=== PATIENT | female | born 1945 | race African-American/Black ===

== ENCOUNTER 2016-07-10 21:50 | Emergency (ER) | payer OTHER ==
--- NOTE | 2016-07-10 21:59 | PDOC ---
History of Present Illness - General History Source: Patient Exam Limitations: No Limitations - History of Present Illness Initial Comments: 07/10/16 22:28 The patient is a 71 year old female with significant history of hypertension, hyperlipidemia, atrial fibrillation, CAD s/p stent, CHF, asthma, brought in by EMS complaining of right toe pain. The patient reports she stubbed her right first and second toes on a door and subsequently developed 10/10 pain, prompting her to activate EMS. She is unable to localize her pain. On evaluation , the patient also complains of 2 days of cough with white sputum and shortness of breath. Today she developed midsternal chest pain secondary to cough, made worse with cough and deep inspiration. She states she has been taking a nebulizer at home. The patient denies fever or chills. She denies nausea, vomiting, or diaphoresis. She denies any new peripheral edema. She denies any numbness or tingling. <Lilli James - Last Filed: 07/11/16 01:18> <Antoni Samayoa - Last Filed: 07/11/16 01:30> - General Stated Complaint: TOE PAIN Time Seen by Provider: 07/10/16 21:55 Past History <Lilli James - Last Filed: 07/11/16 01:18> - Past Medical History Anemia: Yes Asthma: Yes Cancer: No Cardiac Disorders: Yes (atrial fibrillation, CARDIAC CATH 2010-NORMAL) CVA: No COPD: Yes CHF: No Dementia: Yes Diabetes: Yes Dialysis: Yes GI Disorders: Yes (POLYPS; DIVERTICULOSIS; GERD) Disorders: No HTN: Yes Hypercholesterolemia: No Liver Disease: No Psychiatric Problems: Yes (schiophrenia) Suicide Attempt (Hx): No Seizures: No Thyroid Disease: No - Surgical History Abdominal Surgery: Yes (intestinal blockage 2010; HIATAL HERNIA;) Appendectomy: No Cardiac Surgery: No Cholecystectomy: No Lung Surgery: No Neurologic Surgery: Yes (UPPER BACK SX) Orthopedic Surgery: Yes (R. Knee replacement 2010) - Immunization History Immunization Up to Date: Yes - Psycho/Social/Smoking Cessation Hx Anxiety: No Suicidal Ideation: No Smoking Status: No Smoking History: Never smoked Have you smoked in the past 12 months: No Number of Cigarettes Smoked Daily: 0 Hx Alcohol Use: Yes (none x 30 years) Drug/Substance Use Hx: No Substance Use Type: Alcohol Hx Substance Use Treatment: No (12 steps) <Antoni Samayoa - Last Filed: 07/11/16 01:30> - Past Medical History Allergies/Adverse Reactions: Allergies Allergy/AdvReac Type Severity Reaction Status Date / Time No Known Drug Allergies Allergy Verified 07/10/16 22:10 lactose [Lactose] AdvReac Verified 07/10/16 22:10 Home Medications: Ambulatory Orders Dabigatran Etexilate Mesylate [Pradaxa -] 150 mg PO BID #180 cap 11/05/15 Diltiazem Cd [Cardizem Cd -] 120 mg PO DAILY #90 cap.cd.24h 11/05/15 Ferrous Sulfate [Feosol] 325 mg PO DAILY #30 tablet 11/05/15 Furosemide [Lasix -] 20 mg PO DAILY #90 11/05/15 Pantoprazole Sodium [Protonix -] 40 mg PO BID #60 tablet.ec 11/05/15 Risperidone [Risperdal -] 1 mg PO BID tablet 11/05/15 Duloxetine HCl [Cymbalta -] 30 mg PO DAILY capsule. 02/26/16 Gabapentin [Neurontin -] 300 mg PO TID capsule 03/03/16 Lactobacillus Acidophilus [Bacid -] 1 tab PO DAILY tab 03/03/16 Polyethylene Glycol 3350 [Miralax 119 gm Btl -] 17 gm PO TID bottle 03/03/16 Sertraline HCl [Zoloft] 50 mg PO DAILY 04/20/16 Diclofenac Sodium [Voltaren] 100 gm TP TID 06/17/16 Naproxen [EC-Naprosyn] 375 mg PO BID 06/17/16 Levofloxacin [Levaquin] 750 mg PO DAILY #10 tab 07/11/16 Methylprednisolone [Medrol Dose Ifeanyi] 4 mg PO ASDIR #21 tablet 07/11/16 Oxycodone HCl/Acetaminophen [Percocet 5-325 mg Tablet] 1 - 2 tab PO Q6H #20 tab MDD 4 07/11/16 Review of Systems - Review of Systems Able to Perform ROS?: Yes Comments:: 07/10/16 22:35 GENERAL/CONSTITUTIONAL: No fever or chills. No weakness. HEAD, EYES, EARS, NOSE AND THROAT: No change in vision. No ear pain or discharge. No sore throat CARDIOVASCULAR: No lightheadedness, palpitations, or peripheral edema. RESPIRATORY: Cough with white sputum. Wheezing. Pleuritic chest pain. GASTROINTESTINAL: No nausea, vomiting, diarrhea or constipation. GENITOURINARY: No dysuria, frequency, or change in urination. MUSCULOSKELETAL: Left first and second toe pain. No other joint or muscle swelling or pain. No neck or back pain. SKIN: No rash NEUROLOGIC: No headache, vertigo, loss of consciousness, or change in strength/ sensation. No numbness or tingling. ENDOCRINE: No increased thirst. No abnormal weight change. HEMATOLOGIC/LYMPHATIC: No anemia, easy bleeding, or history of blood clots. ALLERGIC/IMMUNOLOGIC: No hives or skin allergy. <Lilli James - Last Filed: 07/11/16 01:18> *Physical Exam - Vital Signs Last Vital Signs Temp Pulse Resp BP Pulse Ox 98.4 F 63 18 123/57 99 07/10/16 22:08 07/10/16 22:08 07/10/16 22:08 07/10/16 22:08 07/10/16 22:08 - Physical Exam Comments: 07/10/16 22:40 GENERAL: Awake, alert, and fully oriented, in no acute distress HEAD: No signs of trauma EYES: PERRLA, EOMI, sclera anicteric, conjunctiva clear ENT: Auricles normal inspection, hearing grossly normal, nares patent, oropharynx clear without exudates. Moist mucosa NECK: Normal ROM, supple, no lymphadenopathy, JVD, or masses LUNGS: Anterior chest wall pain reproducible to palpation. Breath sounds equal, clear to auscultation bilaterally. No wheezes, and no crackles HEART: Regular rate and rhythm, normal S1 and S2, no murmurs, rubs or gallops ABDOMEN: Soft, nontender, normoactive bowel sounds. No guarding, no rebound. No masses EXTREMITIES: Left lower extremity: Diffuse tenderness to the first and second toes, no obvious bony deformity, sensation intact. All other extremities: Normal range of motion, no edema. No clubbing or cyanosis. No cords, erythema, or tenderness NEUROLOGICAL: Cranial nerves II through XII grossly intact. Normal speech, gait deferred. SKIN: Warm, Dry, normal turgor, no rashes or lesions noted. <Lilli James - Last Filed: 07/11/16 01:18> ED Treatment Course - LABORATORY CBC & Chemistry Diagram: 07/10/16 23:00 07/10/16 23:00 <Lilli James - Last Filed: 07/11/16 01:18> - LABORATORY CBC & Chemistry Diagram: 07/10/16 23:00 07/10/16 23:00 <Antoni Samayoa - Last Filed: 07/11/16 01:30> Medical Decision Making - Medical Decision Making 07/10/16 22:47 Plan: Cough and chest pain- CBC, CMP, cardiac enzymes, PT/INR, CXR, EKG Right toe pain: Right foot x-ray 07/10/16 22:58 EKG obtained 22:26. Normal sinus rhythm at 63 bpm. Left anterior fascicular block. Voltage criteria for left ventricular hypertrophy. Cannot rule out septal infarct, age undetermined. Abnormal ECG. 07/11/16 01:18 CXR shows bronchopneumonia. R foot x-ray is negative for fracture. Labs unremarkable. Will d/c home on Levaquin with Percocet for pain management. <Lilli James - Last Filed: 07/11/16 01:18> *DC/Admit/Observation/Transfer - Attestations Scribe Attestion: 07/10/16 22:45 Documentation prepared by Lilli James, acting as medical representative for Antoni Samayoa DO. <Lilli James - Last Filed: 07/11/16 01:18> - Discharge Dispostion Admit: No - Attestations Physician Attestion: 07/10/16 21:58 I, Dr. Antoni Samayoa, attest that this document has been prepared under my direction and personally reviewed by me in its entirety. I further attest, that it accurately reflects all work, treatment, procedures and medical decision -making performed by me. <Antoni Samayoa - Last Filed: 07/11/16 01:30> Diagnosis at time of Disposition: Bronchitis Contusion of toe of right foot Qualifiers: Encounter type: initial encounter Toe: great toe Damage to nail status: without damage Qualified Code(s): S90.111A - Contusion of right great toe without damage to nail, initial encounter - Discharge Dispostion Disposition: HOME Condition at time of disposition: Good - Prescriptions Prescriptions: Levofloxacin [Levaquin] 750 mg PO DAILY #10 tab Methylprednisolone [Medrol Dose Ifeanyi] 4 mg PO ASDIR #21 tablet Oxycodone HCl/Acetaminophen [Percocet 5-325 mg Tablet] 1 - 2 tab PO Q6H #20 tab MDD 4 - Patient Instructions Printed Discharge Instructions: DI for Acute Bronchitis, DI for Contusion Additional Instructions: Doris- I am sorry that you hurt your foot. It's not broken, but I know it hurts. Wear the wooden shoe. I wrote for a few percocet. You have Bronchitis. You need to follow up with your doctor and stay away from cigarette smoke. Take the antibiotic, Levaquin, for a full ten days. The medrol dose pack is for five days. Omid- Dr. Antoni Samayoa
[2016-07-10 22:10] VITALS: BP 123/57; PULSE 63; TEMP 98.4; BMI 34.4
[2016-07-10 23:45] LABS: BASOPHIL 0.6 % (0-2.0); MCH 25.8 pg (25.7-33.7); MCHC 30.9 g/dl (32.0-36.0); MEAN CELL VOLUME 83.5 fl (80-96); MEAN PLT VOLUME 9.2 fl (7.5-11.1); NEUTROPHILS 52.8 % (42.8-82.8); PLATELET COUNT 233 K/MM3 (134-434); RDW 15.9 % (11.6-15.6); WHITE BLOOD COUNT 4.8 K/mm3 (4.0-10.0)
[2016-07-10 23:49] LABS: INR 1.15 (0.82-1.09); PROTHROMBIN TIME (PATIENT) 12.7 SEC (9.98-11.88)
[2016-07-11] LABS: ALBUMIN 3.4 g/dl (3.4-5.0); ANION GAP 10 (8-16); BILIRUBIN,TOTAL 0.2 mg/dL (0.2-1.0); CALCIUM 8.2 mg/dL (8.5-10.1); CO2 31 mmol/L (21-32); CREATININE 0.9 mg/dL (0.55-1.02); GLUCOSE,RANDOM 90 mg/dL (74-106); SGOT/AST 17 U/L (15-37); SGPT/ALT 18 U/L (12-78); TOT PROT 6.7 g/dl (6.4-8.2)
[2016-07-11 00:02] LABS: ALK PHOS 93 U/L (45-117); TROPONIN I < 0.02 ng/ml (0.00-0.05)
[2016-07-11] MEDS ORDERED: methylPREDNISolone NA SUCC 125 MG/2 ML VIAL IVPB ONE (00:40)
[2016-07-11] MEDS ORDERED: LEVOFLOXACIN 750 MG IVPB 150 ML IVPB ONE (00:41)
[2016-07-11] MEDS ORDERED: HYDROmorphone HCL CARPU-JECT 2 MG/1 ML DISP.SYRIN ONE (00:52)
[2016-07-11] MEDS ORDERED: methylPREDNISolone NA SUCC 125 MG/2 ML VIAL ONE (00:58)
[2016-07-11] MEDS ORDERED: LEVOFLOXACIN 250 MG IVPB 50 ML IVPB ONE (00:59)
[2016-07-11] MEDS ORDERED: LEVOFLOXACIN 500 MG IVPB 100 ML IVPB ONE (00:59)
[2016-07-11 01:02] LABS: URINE APPEARANCE SLCLOUDY; URINE BILIRUBIN NEGATIVE (NEGATIVE); URINE COLOR LTYELLOW; URINE GLUCOSE (UA) NEGATIVE (NEGATIVE); URINE KETONE NEGATIVE (NEGATIVE); URINE NITRITE NEGATIVE (NEGATIVE); URINE PROTEIN NEGATIVE (NEGATIVE); URINE UROBILINOGEN NEGATIVE E.U./dl (0.2-1.0)
[2016-07-11 01:11] LABS: URINE BLOOD 2+ (NEGATIVE); URINE LEUK ESTERASE TRACE (NEGATIVE)
[2016-07-11 01:12] LABS: URINE BACTERIA RARE /hpf (NONE SEEN); URINE MUCUS RARE; URINE RBC 6 /hpf (0-3); URINE WBC 9 /hpf (3-5)
[2016-07-11] MEDS ORDERED: OXYCODONE/APAP 5/325MG COMBO TABLET PO ONE (01:19)
[2016-07-11] MEDS ORDERED: OXYCODONE/APAP 5/325MG COMBO TABLET ONE (01:33)
--- NOTE | 2016-07-11 13:13 | EKG ---
Test Reason : Blood Pressure : / mmHG Vent. Rate : 063 BPM Atrial Rate : 063 BPM P-R Int : 206 ms QRS Dur : 088 ms QT Int : 430 ms P-R-T Axes : 058 -46 070 degrees QTc Int : 440 ms NORMAL SINUS RHYTHM LEFT ANTERIOR FASCICULAR BLOCK VOLTAGE CRITERIA FOR LEFT VENTRICULAR HYPERTROPHY CANNOT RULE OUT SEPTAL INFARCT (CITED ON OR BEFORE 12-MAR-2011) ABNORMAL ECG WHEN COMPARED WITH ECG OF 08-MAY-2016 09:53, SINUS RHYTHM HAS REPLACED ATRIAL FIBRILLATION Confirmed by BLAZE HARGROVE MD ([id number]) on 07/11/2016 1:13:20 PM Referred By: Overread By: BLAZE HARGROVE MD
== END 2016-07-11 02:17 | disposition home or self-care (01) ==
LOC: JER 21:50
PROC: 3E03329 Introduction of Other Anti-infective into Peripheral Vein, Percutaneous Approach (ICD-10-PCS; principal; 2016-07-10)
PROC: 3E0333Z Introduction of Anti-inflammatory into Peripheral Vein, Percutaneous Approach (ICD-10-PCS; 2016-07-10)
DX: J40 Bronchitis, not specified as acute or chronic (principal); S90.111A Contusion of right great toe without damage to nail, initial encounter; W22.8XXA Striking against or struck by other objects, initial encounter; Y93.89 Activity, other specified; Y92.038 Other place in apartment as the place of occurrence of the external cause; I48.91 Unspecified atrial fibrillation; Z79.01 Long term (current) use of anticoagulants; I10 Essential (primary) hypertension; E78.5 Hyperlipidemia, unspecified; I50.9 Heart failure, unspecified; Z95.5 Presence of coronary angioplasty implant and graft
CPT/HCPCS: 36415; 71010-TC; 73630-TC-RT; 80053; 81003; 81015; 82550; 82553; 84484; 85025; 85610; 87086; 93005; 93010; 96365; 96375; 99282-25

== ENCOUNTER 2016-07-18 13:00 | Inpatient (IN) | payer OTHER ==
[2016-07-18] MEDS ORDERED: ALBUTEROL SO4 2.5/IPRATROPIUM 0.5 INH SOL 3 ML VIAL.NEB. NEB ONE ×2 (13:30→13:46)
[2016-07-18] MEDS ORDERED: methylPREDNISolone NA SUCC 125 MG/2 ML VIAL IVPB ONE (13:37)
--- NOTE | 2016-07-18 13:38 | PDOC ---
Attending Attestation - Resident Resident Name: Trang Whitmaneen - ED Attending Attestation I have performed the following: I have examined & evaluated the patient, The case was reviewed & discussed with the resident, I agree w/resident's findings & plan - HPI HPI: 07/19/16 09:31 see below - Physicial Exam PE: 07/19/16 09:31 see below - Medical Decision Making 07/18/16 14:07 71y F hx of htn, hl, cad s/p stent, chf, afib, dm, copd presents with sob - recent dx of bronchitis, being managed as outptaient with albuterol/prednisone after ED visitn last week- was following up with dr. collier today for followup and was noted to not be substantially improving. sent for reevaluation. pt endorsed chest pain worse iwth coughing, not really worse with exertion - suspect secondary to her cough. will obtain blood work, cxr, influenza, tx for copd, will r/o acs, pna. exam noted for scattered wheezing, anticipate admission consider possible PE? as pt has very limited wheezing, no rales to suggest significnat CHF 07/19/16 09:30 pt was signed out to dr. wheatley at 4pm on 07/18, for reassessment and following up with the CT - and was ultimately admitted to dr. Tamez service
--- NOTE | 2016-07-18 13:42 | PDOC ---
History of Present Illness - General History Source: Patient Exam Limitations: No Limitations - History of Present Illness Initial Comments: 07/18/16 13:50 Patient is a 71 year old female with a significant PMHx of HTN, HLD, CAD s/p stent, Diastolic CHF, A.fib, DM II, COPD, Asthma, Anemia who presents to the ED complaining of shortness of breath that began 2-3 days ago associated with constant sharp midsternal chest pain radiating to the back and nonproductive cough. Patient was in the ED one week ago for similar symptoms but at the time her cough was productive with yellow sputum. Patient states she took her albuterol pump but with no relief of symptoms, which prompted this ED visit. She denies nausea, vomiting, abdominal pain She denies headache, dizziness, visual changes She denies dysuria, frequency, hematuria, urgency PMHx: TN, HLD, CAD s/p stent, Diastolic CHF, A.fib, DM II, COPD, Asthma, Anemia PSHx: Right Knee replacement, tonsillectomy, ventral hernia repair MEDS: Refer to Ambulatory Allergies: NKDA Social: Never smoked, quit drinking 30 years ago, denies drugs PCP: Dr. Cathleen Kan 07/18/16 17:50 -CTA pending -Will endorse to Dr. Hermosillo <Rachelle Whitman - Last Filed: 07/18/16 17:50> <Michel Diaz - Last Filed: 07/18/16 18:01> <Jigna Hermosillo - Last Filed: 07/18/16 19:50> - General Chief Complaint: Shortness of Breath Stated Complaint: SHORTNESS OF BREATH Time Seen by Provider: 07/18/16 13:12 Past History - Past Medical History Anemia: Yes Asthma: Yes Cancer: No Cardiac Disorders: Yes (atrial fibrillation, CARDIAC CATH 2010-NORMAL) CVA: No COPD: Yes CHF: No Dementia: Yes Diabetes: Yes Dialysis: Yes GI Disorders: Yes (POLYPS; DIVERTICULOSIS; GERD) Disorders: No HTN: Yes Hypercholesterolemia: No Liver Disease: No Psychiatric Problems: Yes (schiophrenia) Suicide Attempt (Hx): No Seizures: No Thyroid Disease: No - Surgical History Abdominal Surgery: Yes (intestinal blockage 2010; HIATAL HERNIA;) Appendectomy: No Cardiac Surgery: No Cholecystectomy: No Lung Surgery: No Neurologic Surgery: Yes (UPPER BACK SX) Orthopedic Surgery: Yes (R. Knee replacement 2010) - Immunization History Immunization Up to Date: Yes - Psycho/Social/Smoking Cessation Hx Anxiety: No Suicidal Ideation: No Smoking Status: No Smoking History: Never smoked Have you smoked in the past 12 months: No Number of Cigarettes Smoked Daily: 0 Hx Alcohol Use: Yes (none x 30 years) Drug/Substance Use Hx: No Substance Use Type: Alcohol Hx Substance Use Treatment: No (12 steps) <Rachelle Whitman - Last Filed: 07/18/16 17:50> <Michel Diaz - Last Filed: 07/18/16 18:01> <Jigna Hermosillo - Last Filed: 07/18/16 19:50> - Past Medical History Allergies/Adverse Reactions: Allergies Allergy/AdvReac Type Severity Reaction Status Date / Time No Known Drug Allergies Allergy Verified 07/10/16 22:10 lactose [Lactose] AdvReac Verified 07/10/16 22:10 Home Medications: Ambulatory Orders Dabigatran Etexilate Mesylate [Pradaxa -] 150 mg PO BID #180 cap 11/05/15 Diltiazem Cd [Cardizem Cd -] 120 mg PO DAILY #90 cap.cd.24h 11/05/15 Ferrous Sulfate [Feosol] 325 mg PO DAILY #30 tablet 11/05/15 Furosemide [Lasix -] 20 mg PO DAILY #90 11/05/15 Pantoprazole Sodium [Protonix -] 40 mg PO BID #60 tablet.ec 11/05/15 Risperidone [Risperdal -] 1 mg PO BID tablet 11/05/15 Duloxetine HCl [Cymbalta -] 30 mg PO DAILY capsule. 02/26/16 Gabapentin [Neurontin -] 300 mg PO TID capsule 03/03/16 Lactobacillus Acidophilus [Bacid -] 1 tab PO DAILY tab 03/03/16 Polyethylene Glycol 3350 [Miralax 119 gm Btl -] 17 gm PO TID bottle 03/03/16 Sertraline HCl [Zoloft] 50 mg PO DAILY 04/20/16 Diclofenac Sodium [Voltaren] 100 gm TP TID 06/17/16 Naproxen [EC-Naprosyn] 375 mg PO BID 06/17/16 Levofloxacin [Levaquin] 750 mg PO DAILY #10 tab 07/11/16 Methylprednisolone [Medrol Dose Ifeanyi] 4 mg PO ASDIR #21 tablet 07/11/16 Oxycodone HCl/Acetaminophen [Percocet 5-325 mg Tablet] 1 - 2 tab PO Q6H #20 tab MDD 4 07/11/16 Review of Systems - Review of Systems Constitutional: Yes: Diaphoresis, Weakness. No: Chills, Fever, Malaise, Night Sweats HEENTM: No: Eye Pain, Blurred Vision, Double Vision, Nose Bleeding, Throat Pain Respiratory: Yes: Cough, Shortness of Breath, SOB with Exertion, SOB at Rest, Wheezing, Productive cough. No: Hemoptysis Cardiac (ROS): Yes: Chest Pain, Lightheadedness. No: Edema, Irregular Heart Rate, Palpitations, Syncope, Chest Tightness ABD/GI: No: Diarrhea, Nausea, Vomiting, Abdominal cramping : No: Burning, Dysuria, Discharge Musculoskeletal: No: Back Pain, Joint Pain Integumentary: No: Bruising, Erythema Neurological: No: Headache, Numbness, Paresthesia, Seizure, Tingling Psychiatric: No: Anxiety, Depression Endocrine: No: Intolerance to Cold, Intolerance to Heat Hematologic/Lymphatic: No: Blood Clots <Rachelle Whitman - Last Filed: 07/18/16 17:50> *Physical Exam - Vital Signs Last Vital Signs Temp Pulse Resp BP Pulse Ox 97.4 F L 68 20 126/66 100 07/18/16 13:14 07/18/16 13:14 07/18/16 13:14 07/18/16 13:14 07/18/16 13:14 - Physical Exam General Appearance: Yes: Obese, Other (Awake, alert, oriented and in mild respiratory distress ) HEENT: positive: Normal ENT Inspection, Pharynx Normal, Rhinorrhea. negative: Tonsillar Exudate, Tonsillar Erythema, Sinus Tenderness, TM Bulging Neck: positive: Trachea midline. negative: Lymphadenopathy (R), Lymphadenopathy (L) Respiratory/Chest: positive: Labored Respiration, Wheezing (bilaterally throughout lung bases ) Cardiovascular: positive: Regular Rhythm, Regular Rate, S1, S2. negative: Edema , JVD, Bradycardia, Tachycardia Gastrointestinal/Abdominal: positive: Normal Bowel Sounds. negative: Guarding, Rebound, Tenderness Extremity: positive: Normal Inspection, Normal Range of Motion Integumentary: positive: Normal Color Neurologic: positive: Fully Oriented, Alert, Normal Response, Motor Strength 5/5 <Rachelle Whitman - Last Filed: 07/18/16 17:50> - Vital Signs Last Vital Signs Temp Pulse Resp BP Pulse Ox 97.4 F L 68 20 126/66 100 07/18/16 13:14 07/18/16 13:14 07/18/16 13:14 07/18/16 13:14 07/18/16 13:14 <Michel Diaz - Last Filed: 07/18/16 18:01> - Vital Signs Last Vital Signs Temp Pulse Resp BP Pulse Ox 97.4 F L 68 20 126/66 100 07/18/16 13:14 07/18/16 13:14 07/18/16 13:14 07/18/16 13:14 07/18/16 13:14 <Jigna Hermosillo - Last Filed: 07/18/16 19:50> Heart Score/ECG Review - ECG Impressions Comment:: 07/18/16 18:01 Twelve-lead EKG was performed and reviewed by me. There is normal sinus rhythm with a rate of 59 First degree AV block Left axis deviation There is abnormal R wave progression There are no ST or T wave abnormalities. <Michel Diaz - Last Filed: 07/18/16 18:01> ED Treatment Course - LABORATORY CBC & Chemistry Diagram: 07/18/16 14:08 07/18/16 14:08 - RADIOLOGY Radiology Studies Ordered: Category Date Time Status CHEST X-RAY PORTABLE* [RAD] Stat Radiology 07/18/16 13:31 Ordered <Rachelle Whitman - Last Filed: 07/18/16 17:50> - LABORATORY CBC & Chemistry Diagram: 07/18/16 14:08 07/18/16 14:08 - ADDITIONAL ORDERS Additional order review: Laboratory Results 07/18/16 07/18/16 14:08 14:08 Sodium Cancelled 143 Potassium Cancelled 4.6 Chloride Cancelled 105 Carbon Dioxide Cancelled 30 Anion Gap Cancelled 8 BUN Cancelled 18 D Creatinine Cancelled 0.9 Creat Clearance w eGFR Cancelled > 60 Random Glucose Cancelled 82 Calcium Cancelled 9.2 Total Bilirubin Cancelled 0.1 L D AST Cancelled 16 ALT Cancelled 20 Alkaline Phosphatase Cancelled 98 Creatine Kinase 188 CK-MB (CK-2) 1.696 Troponin I < 0.02 B-Natriuretic Peptide 536.76 H Total Protein Cancelled 7.7 Albumin Cancelled 3.7 07/18/16 14:08 RBC 4.67 MCV 84.0 MCHC 31.7 L RDW 15.7 H MPV 8.2 D Neutrophils % 48.0 Lymphocytes % 41.0 H D Monocytes % 9.0 Basophils % 1.0 - RADIOLOGY Radiology Studies Ordered: Category Date Time Status CHEST CTA [CT] Stat CT Scan 07/18/16 15:24 Taken - Medications Given in the ED: ED Medications Discontinued Medications Generic Name Dose Route Start Last Admin Trade Name Freq PRN Reason Stop Dose Admin Albuterol/Ipratropium 3 amp 07/18/16 13:30 07/18/16 14:18 Duoneb - NEB 07/18/16 13:31 3 amp ONCE ONE Administration Methylprednisolone Sodium Succinate 125 mg 07/18/16 13:37 07/18/16 14:18 Solu-Medrol - IVPB 07/18/16 13:38 125 mg ONCE ONE Administration <Joe,Michel - Last Filed: 07/18/16 18:01> - LABORATORY CBC & Chemistry Diagram: 07/18/16 14:08 07/18/16 14:08 - ADDITIONAL ORDERS Additional order review: Laboratory Results 07/18/16 07/18/16 14:08 14:08 Sodium Cancelled 143 Potassium Cancelled 4.6 Chloride Cancelled 105 Carbon Dioxide Cancelled 30 Anion Gap Cancelled 8 BUN Cancelled 18 D Creatinine Cancelled 0.9 Creat Clearance w eGFR Cancelled > 60 Random Glucose Cancelled 82 Calcium Cancelled 9.2 Total Bilirubin Cancelled 0.1 L D AST Cancelled 16 ALT Cancelled 20 Alkaline Phosphatase Cancelled 98 Creatine Kinase 188 CK-MB (CK-2) 1.696 Troponin I < 0.02 B-Natriuretic Peptide 536.76 H Total Protein Cancelled 7.7 Albumin Cancelled 3.7 07/18/16 14:08 RBC 4.67 MCV 84.0 MCHC 31.7 L RDW 15.7 H MPV 8.2 D Neutrophils % 48.0 Lymphocytes % 41.0 H D Monocytes % 9.0 Basophils % 1.0 - Medications Given in the ED: ED Medications Discontinued Medications Generic Name Dose Route Start Last Admin Trade Name Kimani PRN Reason Stop Dose Admin Albuterol/Ipratropium 3 amp 07/18/16 13:30 07/18/16 14:18 Duoneb - NEB 07/18/16 13:31 3 amp ONCE ONE Administration Methylprednisolone Sodium Succinate 125 mg 07/18/16 13:37 07/18/16 14:18 Solu-Medrol - IVPB 07/18/16 13:38 125 mg ONCE ONE Administration <Jigna Hermosillo - Last Filed: 07/18/16 19:50> Medical Decision Making - Medical Decision Making 07/18/16 14:14 Patient is a 71 year old female with a PMHx of HTN, HLD, CAD s/p stent, Diastolic CHF, A.fib, DM II, COPD, Asthma, Anemia who presents to the ED complaining of shortness of breath, chest pain and a cough that began five days ago. Differential diagnosis include but not limited to Pneumonia, PE, asthma exacerbation, COPD exacerbation, CHF exacerbation, ACS. ED Course and Treatment -CBC -CMP -Cardiac Profile including troponin -ABG -BNP -EKG -Chest x-ray -Solu-medrol 125mg IVP -3 amps of DuoNeb 07/18/16 15:25 -Labs wnl -Patient saturating 100% on RA after treatment -CTA ordered to rule out PE <Rachelle Whitman - Last Filed: 07/18/16 17:50> - Medical Decision Making 07/18/16 19:[address] Marilyn Egan, who requested the patient be admitted to [facility] because of suspicions for congestive heart failure. She does have a history of diastolic dysfunction. Patient will be given diuretics and will have cardiology consult also with Dr. Honeycutt telemetry <Jigna Hermosillo - Last Filed: 07/18/16 19:50> *DC/Admit/Observation/Transfer <Rachelle Whitman - Last Filed: 07/18/16 17:50> <Michel Diaz - Last Filed: 07/18/16 18:01> - Discharge Dispostion Admit: Yes <Jigna Hermosillo - Last Filed: 07/18/16 19:50> Diagnosis at time of Disposition: Congestive heart failure Qualifiers: Congestive heart failure type: unspecified congestive heart failure type Congestive heart failure chronicity: unspecified congestive heart failure chronicity Qualified Code(s): I50.9 - Heart failure, unspecified Dyspnea Qualifiers: Dyspnea type: shortness of breath Qualified Code(s): R06.02 - Shortness of breath
[2016-07-18] MEDS ORDERED: methylPREDNISolone NA SUCC 125 MG/2 ML VIAL ONE (13:46)
[2016-07-18 14:19] LABS: MCH 26.6 pg (25.7-33.7); MCHC 31.7 g/dl (32.0-36.0); MEAN PLT VOLUME 8.2 fl (7.5-11.1); PLATELET COUNT 323 K/MM3 (134-434); RDW 15.7 % (11.6-15.6); WHITE BLOOD COUNT 7.3 K/mm3 (4.0-10.0)
[2016-07-18 14:49] LABS: ALBUMIN 3.7 g/dl (3.4-5.0); ANION GAP 8 (8-16); BILIRUBIN,TOTAL 0.1 mg/dL (0.2-1.0); CALCIUM 9.2 mg/dL (8.5-10.1); CO2 30 mmol/L (21-32); CREATININE 0.9 mg/dL (0.55-1.02); GLUCOSE,RANDOM 82 mg/dL (74-106); SGPT/ALT 20 U/L (12-78); TOT PROT 7.7 g/dl (6.4-8.2)
[2016-07-18 14:52] LABS: ALK PHOS 98 U/L (45-117); TROPONIN I < 0.02 ng/ml (0.00-0.05)
[2016-07-18 14:56] LABS: SGOT/AST 16 U/L (15-37)
--- NOTE | 2016-07-18 17:19 | EKG ---
Test Reason : Blood Pressure : / mmHG Vent. Rate : 059 BPM Atrial Rate : 059 BPM P-R Int : 218 ms QRS Dur : 088 ms QT Int : 414 ms P-R-T Axes : 061 -44 056 degrees QTc Int : 409 ms SINUS BRADYCARDIA WITH 1ST DEGREE A-V BLOCK LEFT AXIS DEVIATION VOLTAGE CRITERIA FOR LEFT VENTRICULAR HYPERTROPHY CANNOT RULE OUT SEPTAL INFARCT (CITED ON OR BEFORE 12-MAR-2011) ABNORMAL ECG WHEN COMPARED WITH ECG OF 10-JUL-2016 22:26, T WAVE VARIATION Confirmed by BLAZE HARGROVE MD ([id number]) on 07/18/2016 5:18:51 PM Referred By: Confirmed By:BLAZE HARGROVE MD
[2016-07-18] MEDS ORDERED: OXYCODONE/APAP 5/325MG COMBO TABLET PO PRN (23:44)
[2016-07-18] MEDS ORDERED: ACETAMINOPHEN 325 MG TABLET (FP) PO PRN (23:47)
[2016-07-18] MEDS ORDERED: ALBUTEROL SO4 0.083% IH SOL 2.5 MG/3 ML VIAL.NEB. NEB PRN (23:47)
[2016-07-19] MEDS ORDERED: methylPREDNISolone NA SUCC 40 MG/1 ML VIAL ONE ×3 (00:14→10:55)
[2016-07-19] MEDS: methylPREDNISolone NA SUCC 40 MG/1 ML VIAL IVPB SCH ×3 (00:16→11:11)
[2016-07-19] MEDS ORDERED: GABAPENTIN 100 MG CAPSULE (FP) ONE (06:38)
[2016-07-19] MEDS: GABAPENTIN 300 MG CAPSULE (FP) PO SCH ×3 (06:45→22:12)
[2016-07-19] MEDS ORDERED: INSULIN (NOVOLOG) ASPART 100 UNITS/ML 10ML VIAL ONE (06:46)
[2016-07-19] MEDS: INSULIN SLIDING SCALE (NOVOLOG) 1 VIAL SQ SCH ×4 (06:48→22:13)
[2016-07-19 07:02] LABS: BASOPHIL 0.1 % (0-2.0); MCH 27.3 pg (25.7-33.7); MCHC 32.6 g/dl (32.0-36.0); MEAN CELL VOLUME 83.7 fl (80-96); MEAN PLT VOLUME 8.5 fl (7.5-11.1); NEUTROPHILS 89.9 % (42.8-82.8); PLATELET COUNT 323 K/MM3 (134-434); RDW 15.7 % (11.6-15.6)
[2016-07-19 07:32] LABS: ALBUMIN 3.5 g/dl (3.4-5.0); ANION GAP 9 (8-16); BILIRUBIN,TOTAL 0.2 mg/dL (0.2-1.0); CO2 27 mmol/L (21-32); CREATININE 0.9 mg/dL (0.55-1.02); GLUCOSE,RANDOM 147 mg/dL (74-106); MAGNESIUM 2.6 mg/dL (1.8-2.4); SGOT/AST 11 U/L (15-37); SGPT/ALT 17 U/L (12-78); TOT PROT 7.2 g/dl (6.4-8.2)
[2016-07-19 07:35] LABS: ALK PHOS 94 U/L (45-117); TROPONIN I < 0.02 ng/ml (0.00-0.05)
[2016-07-19 09:33] LABS: THYROID STIMULATING HORMONE 0.21 uIU/ml (0.358-3.74)
[2016-07-19] MEDS ORDERED: SERTRALINE HCL 50 MG TABLET (FP) PO SCH (10:00)
--- NOTE | 2016-07-19 10:34 | PN ---
[id number] List Current Medications: Active Medications Acetaminophen (Tylenol -) 650 mg PO Q6H PRN PRN Reason: FEVER OR PAIN Albuterol Sulfate (Ventolin 0.083% Nebulizer Soln -) 1 amp NEB Q6H PRN PRN Reason: SHORT OF BREATH/WHEEZING Dabigatran (Pradaxa -) 150 mg PO BID [facility] Diltiazem HCl (Cardizem Cd -) 120 mg PO DAILY [facility] Duloxetine HCl (Cymbalta -) 30 mg PO DAILY [facility] Ferrous Sulfate (Feosol -) 325 mg PO DAILY [facility] Furosemide (Lasix Injection -) 40 mg IVPUSH DAILY [facility] Gabapentin (Neurontin -) 300 mg PO TID [facility] Last Admin: 07/19/16 06:45 Dose: 300 mg Insulin Aspart (Novolog Vial Sliding Scale -) 1 vial SQ ACHS [facility] PRN Reason: Protocol Last Admin: 07/19/16 06:48 Dose: 2 units Lactobacillus Acidophilus (Bacid -) 1 tab PO DAILY [facility] Methylprednisolone Sodium Succinate (Solu-Medrol -) 40 mg IVPB Q8H-IV [facility] Last Admin: 07/19/16 02:05 Dose: 40 mg Non-Formulary Medication (Sertraline Hcl [Zoloft]) 50 mg PO DAILY [facility] Oxycodone/Acetaminophen (Percocet 5/325 -) 1 combo PO Q6H PRN PRN Reason: PAIN LEVEL 6-10 Pantoprazole Sodium (Protonix -) 40 mg PO DAILY [facility] Polyethylene Glycol (Miralax (For Daily Use) -) 17 gm PO TID PRN PRN Reason: CONSTIPATION Risperidone (Risperdal -) 1 mg PO BID [facility] - Objective Vital Signs: Vital Signs Temperature 97.4 F L 07/18/16 13:14 Pulse Rate 72 07/19/16 06:50 Respiratory Rate 18 07/19/16 06:50 Blood Pressure 144/70 07/19/16 06:50 O2 Sat by Pulse Oximetry (%) 100 07/19/16 06:50 Constitutional: Yes: No Distress Eyes: Yes: Conjunctiva Clear HENT: Yes: Atraumatic Neck: Yes: Supple Cardiovascular: Yes: Regular Rate and Rhythm Respiratory: Yes: Diminished Gastrointestinal: Yes: Soft. No: Distention, Tenderness Musculoskeletal: No: Joint Stiffness, Joint Swelling Extremities: No: Cold, Cool Edema: No Peripheral Pulses WNL: Yes Integumentary: No: Pressure Ulcer, Venous Stasis Changes Neurological: Yes: WNL, Alert, Oriented ...Motor Strength: WNL Psychiatric: Yes: WNL, Alert, Oriented. No: Agitated Labs: CBC, BMP 07/19/16 06:20 07/19/16 06:20 - ....Imaging Other: Report Reviewed Assessment/Plan CHF COPD PAfib exac IV lasix iv steroids cardio and pulm eval O2 NC falls PFX d/w pt and staff
[2016-07-19 11:05] VITALS: BMI 34.4
[2016-07-19] MEDS: LACTOBACILLUS ACIDOPHILUS 1 EACH TAB (FP) PO SCH (11:09)
[2016-07-19] MEDS: PANTOPRAZOLE 40 MG TABLET (FP) PO SCH (11:10)
[2016-07-19] MEDS: FERROUS SO4 325 MG TABLET (FP) PO SCH (11:10)
[2016-07-19] MEDS: FUROSEMIDE 40 MG/4 ML INJECTABLE VIAL IVPUSH SCH (11:10)
[2016-07-19] MEDS: DABIGATRAN ETEXILATE MESYLATE 150 MG CAPSULE PO SCH ×2 (11:10→22:12)
[2016-07-19] MEDS: DULoxetine HCL 30 MG CAPSULE.DR (FP) PO SCH (11:10)
[2016-07-19] MEDS: risperiDONE 0.5 MG TABLET (FP) PO SCH ×2 (11:10→22:12)
--- NOTE | 2016-07-19 16:18 | CONSULT ---
Consult Consult Specialty:: PULM/CCM Referred by:: MIKE Reason for Consultation:: SOB - History of Present Illness Chief Complaint: SOB History of Present Illness: 71 F, HTN, HLD, CAD s/p stent, Diastolic CHF, A.fib, DM II, COPD, Asthma, and Anemia. Admitted via the ER due to increasing shortness of breath for the past 2 to 3 days. Some reports of pleuritic type pain with coughing. No travel history or sick contacts. No fever or chills. No night sweats or hemoptysis. 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: Other (benign essential tremor) Cardio/Vascular: Yes: AFIB, CAD, CHF, HTN, Hyperlipdemia Gastrointestinal: Yes: Diverticulosis, GERD, Hiatal Hernia, Other (h/o sbo and ventral hernia 3 yrs ago) Psych: Yes: Schizophrenia (schizoaffective ds seen by psychiatry periodically) Musculoskeletal: Yes: Chronic low back pain, Osteoarthritis Endocrine: Yes: Diabetes Mellitus - Past Surgical History Past Surgical History: Yes: Colonoscopy (h/o polyps, divosis 2008 and 2010), Hernia Repair (ventral hernia repair 3 yrs ago), Hysterectomy, Joint Replacement (right knee), Tonsillectomy, Upper Endoscopy (2010 and 2008, hh, gastric im) - Alcohol/Substance Use Hx Alcohol Use: Yes (none x 30 years) History of Substance Use: reports: None - Smoking History Smoking history: Never smoked Have you smoked in the past 12 months: No Aproximately how many cigarettes per day: 0 - Social History Usual Living Arrangement: Alone ADL: Support Services History of Recent Travel: No Home Medications - Allergies Allergies/Adverse Reactions: Allergies Allergy/AdvReac Type Severity Reaction Status Date / Time No Known Drug Allergies Allergy Verified 07/10/16 22:10 lactose [Lactose] AdvReac Verified 07/10/16 22:10 - Home Medications Home Medications: Ambulatory Orders Dabigatran Etexilate Mesylate [Pradaxa -] 150 mg PO BID #180 cap 11/05/15 Diltiazem Cd [Cardizem Cd -] 120 mg PO DAILY #90 cap.cd.24h 11/05/15 Ferrous Sulfate [Feosol] 325 mg PO DAILY #30 tablet 11/05/15 Furosemide [Lasix -] 20 mg PO DAILY #90 11/05/15 Pantoprazole Sodium [Protonix -] 40 mg PO BID #60 tablet.ec 11/05/15 Risperidone [Risperdal -] 1 mg PO BID tablet 11/05/15 Duloxetine HCl [Cymbalta -] 30 mg PO DAILY capsule. 02/26/16 Gabapentin [Neurontin -] 300 mg PO TID capsule 03/03/16 Lactobacillus Acidophilus [Bacid -] 1 tab PO DAILY tab 03/03/16 Polyethylene Glycol 3350 [Miralax 119 gm Btl -] 17 gm PO TID bottle 03/03/16 Sertraline HCl [Zoloft] 50 mg PO DAILY 04/20/16 Diclofenac Sodium [Voltaren] 100 gm TP TID 06/17/16 Naproxen [EC-Naprosyn] 375 mg PO BID 06/17/16 Levofloxacin [Levaquin] 750 mg PO DAILY #10 tab 07/11/16 Methylprednisolone [Medrol Dose Ifeanyi] 4 mg PO ASDIR #21 tablet 07/11/16 Oxycodone HCl/Acetaminophen [Percocet 5-325 mg Tablet] 1 - 2 tab PO Q6H #20 tab MDD 4 07/11/16 Family Disease History - Family Disease History Family Disease History: Heart Disease: Father (hx stroke, ), [place]: Mother (colon cancer - ) Review of Systems - Review of Systems Constitutional: reports: Malaise. denies: Chills, Fever, Night Sweats, Unintentional Wgt. Loss, Weakness Eyes: reports: No Symptoms HENT: reports: No Symptoms Neck: reports: No Symptoms Cardiovascular: reports: Chest Pain, Shortness of Breath. denies: Edema, Palpitations Respiratory: reports: Cough, SOB, Wheezing. denies: Hemoptysis Gastrointestinal: reports: No Symptoms Genitourinary: reports: No Symptoms Breasts: reports: No Symptoms Reported Musculoskeletal: reports: No Symptoms Integumentary: reports: No Symptoms Neurological: reports: No Symptoms Endocrine: reports: No Symptoms Hematology/Lymphatic: reports: No Symptoms Psychiatric: reports: No Symptoms Physical Exam Vital Sings: Vital Signs Temperature 97.8 F 07/19/16 13:27 Pulse Rate 82 07/19/16 13:27 Respiratory Rate 16 07/19/16 13:27 Blood Pressure 115/47 07/19/16 13:27 O2 Sat by Pulse Oximetry (%) 97 07/19/16 13:27 Constitutional: Yes: Well Nourished, No Distress, Obese Eyes: Yes: WNL, Conjunctiva Clear, EOM Intact HENT: Yes: WNL, Atraumatic, Normocephalic Neck: Yes: Supple, Trachea Midline Cardiovascular: Yes: Regular Rate and Rhythm Respiratory: Yes: Cough, Diminished, On Nasal O2, Wheezes. No: Accessory Muscle Use, Rales, Rhonchi, Stridor, Tachypnea ...Inspection: Yes: WNL ...Clubbing: No Gastrointestinal: Yes: WNL, Normal Bowel Sounds, Soft Renal/: Yes: WNL Breast(s): Yes: WNL Musculoskeletal: Yes: WNL Extremities: Yes: WNL Edema: No Peripheral Pulses WNL: Yes Integumentary: Yes: WNL Neurological: Yes: WNL, Alert, Oriented ...Motor Strength: WNL Psychiatric: Yes: WNL, Alert, Oriented Labs: CBC, BMP 07/19/16 06:20 07/19/16 06:20 Imaging - Results Chest X-ray: Report Reviewed, Image Reviewed Cat Scan: Report Reviewed, Image Reviewed Problem List - Problems (1) Dyspnea Code(s): R06.00 - DYSPNEA, UNSPECIFIED Qualifiers: Dyspnea type: shortness of breath Qualified Code(s): R06.02 - Shortness of breath (2) Bronchitis Code(s): J40 - BRONCHITIS, NOT SPECIFIED ACUTE OR CHRONIC (3) Hiatal hernia Code(s): K44.9 - DIAPHRAGMATIC HERNIA WITHOUT OBSTRUCTION OR GANGRENE (4) Hyperlipidemia Code(s): E78.5 - HYPERLIPIDEMIA, UNSPECIFIED (5) Back pain Code(s): M54.9 - DORSALGIA, UNSPECIFIED Qualifiers: Chronicity: acute Back pain laterality: bilateral Sciatica presence : without sciatica (6) Connective tissue disease Code(s): M35.9 - SYSTEMIC INVOLVEMENT OF CONNECTIVE TISSUE, UNSPECIFIED (7) Diabetes Code(s): E11.9 - TYPE 2 DIABETES MELLITUS WITHOUT COMPLICATIONS (8) Fibromyalgia Code(s): M79.7 - FIBROMYALGIA (9) HTN (hypertension) Code(s): I10 - ESSENTIAL (PRIMARY) HYPERTENSION (10) History of peptic ulcer disease Code(s): Z87.11 - PERSONAL HISTORY OF PEPTIC ULCER DISEASE (11) Left ventricular diastolic dysfunction Code(s): I51.9 - HEART DISEASE, UNSPECIFIED (12) Lower back pain Code(s): M54.5 - LOW BACK PAIN (13) Mitral regurgitation Code(s): I34.0 - NONRHEUMATIC MITRAL (VALVE) INSUFFICIENCY (14) Obesity Code(s): E66.9 - OBESITY, UNSPECIFIED (15) Rheumatoid factor positive with cyclic citrullinated peptide (CCP) antibody negative Code(s): R76.8 - OTHER SPECIFIED ABNORMAL IMMUNOLOGICAL FINDINGS IN SERUM (16) Schizoaffective disorder Code(s): F25.9 - SCHIZOAFFECTIVE DISORDER, UNSPECIFIED (17) Shoulder pain, left Code(s): M25.512 - PAIN IN LEFT SHOULDER (18) Status post total knee replacement, right Code(s): Z96.651 - PRESENCE OF RIGHT ARTIFICIAL KNEE JOINT Assessment/Plan PLAN: Medrol BD TX O2 as needed Would monitor off ABX for now -> suspect a viral illness No smoking Outpatient PFTs once stable Will follow Thank you. Dr Liao
[2016-07-19] MEDS: methylPREDNISolone NA SUCC 125 MG/2 ML VIAL IVPB SCH (17:42)
--- NOTE | 2016-07-19 19:45 | CONSULT ---
Consult Consult Specialty:: Cardiology Referred by:: Dr. Kan Reason for Consultation:: Cardiac evaluation - History of Present Illness Chief Complaint: Shortness of breath and chest pain History of Present Illness: Patient is a 71 year old female with underlying history of CAD PCI/stent, HTN, PAF, type 2 diabetes mellitus, COPD and history of bronchitis who presents with shortness of breath. Patient complained of chest discomfort described as sharp with coughing and not with exertion. CT of the chest did not reveal PTE. She denies paroxysmal nocturnal dyspnea or orthopnea. She denies fever or chills. Denies palpitations. Denies nausea, vomiting or diarrhea. Denies headache or lightheadedness. She has scattered wheezing. She had seen Dr. Abhay Demarco in the past, but would like to change service. Cardiology consultation was called for further evaluation. 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: Other (benign essential tremor) Cardio/Vascular: Yes: AFIB, CAD, CHF, HTN, Hyperlipdemia Gastrointestinal: Yes: Diverticulosis, GERD, Hiatal Hernia, Other (h/o sbo and ventral hernia 3 yrs ago) Psych: Yes: Schizophrenia (schizoaffective ds seen by psychiatry periodically) Musculoskeletal: Yes: Chronic low back pain, Osteoarthritis Endocrine: Yes: Diabetes Mellitus - Past Surgical History Past Surgical History: Yes: Colonoscopy (h/o polyps, divosis 2008 and 2010), Hernia Repair (ventral hernia repair 3 yrs ago), Hysterectomy, Joint Replacement (right knee), Tonsillectomy, Upper Endoscopy (2010 and 2008, hh, gastric im) - Alcohol/Substance Use Hx Alcohol Use: Yes (none x 30 years) History of Substance Use: reports: None - Smoking History Smoking history: Never smoked Have you smoked in the past 12 months: No Aproximately how many cigarettes per day: 0 - Social History Usual Living Arrangement: Alone ADL: Support Services History of Recent Travel: No Home Medications - Allergies Allergies/Adverse Reactions: Allergies Allergy/AdvReac Type Severity Reaction Status Date / Time No Known Drug Allergies Allergy Verified 07/10/16 22:10 lactose [Lactose] AdvReac Verified 07/10/16 22:10 - Home Medications Home Medications: Ambulatory Orders Dabigatran Etexilate Mesylate [Pradaxa -] 150 mg PO BID #180 cap 11/05/15 Diltiazem Cd [Cardizem Cd -] 120 mg PO DAILY #90 cap.cd.24h 11/05/15 Ferrous Sulfate [Feosol] 325 mg PO DAILY #30 tablet 11/05/15 Furosemide [Lasix -] 20 mg PO DAILY #90 11/05/15 Pantoprazole Sodium [Protonix -] 40 mg PO BID #60 tablet.ec 11/05/15 Risperidone [Risperdal -] 1 mg PO BID tablet 11/05/15 Duloxetine HCl [Cymbalta -] 30 mg PO DAILY capsule. 02/26/16 Gabapentin [Neurontin -] 300 mg PO TID capsule 03/03/16 Lactobacillus Acidophilus [Bacid -] 1 tab PO DAILY tab 03/03/16 Polyethylene Glycol 3350 [Miralax 119 gm Btl -] 17 gm PO TID bottle 03/03/16 Sertraline HCl [Zoloft] 50 mg PO DAILY 04/20/16 Diclofenac Sodium [Voltaren] 100 gm TP TID 06/17/16 Naproxen [EC-Naprosyn] 375 mg PO BID 06/17/16 Levofloxacin [Levaquin] 750 mg PO DAILY #10 tab 07/11/16 Methylprednisolone [Medrol Dose Ifeanyi] 4 mg PO ASDIR #21 tablet 07/11/16 Oxycodone HCl/Acetaminophen [Percocet 5-325 mg Tablet] 1 - 2 tab PO Q6H #20 tab MDD 4 07/11/16 Family Disease History - Family Disease History Family Disease History: Heart Disease: Father (hx stroke, ), [place]: Mother (colon cancer - ) Review of Systems - Review of Systems Constitutional: denies: Chills, Fever Cardiovascular: reports: Chest Pain, Shortness of Breath. denies: Palpitations Respiratory: reports: Cough, SOB. denies: Hemoptysis, Orthopnea, PND Gastrointestinal: denies: Abdominal Pain, Constipation, Diarrhea, Melena, Nausea , Rectal Bleeding, Vomiting Genitourinary: denies: Dysuria Musculoskeletal: reports: Joint Pain Neurological: denies: Dizziness, Headache, Seizure, Syncope Vital Signs: Vital Signs Temperature 98.2 F 07/19/16 19:02 Pulse Rate 58 L 07/19/16 19:02 Respiratory Rate 18 07/19/16 19:02 Blood Pressure 119/51 07/19/16 19:02 O2 Sat by Pulse Oximetry (%) 97 01/10/17 13:27 Neck: Yes: Supple Respiratory: Yes: Diminished, Wheezes Gastrointestinal: Yes: Normal Bowel Sounds, Soft. No: Tenderness Cardiovascular: Yes: Regular Rate and Rhythm JVD: No Carotid Bruit: No PMI: Non-Displaced Heart Sounds: Yes: S1, S2 Murmur: Yes: Systolic Murmur, Grade 1 Edema: No - Other Data Labs, Other Data: CBC, BMP 07/19/16 06:20 07/19/16 06:20 Troponin, BNP 07/19/16 06:20 Troponin I < 0.02 Sinus bradycardia, septal infarct, LVH Imaging - Results Chest X-ray: Report Reviewed (Pulmonary venous congestion) Cat Scan: Report Reviewed (Chest CT no evidence of PTE) EKG: Report Reviewed Problem List - Problems (1) Dyspnea Code(s): R06.00 - DYSPNEA, UNSPECIFIED Qualifiers: Dyspnea type: shortness of breath Qualified Code(s): R06.02 - Shortness of breath (2) Congestive heart failure Code(s): I50.9 - HEART FAILURE, UNSPECIFIED Qualifiers: Congestive heart failure type: unspecified congestive heart failure type Congestive heart failure chronicity: unspecified congestive heart failure chronicity Qualified Code(s): I50.9 - Heart failure, unspecified (3) Bronchitis Code(s): J40 - BRONCHITIS, NOT SPECIFIED ACUTE OR CHRONIC (4) Hyperlipidemia Code(s): E78.5 - HYPERLIPIDEMIA, UNSPECIFIED Qualifiers: Hyperlipidemia type: pure hypercholesterolemia Qualified Code(s): E78.0 - Pure hypercholesterolemia (5) Diabetes Code(s): E11.9 - TYPE 2 DIABETES MELLITUS WITHOUT COMPLICATIONS Qualifiers: Diabetes mellitus type: type 2 Diabetes mellitus complication status: without complication Diabetes mellitus long term care administrator insulin use: without snf use Qualified Code(s): E11.9 - Type 2 diabetes mellitus without complications (6) HTN (hypertension) Code(s): I10 - ESSENTIAL (PRIMARY) HYPERTENSION Qualifiers: Hypertension type: essential hypertension Qualified Code(s): I10 - Essential (primary) hypertension (7) Left ventricular diastolic dysfunction Code(s): I51.9 - HEART DISEASE, UNSPECIFIED (8) CAD (coronary artery disease) Code(s): I25.10 - ATHSCL HEART DISEASE OF [place] CORONARY ARTERY W/O ANG PCTRS Qualifiers: Coronary Disease-Associated Artery/Lesion type: [place] artery [place] vs. transplanted heart: [place] heart Associated angina: with stable angina Qualified Code(s): I25.119 - Atherosclerotic heart disease of [place] coronary artery with unspecified angina pectoris (9) History of percutaneous coronary intervention Code(s): Z98.89 - OTHER SPECIFIED POSTPROCEDURAL STATES * DO NOT USE * (10) Atrial fibrillation Code(s): I48.91 - UNSPECIFIED ATRIAL FIBRILLATION Qualifiers: Atrial fibrillation type: paroxysmal Qualified Code(s): I48.0 - Paroxysmal atrial fibrillation Assessment/Plan 1. Clinical presentation suggests COPD exacerbation +/- bronchitis +/- congestive heart failure likely acute on chronic diastolic LV failure 2. PAF currently in sinus 3. CAD s/p PCI/stent, angina pectoris 4. HTN 5. Type 2 DM PLAN: 1. Transthoracic echocardiography to assess LV and valvular function 2. Further cardiac testing including nuclear myocardial perfusion imaging can be done as outpatient. Patient was advised to follow up in our office 3. Continue Pradaxa 4. Continue Cardizem 5. Lasix IV and monitor renal function and electrolytes 6. Steroid taper and bronchodilators Further plans are to follow Juan Carlos Denny MD
[2016-07-19] MEDS: oxyCODONE HCL 5 MG TABLET PO PRN (20:51)
[2016-07-19] MEDS: ACETAMINOPHEN 325 MG TABLET (FP) PO PRN (20:52)
[2016-07-19] MEDS: ALBUTEROL SO4 0.083% IH SOL 2.5 MG/3 ML VIAL.NEB. NEB SCH (23:00)
[2016-07-20] MEDS: methylPREDNISolone NA SUCC 125 MG/2 ML VIAL IVPB SCH ×2 (01:16→11:24)
[2016-07-20] MEDS: GABAPENTIN 300 MG CAPSULE (FP) PO SCH ×3 (05:37→21:25)
[2016-07-20] MEDS: INSULIN SLIDING SCALE (NOVOLOG) 1 VIAL SQ SCH ×4 (06:10→22:21)
[2016-07-20] MEDS: ALBUTEROL SO4 0.083% IH SOL 2.5 MG/3 ML VIAL.NEB. NEB SCH ×3 (06:21→22:35)
[2016-07-20 07:40] LABS: BASOPHIL 0.1 % (0-2.0); MCH 27.2 pg (25.7-33.7); MCHC 32.7 g/dl (32.0-36.0); MEAN CELL VOLUME 83.1 fl (80-96); MEAN PLT VOLUME 8.6 fl (7.5-11.1); NEUTROPHILS 94.5 % (42.8-82.8); PLATELET COUNT 310 K/MM3 (134-434); RDW 15.8 % (11.6-15.6); WHITE BLOOD COUNT 19.1 K/mm3 (4.0-10.0)
[2016-07-20 08:47] LABS: CALCIUM 9.2 mg/dL (8.5-10.1); FREE T4 1.1 ng/dl (0.76-1.46); THYROID STIMULATING HORMONE 0.18 uIU/ml (0.358-3.74)
--- NOTE | 2016-07-20 11:17 | HP ---
Admitting History and Physical - Primary Care Physician PCP: Cathleen Kan - Admission Chief Complaint: SOB CP History of Present Illness: Patient is a 71 year old female with a significant PMHx of HTN, HLD, CAD s/p stent, Diastolic CHF, A.fib, DM II, COPD, Asthma, Anemia who presents to the ED complaining of shortness of breath that began 2-3 days ago associated with constant sharp midsternal chest pain radiating to the back and nonproductive cough. Patient was in the ED one week ago for similar symptoms but at the time her cough was productive with yellow sputum. Patient states she took her albuterol pump but with no relief of symptoms, which prompted this ED visit. 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: Other (benign essential tremor) Cardiovascular: Yes: AFIB, CAD, CHF, HTN, Hyperlipdemia Gastrointestinal: Yes: Diverticulosis, GERD, Hiatal Hernia, Other (h/o sbo and ventral hernia 3 yrs ago) Psych: Yes: Schizophrenia (schizoaffective ds seen by psychiatry periodically) Musculoskeletal: Yes: Chronic low back pain, Osteoarthritis Endocrine: Yes: Diabetes Mellitus - Past Surgical History Past Surgical History: Yes: Colonoscopy (h/o polyps, divosis 2008 and 2010), Hernia Repair (ventral hernia repair 3 yrs ago), Hysterectomy, Joint Replacement (right knee), Tonsillectomy, Upper Endoscopy (2010 and 2008, hh, gastric im) - Smoking History Smoking history: Never smoked Have you smoked in the past 12 months: No Aproximately how many cigarettes per day: 0 - Alcohol/Substance Use Hx Alcohol Use: Yes (none x 30 years) History of Substance Use: reports: None - Social History Usual Living Arrangement: Yes: Alone ADL: Support Services History of Recent Travel: No Home Medications - Allergies Allergies/Adverse Reactions: Allergies Allergy/AdvReac Type Severity Reaction Status Date / Time No Known Drug Allergies Allergy Verified 07/10/16 22:10 lactose [Lactose] AdvReac Verified 07/10/16 22:10 - Home Medications Home Medications: Ambulatory Orders Dabigatran Etexilate Mesylate [Pradaxa -] 150 mg PO BID #180 cap 11/05/15 Diltiazem Cd [Cardizem Cd -] 120 mg PO DAILY #90 cap.cd.24h 11/05/15 Ferrous Sulfate [Feosol] 325 mg PO DAILY #30 tablet 11/05/15 Furosemide [Lasix -] 20 mg PO DAILY #90 11/05/15 Pantoprazole Sodium [Protonix -] 40 mg PO BID #60 tablet.ec 11/05/15 Risperidone [Risperdal -] 1 mg PO BID tablet 11/05/15 Duloxetine HCl [Cymbalta -] 30 mg PO DAILY capsule. 02/26/16 Gabapentin [Neurontin -] 300 mg PO TID capsule 03/03/16 Lactobacillus Acidophilus [Bacid -] 1 tab PO DAILY tab 03/03/16 Polyethylene Glycol 3350 [Miralax 119 gm Btl -] 17 gm PO TID bottle 03/03/16 Sertraline HCl [Zoloft] 50 mg PO DAILY 04/20/16 Diclofenac Sodium [Voltaren] 100 gm TP TID 06/17/16 Naproxen [EC-Naprosyn] 375 mg PO BID 06/17/16 Levofloxacin [Levaquin] 750 mg PO DAILY #10 tab 07/11/16 Methylprednisolone [Medrol Dose Ifeanyi] 4 mg PO ASDIR #21 tablet 07/11/16 Oxycodone HCl/Acetaminophen [Percocet 5-325 mg Tablet] 1 - 2 tab PO Q6H #20 tab MDD 4 07/11/16 Family Disease History - Family Disease History Family Disease History: Heart Disease: Father (hx stroke, ), [place]: Mother (colon cancer - ) Review of Systems - Review of Systems Constitutional: denies: Chills, Fever Eyes: denies: Blurred Vision, Double Vision HENT: denies: Difficult Swallowing, Ear Pain Cardiovascular: reports: Chest Pain, Shortness of Breath. denies: Palpitations Respiratory: reports: Exercise Intolerance, SOB, SOB on Exertion, Wheezing. denies: Cough Gastrointestinal: denies: Abdominal Pain, Bloating, Constipation, Diarrhea, Vomiting Genitourinary: denies: Burning, Discharge, Dysuria, Flank Pain Musculoskeletal: denies: Joint Swelling, Muscle Pain Integumentary: denies: Blister, Bruising, Rash Neurological: denies: Change in Speech, Confusion, Dizziness, Headache, Seizure , Syncope, Unsteady Gait Endocrine: denies: Excessive Sweating, Flushing Hematology/Lymphatic: denies: Easily Bruised, Excessive Bleeding, Swollen Glands Psychiatric: denies: Altered Sleep Pattern, Anxiety, Depression, Suicidal Physical Examination Vital Signs: Vital Signs Temperature 98.7 F 07/20/16 07:44 Pulse Rate 78 07/20/16 09:27 Respiratory Rate 20 07/20/16 07:44 Blood Pressure 94/48 07/20/16 07:44 O2 Sat by Pulse Oximetry (%) 96 07/20/16 09:27 Constitutional: Yes: No Distress, Calm Eyes: Yes: Conjunctiva Clear HENT: Yes: Atraumatic Neck: Yes: Supple Cardiovascular: Yes: Regular Rate and Rhythm Respiratory: Yes: Rhonchi Renal/: No: CVA Tenderness - Left, CVA Tenderness - Right Musculoskeletal: No: Joint Stiffness, Joint Swelling Extremities: No: Cold, Cool Edema: No Peripheral Pulses WNL: Yes Integumentary: No: Pressure Ulcer, Venous Stasis Changes Neurological: Yes: WNL, Alert, Oriented ...Motor Strength: WNL Psychiatric: Yes: WNL, Alert, Oriented. No: Agitated, Suicidal Ideation Labs: CBC, BMP 07/20/16 06:20 07/20/16 06:20 Imaging - Results Chest X-ray: Report Reviewed Cat Scan: Report Reviewed Other: Report Reviewed Assessment/Plan CHF COPD exac, h/o PAfibCRF OA DJD IV lasix iv steroids cardio and pulm eval O2 NC falls PFX d/w pt and staff
--- NOTE | 2016-07-20 11:17 | PN ---
Progress Note, Physician History of Present Illness: Dyspnea persists, denies chest pain. - Current Medication List Current Medications: Active Medications Acetaminophen (Tylenol -) 650 mg PO Q6H PRN PRN Reason: FEVER OR PAIN Acetaminophen (Tylenol -) 325 mg PO Q6H PRN PRN Reason: PAIN Last Admin: 07/19/16 20:52 Dose: 325 mg Albuterol Sulfate (Ventolin 0.083% Nebulizer Soln -) 1 amp NEB Q6H PRN PRN Reason: SHORT OF BREATH/WHEEZING Albuterol Sulfate (Ventolin 0.083% Nebulizer Soln -) 1 amp NEB TID [facility] Last Admin: 07/20/16 06:21 Dose: 1 amp Dabigatran (Pradaxa -) 150 mg PO BID [facility] Last Admin: 07/19/16 22:12 Dose: 150 mg Diltiazem HCl (Cardizem Cd -) 120 mg PO DAILY [facility] Last Admin: 07/19/16 11:09 Dose: 120 mg Duloxetine HCl (Cymbalta -) 30 mg PO DAILY [facility] Last Admin: 07/19/16 11:10 Dose: 30 mg Ferrous Sulfate (Feosol -) 325 mg PO DAILY [facility] Last Admin: 07/19/16 11:10 Dose: 325 mg Furosemide (Lasix Injection -) 40 mg IVPUSH DAILY [facility] Last Admin: 07/19/16 11:10 Dose: 40 mg Gabapentin (Neurontin -) 300 mg PO TID [facility] Last Admin: 07/20/16 05:37 Dose: 300 mg Insulin Aspart (Novolog Vial Sliding Scale -) 1 vial SQ ACHS [facility] PRN Reason: Protocol Last Admin: 07/20/16 06:10 Dose: Not Given Lactobacillus Acidophilus (Bacid -) 1 tab PO DAILY [facility] Last Admin: 07/19/16 11:09 Dose: 1 tab Methylprednisolone Sodium Succinate (Solu-Medrol -) 60 mg IVPB Q8H-IV [facility] Last Admin: 07/20/16 01:16 Dose: 60 mg Oxycodone HCl (Roxicodone -) 5 mg PO Q6H PRN PRN Reason: PAIN SCALE 6-10 Last Admin: 07/19/16 20:51 Dose: 5 mg Pantoprazole Sodium (Protonix -) 40 mg PO DAILY [facility] Last Admin: 07/19/16 11:10 Dose: 40 mg Polyethylene Glycol (Miralax (For Daily Use) -) 17 gm PO TID PRN PRN Reason: CONSTIPATION Risperidone (Risperdal -) 1 mg PO BID [facility] Last Admin: 07/19/16 22:12 Dose: 1 mg Sertraline HCl (Zoloft -) 50 mg PO DAILY [facility] - Objective Vital Signs: Vital Signs Temperature 98.7 F 07/20/16 07:44 Pulse Rate 78 07/20/16 09:27 Respiratory Rate 20 07/20/16 07:44 Blood Pressure 94/48 07/20/16 07:44 O2 Sat by Pulse Oximetry (%) 96 07/20/16 09:27 Constitutional: Yes: No Distress, Calm Neck: Yes: Supple Cardiovascular: Yes: Regular Rate and Rhythm Respiratory: Yes: Regular, Diminished, On Nasal O2 Gastrointestinal: Yes: Normal Bowel Sounds, Soft Edema: No Labs: CBC, BMP 07/20/16 06:20 07/20/16 06:20 - ....Imaging Cat Scan: Report Reviewed (Chest CT: Left lung base ATX otherwise clear, no PE) Problem List - Problems (1) Atrial fibrillation Code(s): I48.91 - UNSPECIFIED ATRIAL FIBRILLATION Qualifiers: Atrial fibrillation type: paroxysmal Qualified Code(s): I48.0 - Paroxysmal atrial fibrillation (2) Dyspnea Code(s): R06.00 - DYSPNEA, UNSPECIFIED Qualifiers: Dyspnea type: shortness of breath Qualified Code(s): R06.02 - Shortness of breath (3) History of percutaneous coronary intervention Code(s): Z98.89 - OTHER SPECIFIED POSTPROCEDURAL STATES * DO NOT USE * (4) Bronchitis Code(s): J40 - BRONCHITIS, NOT SPECIFIED ACUTE OR CHRONIC (5) Hyperlipidemia Code(s): E78.5 - HYPERLIPIDEMIA, UNSPECIFIED Qualifiers: Hyperlipidemia type: pure hypercholesterolemia Qualified Code(s): E78.0 - Pure hypercholesterolemia (6) Diabetes Code(s): E11.9 - TYPE 2 DIABETES MELLITUS WITHOUT COMPLICATIONS Qualifiers: Diabetes mellitus type: type 2 Diabetes mellitus complication status: without complication Diabetes mellitus usp insulin use: without intermediate school teacher use Qualified Code(s): E11.9 - Type 2 diabetes mellitus without complications (7) HTN (hypertension) Code(s): I10 - ESSENTIAL (PRIMARY) HYPERTENSION Qualifiers: Hypertension type: essential hypertension Qualified Code(s): I10 - Essential (primary) hypertension (8) Left ventricular diastolic dysfunction Code(s): I51.9 - HEART DISEASE, UNSPECIFIED Assessment/Plan 1. Clinical presentation suggests COPD exacerbation +/- bronchitis 2. Chronic LV diastolic dysfunction 3. PAF currently in sinus 4. CAD s/p PCI/stent, angina pectoris 5. HTN 6. Type 2 DM PLAN: 1. Transthoracic echocardiography to assess LV and valvular function 2. Further cardiac testing including nuclear myocardial perfusion imaging can be done as outpatient. Patient was advised to follow up in our office 3. Continue Pradaxa 150 bid 4. Continue Cardizem CD 120 qd 5. Lasix 40 IV qd and monitor renal function and electrolytes 6. IV steroid taper with GI protection, bronchodilators, O2 as needed
[2016-07-20] MEDS: LACTOBACILLUS ACIDOPHILUS 1 EACH TAB (FP) PO SCH (11:18)
[2016-07-20] MEDS: DULoxetine HCL 30 MG CAPSULE.DR (FP) PO SCH (11:18)
[2016-07-20] MEDS: FERROUS SO4 325 MG TABLET (FP) PO SCH (11:18)
[2016-07-20] MEDS: DABIGATRAN ETEXILATE MESYLATE 150 MG CAPSULE PO SCH ×2 (11:19→21:26)
[2016-07-20] MEDS: risperiDONE 0.5 MG TABLET (FP) PO SCH ×2 (11:20→21:26)
[2016-07-20] MEDS: PANTOPRAZOLE 40 MG TABLET (FP) PO SCH (11:23)
[2016-07-20] MEDS: FUROSEMIDE 40 MG/4 ML INJECTABLE VIAL IVPUSH SCH (11:23)
[2016-07-20] MEDS: POLYETHYLENE GLYCOL 3350 119 GM BTL PO PRN ×2 (11:35→18:31)
--- NOTE | 2016-07-20 14:38 | PN ---
Progress Note (short form) - Note Progress Note: PULMONARY OOB TO CHAIR PATIENT REQUESTING O2 FOR HOME USE VSS/AFEBRILE ANICTERIC DISTANT WITH END EXPIRATORY WHEEZE S1S2 BS+ OBESE NO EDEMA LABS/MEDS/NOTES/MICRO/CONSULTS REVIEWED - Problems (1) Dyspnea Code(s): R06.00 - DYSPNEA, UNSPECIFIED Qualifiers: Dyspnea type: shortness of breath Qualified Code(s): R06.02 - Shortness of breath (2) Bronchitis Code(s): J40 - BRONCHITIS, NOT SPECIFIED ACUTE OR CHRONIC (3) Hiatal hernia Code(s): K44.9 - DIAPHRAGMATIC HERNIA WITHOUT OBSTRUCTION OR GANGRENE (4) Hyperlipidemia Code(s): E78.5 - HYPERLIPIDEMIA, UNSPECIFIED (5) Back pain Code(s): M54.9 - DORSALGIA, UNSPECIFIED Qualifiers: Chronicity: acute Back pain laterality: bilateral Sciatica presence : without sciatica (6) Connective tissue disease Code(s): M35.9 - SYSTEMIC INVOLVEMENT OF CONNECTIVE TISSUE, UNSPECIFIED (7) Diabetes Code(s): E11.9 - TYPE 2 DIABETES MELLITUS WITHOUT COMPLICATIONS (8) Fibromyalgia Code(s): M79.7 - FIBROMYALGIA (9) HTN (hypertension) Code(s): I10 - ESSENTIAL (PRIMARY) HYPERTENSION (10) History of peptic ulcer disease Code(s): Z87.11 - PERSONAL HISTORY OF PEPTIC ULCER DISEASE (11) Left ventricular diastolic dysfunction Code(s): I51.9 - HEART DISEASE, UNSPECIFIED (12) Lower back pain Code(s): M54.5 - LOW BACK PAIN (13) Mitral regurgitation Code(s): I34.0 - NONRHEUMATIC MITRAL (VALVE) INSUFFICIENCY (14) Obesity Code(s): E66.9 - OBESITY, UNSPECIFIED (15) Rheumatoid factor positive with cyclic citrullinated peptide (CCP) antibody negative Code(s): R76.8 - OTHER SPECIFIED ABNORMAL IMMUNOLOGICAL FINDINGS IN SERUM (16) Schizoaffective disorder Code(s): F25.9 - SCHIZOAFFECTIVE DISORDER, UNSPECIFIED (17) Shoulder pain, left Code(s): M25.512 - PAIN IN LEFT SHOULDER (18) Status post total knee replacement, right Code(s): Z96.651 - PRESENCE OF RIGHT ARTIFICIAL KNEE JOINT Assessment/Plan PLAN: Medrol to be reduced BD TX O2 prn Would monitor off ABX for now -> suspect a viral illness No smoking Outpatient PFTs once stable Will order pre/post spo2 on r/a R CHON REYEZ
[2016-07-20] MEDS ORDERED: INFLUENZA VACCINE 45 MCG/0.5 ML (MDV 16-17) IM ONE (16:00)
--- NOTE | 2016-07-20 16:35 | CONSULT ---
Consult Consult Specialty:: Endocrinology Referred by:: Dr Cathleen Kan Reason for Consultation:: Abnormal TFT, Hyperglycemia - History of Present Illness Chief Complaint: SOB History of Present Illness: This is a 71 year old female with h/o HTN, HLD, CAD s/p stent, Diastolic CHF, A.fib, T2DM for 18 years and off medication for a few months, COPD, Asthma, Anemia who presents to the ED complaining of shortness of breath that began 2-3 days ago associated with constant sharp midsternal chest pain radiating to the back and nonproductive cough. Patient was in the ED one week ago for similar symptoms but at the time her cough was productive with yellow sputum. Patient states she took her albuterol pump but with no relief of symptoms, which prompted this ED visit. Pt referred for evaluation of abnormal TFT and management of DM. TSH 0.18. TSH has been normal in previous admissions. Pt doesn 't do BGM at home. Has nocturia 4 to 5 times per night which she attributes to "weak bladder". Denies anxiety, restlessness, heat or cold intolerance. No recent change in weight. - History Source History Provided By: Patient, Medical Record - Past Medical History MEDICAL PRACTICE ADMINISTRATOR: Yes: Other (benign essential tremor) Cardio/Vascular: Yes: AFIB, CAD, CHF, HTN, Hyperlipdemia Gastrointestinal: Yes: Diverticulosis, GERD, Hiatal Hernia, Other (h/o sbo and ventral hernia 3 yrs ago) Psych: Yes: Schizophrenia (schizoaffective ds seen by psychiatry periodically) Musculoskeletal: Yes: Chronic low back pain, Osteoarthritis Endocrine: Yes: Diabetes Mellitus - Past Surgical History Past Surgical History: Yes: Colonoscopy (h/o polyps, divosis 2008 and 2010), Hernia Repair (ventral hernia repair 3 yrs ago), Hysterectomy, Joint Replacement (right knee), Tonsillectomy, Upper Endoscopy (2010 and 2008, hh, gastric im) - Alcohol/Substance Use Hx Alcohol Use: Yes (none x 30 years) History of Substance Use: reports: None - Smoking History Smoking history: Never smoked Have you smoked in the past 12 months: No Aproximately how many cigarettes per day: 0 - Social History Usual Living Arrangement: Alone ADL: Support Services History of Recent Travel: No Home Medications - Allergies Allergies/Adverse Reactions: Allergies Allergy/AdvReac Type Severity Reaction Status Date / Time No Known Drug Allergies Allergy Verified 01/01/17 22:10 lactose [Lactose] AdvReac Verified 07/10/16 22:10 - Home Medications Home Medications: Ambulatory Orders Dabigatran Etexilate Mesylate [Pradaxa -] 150 mg PO BID #180 cap 11/05/15 Diltiazem Cd [Cardizem Cd -] 120 mg PO DAILY #90 cap.cd.24h 11/05/15 Ferrous Sulfate [Feosol] 325 mg PO DAILY #30 tablet 11/05/15 Furosemide [Lasix -] 20 mg PO DAILY #90 11/05/15 Pantoprazole Sodium [Protonix -] 40 mg PO BID #60 tablet.ec 11/05/15 Risperidone [Risperdal -] 1 mg PO BID tablet 11/05/15 Duloxetine HCl [Cymbalta -] 30 mg PO DAILY capsule. 02/26/16 Gabapentin [Neurontin -] 300 mg PO TID capsule 03/03/16 Lactobacillus Acidophilus [Bacid -] 1 tab PO DAILY tab 03/03/16 Polyethylene Glycol 3350 [Miralax 119 gm Btl -] 17 gm PO TID bottle 03/03/16 Sertraline HCl [Zoloft] 50 mg PO DAILY 04/20/16 Diclofenac Sodium [Voltaren] 100 gm TP TID 06/17/16 Naproxen [EC-Naprosyn] 375 mg PO BID 06/17/16 Levofloxacin [Levaquin] 750 mg PO DAILY #10 tab 07/11/16 Methylprednisolone [Medrol Dose Ifeanyi] 4 mg PO ASDIR #21 tablet 07/11/16 Oxycodone HCl/Acetaminophen [Percocet 5-325 mg Tablet] 1 - 2 tab PO Q6H #20 tab MDD 4 07/11/16 Family Disease History - Family Disease History Family Disease History: Diabetes: Brother, Heart Disease: Father (hx stroke, ), CA: Mother (colon cancer - ) Other Family History: No family h/o thyroid disorder Review of Systems - Review of Systems Constitutional: reports: No Symptoms Eyes: reports: No Symptoms HENT: reports: No Symptoms Neck: reports: No Symptoms Cardiovascular: reports: Shortness of Breath Respiratory: reports: SOB Gastrointestinal: reports: No Symptoms Genitourinary: reports: Other (Nocturia) Endocrine: reports: No Symptoms Physical Exam Vital Signs: Vital Signs Temperature 98.0 F 07/20/16 14:58 Pulse Rate 70 07/20/16 14:58 Respiratory Rate 20 07/20/16 14:58 Blood Pressure 141/52 07/20/16 14:58 O2 Sat by Pulse Oximetry (%) 96 07/20/16 09:27 Constitutional: Yes: No Distress, Calm Eyes: Yes: Conjunctiva Clear, EOM Intact HENT: Yes: Atraumatic, Normocephalic Neck: Yes: Supple Cardiovascular: Yes: Regular Rate and Rhythm Respiratory: Yes: Regular, CTA Bilaterally Gastrointestinal: Yes: Normal Bowel Sounds, Soft Musculoskeletal: Yes: WNL Extremities: Yes: WNL Edema: No Neurological: Yes: Alert, Oriented Labs: CBC, BMP 07/20/16 06:20 07/20/16 06:20 Imaging - Results Chest X-ray: Report Reviewed Cat Scan: Report Reviewed Assessment/Plan AP: Abnormal TFT: Sick Euthyroid vs Steroid effect vs Subclinical Hyperthyroidism TFT normal in the past Will repeat TFT as outpt off steroids before doing any further w/u T2DM: on diet Hyperglycemia secondary to Steroids BGM QACHS Novolog SS coverage HBA1C Left Adrenal Nodule: Slight increase from 1.8x1.2 to 2.0x1.2 24 hr urine for Catecholamines after approval from Pathology COPD exacerbation Chronic LV diastolic dysfunction PAF currently in sinus CAD s/p PCI/stent, angina pectoris HTN
[2016-07-20] MEDS: methylPREDNISolone NA SUCC 40 MG/1 ML VIAL IVPB SCH (18:16)
[2016-07-20] MEDS: oxyCODONE HCL 5 MG TABLET PO PRN (22:19)
[2016-07-20] MEDS: ACETAMINOPHEN 325 MG TABLET (FP) PO PRN (22:20)
[2016-07-21] MEDS: methylPREDNISolone NA SUCC 40 MG/1 ML VIAL IVPB SCH ×3 (01:35→17:26)
[2016-07-21] MEDS: GABAPENTIN 300 MG CAPSULE (FP) PO SCH ×3 (05:34→21:44)
[2016-07-21] MEDS: INSULIN SLIDING SCALE (NOVOLOG) 1 VIAL SQ SCH ×4 (06:10→21:43)
[2016-07-21] MEDS: ALBUTEROL SO4 0.083% IH SOL 2.5 MG/3 ML VIAL.NEB. NEB SCH ×3 (06:15→21:56)
[2016-07-21 07:37] LABS: BASOPHIL 0.1 % (0-2.0); EOSINOPHIL 0.1 % (0-4.5); MCH 26.8 pg (25.7-33.7); MCHC 32.2 g/dl (32.0-36.0); MEAN CELL VOLUME 83.3 fl (80-96); MEAN PLT VOLUME 8.4 fl (7.5-11.1); NEUTROPHILS 94.3 % (42.8-82.8); PLATELET COUNT 274 K/MM3 (134-434); RDW 15.8 % (11.6-15.6); WHITE BLOOD COUNT 18.3 K/mm3 (4.0-10.0)
[2016-07-21 08:54] LABS: ALBUMIN 3.4 g/dl (3.4-5.0); ANION GAP 12 (8-16); BILIRUBIN,TOTAL 0.1 mg/dL (0.2-1.0); CALCIUM 8.9 mg/dL (8.5-10.1); CO2 24 mmol/L (21-32); CREATININE 0.9 mg/dL (0.55-1.02); GLUCOSE,RANDOM 137 mg/dL (74-106); SGOT/AST 10 U/L (15-37); SGPT/ALT 16 U/L (12-78)
[2016-07-21 08:55] LABS: ALK PHOS 92 U/L (45-117)
--- NOTE | 2016-07-21 09:12 | PN ---
Progress Note (short form) - Note Progress Note: Feels better but still has SOB and Cough BGM acceptable Vital Signs Period Temp Pulse Resp BP Sys/Delacruz Pulse Ox Last 24 Hr 97.6 F-98.1 F 58-86 20-20 108-141/46-72 92-96 PE: AOx3 Neck: Supple, No JVD HEENT: PERRL, EOMI Lungs: CTa Abd: Benign CVS: S12 EXT: No edema Neuro: No focal deficit CMP Sodium 139 mmol/L (136-145) 07/21/16 06:45 Potassium 4.9 mmol/L (3.5-5.1) 07/21/16 06:45 Chloride 103 mmol/L (98-107) 07/21/16 06:45 Carbon Dioxide 24 mmol/L (21-32) 07/21/16 06:45 Anion Gap 12 (8-16) 07/21/16 06:45 BUN 32 mg/dL (7-18) H 07/21/16 06:45 Creatinine 0.9 mg/dL (0.55-1.02) 07/21/16 06:45 Creat Clearance w eGFR > 60 (>60) 07/21/16 06:45 POC Glucometer 164 UNITS (()) 07/21/16 05:33 Random Glucose 137 mg/dL (74-106) H 07/21/16 06:45 Calcium 8.9 mg/dL (8.5-10.1) 07/21/16 06:45 Magnesium 2.6 mg/dL (1.8-2.4) H 07/19/16 06:20 Total Bilirubin 0.1 mg/dL (0.2-1.0) L D 07/21/16 06:45 AST 10 U/L (15-37) L 07/21/16 06:45 ALT 16 U/L (12-78) 07/21/16 06:45 Alkaline Phosphatase 92 U/L (45-117) 07/21/16 06:45 Creatine Kinase 126 IU/L (26-192) 07/19/16 06:20 CK-MB (CK-2) 1.696 ng/ml (0.5-3.6) 07/18/16 14:08 Troponin I < 0.02 ng/ml (0.00-0.05) 07/19/16 06:20 B-Natriuretic Peptide 536.76 pg/ml (5-125) H 07/18/16 14:08 Total Protein 7.0 g/dl (6.4-8.2) 07/21/16 06:45 Albumin 3.4 g/dl (3.4-5.0) 07/21/16 06:45 TSH 0.18 uIU/ml (0.358-3.74) L D 07/20/16 06:20 Free T4 1.10 ng/dl (0.76-1.46) 07/20/16 06:20 Free T3 2.4 pg/ml (2.0-4.4) 07/20/16 06:20 Current Medications Generic Name Dose Route Start Last Admin Trade Name Freq PRN Reason Stop Dose Admin Acetaminophen 650 mg 07/18/16 23:47 Tylenol - PO Q6H PRN FEVER OR PAIN Acetaminophen 325 mg 07/19/16 20:47 07/20/16 22:20 Tylenol - PO 325 mg Q6H PRN Administration PAIN Albuterol Sulfate 1 amp 07/18/16 23:47 Ventolin 0.083% Nebulizer Soln - NEB Q6H PRN SHORT OF BREATH/WHEEZING Albuterol Sulfate 1 amp 07/19/16 22:00 07/21/16 06:15 Ventolin 0.083% Nebulizer Soln - NEB 1 amp TID [facility] Administration Dabigatran 150 mg 07/19/16 10:00 07/20/16 21:26 Pradaxa - PO 150 mg BID [facility] Administration Diltiazem HCl 120 mg 07/19/16 10:00 07/20/16 11:18 Cardizem Cd - PO 120 mg DAILY [facility] Administration Duloxetine HCl 30 mg 07/19/16 10:00 07/20/16 11:18 Cymbalta - PO 30 mg DAILY [facility] Administration Ferrous Sulfate 325 mg 07/19/16 10:00 07/20/16 11:18 Feosol - PO 325 mg DAILY [facility] Administration Furosemide 40 mg 07/19/16 10:00 07/20/16 11:23 Lasix Injection - IVPUSH 40 mg DAILY [facility] Administration Gabapentin 300 mg 07/19/16 06:00 07/21/16 05:34 Neurontin - PO 300 mg TID [facility] Administration Insulin Aspart 1 vial 07/19/16 07:00 07/21/16 06:10 Novolog Vial Sliding Scale - SQ 2 units ACHS [facility] Administration Protocol Lactobacillus Acidophilus 1 tab 07/19/16 10:00 07/20/16 11:18 Bacid - PO 1 tab DAILY [facility] Administration Methylprednisolone Sodium Succinate 20 mg 07/20/16 18:00 07/21/16 01:35 Solu-Medrol - IVPB 20 mg Q8H-IV [facility] Administration Oxycodone HCl 5 mg 07/19/16 20:47 07/20/16 22:19 Roxicodone - PO 5 mg Q6H PRN Administration PAIN SCALE 6-10 Pantoprazole Sodium 40 mg 07/19/16 10:00 07/20/16 11:23 Protonix - PO 40 mg DAILY [facility] Administration Polyethylene Glycol 17 gm 07/18/16 23:44 07/20/16 18:31 Miralax (For Daily Use) - PO 17 grams TID PRN Administration CONSTIPATION Risperidone 1 mg 07/19/16 10:00 07/20/16 21:26 Risperdal - PO 1 mg BID [facility] Administration AP: Abnormal TFT: Pt says she took medication for some thyroid problem about 30 years ago. Doesn't know what it was Check TPO, TSI DM: BGM Q ACHS Novolog SS Will F/U Left Adrenal Nodule: Slight increase from 1.8x1.2 to 2.0x1.2 24 hr urine for Catecholamines and Metanephrines. Approved by Dr Reich. COPD exacerbation Chronic LV diastolic dysfunction PAF currently in sinus CAD s/p PCI/stent, angina pectoris HTN
[2016-07-21] MEDS ORDERED: PT OWN MED DRAWER 7, Y5N ONE ×2 (10:15→21:29)
[2016-07-21] MEDS: DABIGATRAN ETEXILATE MESYLATE 150 MG CAPSULE PO SCH ×2 (10:17→21:41)
[2016-07-21] MEDS: PANTOPRAZOLE 40 MG TABLET (FP) PO SCH (10:17)
[2016-07-21] MEDS: FERROUS SO4 325 MG TABLET (FP) PO SCH (10:17)
[2016-07-21] MEDS: LACTOBACILLUS ACIDOPHILUS 1 EACH TAB (FP) PO SCH (10:17)
[2016-07-21] MEDS: FUROSEMIDE 40 MG/4 ML INJECTABLE VIAL IVPUSH SCH (10:17)
[2016-07-21] MEDS: DULoxetine HCL 30 MG CAPSULE.DR (FP) PO SCH (10:17)
[2016-07-21] MEDS: risperiDONE 0.5 MG TABLET (FP) PO SCH ×2 (10:18→21:43)
--- NOTE | 2016-07-21 12:55 | PN ---
Progress Note (short form) - Note Progress Note: PULMONARY Breathing better but not at baseline. +nonproductive cough. Last Vital Signs Temp Pulse Resp BP Pulse Ox 97.9 F 78 20 134/64 95 07/21/16 07:32 07/21/16 07:32 07/21/16 07:32 07/21/16 07:32 07/20/16 21:00 Gen: NAD at rest Heart: RRR Lung: distant breath sounds, no wheezes Abd: soft, nontender Ext: no edema CBC, BMP 07/21/16 06:45 07/21/16 06:45 Active Medications Acetaminophen (Tylenol -) 650 mg PO Q6H PRN PRN Reason: FEVER OR PAIN Acetaminophen (Tylenol -) 325 mg PO Q6H PRN PRN Reason: PAIN Last Admin: 07/20/16 22:20 Dose: 325 mg Albuterol Sulfate (Ventolin 0.083% Nebulizer Soln -) 1 amp NEB Q6H PRN PRN Reason: SHORT OF BREATH/WHEEZING Albuterol Sulfate (Ventolin 0.083% Nebulizer Soln -) 1 amp NEB TID [facility] Last Admin: 07/21/16 06:15 Dose: 1 amp Dabigatran (Pradaxa -) 150 mg PO BID [facility] Last Admin: 07/21/16 10:17 Dose: 150 mg Diltiazem HCl (Cardizem Cd -) 120 mg PO DAILY [facility] Last Admin: 07/21/16 10:17 Dose: 120 mg Duloxetine HCl (Cymbalta -) 30 mg PO DAILY [facility] Last Admin: 07/21/16 10:17 Dose: 30 mg Ferrous Sulfate (Feosol -) 325 mg PO DAILY [facility] Last Admin: 07/21/16 10:17 Dose: 325 mg Furosemide (Lasix Injection -) 40 mg IVPUSH DAILY [facility] Last Admin: 07/21/16 10:17 Dose: 40 mg Gabapentin (Neurontin -) 300 mg PO TID [facility] Last Admin: 07/21/16 05:34 Dose: 300 mg Insulin Aspart (Novolog Vial Sliding Scale -) 1 vial SQ ACHS [facility] PRN Reason: Protocol Last Admin: 07/21/16 10:54 Dose: 2 units Lactobacillus Acidophilus (Bacid -) 1 tab PO DAILY [facility] Last Admin: 07/21/16 10:17 Dose: 1 tab Methylprednisolone Sodium Succinate (Solu-Medrol -) 20 mg IVPB Q8H-IV [facility] Last Admin: 07/21/16 10:18 Dose: 20 mg Oxycodone HCl (Roxicodone -) 5 mg PO Q6H PRN PRN Reason: PAIN SCALE 6-10 Last Admin: 07/20/16 22:19 Dose: 5 mg Pantoprazole Sodium (Protonix -) 40 mg PO DAILY [facility] Last Admin: 07/21/16 10:17 Dose: 40 mg Polyethylene Glycol (Miralax (For Daily Use) -) 17 gm PO TID PRN PRN Reason: CONSTIPATION Last Admin: 07/20/16 18:31 Dose: 17 grams Risperidone (Risperdal -) 1 mg PO BID [facility] Last Admin: 07/21/16 10:18 Dose: 1 mg A/P Acute COPD Exacerbation Acute Bronchitis LV Diastolic Dysfunction Paroxysmal Atrial Fibrillation CAD HTN DM - medrol taper - inhaled bronchodilators - lasix - monitor urine output, creatinine - rate controlled - continue anticoagulation
--- NOTE | 2016-07-21 15:13 | PN ---
Progress Note, Physician - Current Medication List Current Medications: Active Medications Acetaminophen (Tylenol -) 650 mg PO Q6H PRN PRN Reason: FEVER OR PAIN Acetaminophen (Tylenol -) 325 mg PO Q6H PRN PRN Reason: PAIN Last Admin: 07/20/16 22:20 Dose: 325 mg Albuterol Sulfate (Ventolin 0.083% Nebulizer Soln -) 1 amp NEB Q6H PRN PRN Reason: SHORT OF BREATH/WHEEZING Albuterol Sulfate (Ventolin 0.083% Nebulizer Soln -) 1 amp NEB TID [facility] Last Admin: 07/21/16 06:15 Dose: 1 amp Dabigatran (Pradaxa -) 150 mg PO BID [facility] Last Admin: 07/21/16 10:17 Dose: 150 mg Diltiazem HCl (Cardizem Cd -) 120 mg PO DAILY [facility] Last Admin: 07/21/16 10:17 Dose: 120 mg Duloxetine HCl (Cymbalta -) 30 mg PO DAILY [facility] Last Admin: 07/21/16 10:17 Dose: 30 mg Ferrous Sulfate (Feosol -) 325 mg PO DAILY [facility] Last Admin: 07/21/16 10:17 Dose: 325 mg Furosemide (Lasix Injection -) 40 mg IVPUSH DAILY [facility] Last Admin: 07/21/16 10:17 Dose: 40 mg Gabapentin (Neurontin -) 300 mg PO TID [facility] Last Admin: 07/21/16 14:44 Dose: 300 mg Insulin Aspart (Novolog Vial Sliding Scale -) 1 vial SQ ACHS [facility] PRN Reason: Protocol Last Admin: 07/21/16 10:54 Dose: 2 units Lactobacillus Acidophilus (Bacid -) 1 tab PO DAILY [facility] Last Admin: 07/21/16 10:17 Dose: 1 tab Methylprednisolone Sodium Succinate (Solu-Medrol -) 20 mg IVPB Q8H-IV [facility] Last Admin: 07/21/16 10:18 Dose: 20 mg Oxycodone HCl (Roxicodone -) 5 mg PO Q6H PRN PRN Reason: PAIN SCALE 6-10 Last Admin: 07/20/16 22:19 Dose: 5 mg Pantoprazole Sodium (Protonix -) 40 mg PO DAILY [facility] Last Admin: 07/21/16 10:17 Dose: 40 mg Polyethylene Glycol (Miralax (For Daily Use) -) 17 gm PO TID PRN PRN Reason: CONSTIPATION Last Admin: 07/20/16 18:31 Dose: 17 grams Risperidone (Risperdal -) 1 mg PO BID [facility] Last Admin: 07/21/16 10:18 Dose: 1 mg - Objective Vital Signs: Vital Signs Temperature 97.9 F 07/21/16 07:32 Pulse Rate 78 07/21/16 07:32 Respiratory Rate 20 07/21/16 07:32 Blood Pressure 134/64 07/21/16 07:32 O2 Sat by Pulse Oximetry (%) 95 07/20/16 21:00 Labs: CBC, BMP 07/21/16 06:45 07/21/16 06:45 Problem List - Problems (1) Dyspnea Code(s): R06.00 - DYSPNEA, UNSPECIFIED Qualifiers: Dyspnea type: shortness of breath Qualified Code(s): R06.02 - Shortness of breath (2) Congestive heart failure Code(s): I50.9 - HEART FAILURE, UNSPECIFIED Qualifiers: Congestive heart failure type: unspecified congestive heart failure type Congestive heart failure chronicity: unspecified congestive heart failure chronicity Qualified Code(s): I50.9 - Heart failure, unspecified (3) Bronchitis Code(s): J40 - BRONCHITIS, NOT SPECIFIED ACUTE OR CHRONIC (4) Hyperlipidemia Code(s): E78.5 - HYPERLIPIDEMIA, UNSPECIFIED Qualifiers: Hyperlipidemia type: pure hypercholesterolemia Qualified Code(s): E78.0 - Pure hypercholesterolemia (5) Diabetes Code(s): E11.9 - TYPE 2 DIABETES MELLITUS WITHOUT COMPLICATIONS Qualifiers: Diabetes mellitus type: type 2 Diabetes mellitus complication status: without complication Diabetes mellitus on air director insulin use: without prison use Qualified Code(s): E11.9 - Type 2 diabetes mellitus without complications (6) HTN (hypertension) Code(s): I10 - ESSENTIAL (PRIMARY) HYPERTENSION Qualifiers: Hypertension type: essential hypertension Qualified Code(s): I10 - Essential (primary) hypertension (7) Left ventricular diastolic dysfunction Code(s): I51.9 - HEART DISEASE, UNSPECIFIED (8) CAD (coronary artery disease) Code(s): I25.10 - ATHSCL HEART DISEASE OF [place] CORONARY ARTERY W/O ANG PCTRS Qualifiers: Coronary Disease-Associated Artery/Lesion type: [place] artery [place] vs. transplanted heart: [place] heart Associated angina: with stable angina Qualified Code(s): I25.119 - Atherosclerotic heart disease of [place] coronary artery with unspecified angina pectoris (9) History of percutaneous coronary intervention Code(s): Z98.89 - OTHER SPECIFIED POSTPROCEDURAL STATES * DO NOT USE * (10) Atrial fibrillation Code(s): I48.91 - UNSPECIFIED ATRIAL FIBRILLATION Qualifiers: Atrial fibrillation type: paroxysmal Qualified Code(s): I48.0 - Paroxysmal atrial fibrillation
--- NOTE | 2016-07-21 15:51 | PN ---
Progress Note, Physician History of Present Illness: less SOB - Current Medication List Current Medications: Active Medications Acetaminophen (Tylenol -) 650 mg PO Q6H PRN PRN Reason: FEVER OR PAIN Acetaminophen (Tylenol -) 325 mg PO Q6H PRN PRN Reason: PAIN Last Admin: 07/20/16 22:20 Dose: 325 mg Albuterol Sulfate (Ventolin 0.083% Nebulizer Soln -) 1 amp NEB Q6H PRN PRN Reason: SHORT OF BREATH/WHEEZING Albuterol Sulfate (Ventolin 0.083% Nebulizer Soln -) 1 amp NEB TID ON LICENSE OF [facility] Last Admin: 07/21/16 14:41 Dose: 1 amp Dabigatran (Pradaxa -) 150 mg PO BID ON LICENSE OF [facility] Last Admin: 07/21/16 10:17 Dose: 150 mg Diltiazem HCl (Cardizem Cd -) 120 mg PO DAILY ON LICENSE OF [facility] Last Admin: 07/21/16 10:17 Dose: 120 mg Duloxetine HCl (Cymbalta -) 30 mg PO DAILY ON LICENSE OF [facility] Last Admin: 07/21/16 10:17 Dose: 30 mg Ferrous Sulfate (Feosol -) 325 mg PO DAILY ON LICENSE OF [facility] Last Admin: 07/21/16 10:17 Dose: 325 mg Furosemide (Lasix Injection -) 40 mg IVPUSH DAILY ON LICENSE OF [facility] Last Admin: 07/21/16 10:17 Dose: 40 mg Gabapentin (Neurontin -) 300 mg PO TID ON LICENSE OF [facility] Last Admin: 07/21/16 14:44 Dose: 300 mg Insulin Aspart (Novolog Vial Sliding Scale -) 1 vial SQ ACHS RAJESH PRN Reason: Protocol Last Admin: 07/21/16 10:54 Dose: 2 units Lactobacillus Acidophilus (Bacid -) 1 tab PO DAILY ON LICENSE OF [facility] Last Admin: 07/21/16 10:17 Dose: 1 tab Methylprednisolone Sodium Succinate (Solu-Medrol -) 20 mg IVPB Q8H-IV ON LICENSE OF [facility] Last Admin: 07/21/16 10:18 Dose: 20 mg Oxycodone HCl (Roxicodone -) 5 mg PO Q6H PRN PRN Reason: PAIN SCALE 6-10 Last Admin: 07/20/16 22:19 Dose: 5 mg Pantoprazole Sodium (Protonix -) 40 mg PO DAILY ON LICENSE OF [facility] Last Admin: 07/21/16 10:17 Dose: 40 mg Polyethylene Glycol (Miralax (For Daily Use) -) 17 gm PO TID PRN PRN Reason: CONSTIPATION Last Admin: 07/20/16 18:31 Dose: 17 grams Risperidone (Risperdal -) 1 mg PO BID RAJESH Last Admin: 07/21/16 10:18 Dose: 1 mg - Objective Vital Signs: Vital Signs Temperature 98 F 07/21/16 15:46 Pulse Rate 64 07/21/16 15:46 Respiratory Rate 19 07/21/16 15:46 Blood Pressure 128/65 07/21/16 15:46 O2 Sat by Pulse Oximetry (%) 99 07/21/16 11:40 Constitutional: Yes: No Distress Eyes: Yes: Conjunctiva Clear HENT: Yes: Atraumatic Neck: Yes: Supple Cardiovascular: Yes: Regular Rate and Rhythm Respiratory: Yes: CTA Bilaterally Gastrointestinal: Yes: Soft. No: Distention Musculoskeletal: No: Joint Stiffness, Joint Swelling Extremities: No: Cold, Cool Edema: No Peripheral Pulses WNL: Yes Integumentary: No: Rash, Venous Stasis Changes Neurological: Yes: WNL, Alert, Oriented ...Motor Strength: WNL Psychiatric: Yes: WNL, Alert, Oriented. No: Agitated, Suicidal Ideation Labs: CBC, BMP 07/21/16 06:45 07/21/16 06:45 - ....Imaging Other: Report Reviewed Assessment/Plan CHF COPD exac, h/o PAfibCRF OA DJD IV lasix iv steroids taper per pulm cardio and pulm eval O2 NC falls PFX d/w pt and staff
[2016-07-21] MEDS ORDERED: INSULIN (NOVOLOG) ASPART 100 UNITS/ML 10ML VIAL ONE (21:41)
[2016-07-21] MEDS: POLYETHYLENE GLYCOL 3350 119 GM BTL PO PRN (21:47)
[2016-07-22] MEDS: methylPREDNISolone NA SUCC 40 MG/1 ML VIAL IVPB SCH ×3 (02:25→18:01)
[2016-07-22] MEDS: GABAPENTIN 300 MG CAPSULE (FP) PO SCH ×3 (06:33→21:53)
[2016-07-22] MEDS: INSULIN SLIDING SCALE (NOVOLOG) 1 VIAL SQ SCH ×4 (06:34→21:53)
[2016-07-22] MEDS: ALBUTEROL SO4 0.083% IH SOL 2.5 MG/3 ML VIAL.NEB. NEB SCH ×3 (06:50→23:05)
[2016-07-22 08:27] LABS: BASOPHIL 0.3 % (0-2.0); MCH 26.8 pg (25.7-33.7); MEAN CELL VOLUME 83.8 fl (80-96); MEAN PLT VOLUME 8.7 fl (7.5-11.1); NEUTROPHILS 91.7 % (42.8-82.8); PLATELET COUNT 283 K/MM3 (134-434); RDW 15.7 % (11.6-15.6); WHITE BLOOD COUNT 14.1 K/mm3 (4.0-10.0)
[2016-07-22 08:34] LABS: CALCIUM 8.7 mg/dL (8.5-10.1); CREATININE 0.9 mg/dL (0.55-1.02)
--- NOTE | 2016-07-22 08:49 | PN ---
Progress Note (short form) - Note Progress Note: Feels better , no complaints BGM acceptable 24 hour urine collection ongoing Vital Signs Period Temp Pulse Resp BP Sys/Delacruz Pulse Ox Last 24 Hr 97.8 F-98.0 F 63-71 18-20 116-137/55-65 97-99 PE: AOx3 Neck: Supple, No JVD HEENT: PERRL, EOMI Lungs: CTa Abd: Benign CVS: S12 EXT: No edema Neuro: No focal deficit CMP Sodium 138 mmol/L (136-145) 07/22/16 07:00 Potassium 4.9 mmol/L (3.5-5.1) 07/22/16 07:00 Chloride 101 mmol/L (98-107) 07/22/16 07:00 Carbon Dioxide 29 mmol/L (21-32) D 07/22/16 07:00 Anion Gap 8 (8-16) 07/22/16 07:00 BUN 27 mg/dL (7-18) H 07/22/16 07:00 Creatinine 0.9 mg/dL (0.55-1.02) 07/22/16 07:00 Creat Clearance w eGFR > 60 (>60) 07/21/16 06:45 POC Glucometer 189 UNITS (()) 07/22/16 06:32 Random Glucose 124 mg/dL (74-106) H 07/22/16 07:00 Hemoglobin A1c % 6.5 % (4.8-6.0) H 07/22/16 07:00 Calcium 8.7 mg/dL (8.5-10.1) 07/22/16 07:00 Magnesium 2.6 mg/dL (1.8-2.4) H 07/19/16 06:20 Total Bilirubin 0.1 mg/dL (0.2-1.0) L D 07/21/16 06:45 AST 10 U/L (15-37) L 07/21/16 06:45 ALT 16 U/L (12-78) 07/21/16 06:45 Alkaline Phosphatase 92 U/L (45-117) 07/21/16 06:45 Creatine Kinase 126 IU/L (26-192) 07/19/16 06:20 CK-MB (CK-2) 1.696 ng/ml (0.5-3.6) 07/18/16 14:08 Troponin I < 0.02 ng/ml (0.00-0.05) 07/19/16 06:20 B-Natriuretic Peptide 536.76 pg/ml (5-125) H 07/18/16 14:08 Total Protein 7.0 g/dl (6.4-8.2) 07/21/16 06:45 Albumin 3.4 g/dl (3.4-5.0) 07/21/16 06:45 TSH 0.18 uIU/ml (0.358-3.74) L D 07/20/16 06:20 Free T4 1.10 ng/dl (0.76-1.46) 07/20/16 06:20 Free T3 2.4 pg/ml (2.0-4.4) 07/20/16 06:20 Current Medications Generic Name Dose Route Start Last Admin Trade Name Freq PRN Reason Stop Dose Admin Acetaminophen 650 mg 07/18/16 23:47 Tylenol - PO Q6H PRN FEVER OR PAIN Acetaminophen 325 mg 07/19/16 20:47 07/20/16 22:20 Tylenol - PO 325 mg Q6H PRN Administration PAIN Albuterol Sulfate 1 amp 07/18/16 23:47 Ventolin 0.083% Nebulizer Soln - NEB Q6H PRN SHORT OF BREATH/WHEEZING Albuterol Sulfate 1 amp 07/19/16 22:00 07/22/16 06:50 Ventolin 0.083% Nebulizer Soln - NEB 1 amp TID RAJESH Administration Dabigatran 150 mg 07/19/16 10:00 07/21/16 21:41 Pradaxa - PO 150 mg BID RAJESH Administration Diltiazem HCl 120 mg 07/19/16 10:00 07/21/16 10:17 Cardizem Cd - PO 120 mg DAILY RAJESH Administration Duloxetine HCl 30 mg 07/19/16 10:00 07/21/16 10:17 Cymbalta - PO 30 mg DAILY RAJESH Administration Ferrous Sulfate 325 mg 07/19/16 10:00 07/21/16 10:17 Feosol - PO 325 mg DAILY RAJESH Administration Furosemide 40 mg 07/19/16 10:00 07/21/16 10:17 Lasix Injection - IVPUSH 40 mg DAILY RAJESH Administration Gabapentin 300 mg 07/19/16 06:00 07/22/16 06:33 Neurontin - PO 300 mg TID RAJESH Administration Insulin Aspart 1 vial 07/19/16 07:00 07/22/16 06:34 Novolog Vial Sliding Scale - SQ 2 units ACHS RAJESH Administration Protocol Lactobacillus Acidophilus 1 tab 07/19/16 10:00 07/21/16 10:17 Bacid - PO 1 tab DAILY RAJESH Administration Methylprednisolone Sodium Succinate 20 mg 07/20/16 18:00 07/22/16 02:25 Solu-Medrol - IVPB 20 mg Q8H-IV RAJESH Administration Oxycodone HCl 5 mg 07/19/16 20:47 07/20/16 22:19 Roxicodone - PO 5 mg Q6H PRN Administration PAIN SCALE 6-10 Pantoprazole Sodium 40 mg 07/19/16 10:00 07/21/16 10:17 Protonix - PO 40 mg DAILY RAJESH Administration Polyethylene Glycol 17 gm 07/18/16 23:44 07/21/16 21:47 Miralax (For Daily Use) - PO 17 grams TID PRN Administration CONSTIPATION Risperidone 1 mg 07/19/16 10:00 07/21/16 21:43 Risperdal - PO 1 mg BID RAJESH Administration AP: Abnormal TFT: Pt says she took medication for some thyroid problem about 30 years ago. Doesn't know what it was TPO, TSI result pending DM: BGM Q ACHS Novolog SS Will F/U Left Adrenal Nodule: Slight increase from 1.8x1.2 to 2.0x1.2 24 hr urine for Catecholamines and Metanephrines. Urine collection ongoing. COPD exacerbation Chronic LV diastolic dysfunction PAF currently in sinus CAD s/p PCI/stent, angina pectoris HTN
[2016-07-22] MEDS ORDERED: PT OWN MED DRAWER 7, Y5N ONE (09:38)
--- NOTE | 2016-07-22 09:58 | PN ---
Progress Note, Physician History of Present Illness: Dyspnea improving, denies chest pain. - Current Medication List Current Medications: Active Medications Acetaminophen (Tylenol -) 650 mg PO Q6H PRN PRN Reason: FEVER OR PAIN Acetaminophen (Tylenol -) 325 mg PO Q6H PRN PRN Reason: PAIN Last Admin: 07/20/16 22:20 Dose: 325 mg Albuterol Sulfate (Ventolin 0.083% Nebulizer Soln -) 1 amp NEB Q6H PRN PRN Reason: SHORT OF BREATH/WHEEZING Albuterol Sulfate (Ventolin 0.083% Nebulizer Soln -) 1 amp NEB TID [facility] Last Admin: 07/22/16 06:50 Dose: 1 amp Dabigatran (Pradaxa -) 150 mg PO BID [facility] Last Admin: 07/21/16 21:41 Dose: 150 mg Diltiazem HCl (Cardizem Cd -) 120 mg PO DAILY [facility] Last Admin: 07/21/16 10:17 Dose: 120 mg Duloxetine HCl (Cymbalta -) 30 mg PO DAILY [facility] Last Admin: 07/21/16 10:17 Dose: 30 mg Ferrous Sulfate (Feosol -) 325 mg PO DAILY [facility] Last Admin: 07/21/16 10:17 Dose: 325 mg Furosemide (Lasix Injection -) 40 mg IVPUSH DAILY [facility] Last Admin: 07/21/16 10:17 Dose: 40 mg Gabapentin (Neurontin -) 300 mg PO TID [facility] Last Admin: 07/22/16 06:33 Dose: 300 mg Insulin Aspart (Novolog Vial Sliding Scale -) 1 vial SQ ACHS [facility] PRN Reason: Protocol Last Admin: 07/22/16 06:34 Dose: 2 units Lactobacillus Acidophilus (Bacid -) 1 tab PO DAILY [facility] Last Admin: 07/21/16 10:17 Dose: 1 tab Methylprednisolone Sodium Succinate (Solu-Medrol -) 20 mg IVPB Q8H-IV [facility] Last Admin: 07/22/16 02:25 Dose: 20 mg Oxycodone HCl (Roxicodone -) 5 mg PO Q6H PRN PRN Reason: PAIN SCALE 6-10 Last Admin: 07/20/16 22:19 Dose: 5 mg Pantoprazole Sodium (Protonix -) 40 mg PO DAILY [facility] Last Admin: 07/21/16 10:17 Dose: 40 mg Polyethylene Glycol (Miralax (For Daily Use) -) 17 gm PO TID PRN PRN Reason: CONSTIPATION Last Admin: 07/21/16 21:47 Dose: 17 grams Risperidone (Risperdal -) 1 mg PO BID RAJESH Last Admin: 07/21/16 21:43 Dose: 1 mg - Objective Vital Signs: Vital Signs Temperature 98.0 F 07/21/16 22:00 Pulse Rate 63 07/21/16 22:00 Respiratory Rate 18 07/21/16 22:00 Blood Pressure 116/59 07/21/16 22:00 O2 Sat by Pulse Oximetry (%) 99 07/21/16 22:00 Constitutional: Yes: No Distress, Calm Neck: Yes: Supple Cardiovascular: Yes: Regular Rate and Rhythm, Murmur (1/6 SM) Respiratory: Yes: Regular, Diminished, On Nasal O2 Gastrointestinal: Yes: Normal Bowel Sounds, Soft Edema: No Labs: CBC, BMP 07/22/16 07:00 07/22/16 07:00 Problem List - Problems (1) Atrial fibrillation Code(s): I48.91 - UNSPECIFIED ATRIAL FIBRILLATION Qualifiers: Atrial fibrillation type: paroxysmal Qualified Code(s): I48.0 - Paroxysmal atrial fibrillation (2) Dyspnea Code(s): R06.00 - DYSPNEA, UNSPECIFIED Qualifiers: Dyspnea type: shortness of breath Qualified Code(s): R06.02 - Shortness of breath (3) History of percutaneous coronary intervention Code(s): Z98.89 - OTHER SPECIFIED POSTPROCEDURAL STATES * DO NOT USE * (4) Bronchitis Code(s): J40 - BRONCHITIS, NOT SPECIFIED ACUTE OR CHRONIC (5) Hyperlipidemia Code(s): E78.5 - HYPERLIPIDEMIA, UNSPECIFIED Qualifiers: Hyperlipidemia type: pure hypercholesterolemia Qualified Code(s): E78.0 - Pure hypercholesterolemia (6) Diabetes Code(s): E11.9 - TYPE 2 DIABETES MELLITUS WITHOUT COMPLICATIONS Qualifiers: Diabetes mellitus type: type 2 Diabetes mellitus complication status: without complication 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 Clinical presentation suggests COPD exacerbation +/- bronchitis improving 2. Chronic LV diastolic dysfunction 3. PAF currently in sinus 4. CAD s/p PCI/stent, angina pectoris 5. HTN 6. Type 2 DM PLAN: 1. Further cardiac testing including nuclear myocardial perfusion imaging can be done as outpatient. Patient was advised to follow up in our office 2. Continue Pradaxa 150 bid, Cardizem CD 120 qd 3. Decrease Lasix 20 po qd and monitor renal function and electrolytes 4. IV steroid taper with GI protection, bronchodilators, O2 as needed
[2016-07-22] MEDS: FERROUS SO4 325 MG TABLET (FP) PO SCH (10:01)
[2016-07-22] MEDS: PANTOPRAZOLE 40 MG TABLET (FP) PO SCH (10:01)
[2016-07-22] MEDS: DULoxetine HCL 30 MG CAPSULE.DR (FP) PO SCH (10:01)
[2016-07-22] MEDS: LACTOBACILLUS ACIDOPHILUS 1 EACH TAB (FP) PO SCH (10:01)
[2016-07-22] MEDS: risperiDONE 0.5 MG TABLET (FP) PO SCH ×2 (10:03→21:54)
[2016-07-22] MEDS: DABIGATRAN ETEXILATE MESYLATE 150 MG CAPSULE PO SCH ×2 (10:03→21:54)
[2016-07-22] MEDS: FUROSEMIDE 40 MG/4 ML INJECTABLE VIAL IVPUSH SCH (10:09)
--- NOTE | 2016-07-22 13:43 | PN ---
Progress Note (short form) - Note Progress Note: PULMONARY OOB TO CHAIR PATIENT REQUESTING O2 FOR HOME USE VSS/AFEBRILE ANICTERIC DISTANT WITH END EXPIRATORY WHEEZE S1S2 BS+ OBESE NO EDEMA LABS/MEDS/NOTES/MICRO/CONSULTS REVIEWED DOES NOT REQUIRE HOME O2 - Problems (1) Dyspnea Code(s): R06.00 - DYSPNEA, UNSPECIFIED Qualifiers: Dyspnea type: shortness of breath Qualified Code(s): R06.02 - Shortness of breath (2) Bronchitis Code(s): J40 - BRONCHITIS, NOT SPECIFIED ACUTE OR CHRONIC (3) Hiatal hernia Code(s): K44.9 - DIAPHRAGMATIC HERNIA WITHOUT OBSTRUCTION OR GANGRENE (4) Hyperlipidemia Code(s): E78.5 - HYPERLIPIDEMIA, UNSPECIFIED (5) Back pain Code(s): M54.9 - DORSALGIA, UNSPECIFIED Qualifiers: Chronicity: acute Back pain laterality: bilateral Sciatica presence : without sciatica (6) Connective tissue disease Code(s): M35.9 - SYSTEMIC INVOLVEMENT OF CONNECTIVE TISSUE, UNSPECIFIED (7) Diabetes Code(s): E11.9 - TYPE 2 DIABETES MELLITUS WITHOUT COMPLICATIONS (8) Fibromyalgia Code(s): M79.7 - FIBROMYALGIA (9) HTN (hypertension) Code(s): I10 - ESSENTIAL (PRIMARY) HYPERTENSION (10) History of peptic ulcer disease Code(s): Z87.11 - PERSONAL HISTORY OF PEPTIC ULCER DISEASE (11) Left ventricular diastolic dysfunction Code(s): I51.9 - HEART DISEASE, UNSPECIFIED (12) Lower back pain Code(s): M54.5 - LOW BACK PAIN (13) Mitral regurgitation Code(s): I34.0 - NONRHEUMATIC MITRAL (VALVE) INSUFFICIENCY (14) Obesity Code(s): E66.9 - OBESITY, UNSPECIFIED (15) Rheumatoid factor positive with cyclic citrullinated peptide (CCP) antibody negative Code(s): R76.8 - OTHER SPECIFIED ABNORMAL IMMUNOLOGICAL FINDINGS IN SERUM (16) Schizoaffective disorder Code(s): F25.9 - SCHIZOAFFECTIVE DISORDER, UNSPECIFIED (17) Shoulder pain, left Code(s): M25.512 - PAIN IN LEFT SHOULDER (18) Status post total knee replacement, right Code(s): Z96.651 - PRESENCE OF RIGHT ARTIFICIAL KNEE JOINT Assessment/Plan PLAN: Medrol to be reduced BD TX O2 prn No smoking Outpatient PFTs once stable Saul GIVENS MD
--- NOTE | 2016-07-22 22:32 | PN ---
Progress Note, Physician Chief Complaint: less sob - Current Medication List Current Medications: Active Medications Acetaminophen (Tylenol -) 650 mg PO Q6H PRN PRN Reason: FEVER OR PAIN Acetaminophen (Tylenol -) 325 mg PO Q6H PRN PRN Reason: PAIN Last Admin: 07/20/16 22:20 Dose: 325 mg Albuterol Sulfate (Ventolin 0.083% Nebulizer Soln -) 1 amp NEB Q6H PRN PRN Reason: SHORT OF BREATH/WHEEZING Albuterol Sulfate (Ventolin 0.083% Nebulizer Soln -) 1 amp NEB TID [facility] Last Admin: 07/22/16 14:00 Dose: 1 amp Dabigatran (Pradaxa -) 150 mg PO BID [facility] Last Admin: 07/22/16 21:54 Dose: 150 mg Diltiazem HCl (Cardizem Cd -) 120 mg PO DAILY [facility] Last Admin: 07/22/16 10:02 Dose: 120 mg Duloxetine HCl (Cymbalta -) 30 mg PO DAILY [facility] Last Admin: 07/22/16 10:01 Dose: 30 mg Ferrous Sulfate (Feosol -) 325 mg PO DAILY [facility] Last Admin: 07/22/16 10:01 Dose: 325 mg Furosemide (Lasix Injection -) 40 mg IVPUSH DAILY [facility] Last Admin: 07/22/16 10:09 Dose: 40 mg Gabapentin (Neurontin -) 300 mg PO TID [facility] Last Admin: 07/22/16 21:53 Dose: 300 mg Insulin Aspart (Novolog Vial Sliding Scale -) 1 vial SQ ACHS [facility] PRN Reason: Protocol Last Admin: 07/22/16 21:53 Dose: 2 units Lactobacillus Acidophilus (Bacid -) 1 tab PO DAILY [facility] Last Admin: 07/22/16 10:01 Dose: 1 tab Methylprednisolone Sodium Succinate (Solu-Medrol -) 20 mg IVPB Q8H-IV [facility] Last Admin: 07/22/16 18:01 Dose: 20 mg Oxycodone HCl (Roxicodone -) 5 mg PO Q6H PRN PRN Reason: PAIN SCALE 6-10 Last Admin: 07/20/16 22:19 Dose: 5 mg Pantoprazole Sodium (Protonix -) 40 mg PO DAILY [facility] Last Admin: 07/22/16 10:01 Dose: 40 mg Polyethylene Glycol (Miralax (For Daily Use) -) 17 gm PO TID PRN PRN Reason: CONSTIPATION Last Admin: 07/21/16 21:47 Dose: 17 grams Risperidone (Risperdal -) 1 mg PO BID RAJESH Last Admin: 07/22/16 21:54 Dose: 1 mg - Objective Vital Signs: Vital Signs Temperature 98.3 F 07/22/16 18:47 Pulse Rate 63 07/22/16 18:47 Respiratory Rate 18 07/22/16 18:47 Blood Pressure 137/52 07/22/16 18:47 O2 Sat by Pulse Oximetry (%) 98 07/22/16 11:25 Constitutional: Yes: No Distress Eyes: Yes: Conjunctiva Clear HENT: Yes: Atraumatic Neck: Yes: Supple Cardiovascular: Yes: Regular Rate and Rhythm Respiratory: Yes: CTA Bilaterally Gastrointestinal: Yes: Soft. No: Distention Genitourinary: No: CVA Tenderness - Left, CVA Tenderness - Right Extremities: No: Cold, Cool Edema: No Peripheral Pulses WNL: Yes Labs: CBC, BMP 07/22/16 07:00 07/22/16 07:00 - ....Imaging Other: Report Reviewed Assessment/Plan CHF COPD exac, h/o PAfibCRF OA DJD IV lasix iv steroids taper per pulm cardio and pulm eval O2 NC falls PFX d/w pt and staff
[2016-07-23] MEDS: methylPREDNISolone NA SUCC 40 MG/1 ML VIAL IVPB SCH ×3 (01:34→18:05)
[2016-07-23 06:06] LABS: THYROID PEROXIDASE(TPO) 17 IU/mL (0-34)
[2016-07-23] MEDS: ALBUTEROL SO4 0.083% IH SOL 2.5 MG/3 ML VIAL.NEB. NEB SCH ×3 (06:42→22:45)
[2016-07-23] MEDS: GABAPENTIN 300 MG CAPSULE (FP) PO SCH ×3 (06:53→21:47)
[2016-07-23] MEDS: INSULIN SLIDING SCALE (NOVOLOG) 1 VIAL SQ SCH ×4 (06:53→22:02)
[2016-07-23 07:49] LABS: BASOPHIL 0.1 % (0-2.0); MCH 26.7 pg (25.7-33.7); MCHC 32.2 g/dl (32.0-36.0); MEAN CELL VOLUME 82.9 fl (80-96); PLATELET COUNT 264 K/MM3 (134-434); RDW 15.9 % (11.6-15.6); WHITE BLOOD COUNT 12.1 K/mm3 (4.0-10.0)
[2016-07-23] MEDS: PANTOPRAZOLE 40 MG TABLET (FP) PO SCH (09:45)
[2016-07-23] MEDS: FERROUS SO4 325 MG TABLET (FP) PO SCH (09:45)
[2016-07-23] MEDS: DULoxetine HCL 30 MG CAPSULE.DR (FP) PO SCH (09:45)
[2016-07-23] MEDS: FUROSEMIDE 40 MG/4 ML INJECTABLE VIAL IVPUSH SCH (09:45)
[2016-07-23] MEDS: LACTOBACILLUS ACIDOPHILUS 1 EACH TAB (FP) PO SCH (09:45)
[2016-07-23] MEDS: DABIGATRAN ETEXILATE MESYLATE 150 MG CAPSULE PO SCH ×2 (09:48→21:47)
[2016-07-23] MEDS: risperiDONE 1 MG TABLET (FP) PO SCH ×2 (09:48→21:48)
[2016-07-23 10:23] LABS: CREATININE 0.8 mg/dL (0.55-1.02)
--- NOTE | 2016-07-23 11:21 | PN ---
Progress Note (short form) - Note Progress Note: Denies any complaints BGM acceptable 24 hour urine collection sent to lab as per RN Vital Signs Period Temp Pulse Resp BP Sys/Delacruz Pulse Ox Last 24 Hr 97.7 F-98.3 F 62-100 18-18 129-141/52-63 98-98 PE: AOx3 Neck: Supple, No JVD HEENT: PERRL, EOMI Lungs: CTa Abd: Benign CVS: S12 EXT: No edema Neuro: No focal deficit CMP Sodium 139 mmol/L (136-145) 07/23/16 06:15 Potassium 5.0 mmol/L (3.5-5.1) 07/23/16 06:15 Chloride 101 mmol/L (98-107) 07/23/16 06:15 Carbon Dioxide 30 mmol/L (21-32) 07/23/16 06:15 Anion Gap 8 (8-16) 07/23/16 06:15 BUN 32 mg/dL (7-18) H 07/23/16 06:15 Creatinine 0.8 mg/dL (0.55-1.02) 07/23/16 06:15 Creat Clearance w eGFR > 60 (>60) 07/21/16 06:45 POC Glucometer 123 UNITS (()) 07/23/16 05:44 Random Glucose 129 mg/dL (74-106) H 07/23/16 06:15 Hemoglobin A1c % 6.5 % (4.8-6.0) H 07/22/16 07:00 Calcium 9.0 mg/dL (8.5-10.1) 07/23/16 06:15 Magnesium 2.6 mg/dL (1.8-2.4) H 07/19/16 06:20 Total Bilirubin 0.1 mg/dL (0.2-1.0) L D 07/21/16 06:45 AST 10 U/L (15-37) L 07/21/16 06:45 ALT 16 U/L (12-78) 07/21/16 06:45 Alkaline Phosphatase 92 U/L (45-117) 07/21/16 06:45 Creatine Kinase 126 IU/L (26-192) 07/19/16 06:20 CK-MB (CK-2) 1.696 ng/ml (0.5-3.6) 07/18/16 14:08 Troponin I < 0.02 ng/ml (0.00-0.05) 07/19/16 06:20 B-Natriuretic Peptide 536.76 pg/ml (5-125) H 07/18/16 14:08 Total Protein 7.0 g/dl (6.4-8.2) 07/21/16 06:45 Albumin 3.4 g/dl (3.4-5.0) 07/21/16 06:45 TSH 0.18 uIU/ml (0.358-3.74) L D 07/20/16 06:20 Free T4 1.10 ng/dl (0.76-1.46) 07/20/16 06:20 Free T3 2.4 pg/ml (2.0-4.4) 07/20/16 06:20 Current Medications Generic Name Dose Route Start Last Admin Trade Name Freq PRN Reason Stop Dose Admin Acetaminophen 650 mg 07/18/16 23:47 Tylenol - PO Q6H PRN FEVER OR PAIN Acetaminophen 325 mg 07/19/16 20:47 07/20/16 22:20 Tylenol - PO 325 mg Q6H PRN Administration PAIN Albuterol Sulfate 1 amp 07/18/16 23:47 Ventolin 0.083% Nebulizer Soln - NEB Q6H PRN SHORT OF BREATH/WHEEZING Albuterol Sulfate 1 amp 07/19/16 22:00 07/23/16 06:42 Ventolin 0.083% Nebulizer Soln - NEB 1 amp TID RAJESH Administration Dabigatran 150 mg 07/19/16 10:00 07/23/16 09:48 Pradaxa - PO 150 mg BID RAJESH Administration Diltiazem HCl 120 mg 07/19/16 10:00 07/23/16 09:45 Cardizem Cd - PO 120 mg DAILY RAJESH Administration Duloxetine HCl 30 mg 07/19/16 10:00 07/23/16 09:45 Cymbalta - PO 30 mg DAILY RAJESH Administration Ferrous Sulfate 325 mg 07/19/16 10:00 07/23/16 09:45 Feosol - PO 325 mg DAILY RAJESH Administration Furosemide 40 mg 07/19/16 10:00 07/23/16 09:45 Lasix Injection - IVPUSH 40 mg DAILY RAJESH Administration Gabapentin 300 mg 07/19/16 06:00 07/23/16 06:53 Neurontin - PO 300 mg TID RAJESH Administration Insulin Aspart 1 vial 07/19/16 07:00 07/23/16 06:53 Novolog Vial Sliding Scale - SQ Not Given ACHS RAJESH Protocol Lactobacillus Acidophilus 1 tab 07/19/16 10:00 07/23/16 09:45 Bacid - PO 1 tab DAILY RAJESH Administration Methylprednisolone Sodium Succinate 20 mg 07/20/16 18:00 07/23/16 09:45 Solu-Medrol - IVPB 20 mg Q8H-IV RAJESH Administration Oxycodone HCl 5 mg 07/19/16 20:47 07/20/16 22:19 Roxicodone - PO 5 mg Q6H PRN Administration PAIN SCALE 6-10 Pantoprazole Sodium 40 mg 07/19/16 10:00 07/23/16 09:45 Protonix - PO 40 mg DAILY RAJESH Administration Polyethylene Glycol 17 gm 07/18/16 23:44 07/21/16 21:47 Miralax (For Daily Use) - PO 17 grams TID PRN Administration CONSTIPATION Risperidone 1 mg 07/23/16 10:00 07/23/16 09:48 Risperdal - PO 1 mg BID RAJESH Administration AP: Abnormal TFT: Pt says she took medication for some thyroid problem about 30 years ago. Doesn't know what it was TPO WNL, TSI result pending DM: BGM Q ACHS Novolog SS Will F/U Left Adrenal Nodule: Slight increase from 1.8x1.2 to 2.0x1.2 24 hr urine for Catecholamines and Metanephrines. Urine collection done and sent to lab. COPD exacerbation Chronic LV diastolic dysfunction PAF currently in sinus CAD s/p PCI/stent, angina pectoris HTN
--- NOTE | 2016-07-23 12:07 | PN ---
Progress Note, Physician History of Present Illness: Dyspnea improving, denies chest pain. - Current Medication List Current Medications: Active Medications Acetaminophen (Tylenol -) 650 mg PO Q6H PRN PRN Reason: FEVER OR PAIN Acetaminophen (Tylenol -) 325 mg PO Q6H PRN PRN Reason: PAIN Last Admin: 07/20/16 22:20 Dose: 325 mg Albuterol Sulfate (Ventolin 0.083% Nebulizer Soln -) 1 amp NEB Q6H PRN PRN Reason: SHORT OF BREATH/WHEEZING Albuterol Sulfate (Ventolin 0.083% Nebulizer Soln -) 1 amp NEB TID [facility] Last Admin: 07/23/16 06:42 Dose: 1 amp Dabigatran (Pradaxa -) 150 mg PO BID [facility] Last Admin: 07/23/16 09:48 Dose: 150 mg Diltiazem HCl (Cardizem Cd -) 120 mg PO DAILY [facility] Last Admin: 07/23/16 09:45 Dose: 120 mg Duloxetine HCl (Cymbalta -) 30 mg PO DAILY [facility] Last Admin: 07/23/16 09:45 Dose: 30 mg Ferrous Sulfate (Feosol -) 325 mg PO DAILY [facility] Last Admin: 07/23/16 09:45 Dose: 325 mg Furosemide (Lasix Injection -) 40 mg IVPUSH DAILY [facility] Last Admin: 07/23/16 09:45 Dose: 40 mg Gabapentin (Neurontin -) 300 mg PO TID [facility] Last Admin: 07/23/16 06:53 Dose: 300 mg Insulin Aspart (Novolog Vial Sliding Scale -) 1 vial SQ ACHS [facility] PRN Reason: Protocol Last Admin: 07/23/16 06:53 Dose: Not Given Lactobacillus Acidophilus (Bacid -) 1 tab PO DAILY [facility] Last Admin: 07/23/16 09:45 Dose: 1 tab Methylprednisolone Sodium Succinate (Solu-Medrol -) 20 mg IVPB Q8H-IV [facility] Last Admin: 07/23/16 09:45 Dose: 20 mg Oxycodone HCl (Roxicodone -) 5 mg PO Q6H PRN PRN Reason: PAIN SCALE 6-10 Last Admin: 07/20/16 22:19 Dose: 5 mg Pantoprazole Sodium (Protonix -) 40 mg PO DAILY [facility] Last Admin: 07/23/16 09:45 Dose: 40 mg Polyethylene Glycol (Miralax (For Daily Use) -) 17 gm PO TID PRN PRN Reason: CONSTIPATION Last Admin: 07/21/16 21:47 Dose: 17 grams Risperidone (Risperdal -) 1 mg PO BID [facility] Last Admin: 07/23/16 09:48 Dose: 1 mg - Objective Vital Signs: Vital Signs Temperature 97.7 F 07/23/16 06:00 Pulse Rate 81 07/23/16 11:03 Respiratory Rate 18 07/23/16 06:00 Blood Pressure 141/63 07/23/16 06:00 O2 Sat by Pulse Oximetry (%) 98 07/23/16 11:03 Constitutional: Yes: No Distress, Calm Neck: Yes: Supple Cardiovascular: Yes: Regular Rate and Rhythm, Murmur (2/6 SM) Respiratory: Yes: Regular, Diminished, On Nasal O2 Gastrointestinal: Yes: Normal Bowel Sounds, Soft Edema: No Labs: CBC, BMP 07/23/16 06:15 07/23/16 06:15 Problem List - Problems (1) Atrial fibrillation Code(s): I48.91 - UNSPECIFIED ATRIAL FIBRILLATION Qualifiers: Atrial fibrillation type: paroxysmal Qualified Code(s): I48.0 - Paroxysmal atrial fibrillation (2) Dyspnea Code(s): R06.00 - DYSPNEA, UNSPECIFIED Qualifiers: Dyspnea type: shortness of breath Qualified Code(s): R06.02 - Shortness of breath (3) History of percutaneous coronary intervention Code(s): Z98.89 - OTHER SPECIFIED POSTPROCEDURAL STATES * DO NOT USE * (4) Bronchitis Code(s): J40 - BRONCHITIS, NOT SPECIFIED ACUTE OR CHRONIC (5) Hyperlipidemia Code(s): E78.5 - HYPERLIPIDEMIA, UNSPECIFIED Qualifiers: Hyperlipidemia type: pure hypercholesterolemia Qualified Code(s): E78.0 - Pure hypercholesterolemia (6) Diabetes Code(s): E11.9 - TYPE 2 DIABETES MELLITUS WITHOUT COMPLICATIONS Qualifiers: Diabetes mellitus type: type 2 Diabetes mellitus complication status: without complication Diabetes mellitus buttermaker insulin use: without buttermaker use Qualified Code(s): E11.9 - Type 2 diabetes mellitus without complications (7) HTN (hypertension) Code(s): I10 - ESSENTIAL (PRIMARY) HYPERTENSION Qualifiers: Hypertension type: essential hypertension Qualified Code(s): I10 - Essential (primary) hypertension (8) Left ventricular diastolic dysfunction Code(s): I51.9 - HEART DISEASE, UNSPECIFIED Assessment/Plan 07/20/2016 Mildly dilated LV with normal LV fxn, mod LETICIA, mod MR, mild TR 1. Clinical presentation suggests COPD exacerbation +/- bronchitis improving 2. Chronic LV diastolic dysfunction 3. PAF currently in sinus 4. CAD s/p PCI/stent, angina pectoris 5. HTN 6. Type 2 DM PLAN: 1. Further cardiac testing including nuclear myocardial perfusion imaging can be done as outpatient. Patient was advised to follow up in our office 2. Continue Pradaxa 150 bid, Cardizem CD 120 qd 3. Decrease Lasix 20 po qd and monitor renal function and electrolytes 4. IV steroid taper with GI protection, bronchodilators, O2 as needed
--- NOTE | 2016-07-23 16:49 | PN ---
Progress Note, Physician Chief Complaint: less SOB; I was contacted yesterday by dr Carmona, pt's psychiatrist, and she mentioned that pt's aid and nurse will not be available to see Doris nation until and advised to continue inpatient till then, d/w pt - Current Medication List Current Medications: Active Medications Acetaminophen (Tylenol -) 650 mg PO Q6H PRN PRN Reason: FEVER OR PAIN Acetaminophen (Tylenol -) 325 mg PO Q6H PRN PRN Reason: PAIN Last Admin: 07/20/16 22:20 Dose: 325 mg Albuterol Sulfate (Ventolin 0.083% Nebulizer Soln -) 1 amp NEB Q6H PRN PRN Reason: SHORT OF BREATH/WHEEZING Albuterol Sulfate (Ventolin 0.083% Nebulizer Soln -) 1 amp NEB TID [facility] Last Admin: 07/23/16 14:04 Dose: 1 amp Dabigatran (Pradaxa -) 150 mg PO BID [facility] Last Admin: 07/23/16 09:48 Dose: 150 mg Diltiazem HCl (Cardizem Cd -) 120 mg PO DAILY [facility] Last Admin: 07/23/16 09:45 Dose: 120 mg Duloxetine HCl (Cymbalta -) 30 mg PO DAILY [facility] Last Admin: 07/23/16 09:45 Dose: 30 mg Ferrous Sulfate (Feosol -) 325 mg PO DAILY [facility] Last Admin: 07/23/16 09:45 Dose: 325 mg Furosemide (Lasix -) 20 mg PO DAILY [facility] Gabapentin (Neurontin -) 300 mg PO TID [facility] Last Admin: 07/23/16 14:54 Dose: 300 mg Insulin Aspart (Novolog Vial Sliding Scale -) 1 vial SQ ACHS [facility] PRN Reason: Protocol Last Admin: 07/23/16 12:38 Dose: Not Given Lactobacillus Acidophilus (Bacid -) 1 tab PO DAILY [facility] Last Admin: 07/23/16 09:45 Dose: 1 tab Methylprednisolone Sodium Succinate (Solu-Medrol -) 20 mg IVPB Q8H-IV [facility] Last Admin: 07/23/16 09:45 Dose: 20 mg Oxycodone HCl (Roxicodone -) 5 mg PO Q6H PRN PRN Reason: PAIN SCALE 6-10 Last Admin: 07/20/16 22:19 Dose: 5 mg Pantoprazole Sodium (Protonix -) 40 mg PO DAILY [facility] Last Admin: 07/23/16 09:45 Dose: 40 mg Polyethylene Glycol (Miralax (For Daily Use) -) 17 gm PO TID PRN PRN Reason: CONSTIPATION Last Admin: 07/21/16 21:47 Dose: 17 grams Risperidone (Risperdal -) 1 mg PO BID [facility] Last Admin: 07/23/16 09:48 Dose: 1 mg - Objective Vital Signs: Vital Signs Temperature 98.3 F 07/23/16 14:54 Pulse Rate 66 07/23/16 14:54 Respiratory Rate 18 07/23/16 14:54 Blood Pressure 123/53 07/23/16 14:54 O2 Sat by Pulse Oximetry (%) 98 07/23/16 11:03 Constitutional: Yes: No Distress Eyes: Yes: Conjunctiva Clear HENT: Yes: Atraumatic Neck: Yes: Supple Cardiovascular: Yes: Regular Rate and Rhythm Respiratory: Yes: CTA Bilaterally Gastrointestinal: Yes: Soft. No: Distention, Tenderness Musculoskeletal: No: Joint Stiffness, Joint Swelling Extremities: No: Erythema Edema: No Peripheral Pulses WNL: Yes Neurological: Yes: WNL, Alert, Oriented ...Motor Strength: WNL Psychiatric: Yes: WNL, Alert, Oriented. No: Agitated Labs: CBC, BMP 07/23/16 06:15 07/23/16 06:15 - ....Imaging Other: Report Reviewed Assessment/Plan CHF COPD exac, h/o PAfib CRF OA DJD IV lasix iv steroids taper per pulm cardio and pulm eval O2 NC falls PFX d/w pt and staff
[2016-07-24] MEDS: methylPREDNISolone NA SUCC 40 MG/1 ML VIAL IVPB SCH ×2 (01:21→09:36)
[2016-07-24] MEDS: INSULIN SLIDING SCALE (NOVOLOG) 1 VIAL SQ SCH ×4 (06:12→22:23)
[2016-07-24] MEDS: GABAPENTIN 300 MG CAPSULE (FP) PO SCH ×3 (06:13→21:35)
[2016-07-24] MEDS: ALBUTEROL SO4 0.083% IH SOL 2.5 MG/3 ML VIAL.NEB. NEB SCH ×3 (06:48→22:10)
[2016-07-24] MEDS ORDERED: PT OWN MED DRAWER 7, Y5N ONE (09:35)
[2016-07-24] MEDS: PANTOPRAZOLE 40 MG TABLET (FP) PO SCH (09:36)
[2016-07-24] MEDS: LACTOBACILLUS ACIDOPHILUS 1 EACH TAB (FP) PO SCH (09:36)
[2016-07-24] MEDS: FUROSEMIDE 20 MG TABLET (FP) PO SCH (09:36)
[2016-07-24] MEDS: FERROUS SO4 325 MG TABLET (FP) PO SCH (09:36)
[2016-07-24] MEDS: DULoxetine HCL 30 MG CAPSULE.DR (FP) PO SCH (09:36)
[2016-07-24] MEDS: DABIGATRAN ETEXILATE MESYLATE 150 MG CAPSULE PO SCH ×2 (09:36→21:35)
[2016-07-24] MEDS: risperiDONE 1 MG TABLET (FP) PO SCH ×2 (09:36→21:35)
[2016-07-24] MEDS ORDERED: predniSONE 10 MG TABLET (UD) PO SCH (11:00)
--- NOTE | 2016-07-24 11:01 | PN ---
Progress Note (short form) - Note Progress Note: PULMONARY LYING COMFORTABLY IN BED VSS/AFEBRILE ANICTERIC DISTANT WITH END EXPIRATORY WHEEZE S1S2 BS+ OBESE NO EDEMA LABS/MEDS/NOTES/MICRO/CONSULTS REVIEWED DOES NOT REQUIRE HOME O2 - Problems (1) Dyspnea Code(s): R06.00 - DYSPNEA, UNSPECIFIED Qualifiers: Dyspnea type: shortness of breath Qualified Code(s): R06.02 - Shortness of breath (2) Bronchitis Code(s): J40 - BRONCHITIS, NOT SPECIFIED ACUTE OR CHRONIC (3) Hiatal hernia Code(s): K44.9 - DIAPHRAGMATIC HERNIA WITHOUT OBSTRUCTION OR GANGRENE (4) Hyperlipidemia Code(s): E78.5 - HYPERLIPIDEMIA, UNSPECIFIED (5) Back pain Code(s): M54.9 - DORSALGIA, UNSPECIFIED Qualifiers: Chronicity: acute Back pain laterality: bilateral Sciatica presence : without sciatica (6) Connective tissue disease Code(s): M35.9 - SYSTEMIC INVOLVEMENT OF CONNECTIVE TISSUE, UNSPECIFIED (7) Diabetes Code(s): E11.9 - TYPE 2 DIABETES MELLITUS WITHOUT COMPLICATIONS (8) Fibromyalgia Code(s): M79.7 - FIBROMYALGIA (9) HTN (hypertension) Code(s): I10 - ESSENTIAL (PRIMARY) HYPERTENSION (10) History of peptic ulcer disease Code(s): Z87.11 - PERSONAL HISTORY OF PEPTIC ULCER DISEASE (11) Left ventricular diastolic dysfunction Code(s): I51.9 - HEART DISEASE, UNSPECIFIED (12) Lower back pain Code(s): M54.5 - LOW BACK PAIN (13) Mitral regurgitation Code(s): I34.0 - NONRHEUMATIC MITRAL (VALVE) INSUFFICIENCY (14) Obesity Code(s): E66.9 - OBESITY, UNSPECIFIED (15) 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
--- NOTE | 2016-07-24 13:41 | PN ---
Progress Note, Physician Chief Complaint: in bed feels better no new c/o needs note for [employer], and script for nebulizer for home - Current Medication List Current Medications: Active Medications Acetaminophen (Tylenol -) 650 mg PO Q6H PRN PRN Reason: FEVER OR PAIN Acetaminophen (Tylenol -) 325 mg PO Q6H PRN PRN Reason: PAIN Last Admin: 07/20/16 22:20 Dose: 325 mg Albuterol Sulfate (Ventolin 0.083% Nebulizer Soln -) 1 amp NEB Q6H PRN PRN Reason: SHORT OF BREATH/WHEEZING Albuterol Sulfate (Ventolin 0.083% Nebulizer Soln -) 1 amp NEB TID [facility] Last Admin: 07/24/16 06:48 Dose: 1 amp Dabigatran (Pradaxa -) 150 mg PO BID [facility] Last Admin: 07/24/16 09:36 Dose: 150 mg Diltiazem HCl (Cardizem Cd -) 120 mg PO DAILY [facility] Last Admin: 07/24/16 09:36 Dose: 120 mg Duloxetine HCl (Cymbalta -) 30 mg PO DAILY [facility] Last Admin: 07/24/16 09:36 Dose: 30 mg Ferrous Sulfate (Feosol -) 325 mg PO DAILY [facility] Last Admin: 07/24/16 09:36 Dose: 325 mg Furosemide (Lasix -) 20 mg PO DAILY [facility] Last Admin: 07/24/16 09:36 Dose: 20 mg Gabapentin (Neurontin -) 300 mg PO TID [facility] Last Admin: 07/24/16 06:13 Dose: 300 mg Insulin Aspart (Novolog Vial Sliding Scale -) 1 vial SQ ACHS [facility] PRN Reason: Protocol Last Admin: 07/24/16 10:57 Dose: 2 units Lactobacillus Acidophilus (Bacid -) 1 tab PO DAILY [facility] Last Admin: 07/24/16 09:36 Dose: 1 tab Oxycodone HCl (Roxicodone -) 5 mg PO Q6H PRN PRN Reason: PAIN SCALE 6-10 Last Admin: 07/20/16 22:19 Dose: 5 mg Pantoprazole Sodium (Protonix -) 40 mg PO DAILY [facility] Last Admin: 07/24/16 09:36 Dose: 40 mg Polyethylene Glycol (Miralax (For Daily Use) -) 17 gm PO TID PRN PRN Reason: CONSTIPATION Last Admin: 07/21/16 21:47 Dose: 17 grams Prednisone (Deltasone -) 20 mg PO DAILY [facility] Risperidone (Risperdal -) 1 mg PO BID [facility] Last Admin: 07/24/16 09:36 Dose: 1 mg - Objective Vital Signs: Vital Signs Temperature 97.5 F L 07/24/16 09:40 Pulse Rate 72 07/24/16 10:47 Respiratory Rate 20 07/24/16 09:40 Blood Pressure 145/66 07/24/16 09:40 O2 Sat by Pulse Oximetry (%) 96 07/24/16 10:47 Constitutional: Yes: No Distress, Calm Eyes: Yes: Conjunctiva Clear HENT: Yes: Atraumatic Neck: Yes: Supple Cardiovascular: Yes: Regular Rate and Rhythm Respiratory: Yes: CTA Bilaterally Gastrointestinal: Yes: Soft. No: Distention, Tenderness Genitourinary: No: CVA Tenderness - Left, CVA Tenderness - Right Musculoskeletal: No: Joint Stiffness, Joint Swelling Extremities: No: Cold, Cool, Cyanosis Edema: No Peripheral Pulses WNL: Yes Integumentary: No: Rash, Venous Stasis Changes Neurological: Yes: WNL, Alert, Oriented ...Motor Strength: WNL Psychiatric: Yes: WNL, Alert, Oriented. No: Agitated Labs: CBC, BMP 07/23/16 06:15 07/23/16 06:15 - ....Imaging Other: Report Reviewed Assessment/Plan CHF COPD exac, h/o PAfib CRF OA DJD po lasix po steroids taper per pulm cardio and pulm eval O2 NC falls PFX d/w pt and staff
[2016-07-24] MEDS: predniSONE 20 MG TABLET (UD) PO SCH (13:54)
--- NOTE | 2016-07-24 15:06 | PN ---
Progress Note, Physician History of Present Illness: Dyspnea improving, denies chest pain. - Current Medication List Current Medications: Active Medications Acetaminophen (Tylenol -) 650 mg PO Q6H PRN PRN Reason: FEVER OR PAIN Acetaminophen (Tylenol -) 325 mg PO Q6H PRN PRN Reason: PAIN Last Admin: 07/20/16 22:20 Dose: 325 mg Albuterol Sulfate (Ventolin 0.083% Nebulizer Soln -) 1 amp NEB Q6H PRN PRN Reason: SHORT OF BREATH/WHEEZING Albuterol Sulfate (Ventolin 0.083% Nebulizer Soln -) 1 amp NEB TID [facility] Last Admin: 07/24/16 14:45 Dose: 1 amp Dabigatran (Pradaxa -) 150 mg PO BID [facility] Last Admin: 07/24/16 09:36 Dose: 150 mg Diltiazem HCl (Cardizem Cd -) 120 mg PO DAILY [facility] Last Admin: 07/24/16 09:36 Dose: 120 mg Duloxetine HCl (Cymbalta -) 30 mg PO DAILY [facility] Last Admin: 07/24/16 09:36 Dose: 30 mg Ferrous Sulfate (Feosol -) 325 mg PO DAILY [facility] Last Admin: 07/24/16 09:36 Dose: 325 mg Furosemide (Lasix -) 20 mg PO DAILY [facility] Last Admin: 07/24/16 09:36 Dose: 20 mg Gabapentin (Neurontin -) 300 mg PO TID [facility] Last Admin: 07/24/16 13:54 Dose: 300 mg Insulin Aspart (Novolog Vial Sliding Scale -) 1 vial SQ ACHS [facility] PRN Reason: Protocol Last Admin: 07/24/16 10:57 Dose: 2 units Lactobacillus Acidophilus (Bacid -) 1 tab PO DAILY [facility] Last Admin: 07/24/16 09:36 Dose: 1 tab Oxycodone HCl (Roxicodone -) 5 mg PO Q6H PRN PRN Reason: PAIN SCALE 6-10 Last Admin: 07/20/16 22:19 Dose: 5 mg Pantoprazole Sodium (Protonix -) 40 mg PO DAILY [facility] Last Admin: 07/24/16 09:36 Dose: 40 mg Polyethylene Glycol (Miralax (For Daily Use) -) 17 gm PO TID PRN PRN Reason: CONSTIPATION Last Admin: 07/21/16 21:47 Dose: 17 grams Prednisone (Deltasone -) 20 mg PO DAILY [facility] Last Admin: 07/24/16 13:54 Dose: 20 mg Risperidone (Risperdal -) 1 mg PO BID [facility] Last Admin: 07/24/16 09:36 Dose: 1 mg - Objective Vital Signs: Vital Signs Temperature 97.5 F L 07/24/16 09:40 Pulse Rate 72 07/24/16 10:47 Respiratory Rate 20 07/24/16 09:40 Blood Pressure 145/66 07/24/16 09:40 O2 Sat by Pulse Oximetry (%) 96 07/24/16 10:47 Constitutional: Yes: No Distress, Calm Neck: Yes: Supple Cardiovascular: Yes: Regular Rate and Rhythm Respiratory: Yes: Regular, Diminished, On Nasal O2 Gastrointestinal: Yes: Normal Bowel Sounds, Soft Edema: No Labs: CBC, BMP 07/23/16 06:15 07/23/16 06:15 Problem List - Problems (1) Atrial fibrillation Code(s): I48.91 - UNSPECIFIED ATRIAL FIBRILLATION Qualifiers: Atrial fibrillation type: paroxysmal Qualified Code(s): I48.0 - Paroxysmal atrial fibrillation (2) Dyspnea Code(s): R06.00 - DYSPNEA, UNSPECIFIED Qualifiers: Dyspnea type: shortness of breath Qualified Code(s): R06.02 - Shortness of breath (3) History of percutaneous coronary intervention Code(s): Z98.89 - OTHER SPECIFIED POSTPROCEDURAL STATES * DO NOT USE * (4) Bronchitis Code(s): J40 - BRONCHITIS, NOT SPECIFIED ACUTE OR CHRONIC (5) Hyperlipidemia Code(s): E78.5 - HYPERLIPIDEMIA, UNSPECIFIED Qualifiers: Hyperlipidemia type: pure hypercholesterolemia Qualified Code(s): E78.0 - Pure hypercholesterolemia (6) Diabetes Code(s): E11.9 - TYPE 2 DIABETES MELLITUS WITHOUT COMPLICATIONS Qualifiers: Diabetes mellitus type: type 2 Diabetes mellitus complication status: without complication Diabetes mellitus fci insulin use: without compensation business partner use Qualified Code(s): E11.9 - Type 2 diabetes mellitus without complications (7) HTN (hypertension) Code(s): I10 - ESSENTIAL (PRIMARY) HYPERTENSION Qualifiers: Hypertension type: essential hypertension Qualified Code(s): I10 - Essential (primary) hypertension (8) Left ventricular diastolic dysfunction Code(s): I51.9 - HEART DISEASE, UNSPECIFIED Assessment/Plan 07/20/2016 Mildly dilated LV with normal LV fxn, mod LETICIA, mod MR, mild TR 1. Clinical presentation suggests COPD exacerbation +/- bronchitis improving 2. Chronic LV diastolic dysfunction 3. PAF currently in sinus 4. CAD s/p PCI/stent, angina pectoris 5. HTN 6. Type 2 DM PLAN: 1. Further cardiac testing including nuclear myocardial perfusion imaging can be done as outpatient. Patient was advised to follow up in our office 2. Continue Pradaxa 150 bid, Cardizem CD 120 qd 3. Continue Lasix 20 po qd and monitor renal function and electrolytes 4. Oral steroid taper with GI protection, bronchodilators, O2 as needed
[2016-07-25] MEDS: GABAPENTIN 300 MG CAPSULE (FP) PO SCH ×3 (05:33→22:05)
[2016-07-25] MEDS: INSULIN SLIDING SCALE (NOVOLOG) 1 VIAL SQ SCH ×4 (06:15→22:06)
[2016-07-25] MEDS: ALBUTEROL SO4 0.083% IH SOL 2.5 MG/3 ML VIAL.NEB. NEB SCH (06:42)
--- NOTE | 2016-07-25 09:57 | PN ---
Progress Note (short form) - Note Progress Note: Feels good BGM higher in afternoon b/o Prednisone 24 hour urine collection sent to lab as per RN, Not entered in the computer yet Vital Signs Period Temp Pulse Resp BP Sys/Delacruz Pulse Ox Last 24 Hr 97.3 F-98.6 F 60-73 18-18 116-129/48-64 96-96 PE: AOx3 Neck: Supple, No JVD HEENT: PERRL, EOMI Lungs: CTa Abd: Benign CVS: S12 EXT: No edema Neuro: No focal deficit CMP Sodium 139 mmol/L (136-145) 07/23/16 06:15 Potassium 5.0 mmol/L (3.5-5.1) 07/23/16 06:15 Chloride 101 mmol/L (98-107) 07/23/16 06:15 Carbon Dioxide 30 mmol/L (21-32) 07/23/16 06:15 Anion Gap 8 (8-16) 07/23/16 06:15 BUN 32 mg/dL (7-18) H 07/23/16 06:15 Creatinine 0.8 mg/dL (0.55-1.02) 07/23/16 06:15 Creat Clearance w eGFR > 60 (>60) 07/21/16 06:45 POC Glucometer 100 UNITS (()) 07/25/16 05:24 Random Glucose 129 mg/dL (74-106) H 07/23/16 06:15 Hemoglobin A1c % 6.5 % (4.8-6.0) H 07/22/16 07:00 Calcium 9.0 mg/dL (8.5-10.1) 07/23/16 06:15 Magnesium 2.6 mg/dL (1.8-2.4) H 07/19/16 06:20 Total Bilirubin 0.1 mg/dL (0.2-1.0) L D 07/21/16 06:45 AST 10 U/L (15-37) L 07/21/16 06:45 ALT 16 U/L (12-78) 07/21/16 06:45 Alkaline Phosphatase 92 U/L (45-117) 07/21/16 06:45 Creatine Kinase 126 IU/L (26-192) 07/19/16 06:20 CK-MB (CK-2) 1.696 ng/ml (0.5-3.6) 07/18/16 14:08 Troponin I < 0.02 ng/ml (0.00-0.05) 07/19/16 06:20 B-Natriuretic Peptide 536.76 pg/ml (5-125) H 07/18/16 14:08 Total Protein 7.0 g/dl (6.4-8.2) 07/21/16 06:45 Albumin 3.4 g/dl (3.4-5.0) 07/21/16 06:45 TSH 0.18 uIU/ml (0.358-3.74) L D 07/20/16 06:20 Free T4 1.10 ng/dl (0.76-1.46) 07/20/16 06:20 Free T3 2.4 pg/ml (2.0-4.4) 07/20/16 06:20 Current Medications Generic Name Dose Route Start Last Admin Trade Name Freq PRN Reason Stop Dose Admin Acetaminophen 650 mg 07/18/16 23:47 Tylenol - PO Q6H PRN FEVER OR PAIN Acetaminophen 325 mg 07/19/16 20:47 07/20/16 22:20 Tylenol - PO 325 mg Q6H PRN Administration PAIN Albuterol Sulfate 1 amp 07/18/16 23:47 Ventolin 0.083% Nebulizer Soln - NEB Q6H PRN SHORT OF BREATH/WHEEZING Albuterol Sulfate 1 amp 07/19/16 22:00 07/25/16 06:42 Ventolin 0.083% Nebulizer Soln - NEB 1 amp TID [facility] Administration Dabigatran 150 mg 07/19/16 10:00 07/24/16 21:35 Pradaxa - PO 150 mg BID [facility] Administration Diltiazem HCl 120 mg 07/19/16 10:00 07/24/16 09:36 Cardizem Cd - PO 120 mg DAILY [facility] Administration Duloxetine HCl 30 mg 07/19/16 10:00 07/24/16 09:36 Cymbalta - PO 30 mg DAILY [facility] Administration Ferrous Sulfate 325 mg 07/19/16 10:00 07/24/16 09:36 Feosol - PO 325 mg DAILY [facility] Administration Furosemide 20 mg 07/24/16 10:00 07/24/16 09:36 Lasix - PO 20 mg DAILY [facility] Administration Gabapentin 300 mg 07/19/16 06:00 07/25/16 05:33 Neurontin - PO 300 mg TID [facility] Administration Insulin Aspart 1 vial 07/19/16 07:00 07/25/16 06:15 Novolog Vial Sliding Scale - SQ Not Given ACHS [facility] Protocol Lactobacillus Acidophilus 1 tab 07/19/16 10:00 07/24/16 09:36 Bacid - PO 1 tab DAILY [facility] Administration Oxycodone HCl 5 mg 07/19/16 20:47 07/20/16 22:19 Roxicodone - PO 5 mg Q6H PRN Administration PAIN SCALE 6-10 Pantoprazole Sodium 40 mg 07/19/16 10:00 07/24/16 09:36 Protonix - PO 40 mg DAILY [facility] Administration Polyethylene Glycol 17 gm 07/18/16 23:44 07/21/16 21:47 Miralax (For Daily Use) - PO 17 grams TID PRN Administration CONSTIPATION Prednisone 20 mg 07/24/16 14:00 07/24/16 13:54 Deltasone - PO 20 mg DAILY [facility] Administration Risperidone 1 mg 07/23/16 10:00 07/24/16 21:35 Risperdal - PO 1 mg BID [facility] Administration AP: Abnormal TFT: Pt says she took medication for some thyroid problem about 30 years ago. Doesn't know what it was TPO WNL, TSI result pending DM: BGM Q ACHS Novolog SS Will F/U Left Adrenal Nodule: Slight increase from 1.8x1.2 to 2.0x1.2 24 hr urine for Catecholamines and Metanephrines. Urine collection done and sent to lab but not entered in the system. May need to collect again. Repeat CT abd in 3 to 6 months in view of change in size of adrenal nodule. COPD exacerbation Chronic LV diastolic dysfunction PAF currently in sinus CAD s/p PCI/stent, angina pectoris HTN
[2016-07-25] MEDS ORDERED: PT OWN MED DRAWER 7, Y5N ONE ×3 (10:48→23:23)
[2016-07-25] MEDS: DULoxetine HCL 30 MG CAPSULE.DR (FP) PO SCH (10:51)
[2016-07-25] MEDS: PANTOPRAZOLE 40 MG TABLET (FP) PO SCH (10:51)
[2016-07-25] MEDS: predniSONE 20 MG TABLET (UD) PO SCH (10:51)
[2016-07-25] MEDS: LACTOBACILLUS ACIDOPHILUS 1 EACH TAB (FP) PO SCH (10:51)
[2016-07-25] MEDS: FERROUS SO4 325 MG TABLET (FP) PO SCH (10:51)
[2016-07-25] MEDS: DABIGATRAN ETEXILATE MESYLATE 150 MG CAPSULE PO SCH ×2 (10:52→22:06)
[2016-07-25] MEDS: risperiDONE 1 MG TABLET (FP) PO SCH ×2 (10:52→22:06)
[2016-07-25] MEDS: FUROSEMIDE 20 MG TABLET (FP) PO SCH (10:58)
--- NOTE | 2016-07-25 11:39 | PN ---
Progress Note, Physician History of Present Illness: pulmonary alert,still c/o cough. - Current Medication List Current Medications: Active Medications Acetaminophen (Tylenol -) 650 mg PO Q6H PRN PRN Reason: FEVER OR PAIN Acetaminophen (Tylenol -) 325 mg PO Q6H PRN PRN Reason: PAIN Last Admin: 07/20/16 22:20 Dose: 325 mg Albuterol Sulfate (Ventolin 0.083% Nebulizer Soln -) 1 amp NEB Q6H PRN PRN Reason: SHORT OF BREATH/WHEEZING Albuterol Sulfate (Ventolin 0.083% Nebulizer Soln -) 1 amp NEB TID [facility] Last Admin: 07/25/16 06:42 Dose: 1 amp Dabigatran (Pradaxa -) 150 mg PO BID [facility] Last Admin: 07/25/16 10:52 Dose: 150 mg Diltiazem HCl (Cardizem Cd -) 120 mg PO DAILY [facility] Last Admin: 07/25/16 10:51 Dose: 120 mg Duloxetine HCl (Cymbalta -) 30 mg PO DAILY [facility] Last Admin: 07/25/16 10:51 Dose: 30 mg Ferrous Sulfate (Feosol -) 325 mg PO DAILY [facility] Last Admin: 07/25/16 10:51 Dose: 325 mg Furosemide (Lasix -) 20 mg PO DAILY [facility] Last Admin: 07/25/16 10:58 Dose: 20 mg Gabapentin (Neurontin -) 300 mg PO TID [facility] Last Admin: 07/25/16 05:33 Dose: 300 mg Insulin Aspart (Novolog Vial Sliding Scale -) 1 vial SQ ACHS [facility] PRN Reason: Protocol Last Admin: 07/25/16 06:15 Dose: Not Given Lactobacillus Acidophilus (Bacid -) 1 tab PO DAILY [facility] Last Admin: 07/25/16 10:51 Dose: 1 tab Oseltamivir Phosphate (Tamiflu -) 75 mg PO BID [facility] Oxycodone HCl (Roxicodone -) 5 mg PO Q6H PRN PRN Reason: PAIN SCALE 6-10 Last Admin: 07/20/16 22:19 Dose: 5 mg Pantoprazole Sodium (Protonix -) 40 mg PO DAILY [facility] Last Admin: 07/25/16 10:51 Dose: 40 mg Polyethylene Glycol (Miralax (For Daily Use) -) 17 gm PO TID PRN PRN Reason: CONSTIPATION Last Admin: 07/21/16 21:47 Dose: 17 grams Prednisone (Deltasone -) 20 mg PO DAILY [facility] Last Admin: 07/25/16 10:51 Dose: 20 mg Risperidone (Risperdal -) 1 mg PO BID [facility] Last Admin: 07/25/16 10:52 Dose: 1 mg - Objective Vital Signs: Vital Signs Temperature 97.7 F 07/25/16 06:00 Pulse Rate 60 07/25/16 06:00 Respiratory Rate 18 07/25/16 06:00 Blood Pressure 116/48 07/25/16 06:00 O2 Sat by Pulse Oximetry (%) 96 07/24/16 21:00 Constitutional: Yes: Well Nourished, Calm Eyes: Yes: WNL HENT: Yes: WNL Neck: Yes: WNL Cardiovascular: Yes: Pulse Irregular, S1, S2 Respiratory: Yes: Rhonchi (ariadne rhonchi) Gastrointestinal: Yes: Normal Bowel Sounds, Soft Extremities: Yes: WNL Edema: No Labs: CBC, BMP 07/23/16 06:15 07/23/16 06:15 Assessment/Plan A/P Acute COPD Exacerbation Acute Bronchitis LV Diastolic Dysfunction Paroxysmal Atrial Fibrillation CAD HTN DM - prednisone - inhaled bronchodilators - lasix - monitor urine output, creatinine - rate controlled - continue anticoagulation - pfts outpatiet DR OG
--- NOTE | 2016-07-25 13:05 | PN ---
Progress Note, Physician Chief Complaint: viral culture c/w influenza B positive, will start tamiflu feels better - Current Medication List Current Medications: Active Medications Acetaminophen (Tylenol -) 650 mg PO Q6H PRN PRN Reason: FEVER OR PAIN Acetaminophen (Tylenol -) 325 mg PO Q6H PRN PRN Reason: PAIN Last Admin: 07/20/16 22:20 Dose: 325 mg Albuterol Sulfate (Ventolin 0.083% Nebulizer Soln -) 1 amp NEB Q6H PRN PRN Reason: SHORT OF BREATH/WHEEZING Budesonide/Formoterol Fumarate (Symbicort 160/4.5mcg -) 2 puff IH BID [facility] Dabigatran (Pradaxa -) 150 mg PO BID [facility] Last Admin: 07/25/16 10:52 Dose: 150 mg Diltiazem HCl (Cardizem Cd -) 120 mg PO DAILY [facility] Last Admin: 07/25/16 10:51 Dose: 120 mg Duloxetine HCl (Cymbalta -) 30 mg PO DAILY [facility] Last Admin: 07/25/16 10:51 Dose: 30 mg Ferrous Sulfate (Feosol -) 325 mg PO DAILY [facility] Last Admin: 07/25/16 10:51 Dose: 325 mg Furosemide (Lasix -) 20 mg PO DAILY [facility] Last Admin: 07/25/16 10:58 Dose: 20 mg Gabapentin (Neurontin -) 300 mg PO TID [facility] Last Admin: 07/25/16 05:33 Dose: 300 mg Insulin Aspart (Novolog Vial Sliding Scale -) 1 vial SQ ACHS [facility] PRN Reason: Protocol Last Admin: 07/25/16 11:46 Dose: Not Given Lactobacillus Acidophilus (Bacid -) 1 tab PO DAILY [facility] Last Admin: 07/25/16 10:51 Dose: 1 tab Oseltamivir Phosphate (Tamiflu -) 75 mg PO BID [facility] Oxycodone HCl (Roxicodone -) 5 mg PO Q6H PRN PRN Reason: PAIN SCALE 6-10 Last Admin: 07/20/16 22:19 Dose: 5 mg Pantoprazole Sodium (Protonix -) 40 mg PO DAILY [facility] Last Admin: 07/25/16 10:51 Dose: 40 mg Polyethylene Glycol (Miralax (For Daily Use) -) 17 gm PO TID PRN PRN Reason: CONSTIPATION Last Admin: 07/21/16 21:47 Dose: 17 grams Prednisone (Deltasone -) 20 mg PO DAILY [facility] Last Admin: 07/25/16 10:51 Dose: 20 mg Risperidone (Risperdal -) 1 mg PO BID [facility] Last Admin: 07/25/16 10:52 Dose: 1 mg - Objective Vital Signs: Vital Signs Temperature 97.9 F 07/25/16 10:00 Pulse Rate 85 07/25/16 10:00 Respiratory Rate 20 07/25/16 10:00 Blood Pressure 124/55 07/25/16 10:00 O2 Sat by Pulse Oximetry (%) 96 07/24/16 21:00 Constitutional: Yes: No Distress Eyes: Yes: Conjunctiva Clear HENT: Yes: Atraumatic Neck: Yes: Supple Cardiovascular: Yes: Regular Rate and Rhythm Respiratory: Yes: CTA Bilaterally Gastrointestinal: Yes: Soft. No: Distention Genitourinary: No: CVA Tenderness - Left, CVA Tenderness - Right Musculoskeletal: No: Joint Stiffness, Joint Swelling Extremities: No: Cold, Cool Edema: No Peripheral Pulses WNL: Yes Neurological: Yes: WNL, Alert, Oriented ...Motor Strength: WNL Psychiatric: Yes: WNL, Alert, Oriented. No: Agitated Labs: CBC, BMP 07/23/16 06:15 07/23/16 06:15 - ....Imaging Other: Report Reviewed Assessment/Plan CHF COPD exac, h/o PAfib CRF OA DJD\ Flu B + start po tamiflu po lasix po steroids taper per pulm cardio and pulm f/u O2 NC falls PFX d/w pt and staff, DC planning for home in am, with [employer], VNS and psych f/u; pt does NOT want to go to any SNF rehab, axox3 NAD
[2016-07-25] MEDS: OSELTAMIVIR PHOSPHATE 75 MG CAPSULE PO SCH ×2 (14:28→22:06)
[2016-07-25] MEDS: BUDESONIDE/FORMETEROL FUMARATE 160/4.5 mcg INHALER IH SCH ×2 (14:29→22:06)
--- NOTE | 2016-07-25 15:54 | PN ---
Progress Note, Physician History of Present Illness: Dyspnea improving, denies chest pain. - Current Medication List Current Medications: Active Medications Acetaminophen (Tylenol -) 650 mg PO Q6H PRN PRN Reason: FEVER OR PAIN Acetaminophen (Tylenol -) 325 mg PO Q6H PRN PRN Reason: PAIN Last Admin: 07/20/16 22:20 Dose: 325 mg Albuterol Sulfate (Ventolin 0.083% Nebulizer Soln -) 1 amp NEB Q6H PRN PRN Reason: SHORT OF BREATH/WHEEZING Budesonide/Formoterol Fumarate (Symbicort 160/4.5mcg -) 2 puff IH BID [facility] Last Admin: 07/25/16 14:29 Dose: 2 puff Dabigatran (Pradaxa -) 150 mg PO BID [facility] Last Admin: 07/25/16 10:52 Dose: 150 mg Diltiazem HCl (Cardizem Cd -) 120 mg PO DAILY [facility] Last Admin: 07/25/16 10:51 Dose: 120 mg Duloxetine HCl (Cymbalta -) 30 mg PO DAILY [facility] Last Admin: 07/25/16 10:51 Dose: 30 mg Ferrous Sulfate (Feosol -) 325 mg PO DAILY [facility] Last Admin: 07/25/16 10:51 Dose: 325 mg Furosemide (Lasix -) 20 mg PO DAILY [facility] Last Admin: 07/25/16 10:58 Dose: 20 mg Gabapentin (Neurontin -) 300 mg PO TID [facility] Last Admin: 07/25/16 14:28 Dose: 300 mg Insulin Aspart (Novolog Vial Sliding Scale -) 1 vial SQ ACHS [facility] PRN Reason: Protocol Last Admin: 07/25/16 11:46 Dose: Not Given Lactobacillus Acidophilus (Bacid -) 1 tab PO DAILY [facility] Last Admin: 07/25/16 10:51 Dose: 1 tab Oseltamivir Phosphate (Tamiflu -) 75 mg PO BID [facility] Last Admin: 07/25/16 14:28 Dose: 75 mg Oxycodone HCl (Roxicodone -) 5 mg PO Q6H PRN PRN Reason: PAIN SCALE 6-10 Last Admin: 07/20/16 22:19 Dose: 5 mg Pantoprazole Sodium (Protonix -) 40 mg PO DAILY [facility] Last Admin: 07/25/16 10:51 Dose: 40 mg Polyethylene Glycol (Miralax (For Daily Use) -) 17 gm PO TID PRN PRN Reason: CONSTIPATION Last Admin: 07/21/16 21:47 Dose: 17 grams Prednisone (Deltasone -) 20 mg PO DAILY [facility] Last Admin: 07/25/16 10:51 Dose: 20 mg Risperidone (Risperdal -) 1 mg PO BID [facility] Last Admin: 07/25/16 10:52 Dose: 1 mg - Objective Vital Signs: Vital Signs Temperature 97.8 F 07/25/16 13:42 Pulse Rate 90 07/25/16 13:42 Respiratory Rate 19 07/25/16 13:42 Blood Pressure 103/44 07/25/16 13:42 O2 Sat by Pulse Oximetry (%) 96 07/24/16 21:00 Constitutional: Yes: No Distress, Calm Neck: Yes: Supple Cardiovascular: Yes: Regular Rate and Rhythm Respiratory: Yes: Regular, Diminished, On Nasal O2 Gastrointestinal: Yes: Normal Bowel Sounds, Soft Edema: No Labs: CBC, BMP 07/23/16 06:15 07/23/16 06:15 Problem List - Problems (1) Atrial fibrillation Code(s): I48.91 - UNSPECIFIED ATRIAL FIBRILLATION Qualifiers: Atrial fibrillation type: paroxysmal Qualified Code(s): I48.0 - Paroxysmal atrial fibrillation (2) Dyspnea Code(s): R06.00 - DYSPNEA, UNSPECIFIED Qualifiers: Dyspnea type: shortness of breath Qualified Code(s): R06.02 - Shortness of breath (3) History of percutaneous coronary intervention Code(s): Z98.89 - OTHER SPECIFIED POSTPROCEDURAL STATES * DO NOT USE * (4) Bronchitis Code(s): J40 - BRONCHITIS, NOT SPECIFIED ACUTE OR CHRONIC (5) Hyperlipidemia Code(s): E78.5 - HYPERLIPIDEMIA, UNSPECIFIED Qualifiers: Hyperlipidemia type: pure hypercholesterolemia Qualified Code(s): E78.0 - Pure hypercholesterolemia (6) Diabetes Code(s): E11.9 - TYPE 2 DIABETES MELLITUS WITHOUT COMPLICATIONS Qualifiers: Diabetes mellitus type: type 2 Diabetes mellitus complication status: without complication Diabetes mellitus usp insulin use: without usp use Qualified Code(s): E11.9 - Type 2 diabetes mellitus without complications (7) HTN (hypertension) Code(s): I10 - ESSENTIAL (PRIMARY) HYPERTENSION Qualifiers: Hypertension type: essential hypertension Qualified Code(s): I10 - Essential (primary) hypertension (8) Left ventricular diastolic dysfunction Code(s): I51.9 - HEART DISEASE, UNSPECIFIED Assessment/Plan 07/20/2016 Mildly dilated LV with normal LV fxn, mod LETICIA, mod MR, mild TR 1. Clinical presentation suggests COPD exacerbation +/- bronchitis improving 2. Chronic LV diastolic dysfunction 3. PAF currently in sinus 4. CAD s/p PCI/stent, angina pectoris 5. HTN 6. Type 2 DM 7. Flu B+ PLAN: 1. Further cardiac testing including nuclear myocardial perfusion imaging can be done as outpatient. Patient was advised to follow up in our office 2. Continue Pradaxa 150 bid, Cardizem CD 120 qd 3. Continue Lasix 20 po qd and monitor renal function and electrolytes 4. Oral steroid taper with GI protection, bronchodilators, O2 as needed, tamiflu started, d/c planning
[2016-07-26] MEDS ORDERED: PT OWN MED DRAWER 7, Y5N ONE ×2 (03:15→10:20)
[2016-07-26] MEDS: INSULIN SLIDING SCALE (NOVOLOG) 1 VIAL SQ SCH ×2 (06:39→12:24)
[2016-07-26] MEDS: GABAPENTIN 300 MG CAPSULE (FP) PO SCH ×2 (06:39→14:26)
[2016-07-26 08:27] LABS: MCH 26.9 pg (25.7-33.7); MCHC 32.2 g/dl (32.0-36.0); MEAN CELL VOLUME 83.4 fl (80-96); MEAN PLT VOLUME 9.4 fl (7.5-11.1); PLATELET COUNT 229 K/MM3 (134-434); RDW 15.8 % (11.6-15.6); WHITE BLOOD COUNT 11.3 K/mm3 (4.0-10.0)
[2016-07-26 08:43] LABS: ALBUMIN 2.8 g/dl (3.4-5.0); ALK PHOS 76 U/L (45-117); ANION GAP 2 (8-16); BILIRUBIN,TOTAL 0.3 mg/dL (0.2-1.0); CALCIUM 8.4 mg/dL (8.5-10.1); CO2 32 mmol/L (21-32); CREATININE 0.8 mg/dL (0.55-1.02); GLUCOSE,RANDOM 81 mg/dL (74-106); SGOT/AST 6 U/L (15-37); SGPT/ALT 14 U/L (12-78); TOT PROT 5.8 g/dl (6.4-8.2)
--- NOTE | 2016-07-26 09:05 | PN ---
Progress Note (short form) - Note Progress Note: Progress Note PULM/CCM Patient Name: GI GAMEZ I Date of : 1945 Patient Status: Inpatient Attending Provider: Cathleen Kan Resting in NAD. Still with some cough, but better from admission. Intake & Output 07/23/16 07/24/16 07/25/16 07/26/16 23:59 23:59 23:59 23:59 Intake Total 1450 1460 200 60 Balance 1450 1460 200 60 Last Vital Signs Temp Pulse Resp BP Pulse Ox 99.0 F 79 18 118/57 98 07/25/16 19:00 07/25/16 22:00 07/25/16 22:00 07/25/16 22:00 07/25/16 21:00 Active Medications Acetaminophen (Tylenol -) 650 mg PO Q6H PRN PRN Reason: FEVER OR PAIN Acetaminophen (Tylenol -) 325 mg PO Q6H PRN PRN Reason: PAIN Last Admin: 07/20/16 22:20 Dose: 325 mg Albuterol Sulfate (Ventolin 0.083% Nebulizer Soln -) 1 amp NEB Q6H PRN PRN Reason: SHORT OF BREATH/WHEEZING Last Admin: 07/25/16 22:33 Dose: 1 amp Budesonide/Formoterol Fumarate (Symbicort 160/4.5mcg -) 2 puff IH BID [facility] Last Admin: 07/25/16 22:06 Dose: 2 puff Dabigatran (Pradaxa -) 150 mg PO BID [facility] Last Admin: 07/25/16 22:06 Dose: 150 mg Diltiazem HCl (Cardizem Cd -) 120 mg PO DAILY [facility] Last Admin: 07/25/16 10:51 Dose: 120 mg Duloxetine HCl (Cymbalta -) 30 mg PO DAILY [facility] Last Admin: 07/25/16 10:51 Dose: 30 mg Ferrous Sulfate (Feosol -) 325 mg PO DAILY [facility] Last Admin: 07/25/16 10:51 Dose: 325 mg Furosemide (Lasix -) 20 mg PO DAILY [facility] Last Admin: 07/25/16 10:58 Dose: 20 mg Gabapentin (Neurontin -) 300 mg PO TID [facility] Last Admin: 07/26/16 06:39 Dose: 300 mg Insulin Aspart (Novolog Vial Sliding Scale -) 1 vial SQ ACHS [facility] PRN Reason: Protocol Last Admin: 07/26/16 06:39 Dose: Not Given Lactobacillus Acidophilus (Bacid -) 1 tab PO DAILY [facility] Last Admin: 07/25/16 10:51 Dose: 1 tab Oseltamivir Phosphate (Tamiflu -) 75 mg PO BID [facility] Last Admin: 07/25/16 22:06 Dose: 75 mg Oxycodone HCl (Roxicodone -) 5 mg PO Q6H PRN PRN Reason: PAIN SCALE 6-10 Last Admin: 07/20/16 22:19 Dose: 5 mg Pantoprazole Sodium (Protonix -) 40 mg PO DAILY [facility] Last Admin: 07/25/16 10:51 Dose: 40 mg Polyethylene Glycol (Miralax (For Daily Use) -) 17 gm PO TID PRN PRN Reason: CONSTIPATION Last Admin: 07/21/16 21:47 Dose: 17 grams Prednisone (Deltasone -) 20 mg PO DAILY [facility] Last Admin: 07/25/16 10:51 Dose: 20 mg Risperidone (Risperdal -) 1 mg PO BID [facility] Last Admin: 07/25/16 22:06 Dose: 1 mg Constitutional: Yes: NAD Eyes: Yes: WNL HENT: Yes: WNL Neck: Yes: WNL Cardiovascular: Yes: Pulse Irregular, S1, S2 Respiratory: Yes: Scattered bilateral Rhonchi Gastrointestinal: Yes: Normal Bowel Sounds, Soft Extremities: Yes: WNL Edema: No Labs: Laboratory Results - last 24 hr 07/25/16 07/25/16 07/25/16 11:46 16:50 21:29 WBC RBC Hgb Hct MCV MCHC RDW Plt Count MPV Neutrophils % Lymphocytes % Sodium Potassium Chloride Carbon Dioxide Anion Gap BUN Creatinine Creat Clearance w eGFR POC Glucometer 110 165 129 Random Glucose Calcium Total Bilirubin AST ALT Alkaline Phosphatase Total Protein Albumin 07/26/16 07/26/16 07/26/16 06:20 06:20 06:38 WBC 11.3 H RBC 4.38 Hgb 11.8 Hct 36.5 MCV 83.4 MCHC 32.2 RDW 15.8 H Plt Count 229 MPV 9.4 Neutrophils % Y Lymphocytes % Y Sodium 138 Potassium 4.3 Chloride 104 Carbon Dioxide 32 Anion Gap 2 L BUN 26 H Creatinine 0.8 Creat Clearance w eGFR > 60 POC Glucometer 100 Random Glucose 81 D Calcium 8.4 L Total Bilirubin 0.3 D AST 6 L D ALT 14 Alkaline Phosphatase 76 Total Protein 5.8 L Albumin 2.8 L Assessment/Plan A/P Acute COPD Exacerbation Acute Bronchitis LV Diastolic Dysfunction Paroxysmal Atrial Fibrillation CAD HTN DM - prednisone taper - inhaled bronchodilators - lasix - monitor urine output, creatinine - rate controlled - continue anticoagulation - PFTs outpatient Dr Liao Problem List - Problems (1) Dyspnea Code(s): R06.00 - DYSPNEA, UNSPECIFIED Qualifiers: Dyspnea type: shortness of breath Qualified Code(s): R06.02 - Shortness of breath (2) Bronchitis Code(s): J40 - BRONCHITIS, NOT SPECIFIED ACUTE OR CHRONIC (3) Hiatal hernia Code(s): K44.9 - DIAPHRAGMATIC HERNIA WITHOUT OBSTRUCTION OR GANGRENE (4) Hyperlipidemia Code(s): E78.5 - HYPERLIPIDEMIA, UNSPECIFIED Qualifiers: Hyperlipidemia type: pure hypercholesterolemia Qualified Code(s): E78.0 - Pure hypercholesterolemia (5) Back pain Code(s): M54.9 - DORSALGIA, UNSPECIFIED Qualifiers: Chronicity: acute Back pain laterality: bilateral Sciatica presence : without sciatica (6) Connective tissue disease Code(s): M35.9 - SYSTEMIC INVOLVEMENT OF CONNECTIVE TISSUE, UNSPECIFIED (7) Diabetes Code(s): E11.9 - TYPE 2 DIABETES MELLITUS WITHOUT COMPLICATIONS Qualifiers: Diabetes mellitus type: type 2 Diabetes mellitus complication status: without complication Diabetes mellitus predatory animal exterminator insulin use: without predatory animal exterminator use Qualified Code(s): E11.9 - Type 2 diabetes mellitus without complications (8) Fibromyalgia Code(s): M79.7 - FIBROMYALGIA (9) HTN (hypertension) Code(s): I10 - ESSENTIAL (PRIMARY) HYPERTENSION Qualifiers: Hypertension type: essential hypertension Qualified Code(s): I10 - Essential (primary) hypertension (10) History of peptic ulcer disease Code(s): Z87.11 - PERSONAL HISTORY OF PEPTIC ULCER DISEASE (11) Left ventricular diastolic dysfunction Code(s): I51.9 - HEART DISEASE, UNSPECIFIED (12) Lower back pain Code(s): M54.5 - LOW BACK PAIN (13) Mitral regurgitation Code(s): I34.0 - NONRHEUMATIC MITRAL (VALVE) INSUFFICIENCY (14) Obesity Code(s): E66.9 - OBESITY, UNSPECIFIED (15) Rheumatoid factor positive with cyclic citrullinated peptide (CCP) antibody negative Code(s): R76.8 - OTHER SPECIFIED ABNORMAL IMMUNOLOGICAL FINDINGS IN SERUM (16) Schizoaffective disorder Code(s): F25.9 - SCHIZOAFFECTIVE DISORDER, UNSPECIFIED (17) Shoulder pain, left Code(s): M25.512 - PAIN IN LEFT SHOULDER (18) Status post total knee replacement, right Code(s): Z96.651 - PRESENCE OF RIGHT ARTIFICIAL KNEE JOINT
[2016-07-26] MEDS: BUDESONIDE/FORMETEROL FUMARATE 160/4.5 mcg INHALER IH SCH (10:23)
[2016-07-26] MEDS: DULoxetine HCL 30 MG CAPSULE.DR (FP) PO SCH (10:23)
[2016-07-26] MEDS: FUROSEMIDE 20 MG TABLET (FP) PO SCH (10:23)
[2016-07-26] MEDS: DABIGATRAN ETEXILATE MESYLATE 150 MG CAPSULE PO SCH (10:23)
[2016-07-26] MEDS: predniSONE 20 MG TABLET (UD) PO SCH (10:23)
[2016-07-26] MEDS: PANTOPRAZOLE 40 MG TABLET (FP) PO SCH (10:23)
[2016-07-26] MEDS: OSELTAMIVIR PHOSPHATE 75 MG CAPSULE PO SCH (10:23)
[2016-07-26] MEDS: LACTOBACILLUS ACIDOPHILUS 1 EACH TAB (FP) PO SCH (10:23)
[2016-07-26] MEDS: risperiDONE 1 MG TABLET (FP) PO SCH (10:23)
[2016-07-26] MEDS: FERROUS SO4 325 MG TABLET (FP) PO SCH (10:23)
--- NOTE | 2016-07-26 10:57 | PN ---
Progress Note, Physician Chief Complaint: Not in distress History of Present Illness: Patient was seen and examined. Awake and alert. Chart was reviewed Denies chest pain, SOB or palpitations - Current Medication List Current Medications: Active Medications Acetaminophen (Tylenol -) 650 mg PO Q6H PRN PRN Reason: FEVER OR PAIN Acetaminophen (Tylenol -) 325 mg PO Q6H PRN PRN Reason: PAIN Last Admin: 07/20/16 22:20 Dose: 325 mg Albuterol Sulfate (Ventolin 0.083% Nebulizer Soln -) 1 amp NEB Q6H PRN PRN Reason: SHORT OF BREATH/WHEEZING Last Admin: 07/25/16 22:33 Dose: 1 amp Budesonide/Formoterol Fumarate (Symbicort 160/4.5mcg -) 2 puff IH BID [facility] BEDS [facility] Last Admin: 07/26/16 10:23 Dose: 2 puff Dabigatran (Pradaxa -) 150 mg PO BID [facility]S [facility] Last Admin: 07/26/16 10:23 Dose: 150 mg Diltiazem HCl (Cardizem Cd -) 120 mg PO DAILY [facility]S [facility] Last Admin: 07/26/16 10:23 Dose: 120 mg Duloxetine HCl (Cymbalta -) 30 mg PO DAILY [facility] 234 [facility]S [facility] Last Admin: 07/26/16 10:23 Dose: 30 mg Ferrous Sulfate (Feosol -) 325 mg PO DAILY [facility] 234 [facility]S [facility] Last Admin: 07/26/16 10:23 Dose: 325 mg Furosemide (Lasix -) 20 mg PO DAILY [facility]S [facility] Last Admin: 07/26/16 10:23 Dose: 20 mg Gabapentin (Neurontin -) 300 mg PO TID [facility] Last Admin: 07/26/16 06:39 Dose: 300 mg Insulin Aspart (Novolog Vial Sliding Scale -) 1 vial SQ ACHS [facility]S [facility] PRN Reason: Protocol Last Admin: 07/26/16 06:39 Dose: Not Given Lactobacillus Acidophilus (Bacid -) 1 tab PO DAILY [facility]S [facility] Last Admin: 07/26/16 10:23 Dose: 1 tab Oseltamivir Phosphate (Tamiflu -) 75 mg PO BID [facility] Last Admin: 07/26/16 10:23 Dose: 75 mg Oxycodone HCl (Roxicodone -) 5 mg PO Q6H PRN PRN Reason: PAIN SCALE 6-10 Last Admin: 07/20/16 22:19 Dose: 5 mg Pantoprazole Sodium (Protonix -) 40 mg PO DAILY [facility] Last Admin: 07/26/16 10:23 Dose: 40 mg Polyethylene Glycol (Miralax (For Daily Use) -) 17 gm PO TID PRN PRN Reason: CONSTIPATION Last Admin: 07/21/16 21:47 Dose: 17 grams Prednisone (Deltasone -) 20 mg PO DAILY [facility]S [facility] Last Admin: 07/26/16 10:23 Dose: 20 mg Risperidone (Risperdal -) 1 mg PO BID [facility] 234 [facility]S [facility] Last Admin: 07/26/16 10:23 Dose: 1 mg - Objective Vital Signs: Vital Signs Temperature 99.0 F 07/25/16 19:00 Pulse Rate 79 07/25/16 22:00 Respiratory Rate 18 07/25/16 22:00 Blood Pressure 118/57 07/25/16 22:00 O2 Sat by Pulse Oximetry (%) 98 07/25/16 21:00 Neck: Yes: Supple Cardiovascular: Yes: Regular Rate and Rhythm, S1, S2 Respiratory: Yes: Diminished Gastrointestinal: Yes: Normal Bowel Sounds, Soft. No: Tenderness Edema: No Labs: CBC, BMP 07/26/16 06:20 07/26/16 06:20 Problem List - Problems (1) Dyspnea Code(s): R06.00 - DYSPNEA, UNSPECIFIED Qualifiers: Dyspnea type: shortness of breath Qualified Code(s): R06.02 - Shortness of breath (2) Congestive heart failure Code(s): I50.9 - HEART FAILURE, UNSPECIFIED Qualifiers: Congestive heart failure type: unspecified congestive heart failure type Congestive heart failure chronicity: unspecified congestive heart failure chronicity Qualified Code(s): I50.9 - Heart failure, unspecified (3) Bronchitis Code(s): J40 - BRONCHITIS, NOT SPECIFIED ACUTE OR CHRONIC (4) Hyperlipidemia Code(s): E78.5 - HYPERLIPIDEMIA, UNSPECIFIED Qualifiers: Hyperlipidemia type: pure hypercholesterolemia Qualified Code(s): E78.0 - Pure hypercholesterolemia (5) Diabetes Code(s): E11.9 - TYPE 2 DIABETES MELLITUS WITHOUT COMPLICATIONS Qualifiers: Diabetes mellitus type: type 2 Diabetes mellitus complication status: without complication Diabetes mellitus shelter insulin use: without shelter use Qualified Code(s): E11.9 - Type 2 diabetes mellitus without complications (6) HTN (hypertension) Code(s): I10 - ESSENTIAL (PRIMARY) HYPERTENSION Qualifiers: Hypertension type: essential hypertension Qualified Code(s): I10 - Essential (primary) hypertension (7) Left ventricular diastolic dysfunction Code(s): I51.9 - HEART DISEASE, UNSPECIFIED (8) CAD (coronary artery disease) Code(s): I25.10 - ATHSCL HEART DISEASE OF [place] CORONARY ARTERY W/O ANG PCTRS Qualifiers: Coronary Disease-Associated Artery/Lesion type: [place] artery [place] vs. transplanted heart: [place] heart Associated angina: with stable angina Qualified Code(s): I25.119 - Atherosclerotic heart disease of [place] coronary artery with unspecified angina pectoris (9) History of percutaneous coronary intervention Code(s): Z98.89 - OTHER SPECIFIED POSTPROCEDURAL STATES * DO NOT USE * (10) Atrial fibrillation Code(s): I48.91 - UNSPECIFIED ATRIAL FIBRILLATION Qualifiers: Atrial fibrillation type: paroxysmal Qualified Code(s): I48.0 - Paroxysmal atrial fibrillation Assessment/Plan 1. Clinical presentation suggests COPD exacerbation +/- bronchitis improving 2. Chronic LV diastolic dysfunction 3. PAF currently in sinus 4. CAD s/p PCI/stent, angina pectoris 5. HTN 6. Type 2 DM 7. Flu B+ PLAN: 1. Further cardiac testing including nuclear myocardial perfusion imaging can be done as outpatient. Patient was advised to follow up in our office 2. Continue Pradaxa and Cardizem CD 3. Continue Lasix and monitor renal function and electrolytes 4. Oral steroid taper with GI protection, bronchodilators, O2 as needed and Tamiflu given Discharge home Juan Carlos Denny MD
--- NOTE | 2016-07-26 11:48 | DS ---
Physical Examination Vital Signs: Vital Signs Temperature 99.0 F 07/25/16 19:00 Pulse Rate 79 07/25/16 22:00 Respiratory Rate 18 07/25/16 22:00 Blood Pressure 118/57 07/25/16 22:00 O2 Sat by Pulse Oximetry (%) 98 07/25/16 21:00 Findings/Remarks: In bed no new c/o, no cough or CP/SOB, walks with walker, did not qualify for home O2; needs form for airline (cancelled her trip to [place]). Done, see copy chart. Meds ordered and d/w pt; d/w staff, nurse and CM, needs APPLIED PSYCHOLOGY CHAIR VNS psych dr and nurse f/u falls pfx d./w pt and staff, scripts done T time 40 min Constitutional: Yes: No Distress, Calm Eyes: Yes: Conjunctiva Clear HENT: Yes: Atraumatic Neck: Yes: Supple Cardiovascular: Yes: Regular Rate and Rhythm Respiratory: Yes: CTA Bilaterally Gastrointestinal: Yes: Soft. No: Distention, Tenderness Renal/: No: CVA Tenderness - Left, CVA Tenderness - Right Musculoskeletal: No: Joint Swelling, Muscle Pain Extremities: No: Cold, Cool Edema: No Peripheral Pulses WNL: Yes Integumentary: No: Erythema Neurological: Yes: WNL, Alert, Oriented ...Motor Strength: WNL Psychiatric: Yes: WNL, Alert, Oriented. No: Agitated, Suicidal Ideation Labs: CBC, BMP 07/26/16 06:20 07/26/16 06:20 Discharge Summary Reason For Visit: CONGESTIVE HEART FAILURE/DYSPNEA Current Active Problems Atrial fibrillation (Acute) CAD (coronary artery disease) (Acute) Dyspnea (Acute) History of percutaneous coronary intervention (Acute) Congestive heart failure (Chronic) Procedures: Principal: admitted with SOB, cough, s/p URI Other Procedures: treated with IV ATB, IV stroeids; improved;. FLU B Cx + started on tamiflu;. does not need home O2 per respiratory therapy; Hospital Course: improved with above; DC home with APPLIED PSYCHOLOGY CHAIR VNS and psych f/u (h/o psych ds); home nebs prn; d/w pt DC instruction, d/w staff Condition: Improved - Instructions Diet, Activity, Other Instructions: f/u PCP, cardiology and pulmonary in 1-2 weeks after DC falls PFX meds as advised and prescribed RTER if worse or recurrent home VNS, APPLIED PSYCHOLOGY CHAIR, psych f/u d/w pt and staff Referrals: Cathleen Kan [Primary Care Provider] - Disposition: VNS/HOME HEALTH CARE - Home Medications Comprehensive Discharge Medication List: Ambulatory Orders Dabigatran Etexilate Mesylate [Pradaxa -] 150 mg PO BID #180 cap 11/05/15 Diltiazem Cd [Cardizem Cd -] 120 mg PO DAILY #90 cap.cd.24h 11/05/15 Ferrous Sulfate [Feosol] 325 mg PO DAILY #30 tablet 11/05/15 Furosemide [Lasix -] 20 mg PO DAILY #90 11/05/15 Pantoprazole Sodium [Protonix -] 40 mg PO BID #60 tablet.ec 11/05/15 Risperidone [Risperdal -] 1 mg PO BID tablet 11/05/15 Duloxetine HCl [Cymbalta -] 30 mg PO DAILY capsule. 02/26/16 Gabapentin [Neurontin -] 300 mg PO TID capsule 03/03/16 Lactobacillus Acidophilus [Bacid -] 1 tab PO DAILY tab 03/03/16 Polyethylene Glycol 3350 [Miralax 119 gm Btl -] 17 gm PO TID bottle 03/03/16 Sertraline HCl [Zoloft] 50 mg PO DAILY 04/20/16 Diclofenac Sodium [Voltaren] 100 gm TP TID 06/17/16 Albuterol 0.083% Nebulizer Mela [Ventolin 0.083% Nebulizer Soln -] 1 amp NEB Q6H PRN #90 amp 07/26/16 Albuterol Sulfate Inhaler - [Ventolin HFA Inhaler -] 2 inh PO Q6H PRN #3 inh Furosemide [Lasix -] 20 mg PO DAILY #90 tablet 07/26/16 Oseltamivir Phosphate [Tamiflu -] 75 mg PO BID #10 capsule 07/26/16 Prednisone [Deltasone -] 5 mg PO DAILY #20 tablet 07/26/16
[2016-07-26 13:47] VITALS: BP 154/66; PULSE 94; TEMP 38.3
[2016-07-28 00:06] LABS: METANEPHRINE MG/24HR 70 ug/24 hr (45-290); METANEPHRINE MG/L 25 ug/L (Undefined); NORMETANEPHRINE 24 HR URINE 246 ug/24 hr (82-500); NORMETANEPHRINE MG/L 88 ug/L (Undefined)
[2016-07-28 00:06] LABS: THYROID STIM IMMUNOGLOBULIN 87 % (0-139)
[2016-07-29 00:06] LABS: NOREPINEPHRINE URINE 24HR 22 ug/24 hr (0-135)
== END 2016-07-26 15:42 | disposition home health service (06) | DRG 292 ==
LOC: JER 13:00 → JERBED 20:29 → J5S 07-19 14:26 → J8W 07-26 03:16
PROVIDERS: ADMIT Internal Medicine; ATTEND Internal Medicine
DX: I11.0 Hypertensive heart disease with heart failure (principal); J44.1 Chronic obstructive pulmonary disease with (acute) exacerbation; I50.32 Chronic diastolic (congestive) heart failure; I25.118 Atherosclerotic heart disease of native coronary artery with other forms of angina pectoris; E78.5 Hyperlipidemia, unspecified; J10.1 Influenza due to other identified influenza virus with other respiratory manifestations; J45.909 Unspecified asthma, uncomplicated; D64.9 Anemia, unspecified; M79.7 Fibromyalgia; K21.9 Gastro-esophageal reflux disease without esophagitis; F03.90 Unspecified dementia, unspecified severity, without behavioral disturbance, psychotic disturbance, mood disturbance, and anxiety; K44.9 Diaphragmatic hernia without obstruction or gangrene; E11.9 Type 2 diabetes mellitus without complications; M54.5 Low back pain; M19.90 Unspecified osteoarthritis, unspecified site; I48.0 Paroxysmal atrial fibrillation; R76.8 Other specified abnormal immunological findings in serum; E66.9 Obesity, unspecified; Z68.35 Body mass index [BMI] 35.0-35.9, adult; Z71.3 Dietary counseling and surveillance; I34.0 Nonrheumatic mitral (valve) insufficiency; F25.9 Schizoaffective disorder, unspecified; Z95.5 Presence of coronary angioplasty implant and graft; Z96.651 Presence of right artificial knee joint; Z87.11 Personal history of peptic ulcer disease
CPT/HCPCS: 36415; 71010-TC; 71275-TC; 80048; 80053; 82384; 82550; 82553; 83036; 83735; 83835; 83880; 84439; 84443; 84445; 84481; 84484; 85025; 86376; 87254; 87804; 93005; 93010; 93306-TC; 94640; 94761; 99283-25; G0008; J2794; Q2037

== ENCOUNTER 2016-07-30 11:06 | Emergency (ER) | payer OTHER ==
[2016-07-30 11:20] VITALS: BMI 34.4
--- NOTE | 2016-07-30 11:27 | PDOC ---
History of Present Illness - General Chief Complaint: Eye Problem Stated Complaint: EYE PAIN Time Seen by Provider: 07/30/16 11:12 History Source: Patient Exam Limitations: No Limitations - History of Present Illness Initial Comments: CHIEF COMPLAINT: 71 y/o afebrile with PMH HTN, HLD, afib, CAD s/p stent, CHF, asthma, schizophrenia c/o b/l eye pain today. HISTORY OF PRESENT ILLNESS: The patient states this morning she started having b/l eye pain and she can't open her eyes. She denies f/c, MARTINEZ, neck pain, n/v/d , CP, SOB, and all other symptoms. The patient does not wear contact lenses and denies trauma to eye or foreign substance in the eye. Vital signs on arrival are within normal limits. REVIEW OF SYSTEMS: GENERAL/CONSTITUTIONAL: No fever/chills. No weakness. No weight change. HEAD, EYES, EARS, NOSE AND THROAT: +b/l eye pain. No ear pain or discharge. No sore throat. MUSCULOSKELETAL: No joint or muscle swelling or pain. No neck or back pain. SKIN: No rash or easy bruising. NEUROLOGIC: No headache, vertigo, loss of consciousness, or loss of sensation. PHYSICAL EXAM: GENERAL: The patient is awake, alert, and fully oriented, in no acute distress. She is holding her hands over her eyes. HEAD: Normal with no signs of trauma. ENT: Pt cannot tolerate her eyes being opened. Neck supple. EXTREMITIES: Normal range of motion, no edema. NEUROLOGICAL: Normal speech, normal gait. CN II-XII grossly intact. PSYCH: Normal mood, normal affect. SKIN: Warm, dry, normal turgor, no rashes or lesions noted. Past History - Past Medical History Allergies/Adverse Reactions: Allergies Allergy/AdvReac Type Severity Reaction Status Date / Time No Known Drug Allergies Allergy Verified 07/30/16 11:19 lactose [Lactose] AdvReac Verified 07/30/16 11:19 Home Medications: Ambulatory Orders Dabigatran Etexilate Mesylate [Pradaxa -] 150 mg PO BID #180 cap 11/05/15 Diltiazem Cd [Cardizem Cd -] 120 mg PO DAILY #90 cap.cd.24h 11/05/15 Ferrous Sulfate [Feosol] 325 mg PO DAILY #30 tablet 11/05/15 Pantoprazole Sodium [Protonix -] 40 mg PO BID #60 tablet.ec 11/05/15 Risperidone [Risperdal -] 1 mg PO BID tablet 11/05/15 Duloxetine HCl [Cymbalta -] 30 mg PO DAILY capsule. 02/26/16 Gabapentin [Neurontin -] 300 mg PO TID capsule 03/03/16 Lactobacillus Acidophilus [Bacid -] 1 tab PO DAILY tab 03/03/16 Polyethylene Glycol 3350 [Miralax 119 gm Btl -] 17 gm PO TID bottle 03/03/16 Sertraline HCl [Zoloft] 50 mg PO DAILY 04/20/16 Diclofenac Sodium [Voltaren] 100 gm TP TID 06/17/16 Albuterol 0.083% Nebulizer Mela [Ventolin 0.083% Nebulizer Soln -] 1 amp NEB Q6H PRN #90 amp 07/26/16 Albuterol Sulfate Inhaler - [Ventolin HFA Inhaler -] 2 inh PO Q6H PRN #3 inh Furosemide [Lasix -] 20 mg PO DAILY #90 tablet 07/26/16 Prednisone [Deltasone -] 5 mg PO DAILY #20 tablet 07/26/16 Erythromycin 0.5% Eye Ointment [Erythromycin 0.5% Eye Ointment -] 1 applic OU TID #1 tube 07/30/16 Anemia: Yes Asthma: Yes Cancer: No Cardiac Disorders: Yes (atrial fibrillation, CARDIAC CATH 2010-NORMAL) CVA: No COPD: Yes CHF: No Dementia: Yes Diabetes: Yes Dialysis: Yes GI Disorders: Yes (POLYPS; DIVERTICULOSIS; GERD) Disorders: No HTN: Yes Hypercholesterolemia: No Liver Disease: No Psychiatric Problems: Yes (schiophrenia) Suicide Attempt (Hx): No Seizures: No Thyroid Disease: No - Surgical History Abdominal Surgery: Yes (intestinal blockage 2010; HIATAL HERNIA;) Appendectomy: No Cardiac Surgery: No Cholecystectomy: No Lung Surgery: No Neurologic Surgery: Yes (UPPER BACK SX) Orthopedic Surgery: Yes (R. Knee replacement 2010) - Immunization History Immunization Up to Date: Yes - Psycho/Social/Smoking Cessation Hx Anxiety: No Suicidal Ideation: No Smoking Status: No Smoking History: Never smoked Have you smoked in the past 12 months: No Number of Cigarettes Smoked Daily: 0 Information on smoking cessation initiated: No Hx Alcohol Use: No Drug/Substance Use Hx: No Substance Use Type: Alcohol Hx Substance Use Treatment: No (12 steps) *Physical Exam - Vital Signs Last Vital Signs Temp Pulse Resp BP Pulse Ox 98.2 F 69 18 129/73 100 07/30/16 11:19 07/30/16 11:19 07/30/16 11:19 07/30/16 11:19 07/30/16 11:19 Medical Decision Making - Medical Decision Making A/P: 71 y/o afebrile female with b/l eye pain. Applied tetracaine to both eyes. The patient can now open both eyes. B/l conjunctiva are injected. No ptosis or proptosis Patient states she can now see normally without pain. She does admit she has normally itchy eyes and they've been itchy lately. Gave erythromycin ointment in the ER. Will discharge to home with rx for erythromycin ointment. 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 The patient verbalizes understanding of all instructions, has no further questions and is awaiting discharge. *DC/Admit/Observation/Transfer Diagnosis at time of Disposition: Conjunctivitis Qualifiers: Conjunctivitis type: acute Acute conjunctivitis type: unspecified Laterality: bilateral Qualified Code(s): H10.33 - Unspecified acute conjunctivitis, bilateral - Discharge Dispostion Disposition: HOME Condition at time of disposition: Improved - Prescriptions Prescriptions: Erythromycin 0.5% Eye Ointment [Erythromycin 0.5% Eye Ointment -] 1 applic OU TID #1 tube - Referrals Referrals: Cathleen Kan [Primary Care Provider] - - Patient Instructions Printed Discharge Instructions: DI for Conjunctivitis Additional Instructions: Discharge Instructions: -Use the eye ointment as prescribed for 1 week -Follow up with your eye doctor on Monday -Return to the ER with any worsening or concerning symptoms
[2016-07-30] MEDS ORDERED: risperiDONE 0.5 MG TABLET (FP) ONE (11:31)
[2016-07-30] MEDS ORDERED: TETRACAINE 0.5% OPHTH SOLN 2 ML BOTTLE ONE (11:38)
[2016-07-30] MEDS ORDERED: risperiDONE 1 MG TABLET (FP) PO ONE (11:50)
[2016-07-30] MEDS ORDERED: ACETAMINOPHEN 325 MG TABLET (FP) ONE (12:09)
[2016-07-30] MEDS ORDERED: ERYTHROMYCIN 0.5% OPHTHALMIC OINTMENT 3.5 GM TUBE ONE (12:15)
[2016-07-30] MEDS ORDERED: TETRACAINE 0.5% HCL 0.6ML DROPPER.BOTTLE OU ONE (12:26)
[2016-07-30] MEDS ORDERED: ERYTHROMYCIN 0.5% OPHTHALMIC OINTMENT 3.5 GM TUBE OU ONE (12:26)
[2016-07-30] MEDS ORDERED: ACETAMINOPHEN 325 MG TABLET (FP) PO ONE (12:26)
[2016-07-30 14:25] VITALS: BP 128/76; PULSE 72; TEMP 98.5
== END 2016-07-30 14:25 | disposition home or self-care (01) ==
LOC: JER 11:06
DX: H10.33 Unspecified acute conjunctivitis, bilateral (principal); I25.10 Atherosclerotic heart disease of native coronary artery without angina pectoris; Z98.61 Coronary angioplasty status; I10 Essential (primary) hypertension; I48.91 Unspecified atrial fibrillation; Z79.01 Long term (current) use of anticoagulants; E78.00 Pure hypercholesterolemia, unspecified; J45.909 Unspecified asthma, uncomplicated; F03.90 Unspecified dementia, unspecified severity, without behavioral disturbance, psychotic disturbance, mood disturbance, and anxiety; F20.9 Schizophrenia, unspecified
CPT/HCPCS: 99282-25; J2794

== ENCOUNTER 2016-09-02 09:20 | Emergency (ER) | payer OTHER ==
[2016-09-02 09:47] VITALS: BP 143/80; PULSE 65; TEMP 97.6; BMI 35.2
[2016-09-02] MEDS ORDERED: KETOROLAC TROMETHAMINE 30 MG/1 ML VIAL IM ONE (10:04)
[2016-09-02] MEDS ORDERED: diazePAM 5 MG TABLET PO ONE (10:04)
--- NOTE | 2016-09-02 10:18 | PDOC ---
History of Present Illness <Michel Diaz - Last Filed: 09/02/16 11:55> - General History Source: Patient Exam Limitations: No Limitations - History of Present Illness Initial Comments: 09/02/16 10:52 The patient is a 71 year old female with a significant past medical history of COPD and CHF who presents to the ED, via EMS, with one week of progressively worsening left leg pain. The patient reports worsening of her hip pain radiating down the side of her left thigh. The patient describes the left leg pain as sharp and heavy. She states she was unable to walk this morning secondary to the leg pain. Patient reports she was walking at baseline yesterday and with minimal discomfort. Patient states her left leg pain is worsened secondary to walking and laying flat. She reports taking over the counter medication, elevating her leg, positional changes, and bath soaks with no relief of present symptoms. Denies recent trauma/falls/heavy lifting. Patient denies fevers or chills. Denies weakness, numbness or tingling. Denies urinary or bowel incontinence. Denies chest pain or shortness of breath. Denies any other symptoms. <Andrea Burleson - Last Filed: 09/02/16 12:20> - General Chief Complaint: Pain, Acute Stated Complaint: LEG PAIN Time Seen by Provider: 09/02/16 09:30 Past History - Past Medical History Anemia: Yes Asthma: Yes Cancer: No Cardiac Disorders: Yes (atrial fibrillation, CARDIAC CATH 2010-NORMAL) CVA: No COPD: Yes CHF: No Dementia: Yes Diabetes: Yes Dialysis: Yes GI Disorders: Yes (POLYPS; DIVERTICULOSIS; GERD) Disorders: No HTN: Yes Hypercholesterolemia: No Liver Disease: No Psychiatric Problems: Yes (schizophrenia) Suicide Attempt (Hx): No Seizures: No Thyroid Disease: No - Surgical History Abdominal Surgery: Yes (intestinal blockage 2010; HIATAL HERNIA;) Appendectomy: No Cardiac Surgery: No Cholecystectomy: No Lung Surgery: No Neurologic Surgery: Yes (UPPER BACK SX) Orthopedic Surgery: Yes (R. Knee replacement 2010) - Immunization History Immunization Up to Date: Yes - Psycho/Social/Smoking Cessation Hx Anxiety: No Suicidal Ideation: No Smoking Status: No Smoking History: Never smoked Have you smoked in the past 12 months: No Number of Cigarettes Smoked Daily: 0 Hx Alcohol Use: No Drug/Substance Use Hx: No Substance Use Type: Alcohol Hx Substance Use Treatment: No (12 steps) <JoeMichel - Last Filed: 09/02/16 11:55> <Andrea Burleson - Last Filed: 09/02/16 12:20> - Past Medical History Allergies/Adverse Reactions: Allergies Allergy/AdvReac Type Severity Reaction Status Date / Time No Known Drug Allergies Allergy Verified 09/02/16 09:30 lactose [Lactose] AdvReac Verified 09/02/16 09:30 Home Medications: Ambulatory Orders Dabigatran Etexilate Mesylate [Pradaxa -] 150 mg PO BID #180 cap 11/05/15 Diltiazem Cd [Cardizem Cd -] 120 mg PO DAILY #90 cap.cd.24h 11/05/15 Ferrous Sulfate [Feosol] 325 mg PO DAILY #30 tablet 11/05/15 Pantoprazole Sodium [Protonix -] 40 mg PO BID #60 tablet.ec 11/05/15 Risperidone [Risperdal -] 1 mg PO BID tablet 11/05/15 Duloxetine HCl [Cymbalta -] 30 mg PO DAILY capsule. 02/26/16 Gabapentin [Neurontin -] 300 mg PO TID capsule 03/03/16 Lactobacillus Acidophilus [Bacid -] 1 tab PO DAILY tab 03/03/16 Polyethylene Glycol 3350 [Miralax 119 gm Btl -] 17 gm PO TID bottle 03/03/16 Sertraline HCl [Zoloft] 50 mg PO DAILY 04/20/16 Diclofenac Sodium [Voltaren] 100 gm TP TID 06/17/16 Albuterol 0.083% Nebulizer Mela [Ventolin 0.083% Nebulizer Soln -] 1 amp NEB Q6H PRN #90 amp 07/26/16 Albuterol Sulfate Inhaler - [Ventolin HFA Inhaler -] 2 inh PO Q6H PRN #3 inh Furosemide [Lasix -] 20 mg PO DAILY #90 tablet 07/26/16 Prednisone [Deltasone -] 5 mg PO DAILY #20 tablet 07/26/16 Erythromycin 0.5% Eye Ointment [Erythromycin 0.5% Eye Ointment -] 1 applic OU TID #1 tube 07/30/16 Review of Systems - Review of Systems Able to Perform ROS?: Yes Comments:: 02/24/17 10:52 CONSTITUTIONAL: No reported: Fever, Chills, Diaphoresis, Generalized Weakness, Malaise, Loss of Appetite HEENT: No reported: Rhinorrhea, Nasal Congestion, Throat Pain, Throat Swelling, Difficulty Swallowing, Mouth Swelling, Ear Pain, Eye Pain, Visual Changes CARDIOVASCULAR: No reported: Chest Pain, Syncope, Palpitations, Irregular Heart Rate, Lightheadedness, Peripheral Edema RESPIRATORY: No reported: Cough, Shortness of Breath, SOB with Exertion, Orthopnea, Wheezing , Stridor, Hemoptysis GASTROINTESTINAL: No reported: Abdominal pain, Abdominal Distension, Nausea, Vomiting, Diarrhea, Constipation, Melena, Hematochezia GENITOURINARY: No reported: Dysuria, Frequency, Urgency, Hesitancy, Flank Pain, Genital Pain MUSCULOSKELETAL: reported: left leg pain with radiating down leg. No reported: Myalgia, Arthralgia, Joint Swelling, Back pain, Neck Pain SKIN: No reported: Rash, Itching, Pallor HEMEATOLOGIC/IMMUNOLOGIC: No reported: Easy Bleeding, Easy Bruising, Lymphadenopathy, Frequent infections ENDOCRINE: No reported: Unexplained Weight Gain, Unexplained Weight Loss, Heat Intolerance , Cold Intolerance NEUROLOGIC: No reported: Headache, Focal Weakness, Paresthesias, Vertigo, Lightheadedness, Unsteady Gait, Seizure, Mental Status Changes, Incontinence PSYCHIATRIC: No reported: Anxiety, Depression All Other Systems: Reviewed and Negative <Andrea Burleson - Last Filed: 09/02/16 12:20> *Physical Exam - Vital Signs Last Vital Signs Temp Pulse Resp BP Pulse Ox 97.6 F 65 20 143/80 99 09/02/16 09:30 09/02/16 09:30 09/02/16 09:30 09/02/16 09:30 09/02/16 09:30 <Michel Diaz - Last Filed: 09/02/16 11:55> - Vital Signs Last Vital Signs Temp Pulse Resp BP Pulse Ox 97.6 F 65 20 143/80 99 09/02/16 09:30 09/02/16 09:30 09/02/16 09:30 09/02/16 09:30 09/02/16 09:30 - Physical Exam Comments: 09/02/16 10:53 GENERAL: The patient is awake, alert, and fully oriented, Nontoxic - in no acute distress. HEAD: Normocephalic, atraumatic. EYES: extraocular movements intact, sclera anicteric, conjunctiva clear. ENT: Normal voice, Moist mucous membranes. NECK: Normal range of motion, supple LUNGS: Breath sounds equal, clear to auscultation bilaterally. No wheezes, no rhonchi, no rales. HEART: Regular rate and rhythm ABDOMEN: Soft, nontender, normoactive bowel sounds. No guarding, no rebound. . No CVA tenderness BACK: +SLR on L leg at approximately 20 degrees, +focal tenderness to mid buttock area that reproduced her sypmtoms, no focal tendenres sin throacic/ cervical/lumbar region. EXTREMITIES: Normal range of motion, no edema. NEUROLOGICAL: No facial assymetry, Normal speech, mopving all 4 extremities spontaneously and symmetrically, sensation/motor (including plantar/dorsi flexion intact. PSYCH: Normal mood, normal affect. SKIN: Warm, Dry, normal turgor, <Andrea Burleson - Last Filed: 09/02/16 12:20> ED Treatment Course - RADIOLOGY Radiology Studies Ordered: Category Date Time Status SPINE-LUMBAR SACRAL [RAD] Stat Radiology 09/02/16 10:04 Ordered <Michel Diaz - Last Filed: 09/02/16 11:55> - RADIOLOGY Radiograph Interpretation: 09/02/16 12:18 RAD/SPINE-LUMBAR SACRAL Impression: Degenerative changes as above. Reported by: Figueroa Ronquillo RAD/HIP & PELVIS Impression: Mild degenerative arthritis with no fracture or acute bone or joint abnormalities. Reported by: Ayan Conklin - Medications Given in the ED: ED Medications Discontinued Medications Generic Name Dose Route Start Last Admin Trade Name Freq PRN Reason Stop Dose Admin Diazepam 5 mg 09/02/16 10:04 09/02/16 10:10 Valium - PO 09/02/16 10:05 5 mg ONCE ONE Administration Ketorolac Tromethamine 30 mg 09/02/16 10:04 09/02/16 10:10 Toradol Injection - IM 09/02/16 10:05 30 mg ONCE ONE Administration <Andrea Burleson - Last Filed: 09/02/16 12:20> Medical Decision Making - Medical Decision Making 09/02/16 10:06 71y F hx of copd, chf presents with 1 week of gradual onset of L sided back pain primarily in the L buttock that radiates down the left leg that is worse when she is laying down and walking. no associated numbness/tingling/weakness, urinary/bowel incontinence, fever/chills, trauma. Pt has reproducible tenderness in the L buttock, no focal tenderness in the lumbar/thoracic/ cervical spine. suspect sciatica, no red flags. will give valium and toradol IM will ck xray will reasseess A portion of this note was documented by scribe services under my direction. I have reviewed the details of the note, within reason, and agree with the documentation with the following case summary and management plan written by me 09/02/16 11:10 The patient is feeling improved. The patient is able to ambulate without any significant discomfort. The patient's x-ray negative for any fracture Will discharge patient to follow up with her primary care doctor. The patient also has an appointment with orthopedics on 09/05 I discussed the physical exam findings, ancillary test results and final diagnoses with the patient. I answered all of the patient's questions. The patient was satisfied with the care received and felt comfortable with the discharge plan and treatment plan. The patient will call their primary care physician within 24 hours to arrange follow-up and will return to the Emergency Department with any new, persistent or worsening symptoms. <Michel Diaz - Last Filed: 09/02/16 11:55> *DC/Admit/Observation/Transfer - Discharge Dispostion Admit: No <Michel Diaz - Last Filed: 09/02/16 11:55> - Attestations Scribe Attestion: 09/02/16 10:53 Documentation prepared by Andrea Burleson, acting as nuclear medical tech for Michel Diaz MD <Andrea Burleson - Last Filed: 09/02/16 12:20> Diagnosis at time of Disposition: Sciatica Qualifiers: Laterality: left Qualified Code(s): M54.32 - Sciatica, left side - Discharge Dispostion Disposition: HOME Condition at time of disposition: Improved - Referrals Referrals: Cathleen Kan [Primary Care Provider] - - Patient Instructions Printed Discharge Instructions: DI for Sciatica Additional Instructions: Return to the emergency department immediately with ANY new, persistent or worsening symptoms including numbness, tingling, weakness, fevers or any other concerns. Take ibuprofen OR alleve for pain as needed. Apply heat to your back. Avoid heavy lifting, significant ambulation for the next few days. You MUST call and follow up with your doctor tomorrow for further evaluation of your symptoms. Results were discussed with you. Please make sure your doctor reviews the results of your emergency evaluation. Print Language: INDONESIAN
--- NOTE | 2016-09-05 12:25 | EKG ---
Test Reason : Blood Pressure : / mmHG Vent. Rate : 069 BPM Atrial Rate : 069 BPM P-R Int : 198 ms QRS Dur : 090 ms QT Int : 394 ms P-R-T Axes : 045 -46 084 degrees QTc Int : 422 ms NORMAL SINUS RHYTHM LEFT AXIS DEVIATION LEFT VENTRICULAR HYPERTROPHY WITH REPOLARIZATION ABNORMALITY CANNOT RULE OUT SEPTAL INFARCT (CITED ON OR BEFORE 12-MAR-2011) ABNORMAL ECG WHEN COMPARED WITH ECG OF 18-JUL-2016 13:44, COMPARED TO EKG NO SIGNIFICANT CHANGE IS FOUND Confirmed by LATRICIA CHAPARRO MD ([id number]) on 09/05/2016 12:25:06 PM Referred By: Confirmed By:LATRICIA CHAPARRO MD
== END 2016-09-02 13:00 | disposition home or self-care (01) ==
LOC: JER 09:20
PROC: 3E0233Z Introduction of Anti-inflammatory into Muscle, Percutaneous Approach (ICD-10-PCS; principal; 2016-09-02)
DX: M54.42 Lumbago with sciatica, left side (principal); J44.9 Chronic obstructive pulmonary disease, unspecified; I50.9 Heart failure, unspecified; J45.909 Unspecified asthma, uncomplicated; I10 Essential (primary) hypertension; I48.91 Unspecified atrial fibrillation; Z79.01 Long term (current) use of anticoagulants; F20.9 Schizophrenia, unspecified; F03.90 Unspecified dementia, unspecified severity, without behavioral disturbance, psychotic disturbance, mood disturbance, and anxiety
CPT/HCPCS: 72100-TC; 73523-TC; 93005; 93010; 96372; 99282-25

== ENCOUNTER → 2016-10-24 | Emergency (ER) | payer OTHER ==
[~2016-10-24] MED LIST: ALPRAZolam 2 MG TABLET PO ONE; CLOPIDOGREL BISULFATE 300 MG TABLET PO ONE; ONDANSETRON 4 MG/2 ML VIAL IVPUSH ONE; morphine CARPU-JECT 4 MG/1 ML DISP.SYRIN IVPUSH ONE
--- NOTE | 2016-10-25 | PDOC ---
History of Present Illness <Lourdes Benavides - Last Filed: 10/25/16 00:29> - General History Source: Patient Exam Limitations: No Limitations - History of Present Illness Presenting Symptoms: Chest Pain, Short of Breath Timing/Duration: reports: constant Severity/Quality: reports: mild Location: reports: central Chest Pain Radiation: reports: arms (radiation to left arm) Prior Chest Pain/Cardiac Workup: reports: Angina, Cardiac Cath Nitro Today/Relief: Yes: no nitro taken today Aspirin Received prior to arrival (Core Measure): Yes: 81 mg x 4, provided by EMS Beta Anjel taken at Home (Core Measure): Yes Associated Symptoms: Yes: Shortness of Breath <Jigna Hermosillo - Last Filed: 10/25/16 01:52> <Regis Acosta - Last Filed: 10/25/16 06:37> - General Stated Complaint: DIFF BREATHING Time Seen by Provider: 10/24/16 23:54 - History of Present Illness Initial Comments: 10/25/16 00:29 The patient is a 71 year old female, with a significant past medical history of COPD/Asthma, CHF, Afib, Anemia, who presents to the emergency department via ems for shortness of breath and pleuritic chest pain today. The patient states she woke up this evening feeling very short of breath. She reports developing chest pain 30 minutes before arriving to the ED with associated left arm pain. The patient reports the severity of her chest pain at onset was 9/10, but states her pain is 7/10 in the ED now after receiving 324 mg aspirin in ambulance on her way to the ED. She denies headache and dizziness. She denies fever, chills, nausea, vomit, diarrhea and constipation. She denies dysuria, frequency, urgency and hematuria. 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 (Lourdes Benavides) Past History <Lourdes Benavides - Last Filed: 10/25/16 00:29> - Past Medical History Anemia: Yes Asthma: Yes Cancer: No Cardiac Disorders: Yes (atrial fibrillation, CARDIAC CATH 2010-NORMAL) CVA: No COPD: Yes CHF: No Dementia: Yes Diabetes: Yes Dialysis: Yes GI Disorders: Yes (POLYPS; DIVERTICULOSIS; GERD) Disorders: No HTN: Yes Hypercholesterolemia: No Liver Disease: No Psychiatric Problems: Yes (schizophrenia) Suicide Attempt (Hx): No Seizures: No Thyroid Disease: No - Surgical History Abdominal Surgery: Yes (intestinal blockage 2010; HIATAL HERNIA;) Appendectomy: No Cardiac Surgery: No Cholecystectomy: No Lung Surgery: No Neurologic Surgery: Yes (UPPER BACK SX) Orthopedic Surgery: Yes (R. Knee replacement 2010) - Immunization History Immunization Up to Date: Yes - Psycho/Social/Smoking Cessation Hx Anxiety: No Suicidal Ideation: No Smoking Status: No Smoking History: Never smoked Have you smoked in the past 12 months: No Number of Cigarettes Smoked Daily: 0 Hx Alcohol Use: No Drug/Substance Use Hx: No Substance Use Type: Alcohol Hx Substance Use Treatment: No (12 steps) <Jigna Hermosillo - Last Filed: 10/25/16 01:52> <Regis Acosta - Last Filed: 10/25/16 06:37> - Past Medical History Allergies/Adverse Reactions: Allergies Allergy/AdvReac Type Severity Reaction Status Date / Time No Known Drug Allergies Allergy Verified 09/02/16 09:30 lactose [Lactose] AdvReac Verified 09/02/16 09:30 Home Medications: Ambulatory Orders Dabigatran Etexilate Mesylate [Pradaxa -] 150 mg PO BID #180 cap 11/05/15 Diltiazem Cd [Cardizem Cd -] 120 mg PO DAILY #90 cap.cd.24h 11/05/15 Ferrous Sulfate [Feosol] 325 mg PO DAILY #30 tablet 11/05/15 Pantoprazole Sodium [Protonix -] 40 mg PO BID #60 tablet.ec 11/05/15 Risperidone [Risperdal -] 1 mg PO BID tablet 11/05/15 Duloxetine HCl [Cymbalta -] 30 mg PO DAILY capsule. 02/26/16 Gabapentin [Neurontin -] 300 mg PO TID capsule 03/03/16 Lactobacillus Acidophilus [Bacid -] 1 tab PO DAILY tab 03/03/16 Polyethylene Glycol 3350 [Miralax 119 gm Btl -] 17 gm PO TID bottle 03/03/16 Sertraline HCl [Zoloft] 50 mg PO DAILY 04/20/16 Diclofenac Sodium [Voltaren] 100 gm TP TID 06/17/16 Albuterol 0.083% Nebulizer Mela [Ventolin 0.083% Nebulizer Soln -] 1 amp NEB Q6H PRN #90 amp 07/26/16 Albuterol Sulfate Inhaler - [Ventolin HFA Inhaler -] 2 inh PO Q6H PRN #3 inh Furosemide [Lasix -] 20 mg PO DAILY #90 tablet 07/26/16 Prednisone [Deltasone -] 5 mg PO DAILY #20 tablet 07/26/16 Erythromycin 0.5% Eye Ointment [Erythromycin 0.5% Eye Ointment -] 1 applic OU TID #1 tube 07/30/16 Cardiac Specific PMH - Complaint Specific PMHX Pacemaker: No <Jigna Hermosillo - Last Filed: 10/25/16 01:52> Review of Systems - Review of Systems Able to Perform ROS?: Yes <Lourdes Benavides - Last Filed: 10/25/16 00:29> <Jgina Hermosillo - Last Filed: 10/25/16 01:52> <Regis Acosta - Last Filed: 10/25/16 06:37> - Review of Systems Comments:: 10/25/16 00:29 CONSTITUTIONAL: Absent: fever, chills, diaphoresis, generalized weakness, malaise, loss of appetite HEENT: Absent: rhinorrhea, nasal congestion, throat pain, throat swelling, difficulty swallowing, mouth swelling, ear pain, eye pain, visual Changes CARDIOVASCULAR: (+) chest pain,Absent: syncope, palpitations, irregular heart rate, lightheadedness, peripheral edema RESPIRATORY: (+) shortness of breath,Absent: cough, dyspnea with exertion, orthopnea, wheezing, stridor, hemoptysis GASTROINTESTINAL: Absent: abdominal pain, abdominal distension, nausea, vomiting, diarrhea, constipation, melena, hematochezia GENITOURINARY: Absent: dysuria, frequency, urgency, hesitancy, hematuria, flank pain, genital pain MUSCULOSKELETAL: Absent: myalgia, arthralgia, joint swelling SKIN: Absent: rash, itching, pallor HEMATOLOGIC/IMMUNOLOGIC: Absent: easy bleeding, easy bruising, lymphadenopathy, frequent infections ENDOCRINE: Absent: unexplained weight gain, unexplained weight loss, heat intolerance, cold intolerance NEUROLOGIC: Absent: headache, focal weakness or paresthesias, dizziness, unsteady gait, seizure, mental status changes, bladder or bowel incontinence PSYCHIATRIC: Absent: anxiety, depression, suicidal or homicidal ideation, hallucinations. (Lourdes Benavides) *Physical Exam <Lourdes Benavides - Last Filed: 10/25/16 00:29> <Jigna Hermosillo - Last Filed: 10/25/16 01:52> <Regis Acosta - Last Filed: 10/25/16 06:37> - Vital Signs Last Vital Signs Temp Pulse Resp BP Pulse Ox 97.5 F L 56 L 24 160/94 100 10/25/16 05:00 10/25/16 05:00 10/25/16 05:00 10/25/16 05:00 10/25/16 05:00 - Physical Exam Comments: 10/25/16 00:30 GENERAL: (+) Obese. Awake and alert. No acute distress. HEENT: Normocephalic, atraumatic. PERRLA, EOMI. No conjunctival pallor. Sclera are non- icteric. Moist mucous membranes. Oropharynx is clear. NECK: Supple. Full ROM. No JVD. Carotid pulses 2+ and symmetric, without bruits. No thyromegaly. No lymphadenopathy. CARDIOVASCULAR: Regular rate and rhythm. No murmurs, rubs, or gallops. Distal pulses are 2+ and symmetric. PULMONARY: No evidence of respiratory distress. Lungs clear to auscultation bilaterally. No wheezing, rales or rhonchi. ABDOMINAL: (+) protuberant abdomen. Soft. Non-tender. Non-distended. No rebound or guarding. No organomegaly. Normoactive bowel sounds. MUSCULOSKELETAL Normal range of motion at all joints. No bony deformities or tenderness. No CVA tenderness. EXTREMITIES: (+) 1+ bilateral lower extremity edema. well healed surgical scar on right knee from TKR. No cyanosis. No clubbing. No calf tenderness. SKIN: Warm and dry. Normal capillary refill. No rashes. No jaundice. NEUROLOGICAL: Alert, awake, appropriate. Cranial nerves 2-12 intact. Normoreflexic in the upper and lower extremities. Normal speech. Toes are down-going bilaterally. PSYCHIATRIC: Cooperative. Good eye contact. Appropriate mood and affect. (Lourdes Benavides) Heart Score/ECG Review - History History: Slightly suspicious - Electrocardiogram EKG: Non specific repolarization disturbance - Age Age: >/= 65 - Risk Factors Risk Factors Heart Score: Yes Hx Hypertension, Yes Hx Diabetes - ECG Intrepretation Rhythm: Regular Rhythm - [place]: Left [place] Deviation - P and [place] Delta Wave(s) Present: No WPW: No - ST and T Flattened T Waves: No Prolonged Q-T Interval: No - ECG Impressions Non-specific ST Elevation: No Ischemic Changes: No Bradycardia: Yes (aj @ 56 bpm) Heart Block: 1st Degree Block(>20mils) Torsades rod Pointes: No WPW: No <Jigna Hermosillo - Last Filed: 10/25/16 01:52> ED Treatment Course - LABORATORY CBC & Chemistry Diagram: 10/25/16 01:35 10/25/16 01:35 <Jigna Hermosillo - Last Filed: 10/25/16 01:52> - LABORATORY CBC & Chemistry Diagram: 10/25/16 01:35 10/25/16 01:35 <Regis Acosta - Last Filed: 10/25/16 06:37> - ADDITIONAL ORDERS Additional order review: Laboratory Results 10/25/16 10/25/16 10/25/16 03:37 01:35 01:35 INR Sodium Potassium Chloride Carbon Dioxide Anion Gap BUN Creatinine Creat Clearance w eGFR Random Glucose Lactic Acid 1.015 Calcium Phosphorus Magnesium Total Bilirubin AST ALT Alkaline Phosphatase Creatine Kinase 174 CK-MB (CK-2) Troponin I < 0.02 B-Natriuretic Peptide Total Protein Albumin Blood Type B POSITIVE Antibody Screen Negative 10/25/16 10/25/16 01:35 01:35 INR 1.10 Sodium 143 Potassium 4.5 Chloride 106 Carbon Dioxide 29 Anion Gap 8 BUN 17 D Creatinine 0.7 Creat Clearance w eGFR > 60 Random Glucose 89 Lactic Acid Calcium 8.9 Phosphorus 2.9 Magnesium 2.2 Total Bilirubin 0.2 D AST 22 D ALT 25 D Alkaline Phosphatase 107 D Creatine Kinase 213 H D CK-MB (CK-2) 1.848 Troponin I < 0.02 B-Natriuretic Peptide 437.82 H Total Protein 6.9 Albumin 3.4 D Blood Type Antibody Screen 10/25/16 01:35 RBC 3.93 MCV 83.9 MCHC 31.9 L RDW 17.7 H D MPV 9.3 Neutrophils % 58.7 Lymphocytes % 31.3 D Monocytes % 8.1 Eosinophils % 0.9 D Basophils % 1.0 D - RADIOLOGY Radiology Studies Ordered: Category Date Time Status CHEST X-RAY PORTABLE* [RAD] Stat Radiology 10/25/16 00:19 Taken - Medications Given in the ED: ED Medications Discontinued Medications Generic Name Dose Route Start Last Admin Trade Name Kimani PRN Reason Stop Dose Admin Alprazolam 1 mg 10/25/16 01:00 10/25/16 01:07 Xanax - PO 10/25/16 01:01 1 mg ONCE ONE Administration Clopidogrel Bisulfate 600 mg 10/24/16 23:57 10/25/16 01:09 Plavix - PO 10/24/16 23:58 Not Given ONCE ONE Morphine Sulfate 4 mg 10/24/16 23:56 10/25/16 01:06 Morphine Injection - IVPUSH 10/24/16 23:57 Not Given ONCE ONE Ondansetron HCl 4 mg 10/24/16 23:56 10/25/16 01:06 Zofran Injection IVPUSH 10/24/16 23:57 Not Given ONCE ONE Medical Decision Making <Lourdes Benavides - Last Filed: 10/25/16 00:29> <Jigna Hermosillo - Last Filed: 10/25/16 01:52> <Regis Acosta - Last Filed: 10/25/16 06:37> - Medical Decision Making 10/25/16 01:52 71 yo female BIBA for shortness of breath and then dev chest pain at 11pm -received 324mg ASA en route PMH CHF,COPD,DM,HTN,PAROXYSMAL AFIB -STRESS test 08/17/16 no ischemia EF 59% -CARDIAC CATH [address] 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 Dr Sanchez is PCP (Jigna Hermosillo) *DC/Admit/Observation/Transfer <Lourdes Benavides - Last Filed: 10/25/16 00:29> <Jigna Hermosillo - Last Filed: 10/25/16 01:52> - Discharge Dispostion Admit: No <Regis Acosta - Last Filed: 10/25/16 06:37> Diagnosis at time of Disposition: Chest pain Qualifiers: Chest pain type: unspecified Qualified Code(s): R07.9 - Chest pain, unspecified - Discharge Dispostion Disposition: HOME Condition at time of disposition: Good Decision to Admit order Date/Time: 10/25/16 06:36 (Regis Acosta) - Patient Instructions Printed Discharge Instructions: DI for Chest Pain Additional Instructions: Please follow up with your PMD within the next 24 hours and if there is any change otherwise in symptoms, please return immediately to the ED. - Attestations Scribe Attestion: 10/25/16 00:32 Documentation prepared by Lourdes Benavides, acting as medical laboratory manager for Jigna Hermosillo MD (Lourdes Benavides)
--- NOTE | 2016-10-25 00:05 | PDOC ---
History of Present Illness - General Stated Complaint: DIFF BREATHING Time Seen by Provider: 10/24/16 23:54 Past History - Past Medical History Allergies/Adverse Reactions: Allergies Allergy/AdvReac Type Severity Reaction Status Date / Time No Known Drug Allergies Allergy Verified 09/02/16 09:30 lactose [Lactose] AdvReac Verified 09/02/16 09:30 Home Medications: Ambulatory Orders Dabigatran Etexilate Mesylate [Pradaxa -] 150 mg PO BID #180 cap 11/05/15 Diltiazem Cd [Cardizem Cd -] 120 mg PO DAILY #90 cap.cd.24h 11/05/15 Ferrous Sulfate [Feosol] 325 mg PO DAILY #30 tablet 11/05/15 Pantoprazole Sodium [Protonix -] 40 mg PO BID #60 tablet.ec 11/05/15 Risperidone [Risperdal -] 1 mg PO BID tablet 11/05/15 Duloxetine HCl [Cymbalta -] 30 mg PO DAILY capsule. 02/26/16 Gabapentin [Neurontin -] 300 mg PO TID capsule 03/03/16 Lactobacillus Acidophilus [Bacid -] 1 tab PO DAILY tab 03/03/16 Polyethylene Glycol 3350 [Miralax 119 gm Btl -] 17 gm PO TID bottle 03/03/16 Sertraline HCl [Zoloft] 50 mg PO DAILY 04/20/16 Diclofenac Sodium [Voltaren] 100 gm TP TID 06/17/16 Albuterol 0.083% Nebulizer Mela [Ventolin 0.083% Nebulizer Soln -] 1 amp NEB Q6H PRN #90 amp 07/26/16 Albuterol Sulfate Inhaler - [Ventolin HFA Inhaler -] 2 inh PO Q6H PRN #3 inh Furosemide [Lasix -] 20 mg PO DAILY #90 tablet 07/26/16 Prednisone [Deltasone -] 5 mg PO DAILY #20 tablet 07/26/16 Erythromycin 0.5% Eye Ointment [Erythromycin 0.5% Eye Ointment -] 1 applic OU TID #1 tube 07/30/16 Anemia: Yes Asthma: Yes Cancer: No Cardiac Disorders: Yes (atrial fibrillation, CARDIAC CATH 2011-NORMAL) CVA: No COPD: Yes CHF: No Dementia: Yes Diabetes: Yes Dialysis: Yes GI Disorders: Yes (POLYPS; DIVERTICULOSIS; GERD) Disorders: No HTN: Yes Hypercholesterolemia: No Liver Disease: No Psychiatric Problems: Yes (schizophrenia) Suicide Attempt (Hx): No Seizures: No Thyroid Disease: No - Surgical History Abdominal Surgery: Yes (intestinal blockage 2010; HIATAL HERNIA;) Appendectomy: No Cardiac Surgery: No Cholecystectomy: No Lung Surgery: No Neurologic Surgery: Yes (UPPER BACK SX) Orthopedic Surgery: Yes (R. Knee replacement 2010) - Immunization History Immunization Up to Date: Yes - Psycho/Social/Smoking Cessation Hx Anxiety: No Suicidal Ideation: No Smoking Status: No Smoking History: Never smoked Have you smoked in the past 12 months: No Number of Cigarettes Smoked Daily: 0 Hx Alcohol Use: No Drug/Substance Use Hx: No Substance Use Type: Alcohol Hx Substance Use Treatment: No (12 steps)
[2016-10-25 00:35] VITALS: BMI 34.9
[2016-10-25 01:59] LABS: WHITE BLOOD COUNT 6.7 K/mm3 (4.0-10.0)
[2016-10-25 02:00] LABS: EOSINOPHIL 0.9 % (0-4.5); MCH 26.8 pg (25.7-33.7); MCHC 31.9 g/dl (32.0-36.0); MEAN CELL VOLUME 83.9 fl (80-96); MEAN PLT VOLUME 9.3 fl (7.5-11.1); NEUTROPHILS 58.7 % (42.8-82.8); PLATELET COUNT 256 K/MM3 (134-434); RDW 17.7 % (11.6-15.6)
[2016-10-25 02:13] LABS: INR 1.1 (0.82-1.09); PROTHROMBIN TIME (PATIENT) 12.1 SEC (9.98-11.88)
[2016-10-25 02:16] LABS: ALBUMIN 3.4 g/dl (3.4-5.0); ANION GAP 8 (8-16); BILIRUBIN,TOTAL 0.2 mg/dL (0.2-1.0); CALCIUM 8.9 mg/dL (8.5-10.1); CO2 29 mmol/L (21-32); CREATININE 0.7 mg/dL (0.55-1.02); GLUCOSE,RANDOM 89 mg/dL (74-106); MAGNESIUM 2.2 mg/dL (1.8-2.4); PHOSPHOROUS 2.9 mg/dL (2.5-4.9); SGPT/ALT 25 U/L (12-78); TOT PROT 6.9 g/dl (6.4-8.2)
[2016-10-25 02:19] LABS: ALK PHOS 107 U/L (45-117); TROPONIN I < 0.02 ng/ml (0.00-0.05)
[2016-10-25 02:22] LABS: SGOT/AST 22 U/L (15-37)
[2016-10-25 04:29] LABS: TROPONIN I < 0.02 ng/ml (0.00-0.05)
[2016-10-25 05:01] VITALS: BP 160/94; PULSE 56; TEMP 97.5
--- NOTE | 2016-10-25 05:14 | PDOC ---
*Physical Exam - Vital Signs Last Vital Signs Temp Pulse Resp BP Pulse Ox 97.5 F L 56 L 24 160/94 100 10/25/16 05:00 10/25/16 05:00 10/25/16 05:00 10/25/16 05:00 10/25/16 05:00 ED Treatment Course - LABORATORY CBC & Chemistry Diagram: 10/25/16 01:35 10/25/16 01:35 - ADDITIONAL ORDERS Additional order review: Laboratory Results 10/25/16 10/25/16 10/25/16 03:37 01:35 01:35 INR Sodium Potassium Chloride Carbon Dioxide Anion Gap BUN Creatinine Creat Clearance w eGFR Random Glucose Lactic Acid 1.015 Calcium Phosphorus Magnesium Total Bilirubin AST ALT Alkaline Phosphatase Creatine Kinase 174 CK-MB (CK-2) Troponin I < 0.02 B-Natriuretic Peptide Total Protein Albumin Blood Type B POSITIVE Antibody Screen Negative 10/25/16 10/25/16 01:35 01:35 INR 1.10 Sodium 143 Potassium 4.5 Chloride 106 Carbon Dioxide 29 Anion Gap 8 BUN 17 D Creatinine 0.7 Creat Clearance w eGFR > 60 Random Glucose 89 Lactic Acid Calcium 8.9 Phosphorus 2.9 Magnesium 2.2 Total Bilirubin 0.2 D AST 22 D ALT 25 D Alkaline Phosphatase 107 D Creatine Kinase 213 H D CK-MB (CK-2) 1.848 Troponin I < 0.02 B-Natriuretic Peptide 437.82 H Total Protein 6.9 Albumin 3.4 D Blood Type Antibody Screen 10/25/16 01:35 RBC 3.93 MCV 83.9 MCHC 31.9 L RDW 17.7 H D MPV 9.3 Neutrophils % 58.7 Lymphocytes % 31.3 D Monocytes % 8.1 Eosinophils % 0.9 D Basophils % 1.0 D - RADIOLOGY Radiology Studies Ordered: Category Date Time Status CHEST X-RAY PORTABLE* [RAD] Stat Radiology 10/25/16 00:19 Taken - Medications Given in the ED: ED Medications Discontinued Medications Generic Name Dose Route Start Last Admin Trade Name Freq PRN Reason Stop Dose Admin Alprazolam 1 mg 10/25/16 01:00 10/25/16 01:07 Xanax - PO 10/25/16 01:01 1 mg ONCE ONE Administration Clopidogrel Bisulfate 600 mg 10/24/16 23:57 10/25/16 01:09 Plavix - PO 10/24/16 23:58 Not Given ONCE ONE Morphine Sulfate 4 mg 10/24/16 23:56 10/25/16 01:06 Morphine Injection - IVPUSH 10/24/16 23:57 Not Given ONCE ONE Ondansetron HCl 4 mg 10/24/16 23:56 10/25/16 01:06 Zofran Injection IVPUSH 10/24/16 23:57 Not Given ONCE ONE Medical Decision Making - Medical Decision Making 10/25/16 05:10 The patient is received on sign out, comfortable; sleeping. She has normal evaluation and second troponin is negative. She will be discharged at this time and instructed to follow up with the PMD within the next 48 hours. *DC/Admit/Observation/Transfer Diagnosis at time of Disposition: Chest pain Qualifiers: Chest pain type: unspecified Qualified Code(s): R07.9 - Chest pain, unspecified - Discharge Dispostion Disposition: HOME Condition at time of disposition: Good Admit: No Decision to Admit order Date/Time: 10/25/16 05:13 - Patient Instructions Additional Instructions: Please follow up with your PMD within the next 24 hours and if there is any change otherwise in symptoms, please return immediately to the ED.
--- NOTE | 2016-10-25 12:45 | EKG ---
Test Reason : Blood Pressure : / mmHG Vent. 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
== END | disposition home or self-care (01) ==
LOC: JER 23:48
DX: R07.9 Chest pain, unspecified (principal); I48.0 Paroxysmal atrial fibrillation; Z79.01 Long term (current) use of anticoagulants; I50.9 Heart failure, unspecified; E11.9 Type 2 diabetes mellitus without complications; J44.9 Chronic obstructive pulmonary disease, unspecified; J45.909 Unspecified asthma, uncomplicated; F20.9 Schizophrenia, unspecified
CPT/HCPCS: 36415; 71010-TC; 80053; 82550; 82553; 83605; 83735; 83880; 84100; 84484; 85025; 85610; 86850; 86900; 86901; 93005; 93010; 99283-25

== ENCOUNTER 2016-11-04 11:00 | Emergency (ER) | payer OTHER ==
[2016-11-04 11:27] VITALS: BP 149/75; PULSE 55; TEMP 97.7; BMI 33.0
--- NOTE | 2016-11-04 11:42 | PDOC ---
History of Present Illness - General History Source: Patient, Old Records Exam Limitations: No Limitations <Edis Garcia - Last Filed: 11/04/16 15:04> - History of Present Illness Beta Anjel taken at Home (Core Measure): Yes <Danielle Persaud - Last Filed: 11/04/16 15:07> - General Chief Complaint: Shortness of Breath Stated Complaint: SOB Time Seen by Provider: 11/04/16 11:14 - History of Present Illness Initial Comments: 11/04/16 12:15 The patient is a 71 year old female with a significant past medical history of CHF, AFIB, anemia, and COPD, BIBA to the emergency department today for further evaluation of worsening shortness of breath, wheezing, and chest pain for 3 days. The patient states that today she went to her PMD who called activated an ambulance. The patient states that her chest pain is exacerbated by palpitations. She denies fever, chills, and cough. PCP: Dr. Anay Palma [phone] CARDIO: Dr. Vitale [phone] PAST SURGICAL HISTORY: Knee replacement, cardiac catheter SOCIAL HISTORY: Denied tobacco use ALLERGIES: NKDA (JoseEdis) 11/04/16 11:33 71 F with h/o schizophrenia CHF anemia afib, here from pcp office. pt states she was at [facility] picking up a stool test kit and results blood work. mentioned to them she was short of breath, and having chest pain. no radiation, states has had chest pain and shortness of breaqth in the past but today it was worse. denies fever chills. no cough. no leg swelling no mod factors. did not take aspirin, has been taking her meds. pt denies history of pe or dvt. is on blood thinner for afib. states she had a normal card cath at [facility] [address] archuleta. 11/04/16 12:05 (Danielle Persaud) Past History <Edis Garcia - Last Filed: 11/04/16 15:04> - Past Medical History Anemia: Yes Asthma: Yes Cancer: No Cardiac Disorders: Yes (atrial fibrillation, CARDIAC CATH 2010-NORMAL) CVA: No COPD: Yes CHF: No Dementia: Yes Diabetes: Yes Dialysis: Yes GI Disorders: Yes (POLYPS; DIVERTICULOSIS; GERD) Disorders: No HTN: Yes Hypercholesterolemia: No Liver Disease: No Psychiatric Problems: Yes (schizophrenia) Suicide Attempt (Hx): No Seizures: No Thyroid Disease: No - Surgical History Abdominal Surgery: Yes (intestinal blockage 2010; HIATAL HERNIA;) Appendectomy: No Cardiac Surgery: No Cholecystectomy: No Lung Surgery: No Neurologic Surgery: Yes (UPPER BACK SX) Orthopedic Surgery: Yes (R. Knee replacement 2010) - Immunization History Immunization Up to Date: Yes - Psycho/Social/Smoking Cessation Hx Anxiety: No Suicidal Ideation: No Smoking Status: No Smoking History: Never smoked Have you smoked in the past 12 months: No Number of Cigarettes Smoked Daily: 0 Information on smoking cessation initiated: No Hx Alcohol Use: No Drug/Substance Use Hx: No Substance Use Type: Alcohol Hx Substance Use Treatment: No (12 steps) <Danielle Persaud - Last Filed: 11/04/16 15:07> - Past Medical History Allergies/Adverse Reactions: Allergies Allergy/AdvReac Type Severity Reaction Status Date / Time No Known Drug Allergies Allergy Verified 10/25/16 06:40 lactose [Lactose] AdvReac Verified 10/25/16 06:40 Home Medications: Ambulatory Orders Dabigatran Etexilate Mesylate [Pradaxa -] 150 mg PO BID #180 cap 11/05/15 Diltiazem Cd [Cardizem Cd -] 120 mg PO DAILY #90 cap.cd.24h 11/05/15 Ferrous Sulfate [Feosol] 325 mg PO DAILY #30 tablet 11/05/15 Pantoprazole Sodium [Protonix -] 40 mg PO BID #60 tablet.ec 11/05/15 Risperidone [Risperdal -] 1 mg PO BID tablet 11/05/15 Duloxetine HCl [Cymbalta -] 30 mg PO DAILY capsule. 02/26/16 Gabapentin [Neurontin -] 300 mg PO TID capsule 03/03/16 Lactobacillus Acidophilus [Bacid -] 1 tab PO DAILY tab 03/03/16 Polyethylene Glycol 3350 [Miralax 119 gm Btl -] 17 gm PO TID bottle 03/03/16 Sertraline HCl [Zoloft] 50 mg PO DAILY 04/20/16 Diclofenac Sodium [Voltaren] 100 gm TP TID 06/17/16 Albuterol 0.083% Nebulizer Mela [Ventolin 0.083% Nebulizer Soln -] 1 amp NEB Q6H PRN #90 amp 07/26/16 Albuterol Sulfate Inhaler - [Ventolin HFA Inhaler -] 2 inh PO Q6H PRN #3 inh Furosemide [Lasix -] 20 mg PO DAILY #90 tablet 07/26/16 Prednisone [Deltasone -] 5 mg PO DAILY #20 tablet 07/26/16 Erythromycin 0.5% Eye Ointment [Erythromycin 0.5% Eye Ointment -] 1 applic OU TID #1 tube 07/30/16 Cardiac Specific PMH - Complaint Specific PMHX Pacemaker: No <Danielle Persaud - Last Filed: 11/04/16 15:07> Review of Systems - Review of Systems Able to Perform ROS?: Yes <Edis Garcia - Last Filed: 11/04/16 15:04> - Review of Systems Constitutional: No: Diaphoresis, Fever Respiratory: Yes: Shortness of Breath, SOB with Exertion, SOB at Rest Cardiac (ROS): Yes: Chest Pain. No: Edema, Irregular Heart Rate ABD/GI: No: Abdominal Distended, Abd. Pain w/ defecation Hematologic/Lymphatic: Yes: Anemia <Danielle Persaud - Last Filed: 11/04/16 15:07> *Physical Exam <Edis Garcia - Last Filed: 11/04/16 15:04> <Danielle Persaud - Last Filed: 11/04/16 15:07> - Vital Signs Last Vital Signs Temp Pulse Resp BP Pulse Ox 97.7 F 55 L 18 149/75 100 11/04/16 11:24 11/04/16 11:24 11/04/16 11:24 11/04/16 11:24 11/04/16 11:24 - Physical Exam Comments: 11/04/16 12:47 GENERAL: Well developed, well nourished. Awake and alert. In no acute distress. HEENT: Normocephalic, atraumatic. PERRLA, EOMI. No conjunctival pallor. Sclera are non- icteric. Moist mucous membranes. Oropharynx is clear. NECK: Supple. Full ROM. No JVD. Carotid pulses 2+ and symmetric, without bruits. No thyromegaly. No lymphadenopathy. CARDIOVASCULAR: Regular rate and rhythm. No murmurs, rubs, or gallops. Distal pulses are 2+ and symmetric. PULMONARY: No evidence of respiratory distress. Lungs clear to auscultation bilaterally. No wheezing, rales or rhonchi. ABDOMINAL: Soft. Non-tender. Non-distended. No rebound or guarding. No organomegaly. Normoactive bowel sounds. MUSCULOSKELETAL Normal range of motion at all joints. No bony deformities or tenderness. No CVA tenderness. EXTREMITIES: No cyanosis. No clubbing. No edema. No calf tenderness. SKIN: Warm and dry. Normal capillary refill. No rashes. No jaundice. NEUROLOGICAL: Alert, awake, appropriate. Cranial nerves 2-12 intact. No deficits to light touch and temperature in face, upper extremities and lower extremities. No motor deficits in the in face, upper extremities and lower extremities. Normoreflexic in the upper and lower extremities. Normal speech. Toes are downgoing bilaterally. PSYCHIATRIC: Cooperative. Good eye contact. Appropriate mood and affect. (Edis Garcia) Heart Score/ECG Review <Edis Garcia - Last Filed: 11/04/16 15:04> - History History: Slightly suspicious - Electrocardiogram EKG: Non specific repolarization disturbance - Age Age: >/= 65 - Risk Factors Risk Factors Heart Score: Yes Hx Hypercholesterolemia, Yes Hx Hypertension, Yes Smoking History, No Positive family hx of cardiac disease, Yes Hx Obesity Based on the list above the patient has:: >/=3 risk factors or Hx atherosclerotic disease - Troponin Troponin: </= normal limit - Score Heart Score - Total: 5 (normal cardiac cath 6 mo ago) - ECG Intrepretation Rhythm: Regular Rhythm - Victor Victor: Left Victor Deviation <Danielle Persaud - Last Filed: 11/04/16 15:07> - ECG Intrepretation Comment:: 11/04/16 12:12 rate 52, sinus bradycardia. TWI AVL, no new or ischemic changes comparison 10/25 (Danielle Persaud) ED Treatment Course - LABORATORY CBC & Chemistry Diagram: 11/04/16 11:50 11/04/16 11:50 <Edis Garcia - Last Filed: 11/04/16 15:04> - LABORATORY CBC & Chemistry Diagram: 11/04/16 11:50 11/04/16 11:50 <Danielle Persaud - Last Filed: 11/04/16 15:07> - ADDITIONAL ORDERS Additional order review: Laboratory Results 11/04/16 11/04/16 11:50 11:50 INR 1.14 Sodium 144 Potassium 4.3 Chloride 105 Carbon Dioxide 32 Anion Gap 7 L BUN 14 Creatinine 0.7 Creat Clearance w eGFR > 60 Random Glucose 88 Calcium 8.6 Magnesium 2.3 Total Bilirubin 0.3 D AST 20 ALT 25 Alkaline Phosphatase 107 Creatine Kinase 134 Troponin I < 0.02 Total Protein 6.9 Albumin 3.5 11/04/16 11:50 RBC 4.14 MCV 85.0 MCHC 32.1 RDW 17.0 H MPV 9.4 Neutrophils % 69.3 Lymphocytes % 21.9 D Monocytes % 7.6 Eosinophils % 0.4 Basophils % 0.8 - RADIOLOGY Radiology Studies Ordered: Category Date Time Status CXRPORT [CHEST X-RAY PORTABLE*] [RAD] Stat Radiology 11/04/16 11:56 Completed DUPLEX VASCUL US-1 LEG [US] Stat Ultrasound 11/04/16 13:07 Completed 11/04/16 15:04 EXAM#: TYPE/EXAM: RESULT: [id number] US/DUPLEX VASCUL US-1 LEG HISTORY PROVIDED: Pain and swelling left lower extremity. Real time and doppler evaluation of the left lower extremity demonstrates the following: There is no evidence of deep venous thrombosis within the common, deep and superficial femoral veins, as well as the popliteal and posterior tibial veins. The greater saphenous vein is also patent. These veins are fully compressible, as well. IMPRESSION: No evidence of deep venous thrombosis. Reported By: Ayan Conklin MD 11/04/16 1429 (Edis Garcia) Radiograph Interpretation: 11/04/16 13:32 EXAM#: TYPE/EXAM: RESULT: [id number] RAD/CHEST X-RAY PORTABLE* Chest pain, shortness of breath rule out CHF. Chest 2 views. Comparison study October 25, 2016. Cardiomegaly. Midline trachea, no evidence of widening of the superior mediastinum. No evidence of vascular congestion. No evidence of pneumonia or atelectasis. No pleural effusion, or pneumothorax is seen. Intact visualized osseous structures. EKG leads are noted. Impression. Cardiomegaly. No evidence of CHF, pneumonia, pleural effusion, or pneumothorax. Reported By: Clarence Lancaster MD 11/04/16 1945 (Edis Garcia) - Medications Given in the ED: ED Medications Discontinued Medications Generic Name Dose Route Start Last Admin Trade Name Kimani PRN Reason Stop Dose Admin Albuterol/Ipratropium 1 amp 11/04/16 13:07 11/04/16 13:20 Duoneb - NEB 11/04/16 13:08 1 amp ONCE ONE Administration Aspirin 162 mg 11/04/16 11:44 11/04/16 12:03 Asa - PO 11/04/16 11:45 162 mg ONCE ONE Administration Medical Decision Making <Edis Garcia - Last Filed: 11/04/16 15:04> <Danielle Persaud - Last Filed: 11/04/16 15:07> - Medical Decision Making 11/04/16 11:33 Dr. Palma called for recent lab work. 11/04/16 11:36 Dr. Kan called for Cardiac cath report. 11/04/16 11:40 Dr. Vitale called for cardiac cath report. 11/04/16 14:07 Dr. Palma called. Patient discussed. Agreed to give a neb and discharge. (Edis Garcia) 11/04/16 11:35 71 yo F wit h/o schizophrenia, chf anemia, afib, here with c/o chest pain and sob. differential includes worsening anemia, chf, pna, angina, afib mi, pt states she has had a normal cath 6 mo ago at [facility]. will obtain collateral information from pcp office. aspirin and reassess.tele, labs, trop and ekg cxr 11/04/16 12:06 cath report received from pt prior pcp dr. vitale showing mild irregularities and less than 20% stenosis all major vessels. EF 55%, no as. labs sent over from [facility] baseline hgb 10. 9 11/04/16 14:27 dr. perez present in ed, informed regarding pt workup negative. recent negative. cath. will dc . pt feeling better. (Danielle Persaud) *DC/Admit/Observation/Transfer <Edis Garcia - Last Filed: 11/04/16 15:04> - Discharge Dispostion Admit: No <Danielle Persaud - Last Filed: 11/04/16 15:07> Diagnosis at time of Disposition: Shortness of breath - Discharge Dispostion Disposition: HOME Condition at time of disposition: Good - Referrals Referrals: Anay Palma MD [Staff Physician] - - Patient Instructions Printed Discharge Instructions: DI for Atypical Chest Pain Additional Instructions: follow up wtih dr palma, call to schedule. return for any problems or concerns. - Attestations Scribe Attestion: 11/04/16 12:54 Documentation prepared by Edis Garcia, acting as medical equipment technician for Danielle Persaud MD. (Edis Garcia)
[2016-11-04] MEDS ORDERED: ASPIRIN 81 MG CHEWABLE TABLETS PO ONE (11:44)
[2016-11-04 12:11] LABS: BASOPHIL 0.8 % (0-2.0); EOSINOPHIL 0.4 % (0-4.5); MCH 27.3 pg (25.7-33.7); MCHC 32.1 g/dl (32.0-36.0); MEAN PLT VOLUME 9.4 fl (7.5-11.1); NEUTROPHILS 69.3 % (42.8-82.8); PLATELET COUNT 255 K/MM3 (134-434); WHITE BLOOD COUNT 6.8 K/mm3 (4.0-10.0)
[2016-11-04 12:29] LABS: INR 1.14 (0.82-1.09); PROTHROMBIN TIME (PATIENT) 12.6 SEC (9.98-11.88)
[2016-11-04 12:37] LABS: ALBUMIN 3.5 g/dl (3.4-5.0); ANION GAP 7 (8-16); BILIRUBIN,TOTAL 0.3 mg/dL (0.2-1.0); CALCIUM 8.6 mg/dL (8.5-10.1); CO2 32 mmol/L (21-32); CREATININE 0.7 mg/dL (0.55-1.02); GLUCOSE,RANDOM 88 mg/dL (74-106); MAGNESIUM 2.3 mg/dL (1.8-2.4); SGOT/AST 20 U/L (15-37); SGPT/ALT 25 U/L (12-78); TOT PROT 6.9 g/dl (6.4-8.2)
[2016-11-04 12:39] LABS: ALK PHOS 107 U/L (45-117); TROPONIN I < 0.02 ng/ml (0.00-0.05)
[2016-11-04] MEDS ORDERED: ALBUTEROL SO4 2.5/IPRATROPIUM 0.5 INH SOL 3 ML VIAL.NEB. NEB ONE (13:07)
--- NOTE | 2016-11-04 14:58 | CON.CARD ---
Consult Consult Specialty:: cardiology Reason for Consultation:: fatigue; atypical chest pain - History of Present Illness Chief Complaint: Pt presently A&Ox3; denies chest pain or dyspnea. History of Present Illness: The patient is a 71 year old black female with a significant past medical history of CHF, CAD (nonobstructive CAD on coronary angiogram 08/2015), AFIB, anemia, and COPD, BIBA to the emergency department today for further evaluation of worsening shortness of breath, wheezing, and chest pain for 3 days. The patient states that today she went to her PMD who called activated an ambulance. The patient states that her chest pain is exacerbated by palpitations. She denies fever, chills, and cough. 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: Other (benign essential tremor) Cardio/Vascular: Yes: AFIB, CAD, CHF, HTN, Hyperlipdemia Gastrointestinal: Yes: Diverticulosis, GERD, Hiatal Hernia, Other (h/o sbo and ventral hernia 3 yrs ago) Reproductive: Yes: Postmenopausal ...: No Psych: Yes: Schizophrenia (schizoaffective ds seen by psychiatry periodically) Musculoskeletal: Yes: Chronic low back pain, Osteoarthritis Endocrine: Yes: Diabetes Mellitus - Past Surgical History Past Surgical History: Yes: Colonoscopy (h/o polyps, divosis 2008 and 2010), Hernia Repair (ventral hernia repair 3 yrs ago), Hysterectomy, Joint Replacement (right knee), Tonsillectomy, Upper Endoscopy (2010 and 2008, hh, gastric im) Additional Surgical History: coronary angiogram 2015 (nonobstructive disease) - Alcohol/Substance Use Hx Alcohol Use: No History of Substance Use: reports: None - Smoking History Smoking history: Never smoked Have you smoked in the past 12 months: No Aproximately how many cigarettes per day: 0 - Social History Usual Living Arrangement: Alone ADL: Support Services History of Recent Travel: No Home Medications - Allergies Allergies/Adverse Reactions: Allergies Allergy/AdvReac Type Severity Reaction Status Date / Time No Known Drug Allergies Allergy Verified 10/25/16 06:40 lactose [Lactose] AdvReac Verified 10/25/16 06:40 - Home Medications Home Medications: Ambulatory Orders Dabigatran Etexilate Mesylate [Pradaxa -] 150 mg PO BID #180 cap 11/05/15 Diltiazem Cd [Cardizem Cd -] 120 mg PO DAILY #90 cap.cd.24h 11/05/15 Ferrous Sulfate [Feosol] 325 mg PO DAILY #30 tablet 11/05/15 Pantoprazole Sodium [Protonix -] 40 mg PO BID #60 tablet.ec 11/05/15 Risperidone [Risperdal -] 1 mg PO BID tablet 11/05/15 Duloxetine HCl [Cymbalta -] 30 mg PO DAILY capsule. 02/26/16 Gabapentin [Neurontin -] 300 mg PO TID capsule 03/03/16 Lactobacillus Acidophilus [Bacid -] 1 tab PO DAILY tab 03/03/16 Polyethylene Glycol 3350 [Miralax 119 gm Btl -] 17 gm PO TID bottle 03/03/16 Sertraline HCl [Zoloft] 50 mg PO DAILY 04/20/16 Diclofenac Sodium [Voltaren] 100 gm TP TID 06/17/16 Albuterol 0.083% Nebulizer Mela [Ventolin 0.083% Nebulizer Soln -] 1 amp NEB Q6H PRN #90 amp 07/26/16 Albuterol Sulfate Inhaler - [Ventolin HFA Inhaler -] 2 inh PO Q6H PRN #3 inh Furosemide [Lasix -] 20 mg PO DAILY #90 tablet 07/26/16 Prednisone [Deltasone -] 5 mg PO DAILY #20 tablet 07/26/16 Erythromycin 0.5% Eye Ointment [Erythromycin 0.5% Eye Ointment -] 1 applic OU TID #1 tube 07/30/16 Family Disease History - Family Disease History Family Disease History: Diabetes: Brother, Heart Disease: Father (hx stroke, ), CA: Mother (colon cancer - ) Review of Systems - Review of Systems Constitutional: reports: No Symptoms Eyes: reports: No Symptoms HENT: reports: No Symptoms Neck: reports: No Symptoms Cardiovascular: reports: Chest Pain Respiratory: reports: Snoring Gastrointestinal: reports: No Symptoms Genitourinary: reports: No Symptoms Breasts: reports: No Symptoms Reported Musculoskeletal: reports: Muscle Pain Integumentary: reports: No Symptoms Neurological: reports: Weakness Endocrine: reports: No Symptoms Hematology/Lymphatic: reports: No Symptoms Psychiatric: reports: Other (schizoaffective disorder) - Risk Factors Known Risk Factors: Yes: Age, Hypercholesterolemia, Hypertension, Physical Inactivity, Race, Other (obesity) Vital Signs: Vital Signs Temperature 97.7 F 11/04/16 11:24 Pulse Rate 55 L 11/04/16 11:24 Respiratory Rate 18 11/04/16 11:24 Blood Pressure 149/75 11/04/16 11:24 O2 Sat by Pulse Oximetry (%) 100 11/04/16 11:24 Constitutional: Yes: Calm Eyes: Yes: WNL HENT: Yes: WNL Neck: Yes: WNL Respiratory: Yes: WNL Gastrointestinal: Yes: Soft, Abdomen, Obese Renal/: No: Anuria Cardiovascular: Yes: Regular Rate and Rhythm Heart Sounds: Yes: S1, S2, S4 Murmur: Yes: Systolic Murmur, Grade 1 Musculoskeletal: Yes: Joint Stiffness Extremities: Yes: Cool Edema: No Peripheral Pulses WNL: Yes Integumentary: Yes: WNL Neurological: Yes: WNL Psychiatric: Yes: Other - Other Data Labs, Other Data: CBC, BMP 11/04/16 11:50 11/04/16 11:50 INR, PTT INR 1.14 (0.82-1.09) 11/04/16 11:50 Troponin, BNP 11/04/16 11:50 Troponin I < 0.02 Troponin, BNP 11/04/16 11:50 Troponin I < 0.02 Abnormal Lab Results 11/04/16 11/04/16 11:50 11:50 RDW 17.0 H Anion Gap 7 L Ejection Fraction %: LVEF > or = 40 % Imaging - Results Chest X-ray: Image Reviewed (no acute pathology) EKG: Image Reviewed (NSR; no acute ST-T changes) Problem List - Problems (1) Atrial fibrillation Assessment/Plan: On metoprolol ER and digoxin for HR control. F/u digoxin level, and keep between 0.5-1.0. On Pradaxa for anticoagulation. Code(s): I48.91 - UNSPECIFIED ATRIAL FIBRILLATION Qualifiers: Atrial fibrillation type: paroxysmal Qualified Code(s): I48.0 - Paroxysmal atrial fibrillation (2) CAD (coronary artery disease) Assessment/Plan: nonobstructive CAD on 08/2015 coronary angiogram. Aggressive management of diet, weight, cholesterol. Encourage exercise. Code(s): I25.10 - ATHSCL HEART DISEASE OF [place] CORONARY ARTERY W/O ANG PCTRS Qualifiers: Coronary Disease-Associated Artery/Lesion type: elem artery [place] vs. transplanted heart: elem heart Associated angina: with stable angina Qualified Code(s): I25.118 - Atherosclerotic heart disease of elem coronary artery with other forms of angina pectoris (3) Chest pain Assessment/Plan: TNI 0.02. EKG: no ST-T changes. ECHO 08/2016: normal LVEF; mildly dilated LV. Coronary angiogram 09/2015: nonobstructive disease. Code(s): R07.9 - CHEST PAIN, UNSPECIFIED Qualifiers: Chest pain type: unspecified Qualified Code(s): R07.9 - Chest pain, unspecified (4) Hyperlipidemia Code(s): E78.5 - HYPERLIPIDEMIA, UNSPECIFIED Qualifiers: Hyperlipidemia type: pure hypercholesterolemia Qualified Code(s): E78.00 - Pure hypercholesterolemia, unspecified; E78.0 - Pure hypercholesterolemia (5) Diabetes Code(s): E11.9 - TYPE 2 DIABETES MELLITUS WITHOUT COMPLICATIONS Qualifiers: Diabetes mellitus type: type 2 Diabetes mellitus complication status: without complication Diabetes mellitus terminal operations manager insulin use: without terminal operations manager use Qualified Code(s): E11.9 - Type 2 diabetes mellitus without complications (6) HTN (hypertension) Code(s): I10 - ESSENTIAL (PRIMARY) HYPERTENSION Qualifiers: Hypertension type: essential hypertension Qualified Code(s): I10 - Essential (primary) hypertension (7) Left ventricular diastolic dysfunction Code(s): I51.9 - HEART DISEASE, UNSPECIFIED (8) Obesity Code(s): E66.9 - OBESITY, UNSPECIFIED (9) Schizo affective schizophrenia Code(s): F25.0 - SCHIZOAFFECTIVE DISORDER, BIPOLAR TYPE (10) Status post total knee replacement, right Code(s): Z96.651 - PRESENCE OF RIGHT ARTIFICIAL KNEE JOINT
--- NOTE | 2016-11-05 11:21 | EKG ---
Test Reason : Blood Pressure : / mmHG Vent. Rate : 052 BPM Atrial Rate : 052 BPM P-R Int : 206 ms QRS Dur : 094 ms QT Int : 442 ms P-R-T Axes : 017 -41 066 degrees QTc Int : 411 ms SINUS BRADYCARDIA WITH PREMATURE ATRIAL COMPLEXES LEFT AXIS DEVIATION VOLTAGE CRITERIA FOR LEFT VENTRICULAR HYPERTROPHY CANNOT RULE OUT SEPTAL INFARCT (CITED ON OR BEFORE 12-MAR-2011) ABNORMAL ECG WHEN COMPARED WITH ECG OF 25-OCT-2016 00:12, PREMATURE ATRIAL COMPLEXES ARE NOW PRESENT Confirmed by EVA CHAMPAGNE MD ([id number]) on 11/05/2016 11:20:29 AM Referred By: Confirmed By:EVA CHAMPAGNE MD
== END 2016-11-04 16:42 | disposition home or self-care (01) ==
LOC: JER 11:00
PROC: 3E0F7GC Introduction of Other Therapeutic Substance into Respiratory Tract, Via Natural or Artificial Opening (ICD-10-PCS; principal; 2016-11-04)
DX: R07.89 Other chest pain (principal); R06.02 Shortness of breath; I48.91 Unspecified atrial fibrillation; J44.9 Chronic obstructive pulmonary disease, unspecified; J45.909 Unspecified asthma, uncomplicated; E11.9 Type 2 diabetes mellitus without complications; I10 Essential (primary) hypertension; F20.9 Schizophrenia, unspecified
CPT/HCPCS: 36415; 71010-TC; 80053; 82550; 83735; 84484; 85025; 85610; 93005; 93010; 93971-TC; 94640; 99283-25

== ENCOUNTER 2016-11-26 22:38 | Emergency (ER) | payer OTHER ==
[2016-11-26 23:23] VITALS: BMI 36.6
[2016-11-26] MEDS ORDERED: diphenhydrAMINE HCL 25 MG CAPSULE (FP) PO ONE (23:43)
--- NOTE | 2016-11-26 23:51 | PDOC ---
History of Present Illness - General History Source: Patient, Old Records Exam Limitations: No Limitations - History of Present Illness Initial Comments: 11/26/16 23:55 The patient is a 71 year old female brought via EMS, with a significant past medical history of COPD/Asthma, CHF, AFIB (cardiac catherization 2010), HTN, polyps, diverticulitis, GERD, anemia, and schizophrenia, who presents to the emergency department with sores throughout her body from the last 24 hours. She states that prior she had a similar condition on her face which resolved. She denies any pruritic nature from the sores. The patient was last in the ED on and was admitted for a day for chest pain and has been in the hospital multiple times since the beginning of the year. She denies any change of her medications over the last couple of years. The patient denies chest pain, shortness of breath, headache and dizziness. Denies fever, chills, nausea, vomit, diarrhea and constipation. Denies dysuria, frequency, urgency and hematuria. Allergies: NKDA, lactose Past surgical history: Cardiac cath normal, intestinal blockage, Right TKR, upper back surgery, hiatal hernia repair Social history: Alcohol use. Denies tobacco use PMD - Dr. Anay Sanchez [employer] - Dr. Engel <Kenneth Bowers - Last Filed: 11/26/16 23:55> <Dylan Dotson - Last Filed: 11/27/16 01:22> - General Chief Complaint: Rash Stated Complaint: RASH Time Seen by Provider: 11/26/16 23:05 Past History <Kenneth Bowers - Last Filed: 11/26/16 23:55> - Past Medical History Anemia: Yes Asthma: Yes Cancer: No Cardiac Disorders: Yes (atrial fibrillation, CARDIAC CATH 2010-NORMAL) CVA: No COPD: Yes CHF: No Dementia: Yes Diabetes: Yes Dialysis: Yes GI Disorders: Yes (POLYPS; DIVERTICULOSIS; GERD) Disorders: No HTN: Yes Hypercholesterolemia: Yes Liver Disease: No Psychiatric Problems: Yes (schizophrenia) Suicide Attempt (Hx): No Seizures: No Thyroid Disease: No - Surgical History Abdominal Surgery: Yes (intestinal blockage 2010; HIATAL HERNIA;) Appendectomy: No Cardiac Surgery: No Cholecystectomy: No Lung Surgery: No Neurologic Surgery: Yes (UPPER BACK SX) Orthopedic Surgery: Yes (R. Knee replacement 2010) - Immunization History Immunization Up to Date: Yes - Psycho/Social/Smoking Cessation Hx Anxiety: No Suicidal Ideation: No Smoking Status: No Smoking History: Unknown if ever smoked Have you smoked in the past 12 months: No Number of Cigarettes Smoked Daily: 0 Hx Alcohol Use: No Drug/Substance Use Hx: No Substance Use Type: Alcohol Hx Substance Use Treatment: No (12 steps) <Dylan Dotson - Last Filed: 11/27/16 01:22> - Past Medical History Allergies/Adverse Reactions: Allergies Allergy/AdvReac Type Severity Reaction Status Date / Time No Known Drug Allergies Allergy Verified 11/26/16 23:20 lactose [Lactose] AdvReac Verified 11/26/16 23:20 Home Medications: Ambulatory Orders Dabigatran Etexilate Mesylate [Pradaxa -] 150 mg PO BID #180 cap 11/05/15 Diltiazem Cd [Cardizem Cd -] 120 mg PO DAILY #90 cap.cd.24h 11/05/15 Ferrous Sulfate [Feosol] 325 mg PO DAILY #30 tablet 11/05/15 Pantoprazole Sodium [Protonix -] 40 mg PO BID #60 tablet.ec 11/05/15 Risperidone [Risperdal -] 1 mg PO BID tablet 11/05/15 Duloxetine HCl [Cymbalta -] 30 mg PO DAILY capsule. 02/26/16 Gabapentin [Neurontin -] 300 mg PO TID capsule 03/03/16 Lactobacillus Acidophilus [Bacid -] 1 tab PO DAILY tab 03/03/16 Polyethylene Glycol 3350 [Miralax 119 gm Btl -] 17 gm PO TID bottle 03/03/16 Sertraline HCl [Zoloft] 50 mg PO DAILY 04/20/16 Diclofenac Sodium [Voltaren] 100 gm TP TID 06/17/16 Albuterol 0.083% Nebulizer Mela [Ventolin 0.083% Nebulizer Soln -] 1 amp NEB Q6H PRN #90 amp 07/26/16 Albuterol Sulfate Inhaler - [Ventolin HFA Inhaler -] 2 inh PO Q6H PRN #3 inh Furosemide [Lasix -] 20 mg PO DAILY #90 tablet 07/26/16 Prednisone [Deltasone -] 5 mg PO DAILY #20 tablet 07/26/16 Erythromycin 0.5% Eye Ointment [Erythromycin 0.5% Eye Ointment -] 1 applic OU TID #1 tube 07/30/16 Sulfamethoxazole/Trimethoprim [Bactrim Ds -] 1 tab PO BID #14 tablet 11/27/16 Review of Systems - Review of Systems Constitutional: No: Chills, Fever Respiratory: No: Cough, Shortness of Breath Cardiac (ROS): No: Chest Pain, Edema, Lightheadedness ABD/GI: No: Diarrhea, Nausea, Vomiting : No: Dysuria Musculoskeletal: No: Muscle Pain Integumentary: Yes: Rash All Other Systems: Reviewed and Negative <Dylan Dotson - Last Filed: 11/27/16 01:22> *Physical Exam - Vital Signs Last Vital Signs Temp Pulse Resp BP Pulse Ox 97.7 F 80 17 134/86 100 11/26/16 23:09 11/26/16 23:09 11/26/16 23:09 11/26/16 23:09 11/26/16 23:09 - Physical Exam Comments: 11/26/16 23:55 GENERAL: The patient is awake, alert, and fully oriented, in no acute distress. HEAD: Normal with no signs of trauma. EYES: Pupils equal, round and reactive to light, extraocular movements intact, sclera anicteric, conjunctiva clear with no pallor. ENT: Ears normal, nares patent, oropharynx clear without exudates. Moist mucous membranes. NECK: Normal range of motion, supple without lymphadenopathy, JVD, or masses. LUNGS: Breath sounds equal, clear to auscultation bilaterally. No wheeze/ crackles. HEART: Regular rate and rhythm, normal S1 and S2 without murmur or rub. ABDOMEN: Soft/nontender/nondistended. BS wnl. No guarding or rebound. No palpable masses. No hepatosplenomegaly. EXTREMITIES: Normal range of motion, no edema. No clubbing or cyanosis. No cords , erythema, or tenderness. NEUROLOGICAL: Cranial nerves II through XII grossly intact. Normal speech, normal gait. PSYCH: Normal mood, normal affect. SKIN: (+) Multiple isolated 1-2 mm dry excoriations in the abdomen and upper extremities, no induration, fluctuance, bleeding or pus. <MarquezKenneth bejarano Karuna - Last Filed: 11/26/16 23:55> - Vital Signs Last Vital Signs Temp Pulse Resp BP Pulse Ox 97.7 F 80 17 134/86 100 11/26/16 23:09 11/26/16 23:09 11/26/16 23:09 11/26/16 23:09 11/26/16 23:09 <Dylan Dotson - Last Filed: 11/27/16 01:22> ED Treatment Course - LABORATORY CBC & Chemistry Diagram: 11/27/16 00:11 11/27/16 00:11 <Dylan Dotson - Last Filed: 11/27/16 01:22> Medical Decision Making - Medical Decision Making 11/26/16 23:44 A portion of this note was documented by scribe services under my direction. I have reviewed the details of the note, within reason, and agree with the documentation with the following case summary and management plan written by me. 71-year-old female schizophrenia, atrial fibrillation, diabetes presents with progressive itchy rash to her torso. Reportedly had history of similar rash to her face months ago, resolved. Over the last few weeks the rash developed on her arms, and over the last 24 hours the rash developed on her abdomen. It is itchy, but no associated blister/fluid, no f/c, no pus. pt called Dr. Sanchez's office today, concerned that this was a sign of worsening diabetes. They then referred her to the ED. afebrile, VSS arrived on EMS stretcher joking with staff, laughing. well appearing. upon evaluation, initially refused evaluation but was then convinced otherwise scattered, single 3mm superficial excoriated lesions to R arm and abdomen. no cellulitis/induration/fluctuance. no fluid/blisters. no bleeding/pus. nontender 71y/o F with scattered skin lesions. No acute infectious process, no evidence of insect bite or deep tissue infection. ? folliculitis based on distribution and appearance, ? MRSA. will check basic labs 2/2 underlying untreated DM, check WBC benadryl for itch would treat empirically for mrsa, particulary given recent hospitalization reassess 11/27/16 01:18 White count 6.6 with normal differential, chemistries are within normal limits with glucose of 100 and normal anion gap. Comfortably asleep, has been ambulating in the ED, agrees with discharge plan on Bactrim for presumed MRSA folliculitis, understands return criteria and will continue follow-up with Dr. Sanchez and dermatology as scheduled on 12/15. <Dylan Dotson - Last Filed: 11/27/16 01:22> *DC/Admit/Observation/Transfer - Attestations Scribe Attestion: 11/26/16 23:56 Documentation prepared by Kenneth Bowers, acting as medical record assistant for Dylan Dotson MD <Kenneth Bowers - Last Filed: 11/26/16 23:55> <Dylan Dotson - Last Filed: 11/27/16 01:22> Diagnosis at time of Disposition: Folliculitis - Discharge Dispostion Disposition: HOME Condition at time of disposition: Stable - Prescriptions Prescriptions: Sulfamethoxazole/Trimethoprim [Bactrim Ds -] 1 tab PO BID #14 tablet - Referrals Referrals: Anay Sanchez MD [Primary Care Provider] - - Patient Instructions Printed Discharge Instructions: DI for Folliculitis Additional Instructions: Activity as tolerated. Stay hydrated. Blood tests today show your sugar level is normal at 100. The rash appears to be a folliculitis, which is a local infection of the skin pores/hair follicles. Take Bactrim as prescribed. Continue your medications as previously prescribed by your physician. You should follow up with Dr. Sanchez as soon as possible and with the Home Sales Service Professional on December 15 as scheduled regarding today's emergency department visit. Return to the emergency department for any new or concerning symptoms, particularly worsening rash, redness/swelling/pus/bleeding from a skin lesion, fever or high sugar.
[2016-11-27] MEDS ORDERED: diphenhydrAMINE HCL 25 MG CAPSULE (FP) PO ONE (00:21)
[2016-11-27 00:24] LABS: BASOPHIL 0.8 % (0-2.0); EOSINOPHIL 1.5 % (0-4.5); MCH 26.9 pg (25.7-33.7); MCHC 31.6 g/dl (32.0-36.0); MEAN PLT VOLUME 8.7 fl (7.5-11.1); NEUTROPHILS 61.5 % (42.8-82.8); PLATELET COUNT 245 K/MM3 (134-434); RDW 15.9 % (11.6-15.6); WHITE BLOOD COUNT 6.6 K/mm3 (4.0-10.0)
[2016-11-27 01:07] LABS: ALBUMIN 3.8 g/dl (3.4-5.0); BILIRUBIN,TOTAL 0.2 mg/dL (0.2-1.0); CALCIUM 8.4 mg/dL (8.5-10.1); COCKROFT - GAULT 88.961; TOT PROT 7.2 g/dl (6.4-8.2)
[2016-11-27 09:49] VITALS: BP 130/74; PULSE 75; TEMP 98
== END 2016-11-27 10:45 | disposition home or self-care (01) ==
LOC: JER 22:38
DX: L73.8 Other specified follicular disorders (principal); I10 Essential (primary) hypertension; F20.9 Schizophrenia, unspecified
CPT/HCPCS: 36415; 80053; 85025; 99282-25

== ENCOUNTER 2016-12-12 17:51 | Inpatient (IN) | payer OTHER ==
--- NOTE | 2016-12-12 18:15 | PDOC ---
History of Present Illness - History of Present Illness Initial Comments: 12/12/16 19:34 Patient is a 71 year old female with significant medical hx of COPD/Asthma, CHF , AFib (cardiac catheterization 2010), HTN, polyps, diverticulitis, GERD, anemia , and schizophrenia, who is presenting to the ED with shortness of breath and dry cough since 4:30 AM today. Patient reports she woke up this morning with shortness of breath after taking her Lasix. A few hours later she began having dry, hacking cough that is non-productive. She also endorses some left arm pain that started once she arrived to the ED. Denies any fevers, chills, chest pain, dizziness, lightheadedness, nausea, vomiting, or diarrhea. Patients O2Sat in the ED was 99% on room air. PCP: Anay Sanchez MD [employer] Conditioning [employer]: Abhay Engel MD Allergies: NKDA, lactose Social Hx: Alcohol use. Denies tobacco use Surgical Hx: Cardiac catheterization, intestinal blockage, Right TKR, upper back surgery, hiatal hernia repair <Alicia Bazan - Last Filed: 12/12/16 20:52> <Jigna Hermosillo - Last Filed: 12/12/16 22:10> - General Stated Complaint: CHEST PAIN/SOB Time Seen by Provider: 12/12/16 18:14 Past History <Alicia Bazan - Last Filed: 12/12/16 20:52> - Past Medical History Anemia: Yes Asthma: Yes Cancer: No Cardiac Disorders: Yes (atrial fibrillation, CARDIAC CATH 2010-NORMAL) CVA: No COPD: Yes CHF: No Dementia: Yes Diabetes: Yes Dialysis: Yes GI Disorders: Yes (POLYPS; DIVERTICULOSIS; GERD) Disorders: No HTN: Yes Hypercholesterolemia: Yes Liver Disease: No Psychiatric Problems: Yes (schizophrenia) Suicide Attempt (Hx): No Seizures: No Thyroid Disease: No - Surgical History Abdominal Surgery: Yes (intestinal blockage 2010; HIATAL HERNIA;) Appendectomy: No Cardiac Surgery: No Cholecystectomy: No Lung Surgery: No Neurologic Surgery: Yes (UPPER BACK SX) Orthopedic Surgery: Yes (R. Knee replacement 2010) - Immunization History Immunization Up to Date: Yes - Psycho/Social/Smoking Cessation Hx Anxiety: No Suicidal Ideation: No Smoking Status: No Smoking History: Never smoked Have you smoked in the past 12 months: No Number of Cigarettes Smoked Daily: 0 Hx Alcohol Use: No Drug/Substance Use Hx: No Substance Use Type: Alcohol Hx Substance Use Treatment: No (12 steps) <Jigna Hermosillo - Last Filed: 12/12/16 22:10> - Past Medical History Allergies/Adverse Reactions: Allergies Allergy/AdvReac Type Severity Reaction Status Date / Time No Known Drug Allergies Allergy Verified 12/12/16 18:19 lactose [Lactose] AdvReac Verified 12/12/16 18:19 Home Medications: Ambulatory Orders Ferrous Sulfate 325 mg PO DAILY 12/12/16 Furosemide [Lasix -] 20 mg PO DAILY 12/12/16 Risperidone 1 mg PO HS 12/12/16 Sertraline HCl 50 mg PO DAILY 12/12/16 Review of Systems - Review of Systems Comments:: 12/12/16 19:34 CONSTITUTIONAL: Absent: fever, chills, diaphoresis, generalized weakness, malaise, loss of appetite HEENT: Absent: rhinorrhea, nasal congestion, throat pain, throat swelling, difficulty swallowing, mouth swelling, ear pain, eye pain, visual changes CARDIOVASCULAR: Absent: chest pain, syncope, palpitations, irregular heart rate, lightheadedness , peripheral edema RESPIRATORY: Present: shortness of breath, dry cough Absent: dyspnea with exertion, orthopnea, wheezing, stridor, hemoptysis GASTROINTESTINAL: Absent: abdominal pain, abdominal distension, nausea, vomiting, diarrhea, constipation, melena, hematochezia GENITOURINARY: Absent: dysuria, frequency, urgency, hesitancy, hematuria, flank pain, genital pain MUSCULOSKELETAL: Absent: myalgia, arthralgia, joint swelling SKIN: Absent: rash, itching, pallor HEMATOLOGIC/IMMUNOLOGIC: Absent: easy bleeding, easy bruising, lymphadenopathy, frequent infections ENDOCRINE: Absent: unexplained weight gain, unexplained weight loss, heat intolerance, cold intolerance NEUROLOGIC: Absent: headache, focal weakness or paresthesia, dizziness, unsteady gait, seizure, mental status changes, bladder or bowel incontinence. PSYCHIATRIC: Absent: anxiety, depression, suicidal or homicidal ideation, hallucinations <Alicia Bazan - Last Filed: 12/12/16 20:52> *Physical Exam - Vital Signs Last Vital Signs Temp Pulse Resp BP Pulse Ox 99.0 F 71 18 142/71 100 12/12/16 18:20 12/12/16 18:20 12/12/16 18:20 12/12/16 18:20 12/12/16 18:20 - Physical Exam Comments: 12/12/16 19:35 GENERAL: Well developed, well nourished. Awake and alert. No acute distress. HEENT: Normocephalic, atraumatic. PERRLA, EOMI. No conjunctival pallor. Sclera are non- icteric. Moist mucous membranes. Oropharynx is clear. NECK: Supple. Full ROM. No JVD. Carotid pulses 2+ and symmetric, without bruits. No thyromegaly. No lymphadenopathy. CARDIOVASCULAR: Regular rate and rhythm. No murmurs, rubs, or gallops. Distal pulses are 2+ and symmetric. PULMONARY: No evidence of respiratory distress. Lungs clear to auscultation bilaterally. No wheezing, rales or rhonchi. ABDOMINAL: Soft. Non-tender. Non-distended. No rebound or guarding. No organomegaly. Normoactive bowel sounds. MUSCULOSKELETAL: Normal range of motion at all joints. No bony deformities or tenderness. No CVA tenderness. EXTREMITIES: No cyanosis. No clubbing. No edema. No calf tenderness. SKIN: Warm and dry. Normal capillary refill. No rashes. No jaundice. NEUROLOGICAL: Alert, awake, appropriate. Cranial nerves 2-12 intact. Normal speech. PSYCHIATRIC: Cooperative. Good eye contact. Appropriate mood and affect. <Alicia Bazan - Last Filed: 12/12/16 20:52> ED Treatment Course - LABORATORY CBC & Chemistry Diagram: 12/12/16 18:48 12/12/16 18:48 - ADDITIONAL ORDERS Additional order review: 12/12/16 18:48 RBC 3.87 MCV 85.3 MCHC 31.6 L RDW 15.6 MPV 8.9 Neutrophils % 68.3 Lymphocytes % 21.5 D Monocytes % 8.5 Eosinophils % 0.9 Basophils % 0.8 - RADIOLOGY Radiograph Interpretation: 12/12/16 20:52 Chest X-Ray Impression: Moderate cardiomegaly without evidence of acute lung disease. Reported By: Elke Conroy MD - Medications Given in the ED: ED Medications Discontinued Medications Generic Name Dose Route Start Last Admin Trade Name Freq PRN Reason Stop Dose Admin Aspirin 162 mg 12/12/16 18:28 06/05/17 18:35 Asa - PO 12/12/16 18:29 Not Given ONCE ONE <Alicia Bazan - Last Filed: 12/12/16 20:52> - LABORATORY CBC & Chemistry Diagram: 12/12/16 18:48 12/12/16 18:48 <Jigna Hermosillo - Last Filed: 12/12/16 22:10> *DC/Admit/Observation/Transfer - Attestations Scribe Attestion: 12/12/16 19:36 Documentation prepared by Alicia Bazan, acting as medical physicist for Jigna Hermosillo MD. <Alicia Bazan - Last Filed: 12/12/16 20:52> - Discharge Dispostion Admit: Yes <Jigna Hermosillo - Last Filed: 12/12/16 22:10> Diagnosis at time of Disposition: Shortness of breath, Cough - Referrals Referrals: Anay Sanchez MD [Primary Care Provider] -
[2016-12-12] MEDS ORDERED: ASPIRIN 81 MG CHEWABLE TABLETS PO ONE (18:28)
[2016-12-12 19:25] LABS: BASOPHIL 0.8 % (0-2.0); EOSINOPHIL 0.9 % (0-4.5); INR 1.21 (0.82-1.09); MCHC 31.6 g/dl (32.0-36.0); MEAN CELL VOLUME 85.3 fl (80-96); MEAN PLT VOLUME 8.9 fl (7.5-11.1); NEUTROPHILS 68.3 % (42.8-82.8); PLATELET COUNT 278 K/MM3 (134-434); PROTHROMBIN TIME (PATIENT) 13.4 SEC (9.98-11.88); RDW 15.6 % (11.6-15.6); WHITE BLOOD COUNT 7.6 K/mm3 (4.0-10.0)
[2016-12-12 19:38] LABS: ALBUMIN 3.3 g/dl (3.4-5.0); ANION GAP 7 (8-16); BILIRUBIN,TOTAL 0.1 mg/dL (0.2-1.0); CALCIUM 9.1 mg/dL (8.5-10.1); CO2 30 mmol/L (21-32); COCKROFT - GAULT 0; CREATININE 0.8 mg/dL (0.55-1.02); GLUCOSE,RANDOM 94 mg/dL (74-106); MAGNESIUM 2.5 mg/dL (1.8-2.4); SGOT/AST 11 U/L (15-37); SGPT/ALT 18 U/L (12-78); TOT PROT 6.7 g/dl (6.4-8.2)
[2016-12-12 19:41] LABS: ALK PHOS 97 U/L (45-117); TROPONIN I < 0.02 ng/ml (0.00-0.05)
[2016-12-12] MEDS ORDERED: FUROSEMIDE 40 MG/4 ML INJECTABLE VIAL IVPB ONE (21:12)
[2016-12-12] MEDS ORDERED: FUROSEMIDE 40 MG/4 ML INJECTABLE VIAL ONE (21:21)
[2016-12-12] MEDS ORDERED: ONDANSETRON *ODT* 4 MG TABLET SL PRN (22:13)
[2016-12-12 23:59] VITALS: BMI 34.4
[2016-12-13] MEDS: ACETAMINOPHEN 325 MG TABLET (FP) PO PRN (03:50)
[2016-12-13] MEDS ORDERED: morphine CARPU-JECT 2 MG/1 ML DISP.SYRIN IVPUSH ONE (05:36)
--- NOTE | 2016-12-13 05:37 | HOSP ---
Subjective - Review of Symptoms Events since last encounter: Pt complaining of severe pain from chest radiating to L arm and to back which has been there since yesterday. Pt states the pain is constant and has not improved since yesterday and tylenol has not helped. She denies any numbness or tingling in hands and states the pain is not changed with exertion. Blood pressure in both arms approximately 122/60 according to nurse. No focal neurological deficits. S1, S2+ RRR, no murmurs appreciated Lungs CTA anteriorly 5/5 upper extremity strength -Pt received 2 tylenol. Will give 1 mg IV morphine at this time. Physical Examination Vital Signs: Vital Signs Temperature 98.7 F 12/12/16 21:06 Pulse Rate 72 12/12/16 21:06 Respiratory Rate 18 12/12/16 21:06 Blood Pressure 128/64 12/12/16 21:06 O2 Sat by Pulse Oximetry (%) 99 12/12/16 21:06 Visit type - Emergency Visit Emergency Visit: Yes ED Registration Date: 12/12/16 Care time: The patient presented to the Emergency Department on the above date and was hospitalized for further evaluation of their emergent condition. - New Patient This patient is new to me today: Yes Date on this admission: 12/13/16 - Critical Care Critical Care patient: No
[2016-12-13 08:49] LABS: MCH 27.3 pg (25.7-33.7); MCHC 32.4 g/dl (32.0-36.0); MEAN CELL VOLUME 84.4 fl (80-96); MEAN PLT VOLUME 8.7 fl (7.5-11.1); PLATELET COUNT 272 K/MM3 (134-434); RDW 15.4 % (11.6-15.6); WHITE BLOOD COUNT 6.9 K/mm3 (4.0-10.0)
[2016-12-13 09:18] LABS: ALBUMIN 3.3 g/dl (3.4-5.0); ANION GAP 6 (8-16); CALCIUM 8.8 mg/dL (8.5-10.1); CHOLESTEROL 175 mg/dL (50-200); CO2 33 mmol/L (21-32); COCKROFT - GAULT 107.8735; CREATININE 0.8 mg/dL (0.55-1.02); GLUCOSE,RANDOM 77 mg/dL (74-106); LDL CHOLESTEROL (ONLY SJRH) 76 mg/dL (5-100); SGOT/AST 14 U/L (15-37); SGPT/ALT 18 U/L (12-78)
[2016-12-13 09:19] LABS: ALK PHOS 99 U/L (45-117); BILIRUBIN,TOTAL 0.3 mg/dL (0.2-1.0)
--- NOTE | 2016-12-13 10:37 | PN ---
Progress Note, Physician Chief Complaint: CHEST PAIN RADIATING TO LEFT ARM History of Present Illness: CAME IN TO THE HOSPITAL WITH CC OF LEFT SIDED CHEST PAIN RADIATING TO LEFT ARM. TROP NEGATIVE. CXR-CARDIOMEGALY. DID NOT RESPOND TO TYLENOL. RESPONDED MILDLY TO MORPHINE IV. AWAITING CARDIOLOGY AND PULMONARY CONSULT. - Current Medication List Current Medications: Active Medications Acetaminophen (Tylenol -) 650 mg PO Q6H PRN PRN Reason: FEVER OR PAIN Last Admin: 12/13/16 03:50 Dose: 650 mg Furosemide (Lasix Injection -) 40 mg IVPB DAILY RAJESH Ondansetron HCl (Zofran Odt -) 4 mg SL Q8H PRN PRN Reason: NAUSEA AND/OR VOMITING Risperidone (Risperdal -) 1 mg PO HS RAJESH Sertraline HCl (Zoloft -) 50 mg PO DAILY RAJESH - Objective Vital Signs: Vital Signs Temperature 97.8 F 12/13/16 06:00 Pulse Rate 60 12/13/16 06:00 Respiratory Rate 18 12/13/16 06:00 Blood Pressure 122/59 12/13/16 06:00 O2 Sat by Pulse Oximetry (%) 99 12/12/16 21:06 Labs: CBC, BMP 12/13/16 08:26 12/13/16 08:26 INR, PTT INR 1.21 (0.82-1.09) H 12/12/16 18:48 Problem List - Problems (1) CAD (coronary artery disease) Code(s): I25.10 - ATHSCL HEART DISEASE OF [place] CORONARY ARTERY W/O ANG PCTRS Qualifiers: (2) Chest pain Code(s): R07.9 - CHEST PAIN, UNSPECIFIED (3) Atrial fibrillation Code(s): I48.91 - UNSPECIFIED ATRIAL FIBRILLATION Qualifiers:
--- NOTE | 2016-12-13 10:50 | CON.PULM ---
Consult Consult Specialty:: PULMONARY Referred by:: Dr. Sanchez Reason for Consultation:: chest pain/shortness of breath - History of Present Illness Chief Complaint: chest pain History of Present Illness: 71yo female with h/o HTN, atrial fibrillation on anticoagulation, LV diastolic dysfunction, COPD, GERD, schizophrenia who presents with chest pain and shortness of breath starting yesterday morning. Chest pain described as pressure like anterior, radiating to back and left shoulder. Pain associated with shortness of breath without nausea, vomiting or diaphoresis. No fevers, chills or sweats. +nonproductive cough without wheezing. No sick contacts or recent travel. Pain is not reproducible with palpation but also occurs with deep inspiration and coughing. 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: Other (benign essential tremor) Cardio/Vascular: Yes: AFIB, CAD, CHF, HTN, Hyperlipdemia Gastrointestinal: Yes: Diverticulosis, GERD, Hiatal Hernia, Other (h/o sbo and ventral hernia 3 yrs ago) Psych: Yes: Schizophrenia (schizoaffective ds seen by psychiatry periodically) Musculoskeletal: Yes: Chronic low back pain, Osteoarthritis Endocrine: Yes: Diabetes Mellitus - Past Surgical History Past Surgical History: Yes: Colonoscopy (h/o polyps, divosis 2008 and 2010), Hernia Repair (ventral hernia repair 3 yrs ago), Hysterectomy, Joint Replacement (right knee), Tonsillectomy, Upper Endoscopy (2010 and 2008, hh, gastric im) - Alcohol/Substance Use Hx Alcohol Use: No History of Substance Use: reports: None - Smoking History Smoking history: Never smoked Have you smoked in the past 12 months: No Aproximately how many cigarettes per day: 0 - Social History Usual Living Arrangement: Alone ADL: Support Services History of Recent Travel: No Home Medications - Allergies Allergies/Adverse Reactions: Allergies Allergy/AdvReac Type Severity Reaction Status Date / Time No Known Drug Allergies Allergy Verified 12/12/16 18:19 lactose [Lactose] AdvReac Verified 12/12/16 18:19 - Home Medications Home Medications: Ambulatory Orders Ferrous Sulfate 325 mg PO DAILY 12/12/16 Furosemide [Lasix -] 20 mg PO DAILY 12/12/16 Risperidone 1 mg PO HS 12/12/16 Sertraline HCl 50 mg PO DAILY 12/12/16 Family Disease History - Family Disease History Family Disease History: Diabetes: Brother, Heart Disease: Father (hx stroke, ), CA: Mother (colon cancer - ) Review of Systems - Review of Systems Constitutional: denies: Chills, Fever, Night Sweats Eyes: denies: Recent Change in Vision HENT: denies: Nasal Congestion, Throat Pain Neck: denies: Stiffness, Tenderness Cardiovascular: reports: Chest Pain, Shortness of Breath. denies: Edema, Palpitations Respiratory: reports: Cough, SOB. denies: Hemoptysis, Wheezing Gastrointestinal: denies: Abdominal Pain, Nausea, Vomiting Genitourinary: denies: Dysuria, Hematuria Neurological: denies: Dizziness, Headache Physical Exam Vital Sings: Vital Signs Temperature 97.8 F 12/13/16 06:00 Pulse Rate 60 12/13/16 06:00 Respiratory Rate 18 12/13/16 06:00 Blood Pressure 122/59 12/13/16 06:00 O2 Sat by Pulse Oximetry (%) 99 12/12/16 21:06 Constitutional: Yes: Anxious Eyes: Yes: Conjunctiva Clear, EOM Intact HENT: Yes: Atraumatic, Normocephalic Neck: Yes: Supple, Trachea Midline Cardiovascular: Yes: Regular Rate and Rhythm Respiratory: Yes: Regular, CTA Bilaterally ...Clubbing: No Gastrointestinal: Yes: Normal Bowel Sounds, Soft. No: Tenderness Edema: No Neurological: Yes: Alert, Oriented Labs: CBC, BMP 12/13/16 08:26 12/13/16 08:26 Imaging - Results Chest X-ray: Report Reviewed, Image Reviewed (no infiltrates, cardiomegaly) Problem List - Problems (1) Chest pain Code(s): R07.9 - CHEST PAIN, UNSPECIFIED (2) Cough Code(s): R05 - COUGH (3) Atrial fibrillation Code(s): I48.91 - UNSPECIFIED ATRIAL FIBRILLATION Qualifiers: (4) HTN (hypertension) Code(s): I10 - ESSENTIAL (PRIMARY) HYPERTENSION Qualifiers: Hypertension type: essential hypertension Qualified Code(s): I10 - Essential (primary) hypertension (5) Mitral regurgitation Code(s): I34.0 - NONRHEUMATIC MITRAL (VALVE) INSUFFICIENCY Assessment/Plan Atypical Chest Pain Suspect musculoskeletal Atrial Fibrillation COPD LV diastolic dysfunction Moderate Mitral Regurgitation - pain control - trend cardiac enzymes - inhaled bronchodilators - O2 as needed - rate controlled - continue anticoagulation - outpt PFTs Thank you for this consult Dion Ruiz MD
--- NOTE | 2016-12-13 11:44 | EKG ---
Test Reason : Blood Pressure : / mmHG Vent. Rate : 075 BPM Atrial Rate : 075 BPM P-R Int : 204 ms QRS Dur : 088 ms QT Int : 402 ms P-R-T Axes : 064 -47 081 degrees QTc Int : 448 ms SINUS RHYTHM WITH PREMATURE ATRIAL COMPLEXES LEFT AXIS DEVIATION LEFT VENTRICULAR HYPERTROPHY WITH REPOLARIZATION ABNORMALITY ABNORMAL ECG WHEN COMPARED WITH ECG OF 04-NOV-2016 11:49, NON-SPECIFIC CHANGE IN ST SEGMENT IN LATERAL LEADS T WAVE INVERSION MORE EVIDENT IN LATERAL LEADS CLINICAL CORRELATION IS RECOMMENDED Confirmed by NIEVES REYEZ, ALEX ([id number]) on 12/13/2016 11:43:55 AM Referred By: Confirmed By:ALEX PICKETT MD
[2016-12-13] MEDS: FUROSEMIDE 40 MG/4 ML INJECTABLE VIAL IVPB SCH (11:52)
[2016-12-13] MEDS: SERTRALINE HCL 50 MG TABLET (FP) PO SCH (11:53)
--- NOTE | 2016-12-13 16:52 | CON.CARD ---
Consult Consult Specialty:: cardiology Referred by:: Daniel Reason for Consultation:: chest pain - History of Present Illness Chief Complaint: chest pain History of Present Illness: 71 year old female with a pmhx of copd, psychiatric d/o, anemia, afib on pradaxa , diastolic chf, and nonobstructive cad 08/2015 on cath as per chart presents with chest pain. Patient c/o dry cough along with b/l back and anterior chest pain. Pain seems to be associated with inspiration. Denies any pain on exertion. No palpitations. Some mild pnd and ankle edema which seems to have resolved. Question medication compliance. - History Source History Provided By: Patient, Medical Record - Past Medical History DIRECTOR CARD: Yes: Other (benign essential tremor) Cardio/Vascular: Yes: AFIB, CAD, CHF, HTN, Hyperlipdemia Gastrointestinal: Yes: Diverticulosis, GERD, Hiatal Hernia, Other (h/o sbo and ventral hernia 3 yrs ago) Psych: Yes: Schizophrenia (schizoaffective ds seen by psychiatry periodically) Musculoskeletal: Yes: Chronic low back pain, Osteoarthritis Endocrine: Yes: Diabetes Mellitus - Past Surgical History Past Surgical History: Yes: Colonoscopy (h/o polyps, divosis 2008 and 2010), Hernia Repair (ventral hernia repair 3 yrs ago), Hysterectomy, Joint Replacement (right knee), Tonsillectomy, Upper Endoscopy (2010 and 2008, hh, gastric im) - Alcohol/Substance Use Hx Alcohol Use: No History of Substance Use: reports: None - Smoking History Smoking history: Never smoked Have you smoked in the past 12 months: No Aproximately how many cigarettes per day: 0 - Social History Usual Living Arrangement: Alone ADL: Support Services History of Recent Travel: No Home Medications - Allergies Allergies/Adverse Reactions: Allergies Allergy/AdvReac Type Severity Reaction Status Date / Time No Known Drug Allergies Allergy Verified 12/12/16 18:19 lactose [Lactose] AdvReac Verified 12/12/16 18:19 - Home Medications Home Medications: Ambulatory Orders Ferrous Sulfate 325 mg PO DAILY 12/12/16 Furosemide [Lasix -] 20 mg PO DAILY 12/12/16 Risperidone 1 mg PO HS 12/12/16 Sertraline HCl 50 mg PO DAILY 12/12/16 Family Disease History - Family Disease History Family Disease History: Diabetes: Brother, Heart Disease: Father (hx stroke, ), CA: Mother (colon cancer - ) Vital Signs: Vital Signs Temperature 98.5 F 12/13/16 16:00 Pulse Rate 78 12/13/16 16:00 Respiratory Rate 18 12/13/16 16:00 Blood Pressure 140/65 12/13/16 16:00 O2 Sat by Pulse Oximetry (%) 99 12/13/16 10:00 - Other Data Labs, Other Data: CBC, BMP 12/13/16 08:26 12/13/16 08:26 INR, PTT INR 1.21 (0.82-1.09) H 12/12/16 18:48 Troponin, BNP 12/13/16 10:58 Troponin I < 0.02 Troponin, BNP 12/13/16 10:58 Troponin I < 0.02 Problem List - Problems (1) Atrial fibrillation Code(s): I48.91 - UNSPECIFIED ATRIAL FIBRILLATION Qualifiers: (2) CAD (coronary artery disease) Code(s): I25.10 - ATHSCL HEART DISEASE OF [place] CORONARY ARTERY W/O ANG PCTRS Qualifiers: (3) Chest pain Code(s): R07.9 - CHEST PAIN, UNSPECIFIED Assessment/Plan 71 year old female with a pmhx of copd, psychiatric d/o, anemia, afib on pradaxa , diastolic chf, and nonobstructive cad 08/2015 on cath as per chart presents with chest pain. Patient c/o dry cough along with b/l back and anterior chest pain. Pain seems to be associated with inspiration. Denies any pain on exertion. No palpitations. Some mild pnd and ankle edema which seems to have resolved. Question medication compliance. 1) Chest pain - is atypical in nature and worse with inspiration. BP stable and equal in upper ext. O2 sat normal EKG on presentation with no acute ST changes CE's negative at this time and will trend -Cath done little over a year ago with nonobs CAD as per chart Echocardiogram this year with normal LV systolic function, mild dilated LV, mod mr, and mild TR 2) Acute on chronic diastolic chf - BNP mildly elevated and symptoms sound like acute CHF but CXR with no significant chf and physical exam not particularly impressive for volume overload but would continue furosemide 40mg IV daily and likely transition shortly to PO 3) Afib -Clarify what patient takes at home. Says she takes diltiazem but does not have with her. Would clarify and restart home dose. -On pradaxa as per patient. If she is taking this she should be restarted Will follow with you
[2016-12-13] MEDS ORDERED: KETOROLAC TROMETHAMINE 15 MG/ML VIAL IVPUSH PRN (17:50)
[2016-12-13] MEDS: risperiDONE 1 MG TABLET (FP) PO SCH (21:37)
--- NOTE | 2016-12-13 22:40 | HP ---
Admitting History and Physical - Primary Care Physician PCP: Anay Sanchez - Admission Chief Complaint: CHEST PAIN History of Present Illness: 71yo pleasant female with h/o HTN, paroxysmal atrial fibrillation on anticoagulation, LV diastolic dysfunction, COPD, GERD, Cardiac cath 2016? schizophrenia who presents with left sided chest pain radiating to her left arm and shortness of breath that started 1 day ago. Chest pain described as pressure like on the anterior, radiating to back and left shoulder. Pain associated with shortness of breath without nausea, vomiting or diaphoresis. No fevers, chills or sweats. Dry cough without wheezing. No sick contacts or recent travel. Patient complains of pain worsening on deep inspiration. 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: Other (benign essential tremor) Cardiovascular: Yes: AFIB, CAD, CHF, HTN, Hyperlipdemia Gastrointestinal: Yes: Diverticulosis, GERD, Hiatal Hernia, Other (h/o sbo and ventral hernia 3 yrs ago) Psych: Yes: Schizophrenia (schizoaffective ds seen by psychiatry periodically) Musculoskeletal: Yes: Chronic low back pain, Osteoarthritis Endocrine: Yes: Diabetes Mellitus - Past Surgical History Past Surgical History: Yes: Colonoscopy (h/o polyps, divosis 2008 and 2010), Hernia Repair (ventral hernia repair 3 yrs ago), Hysterectomy, Joint Replacement (right knee), Tonsillectomy, Upper Endoscopy (2010 and 2008, hh, gastric im) - Smoking History Smoking history: Never smoked (SECOND HAND SMOKING EXPOSURE S) Have you smoked in the past 12 months: No Aproximately how many cigarettes per day: 0 - Alcohol/Substance Use Hx Alcohol Use: No History of Substance Use: reports: None - Social History ADL: Support Services History of Recent Travel: No Home Medications - Allergies Allergies/Adverse Reactions: Allergies Allergy/AdvReac Type Severity Reaction Status Date / Time No Known Drug Allergies Allergy Verified 12/12/16 18:19 lactose [Lactose] AdvReac Verified 12/12/16 18:19 - Home Medications Home Medications: Ambulatory Orders Ferrous Sulfate 325 mg PO DAILY 12/12/16 Furosemide [Lasix -] 20 mg PO DAILY 12/12/16 Risperidone 1 mg PO HS 12/12/16 Sertraline HCl 50 mg PO DAILY 12/12/16 Dabigatran Etexilate Mesylate [Pradaxa -] 75 mg PO BID 12/13/16 Diltiazem HCl [Cardizem LA] 120 mg PO DAILY 12/13/16 Family Disease History - Family Disease History Family Disease History: Diabetes: Brother, Heart Disease: Father (hx stroke, ), CA: Mother (colon cancer - ) Review of Systems - Review of Systems Constitutional: reports: No Symptoms Eyes: reports: No Symptoms HENT: reports: No Symptoms Neck: reports: No Symptoms Cardiovascular: reports: Chest Pain Respiratory: reports: Cough, SOB Gastrointestinal: reports: No Symptoms Genitourinary: reports: No Symptoms Breasts: reports: No Symptoms Reported Musculoskeletal: reports: No Symptoms Integumentary: reports: No Symptoms Neurological: reports: No Symptoms Endocrine: reports: No Symptoms Hematology/Lymphatic: reports: No Symptoms Psychiatric: reports: No Symptoms Pain Intensity: 10 Physical Examination Vital Signs: Vital Signs Temperature 98.5 F 12/13/16 16:00 Pulse Rate 78 12/13/16 16:00 Respiratory Rate 18 12/13/16 16:00 Blood Pressure 140/65 12/13/16 16:00 O2 Sat by Pulse Oximetry (%) 99 12/13/16 10:00 Constitutional: Yes: Well Nourished, No Distress, Calm Neck: Yes: WNL Cardiovascular: Yes: Regular Rate and Rhythm, Murmur ([id number]) Respiratory: Yes: WNL, Regular Gastrointestinal: Yes: Normal Bowel Sounds Breast(s): Yes: WNL Musculoskeletal: Yes: WNL Extremities: Yes: WNL Edema: Yes Edema: LLE: Trace, RLE: Trace Peripheral Pulses WNL: Yes Integumentary: Yes: WNL Neurological: Yes: Alert, Oriented Psychiatric: Yes: WNL Labs: CBC, BMP 12/13/16 08:26 12/13/16 08:26 Imaging - Results Chest X-ray: Report Reviewed Problem List - Problems (1) CAD (coronary artery disease) Code(s): I25.10 - ATHSCL HEART DISEASE OF [place] CORONARY ARTERY W/O ANG PCTRS Qualifiers: (2) Chest pain Assessment/Plan: Musculoskeletal chest pain Code(s): R07.9 - CHEST PAIN, UNSPECIFIED Qualifiers: Chest pain type: chest pain on breathing Qualified Code(s): R07.1 - Chest pain on breathing (3) Atrial fibrillation Code(s): I48.91 - UNSPECIFIED ATRIAL FIBRILLATION Qualifiers: Atrial fibrillation type: chronic Qualified Code(s): I48.2 - Chronic atrial fibrillation Assessment/Plan Likely musculoskeletal Pain management Cardiology and pulmonary consult Troponins Echo and EKG-reviewed, not significant to match patient's symptoms
[2016-12-14] MEDS: SERTRALINE HCL 50 MG TABLET (FP) PO SCH (09:23)
[2016-12-14] MEDS: ACETAMINOPHEN 325 MG TABLET (FP) PO PRN (09:23)
[2016-12-14] MEDS: FUROSEMIDE 40 MG/4 ML INJECTABLE VIAL IVPB SCH (09:24)
--- NOTE | 2016-12-14 09:41 | PN ---
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
--- NOTE | 2016-12-14 15:34 | PN ---
Progress Note, Physician Chief Complaint: Lying flat in bed comfortable History of Present Illness: 71 year old female with a pmhx of copd, psychiatric d/o, anemia, afib on pradaxa , diastolic chf, and nonobstructive cad 08/2015 on cath as per chart presents with chest pain. Patient c/o dry cough along with b/l back and anterior chest pain. Pain seems to be associated with inspiration. Denies any pain on exertion. No palpitations. Some mild pnd and ankle edema which seems to have resolved. Question medication compliance. - Current Medication List Current Medications: Active Medications Acetaminophen (Tylenol -) 650 mg PO Q6H PRN PRN Reason: FEVER OR PAIN Last Admin: 12/14/16 09:23 Dose: 650 mg Furosemide (Lasix Injection -) 40 mg IVPB DAILY [facility] Last Admin: 12/14/16 09:24 Dose: 40 mg Ketorolac Tromethamine (Toradol Injection -) 15 mg IVPUSH Q6H PRN PRN Reason: PAIN Stop: 12/18/16 17:49 Last Admin: 12/13/16 21:37 Dose: 15 mg Ondansetron HCl (Zofran Odt -) 4 mg SL Q8H PRN PRN Reason: NAUSEA AND/OR VOMITING Risperidone (Risperdal -) 1 mg PO HS [facility] Last Admin: 12/13/16 21:37 Dose: 1 mg Sertraline HCl (Zoloft -) 50 mg PO DAILY [facility] Last Admin: 12/14/16 09:23 Dose: 50 mg - Objective Vital Signs: Vital Signs Temperature 97.4 F L 12/14/16 15:21 Pulse Rate 70 12/14/16 15:21 Respiratory Rate 18 12/14/16 15:21 Blood Pressure 146/66 12/14/16 15:21 O2 Sat by Pulse Oximetry (%) 99 12/13/16 10:00 Constitutional: Yes: No Distress Neck: Yes: Supple, Trachea Midline Cardiovascular: Yes: Regular Rate and Rhythm, Murmur (2/6 HSM upper sternal border), S1, S2. No: JVD Respiratory: Yes: CTA Bilaterally Gastrointestinal: Yes: Normal Bowel Sounds, Soft Edema: No Labs: CBC, BMP 12/13/16 08:26 12/13/16 08:26 INR, PTT INR 1.21 (0.82-1.09) H 12/12/16 18:48 Problem List - Problems (1) Atrial fibrillation Code(s): I48.91 - UNSPECIFIED ATRIAL FIBRILLATION Qualifiers: Atrial fibrillation type: chronic Qualified Code(s): I48.2 - Chronic atrial fibrillation (2) CAD (coronary artery disease) Code(s): I25.10 - ATHSCL HEART DISEASE OF [place] CORONARY ARTERY W/O ANG PCTRS Qualifiers: (3) Chest pain Code(s): R07.9 - CHEST PAIN, UNSPECIFIED Qualifiers: Chest pain type: chest pain on breathing Qualified Code(s): R07.1 - Chest pain on breathing Assessment/Plan 71 year old female with a pmhx of copd, psychiatric d/o, anemia, afib on pradaxa , diastolic chf, and nonobstructive cad 08/2015 on cath as per chart presents with chest pain. Patient c/o dry cough along with b/l back and anterior chest pain. Pain seems to be associated with inspiration. Denies any pain on exertion. No palpitations. Some mild pnd and ankle edema which seems to have resolved. Question medication compliance. 1) Chest pain - is atypical in nature and worse with inspiration. BP stable and equal in upper ext. O2 sat normal EKG on presentation with no acute ST changes CE's negative -Cath done little over a year ago with nonobs CAD as per chart Echocardiogram this year with normal LV systolic function, mild dilated LV, mod mr, and mild TR No further cardiac work up for ischemia at this time. 2) Acute on chronic diastolic chf - Diuresed well with IV furosemide. Would change to 40mg PO daily 3) Afib -Clarify what patient takes at home. Says she takes diltiazem but does not have with her. Would clarify and restart home dose. -On pradaxa as per patient. If she is taking this she should be restarted as patient should be on anticoagulation if they have afib.
--- NOTE | 2016-12-14 19:18 | PN ---
Progress Note, Physician History of Present Illness: /o back pain and chest pain - Current Medication List Current Medications: Active Medications Acetaminophen (Tylenol -) 650 mg PO Q6H PRN PRN Reason: FEVER OR PAIN Last Admin: 12/14/16 09:23 Dose: 650 mg Furosemide (Lasix Injection -) 40 mg IVPB DAILY [facility] Last Admin: 12/14/16 09:24 Dose: 40 mg Ketorolac Tromethamine (Toradol Injection -) 15 mg IVPUSH Q6H PRN PRN Reason: PAIN Stop: 12/18/16 17:49 Last Admin: 12/13/16 21:37 Dose: 15 mg Ondansetron HCl (Zofran Odt -) 4 mg SL Q8H PRN PRN Reason: NAUSEA AND/OR VOMITING Risperidone (Risperdal -) 1 mg PO HS [facility] Last Admin: 12/13/16 21:37 Dose: 1 mg Sertraline HCl (Zoloft -) 50 mg PO DAILY [facility] Last Admin: 12/14/16 09:23 Dose: 50 mg - Objective Vital Signs: Vital Signs Temperature 97.4 F L 12/14/16 15:21 Pulse Rate 70 12/14/16 15:21 Respiratory Rate 18 12/14/16 15:21 Blood Pressure 146/66 12/14/16 15:21 O2 Sat by Pulse Oximetry (%) 99 12/14/16 09:00 Cardiovascular: Yes: Regular Rate and Rhythm Respiratory: Yes: Regular, CTA Bilaterally Gastrointestinal: Yes: Normal Bowel Sounds, Soft Labs: CBC, BMP 12/13/16 08:26 12/13/16 08:26 INR, PTT INR 1.21 (0.82-1.09) H 12/12/16 18:48 Problem List - Problems (1) Shortness of breath Assessment/Plan: cta of chest duplex Code(s): R06.02 - SHORTNESS OF BREATH (2) Atrial fibrillation Assessment/Plan: resume pradaxa cardizem Code(s): I48.91 - UNSPECIFIED ATRIAL FIBRILLATION Qualifiers: Atrial fibrillation type: chronic Qualified Code(s): I48.2 - Chronic atrial fibrillation (3) CAD (coronary artery disease) Assessment/Plan: add ranaxa ce negative Code(s): I25.10 - ATHSCL HEART DISEASE OF [place] CORONARY ARTERY W/O ANG PCTRS Qualifiers: (4) Chest pain Assessment/Plan: as above Code(s): R07.9 - CHEST PAIN, UNSPECIFIED Qualifiers: Chest pain type: chest pain on breathing Qualified Code(s): R07.1 - Chest pain on breathing
[2016-12-14] MEDS: RANOLAZINE E.R. 500 MG TABLET (FP) PO SCH (21:43)
[2016-12-14] MEDS: traMADol HCL 50 MG TABLET PO SCH (21:43)
[2016-12-14] MEDS: ATORVASTATIN CA 10 MG TABLET (FP) PO SCH (21:43)
[2016-12-14] MEDS: risperiDONE 1 MG TABLET (FP) PO SCH (21:43)
[2016-12-14] MEDS: DABIGATRAN ETEXILATE MESYLATE 75 MG CAPSULE PO SCH (21:49)
--- NOTE | 2016-12-15 08:12 | PN ---
Mental Health Exam - Mental Status Exam Alert and Oriented to: Time, Place, Person Cognitive Function: Grossly Intact Patient Appearance: Well Groomed Mood: Apprehensive, Hopeful Affect: Appropriate, Mood Congruent, Normal Range Patient Behavior: Talkative, Appropriate, Cooperative Speech Pattern: Clear Voice Loudness: Normal Thought Process: Intact Thought Disorder: Not Present Hallucinations: None Suicidal Ideation: None, No Plan Homicidal Ideation: None, No Plan Insight/Judgement: Fair Sleep: Fair Appetite: Good Muscle strength/Tone: Normal, Moderate Hypertonicity Gait/Station: Deferred
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
[2016-12-15 08:38] LABS: BASOPHIL 0.4 % (0-2.0); EOSINOPHIL 0.8 % (0-4.5); MCH 27.4 pg (25.7-33.7); MCHC 32.5 g/dl (32.0-36.0); MEAN CELL VOLUME 84.2 fl (80-96); MEAN PLT VOLUME 8.5 fl (7.5-11.1); NEUTROPHILS 71.7 % (42.8-82.8); PLATELET COUNT 282 K/MM3 (134-434); RDW 15.2 % (11.6-15.6); WHITE BLOOD COUNT 5.9 K/mm3 (4.0-10.0)
[2016-12-15 08:53] LABS: ALBUMIN 3.2 g/dl (3.4-5.0); ANION GAP 8 (8-16); BILIRUBIN,TOTAL 0.2 mg/dL (0.2-1.0); CALCIUM 8.8 mg/dL (8.5-10.1); CO2 30 mmol/L (21-32); COCKROFT - GAULT 107.8735; CREATININE 0.8 mg/dL (0.55-1.02); GLUCOSE,RANDOM 87 mg/dL (74-106); SGOT/AST 13 U/L (15-37); SGPT/ALT 14 U/L (12-78); TOT PROT 6.7 g/dl (6.4-8.2)
[2016-12-15 09:01] LABS: ALK PHOS 94 U/L (45-117); TROPONIN I < 0.02 ng/ml (0.00-0.05)
[2016-12-15] MEDS: traMADol HCL 50 MG TABLET PO SCH ×2 (10:00→21:42)
[2016-12-15] MEDS: FUROSEMIDE 40 MG/4 ML INJECTABLE VIAL IVPB SCH (11:57)
[2016-12-15] MEDS: SERTRALINE HCL 50 MG TABLET (FP) PO SCH (11:58)
[2016-12-15] MEDS: RANOLAZINE E.R. 500 MG TABLET (FP) PO SCH ×2 (11:58→21:43)
[2016-12-15] MEDS: DABIGATRAN ETEXILATE MESYLATE 75 MG CAPSULE PO SCH ×2 (12:00→21:44)
--- NOTE | 2016-12-15 12:45 | PN ---
Progress Note, Physician Chief Complaint: sleeping in bed per patient complaining of sob and chest pain when breathes and left arm pain - Current Medication List Current Medications: Active Medications Acetaminophen (Tylenol -) 650 mg PO Q6H PRN PRN Reason: FEVER OR PAIN Last Admin: 12/14/16 09:23 Dose: 650 mg Atorvastatin Calcium (Lipitor -) 10 mg PO HS [facility] Last Admin: 12/14/16 21:43 Dose: 10 mg Dabigatran (Pradaxa -) 75 mg PO BID [facility] Last Admin: 12/15/16 12:00 Dose: 75 mg Diltiazem HCl (Cardizem Cd -) 120 mg PO DAILY [facility] Last Admin: 12/15/16 11:58 Dose: 120 mg Furosemide (Lasix Injection -) 40 mg IVPB DAILY [facility] Last Admin: 12/15/16 11:57 Dose: 40 mg Ondansetron HCl (Zofran Odt -) 4 mg SL Q8H PRN PRN Reason: NAUSEA AND/OR VOMITING Ranolazine (Ranexa -) 500 mg PO BID [facility] Last Admin: 12/15/16 11:58 Dose: 500 mg Risperidone (Risperdal -) 1 mg PO HS [facility] Last Admin: 12/14/16 21:43 Dose: 1 mg Sertraline HCl (Zoloft -) 50 mg PO DAILY [facility] Last Admin: 12/15/16 11:58 Dose: 50 mg Tramadol HCl (Ultram -) 50 mg PO BID [facility] Last Admin: 12/15/16 10:00 Dose: 50 mg - Objective Vital Signs: Vital Signs Temperature 98.4 F 12/15/16 06:59 Pulse Rate 89 12/15/16 06:59 Respiratory Rate 20 12/15/16 06:59 Blood Pressure 116/64 12/15/16 06:59 O2 Sat by Pulse Oximetry (%) 98 12/14/16 21:00 Constitutional: Yes: Calm Cardiovascular: Yes: Regular Rate and Rhythm, S1, S2 Respiratory: Yes: CTA Bilaterally, Other (no chest tenderess on palpation) Gastrointestinal: Yes: Soft Musculoskeletal: Yes: Other (left arm shoulde full ROM no defornities no tenderess on exam sensory intact) Labs: CBC, BMP 12/15/16 08:00 12/15/16 08:00 INR, PTT INR 1.21 (0.82-1.09) H 12/12/16 18:48 Problem List - Problems (1) Chronic post-traumatic stress disorder (PTSD) Assessment/Plan: appreciate psych input zoloft and risperidol Code(s): F43.12 - POST-TRAUMATIC STRESS DISORDER, CHRONIC (2) Shortness of breath Assessment/Plan: iv lasix change to po lasixin am echo today- if normal most likely it will be then dc home in am clinically patient is much better CTA negative adequate diuersis with iv lasix Code(s): R06.02 - SHORTNESS OF BREATH (3) CAD (coronary artery disease) Assessment/Plan: statin echo ranexa Code(s): I25.10 - ATHSCL HEART DISEASE OF [place] CORONARY ARTERY W/O ANG PCTRS Qualifiers: (4) Chest pain Assessment/Plan: atypical maybe muscular CR 3 sets negative echo pending Code(s): R07.9 - CHEST PAIN, UNSPECIFIED Qualifiers: Chest pain type: chest pain on breathing Qualified Code(s): R07.1 - Chest pain on breathing (5) Hyperlipidemia Assessment/Plan: statin LDL is 76 at goal given DM goal < 100 Code(s): E78.5 - HYPERLIPIDEMIA, UNSPECIFIED Qualifiers: Hyperlipidemia type: pure hypercholesterolemia Qualified Code(s): E78.00 - Pure hypercholesterolemia, unspecified; E78.0 - Pure hypercholesterolemia (6) Diabetes Assessment/Plan: hga1v 6.9 perpatient she had diabetes many years ago lisa hga1c almost to 7 DM has not resolved will start oral meds metformin and amaryl Code(s): E11.9 - TYPE 2 DIABETES MELLITUS WITHOUT COMPLICATIONS Qualifiers: Diabetes mellitus type: type 2 Diabetes mellitus complication status: without complication Diabetes mellitus terminal gauger insulin use: without mcfp use Qualified Code(s): E11.9 - Type 2 diabetes mellitus without complications
--- NOTE | 2016-12-15 16:22 | PN ---
Progress Note, Physician Chief Complaint: Lying flat in bed comfortable History of Present Illness: 71 year old female with a pmhx of copd, psychiatric d/o, anemia, afib on pradaxa , diastolic chf, and nonobstructive cad 08/2015 on cath as per chart presents with chest pain. Patient c/o dry cough along with b/l back and anterior chest pain. Pain seems to be associated with inspiration. Denies any pain on exertion. No palpitations. Some mild pnd and ankle edema which seems to have resolved. Question medication compliance. - Current Medication List Current Medications: Active Medications Acetaminophen (Tylenol -) 650 mg PO Q6H PRN PRN Reason: FEVER OR PAIN Last Admin: 12/14/16 09:23 Dose: 650 mg Atorvastatin Calcium (Lipitor -) 10 mg PO [facility] Last Admin: 12/14/16 21:43 Dose: 10 mg Dabigatran (Pradaxa -) 75 mg PO BID [facility] Last Admin: 12/15/16 12:00 Dose: 75 mg Glimepiride (Amaryl -) 1 mg PO DAILY@0700 [facility] Metoprolol Succinate (Toprol Xl -) 25 mg PO DAILY [facility] Ondansetron HCl (Zofran Odt -) 4 mg SL Q8H PRN PRN Reason: NAUSEA AND/OR VOMITING Ranolazine (Ranexa -) 500 mg PO BID [facility] Last Admin: 12/15/16 11:58 Dose: 500 mg Risperidone (Risperdal -) 1 mg PO [facility] Last Admin: 12/14/16 21:43 Dose: 1 mg Sertraline HCl (Zoloft -) 50 mg PO DAILY [facility] Last Admin: 12/15/16 11:58 Dose: 50 mg Tramadol HCl (Ultram -) 50 mg PO BID [facility] Last Admin: 12/15/16 10:00 Dose: 50 mg Zinc Acetate/Diphenhydramine (Benadryl 2% Cream) 1 applic TP BID [facility] - Objective Vital Signs: Vital Signs Temperature 98.6 F 12/15/16 14:48 Pulse Rate 68 12/15/16 14:48 Respiratory Rate 18 12/15/16 14:48 Blood Pressure 102/50 12/15/16 14:48 O2 Sat by Pulse Oximetry (%) 98 12/14/16 21:00 Constitutional: Yes: No Distress Neck: Yes: Supple Cardiovascular: Yes: Regular Rate and Rhythm. No: JVD, Murmur Respiratory: Yes: CTA Bilaterally Gastrointestinal: Yes: Normal Bowel Sounds, Soft Edema: No Labs: CBC, BMP 12/15/16 08:00 12/15/16 08:00 INR, PTT INR 1.21 (0.82-1.09) H 12/12/16 18:48 Problem List - Problems (1) Atrial fibrillation Code(s): I48.91 - UNSPECIFIED ATRIAL FIBRILLATION Qualifiers: Atrial fibrillation type: chronic Qualified Code(s): I48.2 - Chronic atrial fibrillation (2) CAD (coronary artery disease) Code(s): I25.10 - ATHSCL HEART DISEASE OF [place] CORONARY ARTERY W/O ANG PCTRS Qualifiers: (3) Chest pain Code(s): R07.9 - CHEST PAIN, UNSPECIFIED Qualifiers: Chest pain type: chest pain on breathing Qualified Code(s): R07.1 - Chest pain on breathing Assessment/Plan 71 year old female with a pmhx of copd, psychiatric d/o, anemia, afib on pradaxa , diastolic chf, and nonobstructive cad 08/2015 on cath as per chart presents with chest pain. Patient c/o dry cough along with b/l back and anterior chest pain. Pain seems to be associated with inspiration. Denies any pain on exertion. No palpitations. Some mild pnd and ankle edema which seems to have resolved. Question medication compliance. 1) Chest pain - is atypical in nature and worse with inspiration. BP stable and equal in upper ext. O2 sat normal EKG on presentation with no acute ST changes CE's negative -Cath done little over a year ago with nonobs CAD as per chart Echocardiogram with mildly decreased LVEF 49%. Symptoms are unlikely cardiac in nature but given mildly decreased LVEF would recommend Nuclear Stress Test -Stop diltiazem and change to metoprolol 25mg xl daily for mild systolic chf 2) Acute on chronic diastolic chf - Diuresed well with IV furosemide. Would change to 40mg PO daily 3) Afib -On metoprolol On pradaxa.
[2016-12-15] MEDS ORDERED: PT OWN MED DRAWER 7, Y5N ONE (20:56)
[2016-12-15] MEDS: risperiDONE 1 MG TABLET (FP) PO SCH (21:42)
[2016-12-15] MEDS: ATORVASTATIN CA 10 MG TABLET (FP) PO SCH (21:43)
[2016-12-16] MEDS: GLIMEPIRIDE 1 MG TABLET (FP) PO SCH (06:39)
[2016-12-16] MEDS: traMADol HCL 50 MG TABLET PO SCH ×2 (06:39→11:33)
[2016-12-16 08:33] LABS: ALBUMIN 3.2 g/dl (3.4-5.0); ALK PHOS 93 U/L (45-117); ANION GAP 7 (8-16); BILIRUBIN,TOTAL 0.3 mg/dL (0.2-1.0); CALCIUM 8.9 mg/dL (8.5-10.1); CO2 33 mmol/L (21-32); CREATININE 0.9 mg/dL (0.55-1.02); GLUCOSE,RANDOM 96 mg/dL (74-106); MAGNESIUM 2.5 mg/dL (1.8-2.4); SGOT/AST 11 U/L (15-37); SGPT/ALT 14 U/L (12-78); TOT PROT 6.8 g/dl (6.4-8.2)
--- NOTE | 2016-12-16 09:38 | PN ---
Progress Note, Physician Chief Complaint: patient seen and examined sitting up in bed says she has constantly coughing even though the time spent with her no coughing at all to get stress test - Current Medication List Current Medications: Active Medications Acetaminophen (Tylenol -) 650 mg PO Q6H PRN PRN Reason: FEVER OR PAIN Last Admin: 12/14/16 09:23 Dose: 650 mg Atorvastatin Calcium (Lipitor -) 10 mg PO HS [facility] Last Admin: 12/15/16 21:43 Dose: 10 mg Dabigatran (Pradaxa -) 75 mg PO BID [facility] Last Admin: 12/15/16 21:44 Dose: 75 mg Furosemide (Lasix -) 40 mg PO DAILY [facility] Glimepiride (Amaryl -) 1 mg PO DAILY@0700 [facility] Last Admin: 12/16/16 06:39 Dose: 1 mg Metoprolol Succinate (Toprol Xl -) 25 mg PO DAILY [facility] Ondansetron HCl (Zofran Odt -) 4 mg SL Q8H PRN PRN Reason: NAUSEA AND/OR VOMITING Ranolazine (Ranexa -) 500 mg PO BID [facility] Last Admin: 12/15/16 21:43 Dose: 500 mg Risperidone (Risperdal -) 1 mg PO HS [facility] Last Admin: 12/15/16 21:42 Dose: 1 mg Sertraline HCl (Zoloft -) 50 mg PO DAILY [facility] Last Admin: 12/15/16 11:58 Dose: 50 mg Tramadol HCl (Ultram -) 50 mg PO BID [facility] Last Admin: 12/16/16 06:39 Dose: 50 mg Zinc Acetate/Diphenhydramine (Benadryl 2% Cream) 1 applic TP BID [facility] Last Admin: 12/15/16 21:43 Dose: 1 applic - Objective Vital Signs: Vital Signs Temperature 98 F 12/16/16 05:22 Pulse Rate 75 12/16/16 05:22 Respiratory Rate 20 12/16/16 05:22 Blood Pressure 98/57 12/16/16 05:22 O2 Sat by Pulse Oximetry (%) 100 12/15/16 21:00 Constitutional: Yes: Calm Cardiovascular: Yes: Regular Rate and Rhythm, S1, S2 Respiratory: Yes: CTA Bilaterally Gastrointestinal: Yes: Soft Edema: No Neurological: Yes: Alert, Oriented Labs: CBC, BMP 12/15/16 08:00 12/16/16 07:50 INR, PTT INR 1.21 (0.82-1.09) H 12/12/16 18:48 Problem List - Problems (1) Chronic post-traumatic stress disorder (PTSD) Assessment/Plan: appreciate psych input zoloft and risperidol Code(s): F43.12 - POST-TRAUMATIC STRESS DISORDER, CHRONIC (2) Shortness of breath Assessment/Plan: lasix po today Code(s): R06.02 - SHORTNESS OF BREATH (3) CAD (coronary artery disease) Assessment/Plan: statin echo done to get stress test today EF 45% ranexa Code(s): I25.10 - ATHSCL HEART DISEASE OF [place] CORONARY ARTERY W/O ANG PCTRS Qualifiers: (4) Chest pain Assessment/Plan: atypical maybe muscular CR 3 sets negative echo done to get stress today Code(s): R07.9 - CHEST PAIN, UNSPECIFIED Qualifiers: Chest pain type: chest pain on breathing Qualified Code(s): R07.1 - Chest pain on breathing (5) Hyperlipidemia Assessment/Plan: statin LDL is 76 at goal given DM goal < 100 Code(s): E78.5 - HYPERLIPIDEMIA, UNSPECIFIED Qualifiers: Hyperlipidemia type: pure hypercholesterolemia Qualified Code(s): E78.00 - Pure hypercholesterolemia, unspecified; E78.0 - Pure hypercholesterolemia (6) Diabetes Assessment/Plan: hga1v 6.9 per patient she had diabetes many years ago lisa hga1c almost to 7 DM has not resolved will start oral meds metformin and amaryl Code(s): E11.9 - TYPE 2 DIABETES MELLITUS WITHOUT COMPLICATIONS Qualifiers: Diabetes mellitus type: type 2 Diabetes mellitus complication status: without complication Diabetes mellitus property economist insulin use: without alf use Qualified Code(s): E11.9 - Type 2 diabetes mellitus without complications
[2016-12-16] MEDS ORDERED: PT OWN MED DRAWER 7, Y5N ONE (09:47)
[2016-12-16] MEDS: DABIGATRAN ETEXILATE MESYLATE 75 MG CAPSULE PO SCH ×2 (09:48→21:09)
[2016-12-16] MEDS: RANOLAZINE E.R. 500 MG TABLET (FP) PO SCH ×2 (09:48→21:09)
[2016-12-16] MEDS: FUROSEMIDE 40 MG TABLET (FP) PO SCH (09:48)
[2016-12-16] MEDS: SERTRALINE HCL 50 MG TABLET (FP) PO SCH (09:49)
[2016-12-16] MEDS: METOPROLOL SUCCINATE 25 MG TAB.SR.24H (FP) PO SCH (09:49)
--- NOTE | 2016-12-16 10:42 | RAPID ---
Physical Examination Vital Signs: Vital Signs Temperature 98 F 12/16/16 05:22 Pulse Rate 75 12/16/16 05:22 Respiratory Rate 20 12/16/16 05:22 Blood Pressure 98/57 12/16/16 05:22 O2 Sat by Pulse Oximetry (%) 100 12/15/16 21:00 Labs: CBC, BMP 12/15/16 08:00 12/16/16 07:50 Rapid Response - Rapid Response Assessment: RR was called by the cardiology unit. Patient was found unresponsive. Not following any commands. Stat BGm and EKG was done. Blood sugar in 140's and EKG No change from further ekg. CT of head was ordered stat to r/o acute CVA. Stat ABG was ordered. Placed the patient on 2L NC. Patient has no hx of any seizure. ICU was called for possible transfer to ICU. discussed with. On deep tactile stimulus , patient opened her eyes moved her arms. Recommend Neuro consult. Further evaluation by . Critical Care Total Critical Care Time (in minutes): 35 Critical Care Statement: The care of this patient involved high complexity decision making to prevent further life threatening deterioration of the patient 's condition and/or to evalute & treat vital organ system(s) failure or risk of failure.
--- NOTE | 2016-12-16 10:49 | PN ---
Progress Note, Physician Chief Complaint: went down to stress test and became unresponsive ct head done tranfer to tele NPO - Current Medication List Current Medications: Active Medications Acetaminophen (Tylenol -) 650 mg PO Q6H PRN PRN Reason: FEVER OR PAIN Last Admin: 12/14/16 09:23 Dose: 650 mg Atorvastatin Calcium (Lipitor -) 10 mg PO HS [facility] Last Admin: 12/15/16 21:43 Dose: 10 mg Dabigatran (Pradaxa -) 75 mg PO BID [facility] Last Admin: 12/16/16 09:48 Dose: 75 mg Furosemide (Lasix -) 40 mg PO DAILY [facility] Last Admin: 12/16/16 09:48 Dose: Not Given Glimepiride (Amaryl -) 1 mg PO DAILY@0700 [facility] Last Admin: 12/16/16 06:39 Dose: 1 mg Metoprolol Succinate (Toprol Xl -) 25 mg PO DAILY [facility] Last Admin: 12/16/16 09:49 Dose: Not Given Ondansetron HCl (Zofran Odt -) 4 mg SL Q8H PRN PRN Reason: NAUSEA AND/OR VOMITING Ranolazine (Ranexa -) 500 mg PO BID [facility] Last Admin: 12/16/16 09:48 Dose: 500 mg Risperidone (Risperdal -) 1 mg PO HS [facility] Last Admin: 12/15/16 21:42 Dose: 1 mg Sertraline HCl (Zoloft -) 50 mg PO DAILY [facility] Last Admin: 12/16/16 09:49 Dose: 50 mg Tramadol HCl (Ultram -) 50 mg PO BID [facility] Last Admin: 12/16/16 06:39 Dose: 50 mg Zinc Acetate/Diphenhydramine (Benadryl 2% Cream) 1 applic TP BID [facility] Last Admin: 12/15/16 21:43 Dose: 1 applic - Objective Vital Signs: Vital Signs Temperature 98 F 12/16/16 05:22 Pulse Rate 75 12/16/16 05:22 Respiratory Rate 20 12/16/16 05:22 Blood Pressure 98/57 12/16/16 05:22 O2 Sat by Pulse Oximetry (%) 100 12/15/16 21:00 Constitutional: Yes: Other (not opening eyes on sternal rub she moves her head) Cardiovascular: Yes: Regular Rate and Rhythm, S1, S2 Respiratory: Yes: CTA Bilaterally Neurological: Yes: Other (moving her left toes spontanously right hand tremors( which were there before the rapid response) sternal rub moves her left arm) Labs: CBC, BMP 12/15/16 08:00 12/16/16 07:50 INR, PTT INR 1.21 (0.82-1.09) H 12/12/16 18:48 Problem List - Problems (1) Unresponsive episode Assessment/Plan: tele NPO neuro check neuro consult carotid doppler EEG just had echo done yeterday was to get stress today cardio follow up today psych FU as well monitor her breathing status Code(s): R41.89 - OTH SYMPTOMS AND SIGNS W COGNITIVE FUNCTIONS AND AWARENESS (2) Chronic post-traumatic stress disorder (PTSD) Assessment/Plan: appreciate psych input zoloft and risperidol Code(s): F43.12 - POST-TRAUMATIC STRESS DISORDER, CHRONIC (3) Shortness of breath Assessment/Plan: lasix po today Code(s): R06.02 - SHORTNESS OF BREATH (4) CAD (coronary artery disease) Assessment/Plan: statin echo done to get stress test today EF 45% ranexa Code(s): I25.10 - ATHSCL HEART DISEASE OF [place] CORONARY ARTERY W/O ANG PCTRS Qualifiers: (5) Chest pain Assessment/Plan: atypical maybe muscular CR 3 sets negative echo done to get stress today Code(s): R07.9 - CHEST PAIN, UNSPECIFIED Qualifiers: Chest pain type: chest pain on breathing Qualified Code(s): R07.1 - Chest pain on breathing (6) Hyperlipidemia Assessment/Plan: statin LDL is 76 at goal given DM goal < 100 Code(s): E78.5 - HYPERLIPIDEMIA, UNSPECIFIED Qualifiers: Hyperlipidemia type: pure hypercholesterolemia Qualified Code(s): E78.00 - Pure hypercholesterolemia, unspecified; E78.0 - Pure hypercholesterolemia (7) Diabetes Assessment/Plan: hga1v 6.9 per patient she had diabetes many years ago lisa hga1c almost to 7 DM has not resolved will start oral meds metformin and amaryl Code(s): E11.9 - TYPE 2 DIABETES MELLITUS WITHOUT COMPLICATIONS Qualifiers: Diabetes mellitus type: type 2 Diabetes mellitus complication status: without complication Diabetes mellitus halfway insulin use: without tank terminal gauger use Qualified Code(s): E11.9 - Type 2 diabetes mellitus without complications
--- NOTE | 2016-12-16 11:25 | CONSULT ---
Admitting History and Physical - Primary Care Physician PCP: Shayna Guadalupe - Admission History of Present Illness: Admision note EMR History of Present Illness: "71yo pleasant female with h/o HTN, paroxysmal atrial fibrillation on anticoagulation, LV diastolic dysfunction, COPD, GERD, Cardiac cath 2015? schizophrenia who presents with left sided chest pain radiating to her left arm and shortness of breath that started 1 day ago. Chest pain described as pressure like on the anterior, radiating to back and left shoulder. Pain associated with shortness of breath without nausea, vomiting or diaphoresis. No fevers, chills or sweats. Dry cough without wheezing. No sick contacts or recent travel. Patient complains of pain worsening on deep inspiration." Today, pt went down for stress test and became unresponsive. 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: Other (benign essential tremor) Cardiovascular: Yes: AFIB, CAD, CHF, HTN, Hyperlipdemia Gastrointestinal: Yes: Diverticulosis, GERD, Hiatal Hernia, Other (h/o sbo and ventral hernia 3 yrs ago) Psych: Yes: Schizophrenia (schizoaffective ds seen by psychiatry periodically) Musculoskeletal: Yes: Chronic low back pain, Osteoarthritis Endocrine: Yes: Diabetes Mellitus - Past Surgical History Past Surgical History: Yes: Colonoscopy (h/o polyps, divosis 2008 and 2010), Hernia Repair (ventral hernia repair 3 yrs ago), Hysterectomy, Joint Replacement (right knee), Tonsillectomy, Upper Endoscopy (2010 and 2008, hh, gastric im) - Smoking History Smoking history: Never smoked (SECOND HAND SMOKING EXPOSURE S) Have you smoked in the past 12 months: No Aproximately how many cigarettes per day: 0 - Alcohol/Substance Use Hx Alcohol Use: No History of Substance Use: reports: None - Social History ADL: Support Services History of Recent Travel: No History - Admission Reason For Visit: SHORTNESS OF BREATH, DIABETES MELLITIS, COUGH - Diagnostics X-ray: Report Reviewed (CXR mod cardiomegaly, (-) acute lung disease.) CT Scan: Report Reviewed ((-)) - General Mental Status: Alert and Oriented, Awake and Alert, Able to Follow Commands Attention: Intact Ability to Follow Directions: Excellent Head/Neck Control: WFL - Hearing Hearing: Impaired Hearing Aide: Yes With Patient: Yes Speech Evaluation - Communication Primary Language: [place] Communication: Yes: Within Normal Limits Oral Expression Ability: Yes: No Impairment - Speech Production Able to Make Needs Known: Yes: WNL Intelligibility: Yes: WNL - Speech Characteristics Voice Loudness: Normal Voice Pitch: Yes: Normal Voice Phonatory-based Quality: Yes: Normal Speech Pattern: Normal Speech Clarity: < 100% Nasal Resonance: Normal Articulation: Yes: Precise - Language/Auditory Comprehension Follows: Yes: 2 Stage Simple Commands Observation: Able to respond to yes/no queries: Yes, Yes/No Confusion: No, Comprehends Conversational Speech: Yes - Language/Verbal Expression Able to Respond to Simple Queries: Yes: WNL Able to Communicate Wants and Needs: Yes: WNL Functional Communication Status: Yes: WNL - Memory/Perception senior care Memory: Yes: WNL Short Term Memory: Yes: WNL - Swallow Evaluation/Bedside Assessment Current Nutritional Intake: NPO Oral Secretions: Yes: WFL Dentition: Yes: Adequate Lingual Movement: Symmetric Lingual Speed of Movement: Normal Lingual Movement Strgth Against Opposition: Normal Lingual Movement Characteristics: Normal Laryngeal Elevation: WFL Laryngeal Movement: Able to Palpate Rate of Intake: WFL Bolus Size: WFL Labial Seal: WFL Chewing: WFL Oral Prep Time: WFL A-P Transit: WFL Timing of Swallow: WFL Coughing/Throat Clear: No Change in Voice: No Recommendations - Speech Evaluation, Impression/Plan Impression: Speech and language function, cognition and swallowing WNL at this time. - Dysphagia Impressions/Plan Swallowing Skills: WFL Dysphagia Impressions: No Impairment *Silent aspiration: cannot be R/O at bedside Recommendations: Other (Monitor PO tolerance) - Recommendations Diet Consistency: Regular Medication Administration: Whole with water Liquids: Thin Liquids
--- NOTE | 2016-12-16 11:39 | CONSULT ---
Consult - text type - Consultation Consultation Note: Neurology Patient is a 71 year old female with significant medical hx of COPD/Asthma, CHF , AFib (cardiac catheterization 2010), HTN, polyps, diverticulitis, GERD, anemia , and schizophrenia, who is presented to the ED with shortness of breath and dry cough. She underwent work up for chest pain as well and was scheduled for discharge and suddenly developed diminished mental status and non- responsiveness. Rapid response called, Dr. Corral asked me to see patient and she was transferred to telemetry. SHe remains obtunded and not following commands but seems to maintain her tone. Will not respond to verbal communication. Past History - Past Medical History Anemia: Yes Asthma: Yes Cancer: No Cardiac Disorders: Yes (atrial fibrillation, CARDIAC CATH 2010-NORMAL) CVA: No COPD: Yes CHF: No Dementia: Yes Diabetes: Yes Dialysis: Yes GI Disorders: Yes (POLYPS; DIVERTICULOSIS; GERD) Disorders: No HTN: Yes Hypercholesterolemia: Yes Liver Disease: No Psychiatric Problems: Yes (schizophrenia) Suicide Attempt (Hx): No Seizures: No Thyroid Disease: No - Surgical History Abdominal Surgery: Yes (intestinal blockage 2010; HIATAL HERNIA;) Appendectomy: No Cardiac Surgery: No Cholecystectomy: No Lung Surgery: No Neurologic Surgery: Yes (UPPER BACK SX) Orthopedic Surgery: Yes (R. Knee replacement 2010) - Immunization History Immunization Up to Date: Yes - Psycho/Social/Smoking Cessation Hx Anxiety: No Suicidal Ideation: No Smoking Status: No Smoking History: Never smoked Have you smoked in the past 12 months: No Number of Cigarettes Smoked Daily: 0 Hx Alcohol Use: No Drug/Substance Use Hx: No Substance Use Type: Alcohol Hx Substance Use Treatment: No (12 steps) - Past Medical History Allergies/Adverse Reactions: Allergies Allergy/AdvReac Type Severity Reaction Status Date / Time No Known Drug Allergies Allergy Verified 12/12/16 18:19 lactose [Lactose] AdvReac Verified 12/12/16 18:19 Home Medications: Ambulatory Orders Ferrous Sulfate 325 mg PO DAILY 12/12/16 Furosemide [Lasix -] 20 mg PO DAILY 12/12/16 Risperidone 1 mg PO HS 12/12/16 Sertraline HCl 50 mg PO DAILY 12/12/16 Review of Systems CONSTITUTIONAL: Absent: fever, chills, diaphoresis, generalized weakness, malaise, loss of appetite HEENT: Absent: rhinorrhea, nasal congestion, throat pain, throat swelling, difficulty swallowing, mouth swelling, ear pain, eye pain, visual changes CARDIOVASCULAR: Absent: chest pain, syncope, palpitations, irregular heart rate, lightheadedness , peripheral edema RESPIRATORY: Present: shortness of breath, dry cough Absent: dyspnea with exertion, orthopnea, wheezing, stridor, hemoptysis GASTROINTESTINAL: Absent: abdominal pain, abdominal distension, nausea, vomiting, diarrhea, constipation, melena, hematochezia GENITOURINARY: Absent: dysuria, frequency, urgency, hesitancy, hematuria, flank pain, genital pain MUSCULOSKELETAL: Absent: myalgia, arthralgia, joint swelling SKIN: Absent: rash, itching, pallor HEMATOLOGIC/IMMUNOLOGIC: Absent: easy bleeding, easy bruising, lymphadenopathy, frequent infections ENDOCRINE: Absent: unexplained weight gain, unexplained weight loss, heat intolerance, cold intolerance NEUROLOGIC: Absent: headache, focal weakness or paresthesia, dizziness, unsteady gait, seizure, mental status changes, bladder or bowel incontinence. PSYCHIATRIC: Absent: anxiety, depression, suicidal or homicidal ideation, hallucinations *Physical Exam Vital Signs Temperature 98 F 12/16/16 05:22 Pulse Rate 75 12/16/16 05:22 Respiratory Rate 20 12/16/16 05:22 Blood Pressure 98/57 12/16/16 05:22 O2 Sat by Pulse Oximetry (%) 100 12/15/16 21:00 GENERAL: Well developed, well nourished. Awake and alert. No acute distress. HEENT: Normocephalic, atraumatic. PERRLA, EOMI. No conjunctival pallor. Sclera are non- icteric. Moist mucous membranes. Oropharynx is clear. NECK: Supple. Full ROM. No JVD. Carotid pulses 2+ and symmetric, without bruits. No thyromegaly. No lymphadenopathy. CARDIOVASCULAR: Regular rate and rhythm. No murmurs, rubs, or gallops. Distal pulses are 2+ and symmetric. PULMONARY: No evidence of respiratory distress. Lungs clear to auscultation bilaterally. No wheezing, rales or rhonchi. ABDOMINAL: Soft. Non-tender. Non-distended. No rebound or guarding. No organomegaly. Normoactive bowel sounds. MUSCULOSKELETAL: Normal range of motion at all joints. No bony deformities or tenderness. No CVA tenderness. EXTREMITIES: No cyanosis. No clubbing. No edema. No calf tenderness. SKIN: Warm and dry. Normal capillary refill. No rashes. No jaundice. NEUROLOGICAL: Alert, awake, appropriate. Cranial nerves 2-12 intact. Normal speech. PSYCHIATRIC: Cooperative. Good eye contact. Appropriate mood and affect. CBCD WBC 5.9 K/mm3 (4.0-10.0) 12/15/16 08:00 RBC 4.16 M/mm3 (3.60-5.2) 12/15/16 08:00 Hgb 11.4 GM/dL (10.7-15.3) 12/15/16 08:00 Hct 35.0 % (32.4-45.2) 12/15/16 08:00 MCV 84.2 fl (80-96) 12/15/16 08:00 MCHC 32.5 g/dl (32.0-36.0) 12/15/16 08:00 RDW 15.2 % (11.6-15.6) 12/15/16 08:00 Plt Count 282 K/MM3 (134-434) 12/15/16 08:00 MPV 8.5 fl (7.5-11.1) 12/15/16 08:00 CMP Sodium 140 mmol/L (136-145) 12/16/16 07:50 Potassium 4.0 mmol/L (3.5-5.1) 12/16/16 07:50 Chloride 100 mmol/L (98-107) 12/16/16 07:50 Carbon Dioxide 33 mmol/L (21-32) H 12/16/16 07:50 Anion Gap 7 (8-16) L 12/16/16 07:50 BUN 20 mg/dL (7-18) H 12/16/16 07:50 Creatinine 0.9 mg/dL (0.55-1.02) 12/16/16 07:50 Creat Clearance w eGFR > 60 (>60) 12/16/16 07:50 Calcium 8.9 mg/dL (8.5-10.1) 12/16/16 07:50 Total Bilirubin 0.3 mg/dL (0.2-1.0) D 12/16/16 07:50 AST 11 U/L (15-37) L 12/16/16 07:50 ALT 14 U/L (12-78) 12/16/16 07:50 Alkaline Phosphatase 93 U/L (45-117) 12/16/16 07:50 Total Protein 6.8 g/dl (6.4-8.2) 12/16/16 07:50 Albumin 3.2 g/dl (3.4-5.0) L 12/16/16 07:50 - RADIOLOGY Radiograph Interpretation: CT head: No acute changes PLan 71 year old female with significant medical hx of COPD/Asthma, CHF, AFib ( cardiac catheterization 2010), HTN, polyps, diverticulitis, GERD, anemia, and schizophrenia, who is presented to the ED with shortness of breath and dry cough. She underwent work up for chest pain as well and was scheduled for discharge and suddenly developed diminished mental status and non- responsiveness. Rapid response called, Dr. Corral asked me to see patient and she was transferred to telemetry. SHe remains obtunded and not following commands but seems to maintain her tone. Will not respond to verbal communication. Question of psychogenic/conversion disorder. Vital signs stable and imaging normal. Continue medical mgmt, hydration, pysch being consulted by PCP. Dr. Gilmore on this weekend if further questions, I will be back Monday.
[2016-12-16 11:54] LABS: ARTERIAL BLD GAS O2 SATURATION 98.8 % (90-98.9); ARTERIAL BLOOD GAS BASE EXCESS 3.9 meq/l (-2-2); ARTERIAL BLOOD GAS HCO3 29.5 meq/L (22-26); ARTERIAL BLOOD GAS pH 7.38 (7.35-7.45)
[2016-12-16 11:55] LABS: ALLENS TEST POSITIVE; ART PUNCT SITE LEFT RADIAL; LPM/O2% 3L; PT. ON O2? YES
[2016-12-16 11:56] LABS: TYPE OF O2 NASAL CANNULA
--- NOTE | 2016-12-16 12:29 | PN ---
Progress Note, Physician History of Present Illness: PULMONARY EARLIER EVENTS NOTED,S/P EPISODE OF UNRESPONSIVENESS,CURRENTLY AWAKE,-C/O CP ,- SOB,+DRY COUGH. AGB ,ACUTE HYPERCAPNEIC RESPIRATORY FAILURE PCO2 5O.8 - Current Medication List Current Medications: Active Medications Acetaminophen (Tylenol -) 650 mg PO Q6H PRN PRN Reason: FEVER OR PAIN Last Admin: 12/14/16 09:23 Dose: 650 mg Atorvastatin Calcium (Lipitor -) 10 mg PO [facility] Last Admin: 12/15/16 21:43 Dose: 10 mg Dabigatran (Pradaxa -) 75 mg PO BID [facility] Last Admin: 12/16/16 09:48 Dose: 75 mg Furosemide (Lasix -) 40 mg PO DAILY [facility] Last Admin: 12/16/16 09:48 Dose: Not Given Glimepiride (Amaryl -) 1 mg PO DAILY@0700 [facility] Last Admin: 12/16/16 06:39 Dose: 1 mg Metoprolol Succinate (Toprol Xl -) 25 mg PO DAILY [facility] Last Admin: 12/16/16 09:49 Dose: Not Given Ondansetron HCl (Zofran Odt -) 4 mg SL Q8H PRN PRN Reason: NAUSEA AND/OR VOMITING Ranolazine (Ranexa -) 500 mg PO BID [facility] Last Admin: 12/16/16 09:48 Dose: 500 mg Risperidone (Risperdal -) 1 mg PO [facility] Last Admin: 12/15/16 21:42 Dose: 1 mg Sertraline HCl (Zoloft -) 50 mg PO DAILY [facility] Last Admin: 12/16/16 09:49 Dose: 50 mg Tramadol HCl (Ultram -) 50 mg PO BID PRN PRN Reason: PAIN Stop: 12/18/16 10:01 - Objective Vital Signs: Vital Signs Temperature 98 F 12/16/16 05:22 Pulse Rate 75 12/16/16 05:22 Respiratory Rate 20 12/16/16 05:22 Blood Pressure 98/57 12/16/16 05:22 O2 Sat by Pulse Oximetry (%) 100 12/15/16 21:00 Constitutional: Yes: Well Nourished, Calm Eyes: Yes: WNL HENT: Yes: WNL Neck: Yes: WNL Cardiovascular: Yes: Pulse Irregular, S1, S2 Respiratory: Yes: Diminished Gastrointestinal: Yes: Normal Bowel Sounds, Soft Extremities: Yes: WNL Edema: No Labs: CBC, BMP 12/15/16 08:00 12/16/16 07:50 INR, PTT INR 1.21 (0.82-1.09) H 12/12/16 18:48 Laboratory Tests 12/16/16 11:37 ABG pH 7.38 ABG pCO2 at Pt Temp 50.8 H ABG pO2 at Pt Temp 142.0 H ABG HCO3 29.5 H ABG O2 Sat (Measured) 98.8 Problem List - Problems (1) Cough Code(s): R05 - COUGH (2) Shortness of breath Code(s): R06.02 - SHORTNESS OF BREATH (3) Unresponsive episode Code(s): R41.89 - OTH SYMPTOMS AND SIGNS W COGNITIVE FUNCTIONS AND AWARENESS (4) Atrial fibrillation Code(s): I48.91 - UNSPECIFIED ATRIAL FIBRILLATION Qualifiers: Atrial fibrillation type: chronic Qualified Code(s): I48.2 - Chronic atrial fibrillation (5) Chest pain Code(s): R07.9 - CHEST PAIN, UNSPECIFIED Qualifiers: Chest pain type: chest pain on breathing Qualified Code(s): R07.1 - Chest pain on breathing (6) Hyperlipidemia Code(s): E78.5 - HYPERLIPIDEMIA, UNSPECIFIED Qualifiers: Hyperlipidemia type: pure hypercholesterolemia Qualified Code(s): E78.00 - Pure hypercholesterolemia, unspecified; E78.0 - Pure hypercholesterolemia (7) HTN (hypertension) Code(s): I10 - ESSENTIAL (PRIMARY) HYPERTENSION Qualifiers: Hypertension type: essential hypertension Qualified Code(s): I10 - Essential (primary) hypertension (8) Mitral regurgitation Code(s): I34.0 - NONRHEUMATIC MITRAL (VALVE) INSUFFICIENCY (9) Obesity Code(s): E66.9 - OBESITY, UNSPECIFIED (10) Schizoaffective disorder Code(s): F25.9 - SCHIZOAFFECTIVE DISORDER, UNSPECIFIED (11) Acute respiratory failure with hypercapnia Code(s): J96.02 - ACUTE RESPIRATORY FAILURE WITH HYPERCAPNIA Assessment/Plan Problem List - Problems (1) Chest pain Code(s): R07.9 - CHEST PAIN, UNSPECIFIED (2) Cough Code(s): R05 - COUGH (3) Atrial fibrillation Code(s): I48.91 - UNSPECIFIED ATRIAL FIBRILLATION Qualifiers: (4) HTN (hypertension) Code(s): I10 - ESSENTIAL (PRIMARY) HYPERTENSION Qualifiers: Hypertension type: essential hypertension Qualified Code(s): I10 - Essential (primary) hypertension (5) Mitral regurgitation Code(s): I34.0 - NONRHEUMATIC MITRAL (VALVE) INSUFFICIENCY 6 ACUTE HYPOXEMIC RESPIRATORY FAILURE 7 UNRESPONSIVENESS ? ETIOLOGY Assessment/Plan Atypical Chest Pain Suspect musculoskeletal Atrial Fibrillation COPD LV diastolic dysfunction Moderate Mitral Regurgitation Acute hypercapneic respiratory failure Unresponsiveness ,altered mental status improved - pain control - trend cardiac enzymes - inhaled bronchodilators - O2 as needed - rate controlled - anticoagulation - outpt PFTs - neuro workup - inhaled bronchodilators - f/u abg DR OG
--- NOTE | 2016-12-16 13:41 | PN ---
Progress Note, Physician Chief Complaint: Lying flat in bed comfortable History of Present Illness: 71 year old female with a pmhx of copd, psychiatric d/o, anemia, afib on pradaxa , diastolic chf, and nonobstructive cad 08/2015 on cath as per chart presents with chest pain. Patient c/o dry cough along with b/l back and anterior chest pain. Pain seems to be associated with inspiration. Denies any pain on exertion. No palpitations. Some mild pnd and ankle edema which seems to have resolved. Question medication compliance. - Current Medication List Current Medications: Active Medications Acetaminophen (Tylenol -) 650 mg PO Q6H PRN PRN Reason: FEVER OR PAIN Last Admin: 12/14/16 09:23 Dose: 650 mg Atorvastatin Calcium (Lipitor -) 10 mg PO [facility] Last Admin: 12/15/16 21:43 Dose: 10 mg Dabigatran (Pradaxa -) 75 mg PO BID [facility] Last Admin: 12/16/16 09:48 Dose: 75 mg Furosemide (Lasix -) 40 mg PO DAILY [facility] Last Admin: 12/16/16 09:48 Dose: Not Given Glimepiride (Amaryl -) 1 mg PO DAILY@0700 [facility] Last Admin: 12/16/16 06:39 Dose: 1 mg Metoprolol Succinate (Toprol Xl -) 25 mg PO DAILY [facility] Last Admin: 12/16/16 09:49 Dose: Not Given Ondansetron HCl (Zofran Odt -) 4 mg SL Q8H PRN PRN Reason: NAUSEA AND/OR VOMITING Ranolazine (Ranexa -) 500 mg PO BID [facility] Last Admin: 12/16/16 09:48 Dose: 500 mg Risperidone (Risperdal -) 1 mg PO [facility] Last Admin: 12/15/16 21:42 Dose: 1 mg Sertraline HCl (Zoloft -) 50 mg PO DAILY [facility] Last Admin: 12/16/16 09:49 Dose: 50 mg Tramadol HCl (Ultram -) 50 mg PO BID PRN PRN Reason: PAIN Stop: 12/18/16 10:01 - Objective Vital Signs: Vital Signs Temperature 98 F 12/16/16 05:22 Pulse Rate 74 12/16/16 10:00 Respiratory Rate 20 12/16/16 05:22 Blood Pressure 136/72 12/16/16 10:05 O2 Sat by Pulse Oximetry (%) 97 12/16/16 09:00 Constitutional: Yes: No Distress Cardiovascular: Yes: Regular Rate and Rhythm, S1, S2. No: JVD, Murmur Respiratory: Yes: CTA Bilaterally Gastrointestinal: Yes: Normal Bowel Sounds, Soft Edema: No Labs: CBC, BMP 12/15/16 08:00 12/16/16 07:50 INR, PTT INR 1.21 (0.82-1.09) H 12/12/16 18:48 Problem List - Problems (1) Atrial fibrillation Code(s): I48.91 - UNSPECIFIED ATRIAL FIBRILLATION Qualifiers: Atrial fibrillation type: chronic Qualified Code(s): I48.2 - Chronic atrial fibrillation (2) CAD (coronary artery disease) Code(s): I25.10 - ATHSCL HEART DISEASE OF [place] CORONARY ARTERY W/O ANG PCTRS Qualifiers: (3) Chest pain Code(s): R07.9 - CHEST PAIN, UNSPECIFIED Qualifiers: Chest pain type: chest pain on breathing Qualified Code(s): R07.1 - Chest pain on breathing Assessment/Plan 71 year old female with a pmhx of copd, psychiatric d/o, anemia, afib on pradaxa , diastolic chf, and nonobstructive cad 08/2015 on cath as per chart presents with chest pain. Patient c/o dry cough along with b/l back and anterior chest pain. Pain seems to be associated with inspiration. Denies any pain on exertion. No palpitations. Some mild pnd and ankle edema which seems to have resolved. Question medication compliance. Patient was seen this morning prior to episode of unresponsiveness. 1) Chest pain - is atypical in nature and worse with inspiration. BP stable and equal in upper ext. O2 sat normal EKG on presentation with no acute ST changes CE's negative -Cath done little over a year ago with nonobs CAD as per chart Echocardiogram with mildly decreased LVEF 49%. Metoprolol 25mg XL 2) Acute on chronic diastolic chf - Furosemide 40mg PO daily 3) Afib -On metoprolol On pradaxa. Unclear why patient had episode of unresponsiveness as per chart/notes. Would hold off on stress test until this is clarified. Also patient is on pradaxa but is on lower renal dosing but here her cr clearance is normal. If no thought as to any neuro event/bleed than would further look into why she is on lower dose and adjust if no reason is found. Follow up with neuro regarding any further work up needed.
--- NOTE | 2016-12-16 14:39 | CON.PSY ---
Psychiatry Consult Chief Complaint: I am stable mentally, I hjave a heart problems. I have my own psychiatrist. - Previous Psychiatric Treatment Outpatient: Less than 6 mos ago Inpatient: 2 or more prior admissions - Previous Substance Abuse Treatment Outpatient: None Inpatient: None - Reason for Previous Treatment Reason for Previous Treatment: Psychotic Episode - Current Medications Current Medications: Active Medications Acetaminophen (Tylenol -) 650 mg PO Q6H PRN PRN Reason: FEVER OR PAIN Last Admin: 12/14/16 09:23 Dose: 650 mg Atorvastatin Calcium (Lipitor -) 10 mg PO [facility] Last Admin: 12/15/16 21:43 Dose: 10 mg Dabigatran (Pradaxa -) 75 mg PO BID [facility] Last Admin: 12/16/16 09:48 Dose: 75 mg Furosemide (Lasix -) 40 mg PO DAILY [facility] Last Admin: 12/16/16 09:48 Dose: Not Given Glimepiride (Amaryl -) 1 mg PO DAILY@0700 [facility] Last Admin: 12/16/16 06:39 Dose: 1 mg Metoprolol Succinate (Toprol Xl -) 25 mg PO DAILY [facility] Last Admin: 12/16/16 09:49 Dose: Not Given Ondansetron HCl (Zofran Odt -) 4 mg SL Q8H PRN PRN Reason: NAUSEA AND/OR VOMITING Ranolazine (Ranexa -) 500 mg PO BID [facility] Last Admin: 12/16/16 09:48 Dose: 500 mg Risperidone (Risperdal -) 1 mg PO [facility] Last Admin: 12/15/16 21:42 Dose: 1 mg Sertraline HCl (Zoloft -) 50 mg PO DAILY [facility] Last Admin: 12/16/16 09:49 Dose: 50 mg Tramadol HCl (Ultram -) 50 mg PO BID PRN PRN Reason: PAIN Stop: 12/18/16 10:01 - Allergies Allergies: Allergies Allergy/AdvReac Type Severity Reaction Status Date / Time No Known Drug Allergies Allergy Verified 12/12/16 18:19 lactose [Lactose] AdvReac Verified 12/12/16 18:19 - Current Living Status Usual Living Arrangement: Alone - Current Mental Status Evaluation Appearance: Well Groomed Attitude: Cooperative - Affect Affect: Full Range Appropriateness: Appropriate to Content - Mood Mood: Euthymic - Speech/Language Expressive: Coherent - Psychomotor Activity Psychomotor Activity: Normal - Thought Process Thought Process: Intact - Thought Content Hallucinations: Absent Delusions: Absent - Self Perception Self Perception: No Impairment - Cognition Attention: Alert Orientation: Time Memory, Immediate Recall: Intact Memory, Short Term: 2/3 Memory, Remote with Promptin/3 - Concentration Serial Sevens Intact: No Simple Calculations Intact: No - Abstraction Proverb Interpretation: Intact Judgement: Intact - Insight Insight: Intact - Impulse Control Impulse Control: Good Control - Suicidal Ideation Suicidal Ideation: No - Homicidal Ideation Homicidal Ideation: No Assessment/Plan 1) Continue with [facility] psych meds. 2) Will return to her psych clinic after discharge.
--- NOTE | 2016-12-16 15:16 | CON.CARD ---
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: Other (benign essential tremor) Cardio/Vascular: Yes: AFIB, CAD, CHF, HTN, Hyperlipdemia Gastrointestinal: Yes: Diverticulosis, GERD, Hiatal Hernia, Other (h/o sbo and ventral hernia 3 yrs ago) Psych: Yes: Schizophrenia (schizoaffective ds seen by psychiatry periodically) Musculoskeletal: Yes: Chronic low back pain, Osteoarthritis Endocrine: Yes: Diabetes Mellitus - Past Surgical History Past Surgical History: Yes: Colonoscopy (h/o polyps, divosis 2008 and 2010), Hernia Repair (ventral hernia repair 3 yrs ago), Hysterectomy, Joint Replacement (right knee), Tonsillectomy, Upper Endoscopy (2010 and 2008, [facility], gastric im) - Alcohol/Substance Use Hx Alcohol Use: No History of Substance Use: reports: None - Smoking History Smoking history: Never smoked (SECOND HAND SMOKING EXPOSURE S) Have you smoked in the past 12 months: No Aproximately how many cigarettes per day: 0 - Social History Usual Living Arrangement: Alone ADL: Support Services History of Recent Travel: No Home Medications - Allergies Allergies/Adverse Reactions: Allergies Allergy/AdvReac Type Severity Reaction Status Date / Time No Known Drug Allergies Allergy Verified 12/12/16 18:19 lactose [Lactose] AdvReac Verified 12/12/16 18:19 - Home Medications Home Medications: Ambulatory Orders Ferrous Sulfate 325 mg PO DAILY 12/12/16 Furosemide [Lasix -] 20 mg PO DAILY 12/12/16 Risperidone 1 mg PO HS 12/12/16 Sertraline HCl 50 mg PO DAILY 12/12/16 Dabigatran Etexilate Mesylate [Pradaxa -] 75 mg PO BID 12/13/16 Diltiazem HCl [Cardizem LA] 120 mg PO DAILY 12/13/16 Family Disease History - Family Disease History Family Disease History: Diabetes: Brother, Heart Disease: Father (hx stroke, ), CA: Mother (colon cancer - ) Review of Systems - Review of Systems Constitutional: reports: No Symptoms Vital Signs: Vital Signs Temperature 98.2 F 12/16/16 14:00 Pulse Rate 83 12/16/16 14:00 Respiratory Rate 20 12/16/16 14:00 Blood Pressure 94/42 12/16/16 14:00 O2 Sat by Pulse Oximetry (%) 97 12/16/16 09:00 Constitutional: Yes: No Distress Respiratory: Yes: CTA Bilaterally, Diminished - Other Data Labs, Other Data: CBC, BMP 12/15/16 08:00 12/16/16 07:50 INR, PTT INR 1.21 (0.82-1.09) H 12/12/16 18:48
[2016-12-16] MEDS: ATORVASTATIN CA 10 MG TABLET (FP) PO SCH (21:09)
[2016-12-16] MEDS: traMADol HCL 50 MG TABLET PO PRN (21:13)
[2016-12-16] MEDS: risperiDONE 1 MG TABLET (FP) PO SCH (22:15)
[2016-12-17] MEDS: GLIMEPIRIDE 1 MG TABLET (FP) PO SCH (06:15)
[2016-12-17 08:13] LABS: ALBUMIN 3.2 g/dl (3.4-5.0); ANION GAP 9 (8-16); CALCIUM 8.8 mg/dL (8.5-10.1); CO2 29 mmol/L (21-32); CREATININE 0.8 mg/dL (0.55-1.02); GLUCOSE,RANDOM 100 mg/dL (74-106); SGOT/AST 12 U/L (15-37); SGPT/ALT 14 U/L (12-78)
[2016-12-17 08:17] LABS: ALK PHOS 95 U/L (45-117); BILIRUBIN,TOTAL 0.3 mg/dL (0.2-1.0); TOT PROT 6.9 g/dl (6.4-8.2); TROPONIN I < 0.02 ng/ml (0.00-0.05)
[2016-12-17] MEDS: SERTRALINE HCL 50 MG TABLET (FP) PO SCH (10:29)
[2016-12-17] MEDS: DABIGATRAN ETEXILATE MESYLATE 75 MG CAPSULE PO SCH ×2 (10:29→22:24)
[2016-12-17] MEDS: FUROSEMIDE 40 MG TABLET (FP) PO SCH (10:29)
[2016-12-17] MEDS: RANOLAZINE E.R. 500 MG TABLET (FP) PO SCH ×2 (10:29→22:24)
[2016-12-17] MEDS: traMADol HCL 50 MG TABLET PO PRN (10:30)
[2016-12-17] MEDS: METOPROLOL SUCCINATE 25 MG TAB.SR.24H (FP) PO SCH (10:31)
--- NOTE | 2016-12-17 15:36 | EKG ---
Test Reason : Blood Pressure : / mmHG Vent. Rate : 068 BPM Atrial Rate : 068 BPM P-R Int : 208 ms QRS Dur : 092 ms QT Int : 394 ms P-R-T Axes : 086 -46 098 degrees QTc Int : 418 ms SINUS RHYTHM WITH PREMATURE ATRIAL COMPLEXES LEFT AXIS DEVIATION LEFT VENTRICULAR HYPERTROPHY WITH REPOLARIZATION ABNORMALITY ABNORMAL ECG WHEN COMPARED WITH ECG OF 12-DEC-2016 18:11, NO SIGNIFICANT CHANGE WAS FOUND Confirmed by NIEVES REYEZ, ALEX ([id number]) on 12/17/2016 3:36:35 PM Referred By: Confirmed By:ALEX PICKETT MD
--- NOTE | 2016-12-17 17:43 | PN ---
Progress Note, Physician Chief Complaint: AWAKE ALERT HOWEVER SHE IS ACTING PARANOID AND SUSPICIOUS - Current Medication List Current Medications: Active Medications Acetaminophen (Tylenol -) 650 mg PO Q6H PRN PRN Reason: FEVER OR PAIN Last Admin: 12/14/16 09:23 Dose: 650 mg Atorvastatin Calcium (Lipitor -) 10 mg PO HS [facility] Last Admin: 12/16/16 21:09 Dose: 10 mg Dabigatran (Pradaxa -) 75 mg PO BID [facility] Last Admin: 12/17/16 10:29 Dose: 75 mg Furosemide (Lasix -) 40 mg PO DAILY [facility] Last Admin: 12/17/16 10:29 Dose: 40 mg Glimepiride (Amaryl -) 1 mg PO DAILY@0700 [facility] Last Admin: 12/17/16 06:15 Dose: 1 mg Metoprolol Succinate (Toprol Xl -) 25 mg PO DAILY [facility] Last Admin: 12/17/16 10:31 Dose: 25 mg Ondansetron HCl (Zofran Odt -) 4 mg SL Q8H PRN PRN Reason: NAUSEA AND/OR VOMITING Ranolazine (Ranexa -) 500 mg PO BID [facility] Last Admin: 12/17/16 10:29 Dose: 500 mg Risperidone (Risperdal -) 1 mg PO HS [facility] Last Admin: 12/16/16 22:15 Dose: 1 mg Sertraline HCl (Zoloft -) 50 mg PO DAILY [facility] Last Admin: 12/17/16 10:29 Dose: 50 mg Tramadol HCl (Ultram -) 50 mg PO BID PRN PRN Reason: PAIN Stop: 12/18/16 10:01 Last Admin: 12/17/16 10:30 Dose: 50 mg - Objective Vital Signs: Vital Signs Temperature 98.2 F 12/17/16 14:35 Pulse Rate 77 12/17/16 14:35 Respiratory Rate 20 12/17/16 14:35 Blood Pressure 115/61 12/17/16 14:35 O2 Sat by Pulse Oximetry (%) 99 12/17/16 10:00 Constitutional: Yes: Mild Distress Eyes: Yes: WNL HENT: Yes: WNL Neck: Yes: WNL Cardiovascular: Yes: WNL Respiratory: Yes: WNL Gastrointestinal: Yes: WNL Genitourinary: Yes: WNL Musculoskeletal: Yes: WNL Extremities: Yes: WNL Edema: No Peripheral Pulses WNL: Yes Integumentary: Yes: WNL Wound/Incision: Yes: Clean/Dry Neurological: Yes: WNL ...Motor Strength: WNL Psychiatric: Yes: Agitated, Other Labs: CBC, BMP 12/15/16 08:00 12/17/16 05:42 INR, PTT INR 1.21 (0.82-1.09) H 12/12/16 18:48 Problem List - Problems (1) Acute respiratory failure with hypercapnia Code(s): J96.02 - ACUTE RESPIRATORY FAILURE WITH HYPERCAPNIA (2) Chronic post-traumatic stress disorder (PTSD) Code(s): F43.12 - POST-TRAUMATIC STRESS DISORDER, CHRONIC (3) Shortness of breath Code(s): R06.02 - SHORTNESS OF BREATH (4) Atrial fibrillation Code(s): I48.91 - UNSPECIFIED ATRIAL FIBRILLATION Qualifiers: Atrial fibrillation type: chronic Qualified Code(s): I48.2 - Chronic atrial fibrillation Assessment/Plan PSYCHIATRY EVAL THERE IS A PSYCHOGENIC COMPONENT TO HER SX 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
[2016-12-17] MEDS ORDERED: PT OWN MED DRAWER 7, Y5N ONE (21:09)
[2016-12-17] MEDS: risperiDONE 1 MG TABLET (FP) PO SCH (22:24)
[2016-12-17] MEDS: ATORVASTATIN CA 10 MG TABLET (FP) PO SCH (22:24)
[2016-12-18] MEDS: GLIMEPIRIDE 1 MG TABLET (FP) PO SCH (06:33)
[2016-12-18 07:44] VITALS: BP 124/53; PULSE 77; TEMP 98
[2016-12-18] MEDS ORDERED: PT OWN MED DRAWER 7, Y5N ONE ×2 (08:24→09:24)
[2016-12-18] MEDS: RANOLAZINE E.R. 500 MG TABLET (FP) PO SCH (09:20)
[2016-12-18] MEDS: METOPROLOL SUCCINATE 25 MG TAB.SR.24H (FP) PO SCH (09:20)
[2016-12-18] MEDS: FUROSEMIDE 40 MG TABLET (FP) PO SCH (09:20)
[2016-12-18] MEDS: SERTRALINE HCL 50 MG TABLET (FP) PO SCH (09:20)
[2016-12-18] MEDS: DABIGATRAN ETEXILATE MESYLATE 75 MG CAPSULE PO SCH (09:24)
--- NOTE | 2016-12-18 11:14 | PN ---
Progress Note, Physician Chief Complaint: ASLEEP COMFORTABLE - Current Medication List Current Medications: Active Medications Acetaminophen (Tylenol -) 650 mg PO Q6H PRN PRN Reason: FEVER OR PAIN Last Admin: 12/14/16 09:23 Dose: 650 mg Atorvastatin Calcium (Lipitor -) 10 mg PO HS [facility] Last Admin: 12/17/16 22:24 Dose: 10 mg Dabigatran (Pradaxa -) 75 mg PO BID [facility] Last Admin: 12/18/16 09:24 Dose: 75 mg Furosemide (Lasix -) 40 mg PO DAILY [facility] Last Admin: 12/18/16 09:20 Dose: 40 mg Glimepiride (Amaryl -) 1 mg PO DAILY@0700 [facility] Last Admin: 12/18/16 06:33 Dose: 1 mg Metoprolol Succinate (Toprol Xl -) 25 mg PO DAILY [facility] Last Admin: 12/18/16 09:20 Dose: 25 mg Ondansetron HCl (Zofran Odt -) 4 mg SL Q8H PRN PRN Reason: NAUSEA AND/OR VOMITING Ranolazine (Ranexa -) 500 mg PO BID [facility] Last Admin: 12/18/16 09:20 Dose: 500 mg Risperidone (Risperdal -) 1 mg PO [facility] Last Admin: 12/17/16 22:24 Dose: 1 mg Sertraline HCl (Zoloft -) 50 mg PO DAILY [facility] Last Admin: 12/18/16 09:20 Dose: 50 mg - Objective Vital Signs: Vital Signs Temperature 98.0 F 12/18/16 07:40 Pulse Rate 77 12/18/16 07:40 Respiratory Rate 18 12/18/16 07:44 Blood Pressure 124/53 12/18/16 07:40 O2 Sat by Pulse Oximetry (%) 99 12/18/16 07:44 Constitutional: Yes: No Distress Eyes: Yes: WNL HENT: Yes: WNL Neck: Yes: WNL Cardiovascular: Yes: WNL Respiratory: Yes: WNL Gastrointestinal: Yes: WNL Genitourinary: Yes: WNL Musculoskeletal: Yes: WNL Extremities: Yes: WNL Peripheral Pulses WNL: Yes Integumentary: Yes: WNL Neurological: Yes: Pre-Existing Deficit ...Motor Strength: WNL Labs: CBC, BMP 12/15/16 08:00 12/17/16 05:42 INR, PTT INR 1.21 (0.82-1.09) H 12/12/16 18:48 Problem List - Problems (1) Acute respiratory failure with hypercapnia Code(s): J96.02 - ACUTE RESPIRATORY FAILURE WITH HYPERCAPNIA (2) Chronic post-traumatic stress disorder (PTSD) Code(s): F43.12 - POST-TRAUMATIC STRESS DISORDER, CHRONIC (3) Shortness of breath Code(s): R06.02 - SHORTNESS OF BREATH (4) Atrial fibrillation Code(s): I48.91 - UNSPECIFIED ATRIAL FIBRILLATION Qualifiers: Atrial fibrillation type: chronic Qualified Code(s): I48.2 - Chronic atrial fibrillation Assessment/Plan PSYCHIATRY EVAL THERE IS A PSYCHOGENIC COMPONENT TO HER SX 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
--- NOTE | 2016-12-18 12:00 | DS ---
Physical Examination Vital Signs: Vital Signs Temperature 98.0 F 12/18/16 07:40 Pulse Rate 77 12/18/16 07:40 Respiratory Rate 18 12/18/16 07:44 Blood Pressure 124/53 12/18/16 07:40 O2 Sat by Pulse Oximetry (%) 99 12/18/16 07:44 Findings/Remarks: PATIENT AGITATED ATTACKING STAFF, ALL TESTS NORMAL DC HOME F/U WITH PMD IN MORNING 9AM, APPOINTMENT MADE. Constitutional: Yes: No Distress Labs: CBC, BMP 12/15/16 08:00 12/17/16 05:42 Discharge Summary Reason For Visit: SHORTNESS OF BREATH, DIABETES MELLITIS, COUGH Current Active Problems Acute respiratory failure with hypercapnia (Acute) Chronic post-traumatic stress disorder (PTSD) (Acute) Cough (Acute) Shortness of breath (Acute) Stroke (Acute) Unresponsive episode (Acute) Condition: Improved - Instructions Diet, Activity, Other Instructions: ADA LOW FAT LOW SALT APPOINMENT TOMORROW DR FITCH 9 OR 10 AM Referrals: Anay Sanchez MD [Primary Care Provider] - Disposition: HOME - Home Medications Comprehensive Discharge Medication List: Ambulatory Orders Ferrous Sulfate 325 mg PO DAILY 12/12/16 Furosemide [Lasix -] 20 mg PO DAILY 12/12/16 Risperidone 1 mg PO HS 12/12/16 Sertraline HCl 50 mg PO DAILY 12/12/16 Diltiazem HCl [Cardizem LA] 120 mg PO DAILY 12/13/16 Atorvastatin Ca [Lipitor] 10 mg PO HS #30 tablet 12/18/16 Dabigatran Etexilate Mesylate [Pradaxa -] 75 mg PO BID #60 tab 12/18/16 Furosemide [Lasix -] 40 mg PO DAILY #30 tablet 12/18/16 Glimepiride [Glimepiride -] 1 mg PO DAILY@0700 #30 tablet 12/18/16 Metoprolol Succinate [Toprol XL -] 25 mg PO DAILY #30 tab 12/18/16 Ranolazine [Ranexa -] 500 mg PO BID #60 tab 12/18/16 Risperidone [Risperdal -] 1 mg PO HS tablet 12/18/16 Sertraline HCl [Zoloft -] 50 mg PO DAILY tablet 12/18/16
== END 2016-12-18 13:57 | disposition home or self-care (01) | DRG 302 ==
LOC: JER 17:51 → JERBED 21:06 → J8W 22:47 → J4W 12-16 10:55
PROVIDERS: ADMIT Family Medicine; ATTEND Family Medicine
DX: I25.10 Atherosclerotic heart disease of native coronary artery without angina pectoris (principal); I50.33 Acute on chronic diastolic (congestive) heart failure; J96.02 Acute respiratory failure with hypercapnia; K57.92 Diverticulitis of intestine, part unspecified, without perforation or abscess without bleeding; F20.89 Other schizophrenia; I48.0 Paroxysmal atrial fibrillation; J44.9 Chronic obstructive pulmonary disease, unspecified; J45.909 Unspecified asthma, uncomplicated; D64.9 Anemia, unspecified; K21.9 Gastro-esophageal reflux disease without esophagitis; K63.5 Polyp of colon; K44.9 Diaphragmatic hernia without obstruction or gangrene; E11.9 Type 2 diabetes mellitus without complications; F03.90 Unspecified dementia, unspecified severity, without behavioral disturbance, psychotic disturbance, mood disturbance, and anxiety; I11.0 Hypertensive heart disease with heart failure; I34.0 Nonrheumatic mitral (valve) insufficiency; M54.5 Low back pain; F43.12 Post-traumatic stress disorder, chronic; M19.90 Unspecified osteoarthritis, unspecified site; F22 Delusional disorders; R41.89 Other symptoms and signs involving cognitive functions and awareness; E78.00 Pure hypercholesterolemia, unspecified; E66.8 Other obesity; Z68.34 Body mass index [BMI] 34.0-34.9, adult; Z71.3 Dietary counseling and surveillance; Z96.651 Presence of right artificial knee joint; Z95.1 Presence of aortocoronary bypass graft; Z79.01 Long term (current) use of anticoagulants
CPT/HCPCS: 36415; 36600; 70450-TC; 71010-TC; 71275-TC; 80053; 80061; 82550; 82803; 83036; 83721; 83735; 83880; 84443; 84484; 85025; 85027; 85610; 93005; 93010; 93306-TC; 93880-TC; 93970-TC; 99285-25; J2794

== ENCOUNTER 2018-03-09 14:05 | Emergency (ER) | payer OTHER ==
[2018-03-09 14:15] VITALS: BMI 33.5
[2018-03-09] MEDS ORDERED: FUROSEMIDE 40 MG/4 ML INJECTABLE VIAL IVPUSH ONE (14:31)
[2018-03-09] MEDS ORDERED: ALBUTEROL SO4 2.5/IPRATROPIUM 0.5 INH SOL 3 ML VIAL.NEB. NEB ONE ×2 (14:31→14:52)
--- NOTE | 2018-03-09 14:34 | PDOC ---
History of Present Illness - General Chief Complaint: Edema Stated Complaint: SWELLING LEG BITATERAL Time Seen by Provider: 03/09/18 14:09 History Source: Patient Exam Limitations: No Limitations - History of Present Illness Initial Comments: 03/09/18 14:33 72yo female with h/o HTN, paroxysmal atrial fibrillation, LV diastolic dysfunction, COPD, GERD,DM, asthma came to the hospital because of increase in swelling in b/l lower limbs from last 3 days. Patient states that she always have swelling in b/l lower limb but now has increased. Also reports chronic pain in both legs. Also reports increase in shortness of breath. She is wheel chair bound from last two months so unable to tell how much she can walk. Sleeps without pillow. Denies orthopnea and pasroxysmal dyspnea. Denies chest pain, palpitations and lightheadedness. Denies weight gain. Denies wheezing, fever, cough. She reports that she was admitted in [facility] 2 months ago and was discharged to [facility]. She stayed in [facility] for 2 months and recently discharged on Monday. She also states that she doesnt have AC in her apartment so she gets sob. Unable to provide the list of medications she take. Past History - Past Medical History Allergies/Adverse Reactions: Allergies Allergy/AdvReac Type Severity Reaction Status Date / Time aspirin Allergy Verified 03/09/18 14:12 lactose [Lactose] AdvReac Verified 03/09/18 16:16 Home Medications: Ambulatory Orders Ferrous Sulfate 325 mg PO DAILY 12/12/16 Risperidone 1 mg PO HS 12/12/16 Atorvastatin Ca [Lipitor] 10 mg PO HS #30 tablet 12/18/16 Dabigatran Etexilate Mesylate [Pradaxa -] 75 mg PO BID #60 tab 12/18/16 Furosemide [Lasix -] 40 mg PO DAILY #30 tablet 12/18/16 Ranolazine [Ranexa -] 500 mg PO BID #60 tab 12/18/16 Sertraline HCl [Zoloft -] 50 mg PO DAILY tablet 12/18/16 Digoxin [Lanoxin -] 0 mg PO DAILY 03/09/18 Ergocalciferol (Vitamin D2) [Vitamin D2] 50,000 unit PO WEEKLY 03/09/18 Metformin HCl [Glucophage] 1,000 mg PO BID 03/09/18 Anemia: Yes Asthma: Yes Cardiac Disorders: Yes (atrial fibrillation, CARDIAC CATH 2010-NORMAL) COPD: Yes Dementia: Yes Diabetes: Yes Dialysis: Yes GI Disorders: Yes (POLYPS; DIVERTICULOSIS; GERD) HTN: Yes Hypercholesterolemia: Yes Psychiatric Problems: Yes (schizophrenia) - Surgical History Abdominal Surgery: Yes (intestinal blockage 2010; HIATAL HERNIA;) Neurologic Surgery: Yes (UPPER BACK SX) Orthopedic Surgery: Yes (R. Knee replacement 2010) - Immunization History Immunization Up to Date: Yes - Suicide/Smoking/Psychosocial Hx Smoking Status: No Smoking History: Never smoked Have you smoked in the past 12 months: No Number of Cigarettes Smoked Daily: 0 Hx Alcohol Use: No Drug/Substance Use Hx: No Substance Use Type: Alcohol Hx Substance Use Treatment: No (12 steps) Review of Systems - Review of Systems Constitutional: Yes: Weight Stable. No: Chills, Fever, Night Sweats Respiratory: Yes: Shortness of Breath. No: Cough, Wheezing, Productive cough ABD/GI: No: Abdominal Distended, Difficulty Swallowing, Nausea, Rectal Bleeding , Vomiting : No: Burning, Dysuria, Frequency Musculoskeletal: Yes: Muscle Pain Neurological: Yes: Numbness (b/l upper limb numbness chronic ). No: Headache Endocrine: No: Unexplained Weight Gain *Physical Exam - Vital Signs Last Vital Signs Temp Pulse Resp BP Pulse Ox 97.8 F 63 18 142/63 99 03/09/18 14:09 03/09/18 14:09 03/09/18 14:09 03/09/18 14:09 03/09/18 14:09 - Physical Exam General Appearance: Yes: Appropriately Dressed, Apparent Distress HEENT: positive: Normal Voice, Symmetrical, Pharynx Normal Neck: positive: Trachea midline, Supple. negative: Decreased range of motion, Lymphadenopathy (R) Respiratory/Chest: positive: Lungs Clear, Wheezing (mild expiratory wheezing on left side ). negative: Respiratory Distress, Accessory Muscle Use, Decreased Breath Sounds, Crackles Cardiovascular: positive: Regular Rhythm, Regular Rate, S1, S2. negative: Murmur Gastrointestinal/Abdominal: positive: Normal Bowel Sounds, Soft, Hernia, Other ( midline scar). negative: Distended, Guarding Musculoskeletal: negative: CVA Tenderness Extremity: positive: Swelling (b/l lower limb ), Other (chronic color discoloration present b/l lower limb, non tender. ). 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 Patient states that she always have swelling in b/l lower limb but now has increased. Also reports chronic pain in both legs. Also reports increase in shortness of breath. She is wheel chair bound from last two months so unable to tell how much she can walk. Sleeps without pillow. Denies orthopnea and pasroxysmal dyspnea. Denies chest pain, palpitations and lightheadedness. Denies weight gain. Denies wheezing, fever, cough. She reports that she was admitted in [facility] 2 months ago and was discharged to snf. She stayed in snf for 2 months and recently discharged on Monday. She also states that she doesnt have AC in her apartment so she gets sob. Unable to provide the list of medications she take. Also reports that she has started eating food from outside. Patient reports that echo was done recently in [facility]. Because of increase in swelling in her legs we will give her 40mg IV lasix and also get duplex scan of b/l lower limb as patient is wheel chair bound and reports mild increase in her pain. we will give her duoneb one time We will get cbc, cmp, ekg, troponin i. EKG: sinus rhythm with 1st degree block, left ventricular hypertrophy. T wave inversion in v1 and flattening in v2. Patient has an appointment with Dr. alford on mar 14 03/09/18 15:14 patient feels good after duoneb. 03/09/18 17:26 labs reviewed, Dig level 0.3 CXR reviewed: no pulmonary edema. duplex scan pending 03/09/18 18:36 NO dvt on duplex scan Patient feels good. Wants to go home. Discussed with Dr. Persaud. Patient can be discharged home with follow up with her PCP. Pt has an appointment with her pcp on mar 14 *DC/Admit/Observation/Transfer Diagnosis at time of Disposition: Edema of both legs - Discharge Dispostion Disposition: HOME Condition at time of disposition: Good Decision to Admit order: No - Referrals Referrals: Anay Sanchez MD [Staff Physician] - - Patient Instructions Printed Discharge Instructions: DI for Peripheral Edema -- Bilateral Additional Instructions: Consider not to eat food from outside as it contain lot of salt which can make your swelling worse. Take your medications as you were taking it before. Keep you legs elevated. Use your inhalers as you were using it before. Follow up with your pcp and collection systems technician. - Post Discharge Activity
[2018-03-09] MEDS ORDERED: FUROSEMIDE 40 MG/4 ML INJECTABLE VIAL ONE (14:53)
--- NOTE | 2018-03-09 15:01 | PDOC ---
Attending Attestation - Resident Resident Name: Andrew Quick - ED Attending Attestation I have performed the following: I have examined & evaluated the patient, The case was reviewed & discussed with the resident, I agree w/resident's findings & plan, Exceptions are as noted - HPI HPI: 03/09/18 14:59 72y F copd, pafib, htn, gerd, dm, asthma presents with b/l LE edema x 3 days. pt has bsaeline LE edema and chronic pain. pt notes some sob, and is wheel chair bound so doesnt know if she hsa [place]. pt denie sorthopnea, wheezing, cough , fevers. pt was recentl wroekd up at [facility] and was discharged to retirement. pt notes she has similar sob when her AC is off. pt denie sany cp, hemptysis, calf pain. on exam pt well appearing no disterss pulm: cta b/l abd soft nontender card rrr, no mrg ext: b/l pitting edema, neg homans sign, chronic venous hyperpigmentation - Physicial Exam PE: 03/10/18 08:49 see above - Medical Decision Making 03/09/18 16:29 ddx - fluid over load/ doubt chf w/o orthopnea, suspect dependent edema. possible du eot recent diet change and eating out more consider dvt will obtian cxr, basic labs, dvt US Heart Score/ECG Review - ECG Impressions Comment:: 03/09/18 16:26 Twelve-lead EKG was performed and reviewed by me. There is normal sinus rhythm with a normal rate. Rate of 61 Left axis deviation and incomplete right bundle-branch block No ST changes suggestive of acute ischemia,
[2018-03-09 15:06] LABS: BASO % 1.1 % (0-2.0); EOS % 0.8 % (0-4.5); HEMATOCRIT 32.3 % (32.4-45.2); HEMOGLOBIN 10.6 GM/dL (10.7-15.3); MCH 28.6 pg (25.7-33.7); MCHC 32.8 g/dl (32.0-36.0); MEAN CELL VOLUME 87.1 fl (80-96); MEAN PLT VOLUME 8.8 fl (7.5-11.1); MONO % 9.4 % (3.8-10.2); NEUT % 67.7 % (42.8-82.8); PLATELET COUNT 345 K/MM3 (134-434); RBC 3.71 M/mm3 (3.60-5.2); RDW 14.6 % (11.6-15.6); WHITE BLOOD COUNT 7.2 K/mm3 (4.0-10.0)
[2018-03-09 15:30] LABS: ALBUMIN 3.3 g/dl (3.4-5.0); ANION GAP 6 MMOL/L (8-16); BILIRUBIN,TOTAL 0.2 mg/dL (0.2-1.0); BLOOD UREA NITROGEN 10 mg/dL (7-18); CALCIUM 8.5 mg/dL (8.5-10.1); CHLORIDE 106 mmol/L (98-107); CO2 30 mmol/L (21-32); CREATININE 0.7 mg/dL (0.55-1.02); GLUCOSE,RANDOM 84 mg/dL (74-106); SGPT/ALT 16 U/L (12-78); SODIUM 142 mmol/L (136-145); TOT PROT 7.6 g/dl (6.4-8.2)
[2018-03-09 15:32] LABS: ALK PHOS 108 U/L (45-117)
[2018-03-09 15:44] LABS: N-TERMINAL BNP 773.47 pg/ml (5-125)
[2018-03-09 15:45] LABS: MAGNESIUM 2.1 mg/dL (1.8-2.4); POTASSIUM 4.4 mmol/L (3.5-5.1)
[2018-03-09 15:46] LABS: SGOT/AST 20 U/L (15-37)
[2018-03-09 18:17] VITALS: BP 140/66; PULSE 73; TEMP 98.7
--- NOTE | 2018-03-12 14:10 | EKG ---
Test Reason : Blood Pressure : / mmHG Vent. Rate : 061 BPM Atrial Rate : 061 BPM P-R Int : 226 ms QRS Dur : 094 ms QT Int : 404 ms P-R-T Axes : 053 -44 074 degrees QTc Int : 406 ms SINUS RHYTHM WITH 1ST DEGREE A-V BLOCK LEFT AXIS DEVIATION INCOMPLETE RIGHT BUNDLE BRANCH BLOCK VOLTAGE CRITERIA FOR LEFT VENTRICULAR HYPERTROPHY CANNOT RULE OUT SEPTAL INFARCT (CITED ON OR BEFORE 09-MAR-2018) ABNORMAL ECG WHEN COMPARED WITH ECG OF 16-DEC-2016 10:14, PREMATURE ATRIAL COMPLEXES ARE NO LONGER PRESENT T WAVE INVERSION LESS EVIDENT IN LATERAL LEADS Confirmed by LATRICIA CHAPARRO MD ([id number]) on 03/12/2018 2:10:02 PM Referred By: Confirmed By:LATRICIA CHAPARRO MD
== END 2018-03-09 21:09 | disposition home or self-care (01) ==
LOC: JER 14:05
PROC: 3E0F7GC Introduction of Other Therapeutic Substance into Respiratory Tract, Via Natural or Artificial Opening (ICD-10-PCS; principal; 2018-03-09)
PROC: 3E033GC Introduction of Other Therapeutic Substance into Peripheral Vein, Percutaneous Approach (ICD-10-PCS; 2018-03-09)
DX: R60.0 Localized edema (principal); I10 Essential (primary) hypertension; I48.0 Paroxysmal atrial fibrillation; J45.909 Unspecified asthma, uncomplicated; F20.9 Schizophrenia, unspecified; E11.9 Type 2 diabetes mellitus without complications
CPT/HCPCS: 36415; 71045-TC-FY; 80053; 80162; 83735; 83880; 84484; 85025; 93005; 93010; 93970-TC; 94640; 96374; 99283-25; J7620

== ENCOUNTER 2018-04-26 05:01 | Emergency (ER) | payer OTHER ==
--- NOTE | 2018-04-26 05:17 | PDOC ---
History of Present Illness <Caroline Rodriguez - Last Filed: 04/26/18 07:33> - History of Present Illness Initial Comments: 04/26/18 05:10 72 yo F with h/o HTN, paroxysmal A-fib, LV diastolic dysfunction, Asthma, COPD, GERD, DM ( poorly controlled) BIBA with lightheadedness. Patient reports acute onset of lightheadedness when sleeping at approximately 2 AM today ( now resolved), lasting for minutes. Also endorses multiple episodes of urination ( incontinent at baseline) beginning yesterday AM. Reports checking BS this AM with BS~150. EMS reports BS~120. Also, endorses acute onset of distal right lower extremity tingling, and BL LE distal ext. tingling beginning this morning. Pt. bedbound/wheelchair bound. Patient denies MARTINEZ, N/V, cough, wheezing, palpitations, leg pain, orthopnea, PND , F,C, CP, SOB, dysuria, hematuria, abdominal pain, diarrhea, constipation, BPR , weakness. PMHx: as noted above. Denies h/o CVA, ACS/DE, stent placement, CABG. ROS: as noted SHx: Denies Etoh, IVDA, tobacco use. Allergies: NKDA <Raciel Islas - Last Filed: 04/26/18 07:38> - General Stated Complaint: NAUSEA,VOMITING,FREQUENT URINE Time Seen by Provider: 04/26/18 05:08 Past History <Caroline Rodriguez - Last Filed: 04/26/18 07:33> - Past Medical History Anemia: Yes Asthma: Yes Cancer: No Cardiac Disorders: Yes (atrial fibrillation, CARDIAC CATH 2010-NORMAL) CVA: No COPD: Yes CHF: No Dementia: Yes Diabetes: Yes Dialysis: Yes GI Disorders: Yes (POLYPS; DIVERTICULOSIS; GERD) Disorders: No HTN: Yes Hypercholesterolemia: Yes Liver Disease: No Psychiatric Problems: Yes (schizophrenia) Seizures: No Thyroid Disease: No - Surgical History Abdominal Surgery: Yes (intestinal blockage 2010; HIATAL HERNIA;) Appendectomy: No Cardiac Surgery: No Cholecystectomy: No Lung Surgery: No Neurologic Surgery: Yes (UPPER BACK SX) Orthopedic Surgery: Yes (R. Knee replacement 2010) - Immunization History Immunization Up to Date: Yes - Suicide/Smoking/Psychosocial Hx Smoking Status: No Smoking History: Never smoked Have you smoked in the past 12 months: No Number of Cigarettes Smoked Daily: 0 Hx Alcohol Use: No Drug/Substance Use Hx: No Substance Use Type: Alcohol Hx Substance Use Treatment: No (12 steps) <Raciel Islas - Last Filed: 04/26/18 07:38> - Past Medical History Allergies/Adverse Reactions: Allergies Allergy/AdvReac Type Severity Reaction Status Date / Time aspirin Allergy Verified 04/26/18 05:11 ibuprofen [From Advil] Allergy Verified 04/26/18 06:48 lactose [Lactose] AdvReac Verified 04/26/18 05:11 Home Medications: Ambulatory Orders Ferrous Sulfate 325 mg PO DAILY 12/12/16 Risperidone 1 mg PO HS 12/12/16 Atorvastatin Ca [Lipitor] 10 mg PO HS #30 tablet 12/18/16 Dabigatran Etexilate Mesylate [Pradaxa -] 75 mg PO BID #60 tab 12/18/16 Furosemide [Lasix -] 40 mg PO DAILY #30 tablet 12/18/16 Ranolazine [Ranexa -] 500 mg PO BID #60 tab 12/18/16 Sertraline HCl [Zoloft -] 50 mg PO DAILY tablet 12/18/16 Digoxin [Lanoxin -] 0 mg PO DAILY 03/09/18 Ergocalciferol (Vitamin D2) [Vitamin D2] 50,000 unit PO WEEKLY 03/09/18 Review of Systems - Review of Systems Comments:: 04/26/18 05:19 GENERAL/CONSTITUTIONAL: No fever or chills. No weakness. HEAD, EYES, EARS, NOSE AND THROAT: No change in vision. No ear pain or discharge. No sore throat. CARDIOVASCULAR: No chest pain or shortness of breath RESPIRATORY: No cough, wheezing, or hemoptysis. GASTROINTESTINAL: No nausea, vomiting, diarrhea or constipation. GENITOURINARY: + Frequency, and change in urination. No dysuria, MUSCULOSKELETAL: No joint or muscle swelling or pain. No neck or back pain. SKIN: No rash NEUROLOGIC: + Change in strength/sensation. No headache, vertigo, loss of consciousness,. ENDOCRINE: No increased thirst. No abnormal weight change HEMATOLOGIC/LYMPHATIC: No anemia, easy bleeding, or history of blood clots. ALLERGIC/IMMUNOLOGIC: No hives or skin allergy. <Raciel Islas - Last Filed: 04/26/18 07:38> *Physical Exam - Vital Signs Last Vital Signs Temp Pulse Resp BP Pulse Ox 97.4 F L 64 18 140/79 99 04/26/18 05:10 04/26/18 05:10 04/26/18 05:10 04/26/18 05:10 04/26/18 05:10 <JenniferCaroline - Last Filed: 04/26/18 07:33> - Physical Exam Comments: 04/26/18 05:20 GENERAL: Awake, alert, and fully oriented, in no acute distress HEAD: No signs of trauma, normocephalic, atraumatic EYES: PERRLA, EOMI, sclera anicteric, conjunctiva clear ENT: Auricles normal inspection, hearing grossly normal, nares patent, oropharynx clear without exudates. Moist mucosa NECK: Normal ROM, supple, no lymphadenopathy, JVD, or masses LUNGS: No distress, speaks full sentences, clear to auscultation bilaterally HEART: Regular rate and rhythm, normal S1 and S2, no murmurs, rubs or gallops, peripheral pulses normal and equal bilaterally. ABDOMEN: Soft, nontender, normoactive bowel sounds. No guarding, no rebound. No masses EXTREMITIES : 2+ Pitting edema BL. Normal inspection, Normal range of motion, No clubbing or cyanosis. NEUROLOGICAL: Cranial nerves II through XII grossly intact. Normal speech, no focal sensorimotor deficits SKIN: Warm, Dry, normal turgor, no rashes or lesions noted <Raciel Islas - Last Filed: 04/26/18 07:38> ED Treatment Course - LABORATORY CBC & Chemistry Diagram: 04/26/18 05:16 04/26/18 05:16 - ADDITIONAL ORDERS Additional order review: Laboratory Results 04/26/18 04/26/18 04/26/18 05:16 05:16 05:16 PT with INR 13.60 H INR 1.15 H Sodium 143 Potassium 4.7 Chloride 109 H Carbon Dioxide 28 Anion Gap 6 L BUN 12 Creatinine 0.7 Creat Clearance w eGFR > 60 Random Glucose 96 Calcium 8.9 Total Bilirubin 0.1 L AST 11 L ALT 15 Alkaline Phosphatase 95 Creatine Kinase 74 Troponin I < 0.02 B-Natriuretic Peptide 935.1 H Total Protein 7.0 Albumin 3.0 L Acetone, Qual Negative L 04/26/18 05:16 RBC 3.79 MCV 84.8 MCHC 31.6 L RDW 14.9 MPV 8.1 Neutrophils % 68.2 Lymphocytes % 22.7 Monocytes % 7.6 Eosinophils % 1.0 Basophils % 0.5 <Caroline Rodriguez - Last Filed: 04/26/18 07:33> - LABORATORY CBC & Chemistry Diagram: 04/26/18 05:16 04/26/18 05:16 <Raciel Islas - Last Filed: 04/26/18 07:38> Medical Decision Making - Medical Decision Making 04/26/18 05:17 72 yo F with h/o HTN, paroxysmal A-fib, LV diastolic dysfunction, Asthma, COPD, GERD, DM ( poorly controlled) BIBA with lightheadedness.and distal extremity sensory disturbances. VSS, AF. Will evaluate for hypoglycemia, hypovolemia, cardiac dysarrythmias, electrolyte abnml, metabolic or toxic derangements, acid-base disturbances, infection. Ed Course: CBC, CMP, Cardiac Pr. BNP, UA, UCx CXR, EKG CTH 04/26/18 07:37 CBC, CMP: Unremarkable BNP: 935 Trop: Neg Pt. pending CTH, UA, line, and admission. Endorsed to day team, Dr. Ambrocio. <Raciel Islas - Last Filed: 04/26/18 07:38> *DC/Admit/Observation/Transfer <Caroline Rodriguez - Last Filed: 04/26/18 07:33> <Raciel Islas - Last Filed: 04/26/18 07:38> Diagnosis at time of Disposition: Pre-syncope - Discharge Dispostion Condition at time of disposition: Stable
--- NOTE | 2018-04-26 05:22 | PDOC ---
History of Present Illness - General Stated Complaint: NAUSEA,VOMITING,FREQUENT URINE Time Seen by Provider: 04/26/18 05:08 History Source: Patient Exam Limitations: No Limitations - History of Present Illness Initial Comments: 04/26/18 05:09 Ms Grigsby is a 72 yo F h/o HTN, paroxysmal atrial fibrillation on anticoagulation , LV diastolic dysfunction, COPD, GERD, Cardiac cath 2015? 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 HEAD, EYES, EARS, NOSE AND THROAT: No: change in vision, ear pain, discharge, sore throat, throat swelling. CARDIOVASCULAR: No: chest pain, lightheadedness, palpitations, syncope RESPIRATORY: No: cough, shortness of breath, wheezing, hemoptysis, stridor. GASTROINTESTINAL: Yes: abdominal pain No: nausea, vomiting, diarrhea, GENITOURINARY: No: dysuria, hematuria, frequency, urgency, flank pain. MUSCULOSKELETAL: No: back pain, neck pain, joint pain, muscle swelling or pain SKIN: No: lesions, pallor, rash or easy bruising. NEUROLOGIC: No: headache, vertigo, paresthesias, weakness Psych: No thoughts to harm herself or any one else, no SI, no HI ENDOCRINE: No: unexplained weight gain or loss HEMATOLOGIC/LYMPHATIC: No: anemia, easy bleeding, swelling nodes. PE: GENERAL: The patient is in no acute distress. HEAD: Normal EYES: PERRLA, EOMI, sclera anicteric, conjunctiva clear. ENT: Ears normal, nares patent, oropharynx clear without exudates. Moist mucous membranes. NECK: Normal range of motion, supple without lymphadenopathy, JVD, or masses. LUNGS: Breath sounds equal, clear to auscultation bilaterally. No wheezes, and no crackles. HEART:Regular rate and rhythm, normal S1 and S2 without murmur, rub or gallop. ABDOMEN: Soft, diffusely tender to palpation, pt states abdomen is distended EXTREMITIES: Normal range of motion, no edema. NEUROLOGICAL: Cranial nerves II through XII grossly intact. Normal speech. No focal neurological deficits. MUSCULOSKELETAL: No CVA tenderness PSYCH: pt is calm and cooperative SKIN: Warm, Dry, normal turgor, no rashes or lesions noted. Past History - Past Medical History Allergies/Adverse Reactions: Allergies Allergy/AdvReac Type Severity Reaction Status Date / Time aspirin Allergy Verified 04/26/18 05:11 ibuprofen [From Advil] Allergy Verified 04/26/18 06:48 lactose [Lactose] AdvReac Verified 04/26/18 05:11 Home Medications: Ambulatory Orders Ferrous Sulfate 325 mg PO DAILY 12/12/16 Risperidone 1 mg PO HS 12/12/16 Atorvastatin Ca [Lipitor] 10 mg PO HS #30 tablet 12/18/16 Dabigatran Etexilate Mesylate [Pradaxa -] 75 mg PO BID #60 tab 12/18/16 Furosemide [Lasix -] 40 mg PO DAILY #30 tablet 12/18/16 Ranolazine [Ranexa -] 500 mg PO BID #60 tab 12/18/16 Sertraline HCl [Zoloft -] 50 mg PO DAILY tablet 12/18/16 Digoxin [Lanoxin -] 0 mg PO DAILY 03/09/18 Ergocalciferol (Vitamin D2) [Vitamin D2] 50,000 unit PO WEEKLY 03/09/18 Anemia: Yes Asthma: Yes Cardiac Disorders: Yes (atrial fibrillation, CARDIAC CATH 2010-NORMAL) COPD: Yes Dementia: Yes Diabetes: Yes Dialysis: Yes GI Disorders: Yes (POLYPS; DIVERTICULOSIS; GERD) HTN: Yes Hypercholesterolemia: Yes Psychiatric Problems: Yes (schizophrenia) - Surgical History Abdominal Surgery: Yes (intestinal blockage 2010; HIATAL HERNIA;) Neurologic Surgery: Yes (UPPER BACK SX) Orthopedic Surgery: Yes (R. Knee replacement 2010) - Immunization History Immunization Up to Date: Yes - Suicide/Smoking/Psychosocial Hx Smoking Status: No Smoking History: Never smoked Have you smoked in the past 12 months: No Number of Cigarettes Smoked Daily: 0 Hx Alcohol Use: No Drug/Substance Use Hx: No Substance Use Type: Alcohol Hx Substance Use Treatment: No (12 steps) ED Treatment Course - LABORATORY CBC & Chemistry Diagram: 04/26/18 05:16 04/26/18 05:16 Medical Decision Making - Medical Decision Making 04/26/18 08:43 Pt presenting with vague complaints Could be consistent with - DKA, Hyperosmolar state, intraabdominal pathology ( colitis, SBO, incarcerated hernia) Will do: Labs, EKG, CT IVF Re assess EKG: Normal sinus rhythm, rate of 60 bpm, axis abnormal-left axis deviation, intervals are normal: CA intervals 222 ms, QRS 90 ms, QTC [address] elevations or depression, T waves upright, LVH Pt very difficult access Labs obtained IV pending Pt signed out to Dr Rai pending CT *DC/Admit/Observation/Transfer Diagnosis at time of Disposition: Pre-syncope - Discharge Dispostion Condition at time of disposition: Stable - Referrals - Patient Instructions - Post Discharge Activity
[2018-04-26 05:33] VITALS: BMI 33.5
[2018-04-26 05:35] LABS: BASO % 0.5 % (0-2.0); HEMATOCRIT 32.1 % (32.4-45.2); HEMOGLOBIN 10.2 GM/dL (10.7-15.3); LYMPH % 22.7 % (8-40); MCH 26.8 pg (25.7-33.7); MCHC 31.6 g/dl (32.0-36.0); MEAN CELL VOLUME 84.8 fl (80-96); MEAN PLT VOLUME 8.1 fl (7.5-11.1); MONO % 7.6 % (3.8-10.2); NEUT % 68.2 % (42.8-82.8); PLATELET COUNT 270 K/MM3 (134-434); RBC 3.79 M/mm3 (3.60-5.2); RDW 14.9 % (11.6-15.6)
[2018-04-26 05:48] LABS: INR 1.15 (0.83-1.09); PROTHROMBIN TIME (PATIENT) 13.6 SEC (9.7-13.0)
[2018-04-26 06:03] LABS: ALK PHOS 95 U/L (45-117); ANION GAP 6 MMOL/L (8-16); BILIRUBIN,TOTAL 0.1 mg/dL (0.2-1); BLOOD UREA NITROGEN 12 mg/dL (7-18); CALCIUM 8.9 mg/dL (8.5-10.1); CHLORIDE 109 mmol/L (98-107); CO2 28 mmol/L (21-32); CREATININE 0.7 mg/dL (0.55-1.3); GLUCOSE,RANDOM 96 mg/dL (74-106); N-TERMINAL BNP 935.1 pg/ml (5-125); POTASSIUM 4.7 mmol/L (3.5-5.1); SGOT/AST 11 U/L (15-37); SGPT/ALT 15 U/L (13-61); SODIUM 143 mmol/L (136-145)
--- NOTE | 2018-04-26 07:43 | PDOC ---
*Physical Exam - Vital Signs Last Vital Signs Temp Pulse Resp BP Pulse Ox 97.4 F L 64 18 140/79 99 04/26/18 05:10 04/26/18 05:10 04/26/18 05:10 04/26/18 05:10 04/26/18 05:10 - Physical Exam Comments: 04/26/18 08:08 GENERAL: Awake, alert, and fully oriented, in no acute distress HEAD: No signs of trauma, normocephalic, atraumatic EYES: EOMI, sclera anicteric, conjunctiva clear ENT: oropharynx clear without exudates. Moist mucosa NECK: Normal ROM, supple, no lymphadenopathy, JVD, or masses LUNGS: No distress, speaks full sentences, clear to auscultation bilaterally HEART: Regular rate and rhythm, normal S1 and S2, no murmurs, rubs or gallops, peripheral pulses normal and equal bilaterally. ABDOMEN: Soft, + abdominal distension, nontender, normoactive bowel sounds. No guarding, no rebound. No masses EXTREMITIES : Normal inspection, Normal range of motion, no edema. No clubbing or cyanosis. NEUROLOGICAL: Cranial nerves II through XII grossly intact. Normal speech, normal gait, no focal sensorimotor deficits SKIN: Warm, Dry, normal turgor, no rashes or lesions noted ED Treatment Course - LABORATORY CBC & Chemistry Diagram: 04/26/18 05:16 04/26/18 05:16 - ADDITIONAL ORDERS Additional order review: Laboratory Results 04/26/18 04/26/18 04/26/18 05:16 05:16 05:16 PT with INR 13.60 H INR 1.15 H Sodium 143 Potassium 4.7 Chloride 109 H Carbon Dioxide 28 Anion Gap 6 L BUN 12 Creatinine 0.7 Creat Clearance w eGFR > 60 Random Glucose 96 Calcium 8.9 Total Bilirubin 0.1 L AST 11 L ALT 15 Alkaline Phosphatase 95 Creatine Kinase 74 Troponin I < 0.02 B-Natriuretic Peptide 935.1 H Total Protein 7.0 Albumin 3.0 L Acetone, Qual Negative L 04/26/18 05:16 RBC 3.79 MCV 84.8 MCHC 31.6 L RDW 14.9 MPV 8.1 Neutrophils % 68.2 Lymphocytes % 22.7 Monocytes % 7.6 Eosinophils % 1.0 Basophils % 0.5 Medical Decision Making - Medical Decision Making 04/26/18 07:38 Patient signed out by Dr. Islas. In short pt is a 72 year old woman initially presenting with lightheadedness who now complains of abdominal pain and distention. The patient had bowel obstruction 6-7 years ago w/ subsequent surgery that required partial colon resection. ED Course: Patient pleasant at bedside. Complaining primarily of abdominal pain and distention. No tenderness to abdominal palpation. Abd is distended. Patient taken to CT. Abd CT: bilateral renal cyst and adrenal nodule Without acute findings on abd CT and labwork and with stable exam and vitals. This patient is safe for further workup and evaluation outpatient with gastroenterology. Plan was discussed for follow up and for strict return precautions. Patient expresses understanding and agrees to plan. Patient stable for discharge. Informed of all lab and imaging results. Given follow up instructions and strict return precautions. *DC/Admit/Observation/Transfer Diagnosis at time of Disposition: Pre-syncope, Abdominal pain - Discharge Dispostion Disposition: HOME Condition at time of disposition: Stable Decision to Admit order: No - Prescriptions Prescriptions: Famotidine [Pepcid] 20 mg PO DAILY #14 tablet Mag Hydrox/Al Hydrox/Simeth [Mylanta Suspension -] 30 ml PO Q6H #1 bottle - Referrals Referrals: Lalo Damon MD [Staff Physician] - - Patient Instructions Printed Discharge Instructions: DI for Abdominal Pain-Adult Additional Instructions: You were seen in the ED for complaints of abdominal pain and distention. In the ED you were evaluated with labwork and imaging. Your results were unremarkable. There does not appear to be an acute need for immediate hospitalization. You are advised to follow up with your Primary Care Physician within 1 week. You were given a referral to Gastroenterology and advised to follow up within 1 week. You were given a prescription for antacid and are advised to take these medications as directed. Return to the ED immediately if you experience worsening abdominal pain and distention, nausea, vomiting, diarrhea, constipation, blood in the urine or stool or any fevers. - Post Discharge Activity
[2018-04-26] MEDS ORDERED: morphine CARPU-JECT 4 MG/1 ML DISP.SYRIN IVPUSH ONE (07:57)
[2018-04-26] MEDS ORDERED: MAG HYDROX/AL HYDROX/SIMETH 30 ML UNIT-DOSE CUP ONE (07:59)
[2018-04-26] MEDS ORDERED: morphine SULFATE 4 MG/ML VIAL ONE (07:59)
[2018-04-26] MEDS ORDERED: MAG HYDROX/AL HYDROX/SIMETH 30 ML UNIT-DOSE CUP PO ONE (08:06)
--- NOTE | 2018-04-26 09:21 | EKG ---
Test Reason : Blood Pressure : / mmHG Vent. Rate : 068 BPM Atrial Rate : 068 BPM P-R Int : 222 ms QRS Dur : 090 ms QT Int : 388 ms P-R-T Axes : 047 -36 057 degrees QTc Int : 412 ms SINUS RHYTHM WITH 1ST DEGREE A-V BLOCK LEFT AXIS DEVIATION VOLTAGE CRITERIA FOR LEFT VENTRICULAR HYPERTROPHY CANNOT RULE OUT SEPTAL INFARCT (CITED ON OR BEFORE 09-MAR-2018) ABNORMAL ECG WHEN COMPARED WITH ECG OF 09-MAR-2018 14:37, NO SIGNIFICANT CHANGE WAS FOUND Confirmed by EVA CHAMPAGNE MD ([id number]) on 04/26/2018 9:20:52 AM Referred By: Confirmed By:EVA CHAMPAGNE MD
[2018-04-26] MEDS ORDERED: FAMOTIDINE 20 MG/50 ML IVPB 20 MG/50 ML MG IVPB ONE ×2 (10:01→10:08)
[2018-04-26] MEDS ORDERED: MAG HYDROX/AL HYDROX/SIMETH -MYLANTA- ORAL SUSPENSION PO ONE (10:02)
[2018-04-26 11:12] LABS: URINE APPEARANCE CLEAR; URINE BILIRUBIN NEGATIVE (<2.0 mg/dL); URINE COLOR LTYELLOW; URINE GLUCOSE (UA) NEGATIVE (NEGATIVE); URINE KETONE NEGATIVE (NEGATIVE); URINE LEUK ESTERASE 1+ (NEGATIVE); URINE NITRITE POSITIVE (NEGATIVE); URINE PROTEIN NEGATIVE (NEGATIVE); URINE UROBILINOGEN NEGATIVE mg/dL (0.2-1.0)
--- NOTE | 2018-04-26 11:44 | PDOC ---
*Physical Exam - Vital Signs Last Vital Signs Temp Pulse Resp BP Pulse Ox 97.4 F L 64 18 140/79 99 04/26/18 05:10 04/26/18 05:10 04/26/18 05:10 04/26/18 05:10 04/26/18 05:10 - Physical Exam General Appearance: Yes: Nourished Cardiovascular: positive: Regular Rhythm, Regular Rate Gastrointestinal/Abdominal: positive: Normal Bowel Sounds, Soft. negative: Tender ED Treatment Course - LABORATORY CBC & Chemistry Diagram: 04/26/18 05:16 04/26/18 05:16 - ADDITIONAL ORDERS Additional order review: Laboratory Results 04/26/18 04/26/18 04/26/18 10:30 05:16 05:16 PT with INR 13.60 H INR 1.15 H Sodium Potassium Chloride Carbon Dioxide Anion Gap BUN Creatinine Creat Clearance w eGFR Random Glucose Calcium Total Bilirubin AST ALT Alkaline Phosphatase Creatine Kinase Troponin I B-Natriuretic Peptide Total Protein Albumin Urine Color Ltyellow Urine Appearance Clear Urine pH 6.0 Ur Specific [place] 1.014 Urine Protein Negative Urine Glucose (UA) Negative Urine Ketones Negative Urine Blood 1+ H Urine Nitrite Positive Urine Bilirubin Negative Urine Urobilinogen Negative Ur Leukocyte Esterase 1+ H Acetone, Qual Negative L 04/26/18 05:16 PT with INR INR Sodium 143 Potassium 4.7 Chloride 109 H Carbon Dioxide 28 Anion Gap 6 L BUN 12 Creatinine 0.7 Creat Clearance w eGFR > 60 Random Glucose 96 Calcium 8.9 Total Bilirubin 0.1 L AST 11 L ALT 15 Alkaline Phosphatase 95 Creatine Kinase 74 Troponin I < 0.02 B-Natriuretic Peptide 935.1 H Total Protein 7.0 Albumin 3.0 L Urine Color Urine Appearance Urine pH Ur Specific [place] Urine Protein Urine Glucose (UA) Urine Ketones Urine Blood Urine Nitrite Urine Bilirubin Urine Urobilinogen Ur Leukocyte Esterase Acetone, Qual 04/26/18 05:16 RBC 3.79 MCV 84.8 MCHC 31.6 L RDW 14.9 MPV 8.1 Neutrophils % 68.2 Lymphocytes % 22.7 Monocytes % 7.6 Eosinophils % 1.0 Basophils % 0.5 - RADIOLOGY Radiology Studies Ordered: Category Date Time Status ABDOMEN & PELVIS CT W/O CONTR [CT] Stat CT Scan 04/26/18 09:03 Completed - Medications Given in the ED: ED Medications Discontinued Medications Generic Name Dose Route Start Last Admin Trade Name Freq PRN Reason Stop Dose Admin Al Hydroxide/Mg Hydroxide 30 ml 04/26/18 08:06 04/26/18 08:07 Mylanta Oral Suspension - PO 04/26/18 08:07 30 ml NOW ONE Administration Al Hydroxide/Mg Hydroxide 30 ml 04/26/18 10:02 04/26/18 10:20 Mylanta Suspension - PO 04/26/18 10:03 Not Given ONCE ONE Famotidine/Sodium Chloride 20 mg in 50 mls @ 100 mls/hr 04/26/18 10:01 10:15 Pepcid 20 Mg Premixed Ivpb - IVPB 04/26/18 10:30 100 mls/hr ONCE ONE Administration Morphine Sulfate 4 mg 04/26/18 07:57 04/26/18 08:06 Morphine Injection - IVPUSH 04/26/18 07:58 4 mg ONCE ONE Administration Medical Decision Making - Medical Decision Making 04/26/18 11:43 Well-appearing no apparent distress laboratory analysis within normal limits patient feels better after fluids and Maalox and pain medication. Repeat abdominal exam benign No acute findings on patient's CAT scan. We'll recommend Pepcid and Maalox as an outpatient with GI follow-up for chronic abdominal discomfort Findings, the need for follow-up and strict return instructions discussed with patient. *DC/Admit/Observation/Transfer Diagnosis at time of Disposition: Pre-syncope, Abdominal pain - Discharge Dispostion Disposition: HOME Condition at time of disposition: Stable - Prescriptions Prescriptions: Famotidine [Pepcid] 20 mg PO DAILY #14 tablet Mag Hydrox/Al Hydrox/Simeth [Mylanta Suspension -] 30 ml PO Q6H #1 bottle - Referrals - Patient Instructions Printed Discharge Instructions: DI for Abdominal Pain-Adult Additional Instructions: You were seen in the ED for complaints of abdominal pain and distention. In the ED you were evaluated with labwork and imaging. Your results were unremarkable. There does not appear to be an acute need for immediate hospitalization. You are advised to follow up with your Primary Care Physician within 1 week. You were given a referral to Gastroenterology and advised to follow up within 1 week. You were given a prescription for antacid and are advised to take these medications as directed. Return to the ED immediately if you experience worsening abdominal pain and distention, nausea, vomiting, diarrhea, constipation, blood in the urine or stool or any fevers. - Post Discharge Activity
[2018-04-26 11:54] LABS: EPI CELLS RARE /HPF (FEW); URINE BACTERIA RARE /hpf (NONE SEEN)
[2018-04-26 14:16] VITALS: BP 120/74; PULSE 84; TEMP 100.2
== END 2018-04-26 14:49 | disposition home or self-care (01) ==
LOC: JER 05:01
PROC: 3E033GC Introduction of Other Therapeutic Substance into Peripheral Vein, Percutaneous Approach (ICD-10-PCS; principal; 2018-04-26)
DX: R55 Syncope and collapse (principal); R10.84 Generalized abdominal pain; I48.0 Paroxysmal atrial fibrillation; Z79.01 Long term (current) use of anticoagulants; I25.10 Atherosclerotic heart disease of native coronary artery without angina pectoris; Z98.61 Coronary angioplasty status; I10 Essential (primary) hypertension; I51.9 Heart disease, unspecified; J44.9 Chronic obstructive pulmonary disease, unspecified; J45.909 Unspecified asthma, uncomplicated; K21.9 Gastro-esophageal reflux disease without esophagitis; F20.9 Schizophrenia, unspecified; E11.9 Type 2 diabetes mellitus without complications; R20.2 Paresthesia of skin; Z87.19 Personal history of other diseases of the digestive system; Z96.651 Presence of right artificial knee joint
CPT/HCPCS: 36415; 70450-TC; 71045-TC-FY; 74176-TC; 80053; 81003; 81015; 82009; 82550; 83880; 84484; 85025; 85610; 87086; 87186; 93005; 93010; 99285-25

== ENCOUNTER → 2018-11-09 | Day surgery (SDC) | payer OTHER ==
--- NOTE | 2018-11-22 18:04 | PATH ---
Surgical Pathology Report Patient Name: GI GAMEZ [facility]. Rec. #: [id number] /Age/Gender: 1945 (Age: 73) / F Account: [id number] Location: [facility] Taken: 11/21/2018 Received: 11/21/2018 Reported: 11/22/2018 Physicians: Yuniel Maciel M.D. Specimen(s) Received A: LEFT BREAST 8-9:00 B: LEFT AXILLA Clinical History Palpable mass, highly suspicious Final Diagnosis A. BREAST, LEFT, 8-9:00, LOWER INNER QUADRANT MASS, ULTRASOUND GUIDED CORE BIOPSY: INVASIVE DUCTAL CARCINOMA, POORLY DIFFERENTIATED, MEASURING AT LEAST 5 MM IN THIS MATERIAL. SEE COMMENT. B. AXILLARY LYMPH NODE, LEFT, ULTRASOUND GUIDED CORE BIOPSY: CORE FRAGMENT OF LYMPHOID TISSUE WITH HETEROGENOUS LYMPHOCYTES AND FEW GERMINAL CENTERS. FEW DETACHED CLUSTERS AND SMALL FRAGMENTS OF MARKEDLY DEGENERATED EPITHELIAL CELLS WITHIN FIBRIN AND ADIPOSE TISSUE, POSITIVE FOR CYTOKERATIN AE1/3. Comment: Part A, Immunohistochemical stain for E-cadherin is positive, supportive of ductal differentiation. Part B, The lymphoid core tissue fragment is negative for carcinoma. However, there are few detached epithelial clusters and small fragments with marked degenerative changes, admixed with fibrin and adipose tissue identified, that are positive for cytokeratin AE1/3. Suggest clinical and radiologic correlation. Results of Estrogen Receptor (ER) and Progesterone Receptor (NE) studies performed on block "A" at [facility] are as follows: ER (clone [id number] mouse monoclonal antibody by [employer]):0% nuclear staining (Negative). NE (clone16 mouse monoclonal antibody by [employer]): Rare cells, <1% nuclear staining with weak to moderate intensity (Negative). Immunohistochemical stains performed and interpreted at [facility]. Results of Her2 (IHC) & Ki-67 studies pending and findings will be reported separately. Findings discussed with Dr. Webb. Positive and negative controls (internal if applicable) show appropriate results. Formalin fixation and cold ischemic times are within current ASCO/CAP recommendations for ER, NE and Her2 testing. Electronically Signed Julianne Sinclair M.D. Gross Description A. Received in formalin, labeled "left breast 8 -9:00 biopsy" are 4 cores of mcpherson to yellow soft tissue measuring 0.5-1.5 cm and 0.1 cm in diameter. The specimens are submitted in toto in one cassette. B. Received in formalin, labeled "left axillary lymph node" is a core of mcpherson soft tissue measuring 1.0 cm. in length and 0.1 cm in diameter. The specimens are submitted in toto in one cassette. Time to formalin fixation: less than one minute. Formalin fixation: Approximately 9 hours ERNST/11/21/2018 camilla11/21/2018
== END | disposition home or self-care (01) ==
LOC: JRADUS 08:56 → JRADUS-SUR 08:56
PROVIDERS: ATTEND Surgery
PROC: 0HBU3ZX Excision of Left Breast, Percutaneous Approach, Diagnostic (ICD-10-PCS; principal; 2018-11-09)
DX: D48.62 Neoplasm of uncertain behavior of left breast (principal); Z53.8 Procedure and treatment not carried out for other reasons
CPT/HCPCS: 76642-TC-LT; 88305-TC; 88342-TC

== ENCOUNTER → 2018-11-21 | Day surgery (SDC) | payer OTHER | END | disposition home or self-care (01) | LOC: EDSTATUS 08:41 → JRADUS-SUR 08:45 | PROVIDERS: ATTEND Surgery | PROC: 07B63ZX Excision of Left Axillary Lymphatic, Percutaneous Approach, Diagnostic (ICD-10-PCS; principal; 2018-11-21) | DX: C50.912 Malignant neoplasm of unspecified site of left female breast (principal) | CPT/HCPCS: 19083; 19084; 38505; 87899; 88305-TC; 88342-TC; A4648 ==

== ENCOUNTER 2019-03-23 08:49 | Observation (INO) | payer OTHER ==
[2019-03-23] MEDS ORDERED: ACETAMINOPHEN 1000 MG/100 ML VIAL (NON FORMULARY) IVPB ONE (09:41)
[2019-03-23] MEDS ORDERED: SODIUM CHLORIDE 1,000 ML IV STA (09:41)
--- NOTE | 2019-03-23 09:41 | PDOC ---
History of Present Illness - General Chief Complaint: Injury Stated Complaint: FALL Time Seen by Provider: 03/23/19 09:35 History Source: Patient, [facility] Records Exam Limitations: Dementia - History of Present Illness Initial Comments: 73 year old female with PMH dementia, COPD, HLD, chronic atrial fibrillation, GERD, iron deficiency anemia, HTN, DM, seizure disorder BIBA to ED from [facility] for fall. It was reported by [place] staff that pt was found down this AM face down after a suspected unwitnessed fall. Pt reported she fell, reported headache. Pt was unable to explain the circumstances of the fall. Allergies: NKDA ROS General: denied fever, chills, generalized weakness. HEENT: denied sore throat, rhinorrhea, ear pain. Cardiovascular: denied chest pain, palpitations, syncope, diaphoresis. Respiratory: denied shortness of breath, cough, sputum production, hemoptysis. Gastrointestinal: denied abdominal pain, nausea, vomiting, diarrhea, constipation, blood in stool. Genitourinary: denied dysuria, increased urinary frequency, hematuria, urinary incontinence, flank pain. Back: denied back pain. Musculoskeletal: denied joint pain, muscle pain, joint swelling. Neurological: admitted to headache. denied dizziness, numbness, tingling, weakness. Integumentary: denied rash, laceration, abrasion. Hematologic/Lymphatic: denied bruising or bleeding. PE Constitutional: Well-nourished, Well-developed, appearing stated age. HEENT: head is normocephalic. left supraorbital facial hematoma. EOMI. PERRLA. Neck: supple. Full ROM. no midline c-spine tenderness to palpation. no step offs. Cardiovascular: regular heart rhythm. no murmurs. no pericardial friction rub. Respiratory: clear to auscultation bilaterally. no crackles, rhonchi or wheezing. no stridor. Back: no midline t-spine or L-spine tenderness to palpation. no step offs. no low back tenderness. no ecchymoses or signs of trauma. Gastrointestinal: soft, nontender. normal bowel sounds. no rebound, guarding, masses. Pelvis: Left LE externally rotated and shortened. Bilateral hips nontender to palpation. 2+ DSP pulse bilaterally. capillary refill <2 seconds to bilateral LE. Extremities: peripheral pulses intact. no lower extremity edema. Neurological: CN 2-12 grossly intact. moves all four extremities. Psych: awake, alert, oriented x3. follows commands. answers questions appropriately. Past History - Past Medical History Allergies/Adverse Reactions: Allergies Allergy/AdvReac Type Severity Reaction Status Date / Time aspirin Allergy Verified 02/19/19 09:25 ibuprofen [From Advil] Allergy Verified 02/19/19 09:25 lactose [Lactose] AdvReac Verified 02/19/19 09:25 Home Medications: Ambulatory Orders Ferrous Sulfate 325 mg PO DAILY 12/12/16 Risperidone 1 mg PO HS 12/12/16 Atorvastatin Ca [Lipitor] 10 mg PO HS #30 tablet 12/18/16 Dabigatran Etexilate Mesylate [Pradaxa -] 75 mg PO BID #60 tab 12/18/16 Furosemide [Lasix -] 40 mg PO DAILY #30 tablet 12/18/16 Ranolazine [Ranexa -] 500 mg PO BID #60 tab 12/18/16 Sertraline HCl [Zoloft -] 50 mg PO DAILY tablet 12/18/16 Digoxin [Lanoxin -] 0 mg PO DAILY 03/09/18 Ergocalciferol (Vitamin D2) [Vitamin D2] 50,000 unit PO WEEKLY 03/09/18 Famotidine [Pepcid] 20 mg PO DAILY #14 tablet 04/26/18 Mag Hydrox/Al Hydrox/Simeth [Mylanta Suspension -] 30 ml PO Q6H #1 bottle Nitrofurantoin Monohyd/M-Cryst [Macrobid -] 100 mg PO BID #14 capsule 04/30/18 Anemia: Yes Asthma: Yes Cardiac Disorders: Yes (atrial fibrillation, CARDIAC CATH 2010-NORMAL) COPD: Yes Dementia: Yes Diabetes: Yes Dialysis: Yes GI Disorders: Yes (POLYPS; DIVERTICULOSIS; GERD) HTN: Yes Hypercholesterolemia: Yes Psychiatric Problems: Yes (schizophrenia) Seizures: Yes - Surgical History Abdominal Surgery: Yes (intestinal blockage 2010; HIATAL HERNIA;) Neurologic Surgery: Yes (UPPER BACK SX) Orthopedic Surgery: Yes (R. Knee replacement 2010) - Immunization History Immunization Up to Date: Yes - Suicide/Smoking/Psychosocial Hx Smoking Status: No Smoking History: Unknown if ever smoked Have you smoked in the past 12 months: No Number of Cigarettes Smoked Daily: 0 Hx Alcohol Use: No Drug/Substance Use Hx: No Substance Use Type: Alcohol Hx Substance Use Treatment: No (12 steps) *Physical Exam - Vital Signs Last Vital Signs Temp Pulse Resp BP Pulse Ox 98.4 F 88 16 98/72 98 03/23/19 09:13 03/23/19 09:13 03/23/19 09:13 03/23/19 09:13 03/23/19 09:13 ED Treatment Course - LABORATORY CBC & Chemistry Diagram: 03/23/19 09:50 03/23/19 09:50 - RADIOLOGY Radiology Studies Ordered: Category Date Time Status CERVICAL SPINE CT W/O CONTR [CT] Stat CT Scan 03/23/19 09:[address] W/O CONTRAST [CT] Stat CT Scan 03/23/19 09:[address] WITHOUT CONTRAST [CT] Stat CT Scan 03/23/19 09:[address] WITHOUT CONTRAST [CT] Stat CT Scan 03/23/19 09:38 Ordered CHEST X-RAY PORTABLE* [RAD] Stat Radiology 03/23/19 09:32 Ordered Medical Decision Making - Medical Decision Making 78 year old female with above PMH BIB[place] to ED from [place] for unwitnessed fall. Initial Vital Signs Temp Pulse Resp BP Pulse Ox 98.4 F 88 16 98/72 98 03/23/19 09:13 03/23/19 09:13 03/23/19 09:13 03/23/19 09:13 03/23/19 09:13 Afebrile. No tachycardia. No tachypnea. Hypotensive. No hypoxia on room air. EKG performed at 1011: rate 73, regular rhythm, left axis, ME prolongation 210, no acute ST changes. Labs ordered: CBC, CMP, Mag, Phos, troponin, UA/UC Imaging ordered: CT head, CT cervical spine, CT facial bones, CT pelvis Medications ordered: normal saline bolus 1000 cc once, tylenol IV 03/23/19 10:20 CBC WBC 5.5 K/mm3 (4.0-10.0) 03/23/19 09:50 RBC 2.93 M/mm3 (3.60-5.2) L 03/23/19 09:50 Hgb 8.1 GM/dL (10.7-15.3) L 03/23/19 09:50 Hct 24.9 % (32.4-45.2) L D 03/23/19 09:50 MCV 85.0 fl (80-96) 03/23/19 09:50 MCH 27.7 pg (25.7-33.7) 03/23/19 09:50 MCHC 32.6 g/dl (32.0-36.0) 03/23/19 09:50 RDW 16.7 % (11.6-15.6) H 03/23/19 09:50 Plt Count 554 K/MM3 (134-434) H D 03/23/19 09:50 MPV 7.5 fl (7.5-11.1) 03/23/19 09:50 Absolute Neuts (auto) 4.7 K/mm3 (1.5-8.0) 03/23/19 09:50 Neutrophils % 85.5 % (42.8-82.8) H D 03/23/19 09:50 Lymphocytes % 11.0 % (8-40) D 03/23/19 09:50 Monocytes % 2.8 % (3.8-10.2) L 03/23/19 09:50 Eosinophils % 0.1 % (0-4.5) D 03/23/19 09:50 Basophils % 0.6 % (0-2.0) 03/23/19 09:50 Nucleated RBC % 0 % (0-0) 03/23/19 09:50 No leukocytosis. Normocytic anemia. Thrombocytosis. 03/23/19 10:53 Troponin I < 0.02 ng/ml (0.00-0.05) 03/23/19 09:50 03/23/19 11:05 Urine Test Results Urine Color Yellow 03/23/19 10:24 Urine Appearance Clear 03/23/19 10:24 Urine pH 5.0 (5.0-8.0) 03/23/19 10:24 Ur Specific [place] 1.009 (1.010-1.035) L 03/23/19 10:24 Urine Protein Negative (NEGATIVE) 03/23/19 10:24 Urine Glucose (UA) Negative (NEGATIVE) 03/23/19 10:24 Urine Ketones Negative (NEGATIVE) 03/23/19 10:24 Urine Blood Negative (NEGATIVE) 03/23/19 10:24 Urine Nitrite Negative (NEGATIVE) 03/23/19 10:24 Urine Bilirubin Negative (NEGATIVE) 03/23/19 10:24 Ur Leukocyte Esterase 1+ (NEGATIVE) H 03/23/19 10:24 WBC 10 Bacteria in urine Medications ordered: Ceftriaxone 1g IV once -Past culture in 2018 showed sensitivity to Ceftriaxone 03/23/19 11:13 CMP Sodium 140 mmol/L (136-145) 03/23/19 09:50 Potassium 4.2 mmol/L (3.5-5.1) 03/23/19 09:50 Chloride 105 mmol/L (98-107) 03/23/19 09:50 Carbon Dioxide 27 mmol/L (21-32) 03/23/19 09:50 Anion Gap 8 MMOL/L (8-16) 03/23/19 09:50 BUN 17.2 mg/dL (7-18) 03/23/19 09:50 Creatinine 1.0 mg/dL (0.55-1.3) 03/23/19 09:50 Est GFR (CKD-EPI)AfAm 65.64 03/23/19 09:50 Est GFR (CKD-EPI)NonAf 56.64 03/23/19 09:50 Random Glucose 119 mg/dL (74-106) H 03/23/19 09:50 Calcium 9.1 mg/dL (8.5-10.1) 03/23/19 09:50 Phosphorus 3.0 mg/dL (2.5-4.9) 03/23/19 09:50 Magnesium 1.6 mg/dL (1.8-2.4) L 03/23/19 09:50 Total Bilirubin 0.3 mg/dL (0.2-1) 03/23/19 09:50 AST 14 U/L (15-37) L 03/23/19 09:50 ALT 12 U/L (13-61) L 03/23/19 09:50 Alkaline Phosphatase 90 U/L (45-117) 03/23/19 09:50 Troponin I < 0.02 ng/ml (0.00-0.05) 03/23/19 09:50 Total Protein 7.0 g/dl (6.4-8.2) 03/23/19 09:50 Albumin 2.9 g/dl (3.4-5.0) L 03/23/19 09:50 No hypo/hypernatremia. No hypo/hyperkalemia. No KAREN. No transaminitis. Mildly low mag. -Medications ordered: Magnesium 1000 mg IV once CXR report: Name: GI [facility] DEPARTMENT OF RADIOLOGY Phys: CarmenRadha RESIDENT : 1945 Age: 73 Sex: F [facility] Acct: [id number] Loc: [address] Exam Date: 03/23/19 Status: [place] [id number] Unit Number: [id number] EXAM#: TYPE/EXAM: RESULT: RAD/CHEST X-RAY PORTABLE* Chest: Fall. Pain. A single AP view of the chest reveals a smaller heart than 04/26/2018. It is still enlarged with prominent, normal hilar and clear lung oconnell. Angles are sharp. The bones and soft tissues are intact of this a slight scoliosis. Impression: No acute chest pathology. Large heart. Reported By: Regis Roman MD 03/23/19 1021 03/23/19 12:36 CT head report: Name: GI [facility] DEPARTMENT OF RADIOLOGY Phys: Carmen Radha RESIDENT : 1945 Age: 73 Sex: F [facility] Acct: [id number] Loc: [address] Exam Date: 03/23/19 Status: [place] [address] Unit Number: [id number] EXAM#: TYPE/EXAM: RESULT: CT/HEAD CT WITHOUT CONTRAST Cranial CT without contrast Clinical information: fall No CT evidence of acute intracranial injury or calvarial fracture. There is no extra-axial fluid collection. Encephalomalacia is seen along the inferior aspect of the right frontal lobe laterally which may be on the basis of previous infarction versus injury. Correlate clinically. Small chronic right cerebellar infarct along the posterior lateral aspect inferiorly. There is no acute infarct within the limitations of CT. There is no acute infarct within the limitations of CT. No gross mass lesion is seen. The ventricles and cisterns appear unremarkable. Impression: No CT evidence of acute intracranial pathology. Right inferior frontal encephalomalacia laterally. 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 No definite interval change is identified in comparison to a prior CT study of 04/26/2018. Reported By: Gee Gregg MD [id number] 03/23/19 12:42 CT cervical spine report: Name: GI [facility] DEPARTMENT OF RADIOLOGY Phys: Radha Morales RESIDENT : 1945 Age: 73 Sex: F [facility] Acct: [id number] Loc: [address] Exam Date: 03/23/19 Status: REG [place] [id number] Unit Number: [id number] ACCESSION # : [id number] EXAM#: TYPE/EXAM: RESULT: CT/CERVICAL SPINE CT W/O CONTR Cervical spine CT without contrast Clinical information: fall Multiplanar imaging was performed. No fracture or subluxation is seen. There is straightening of the cervical lordosis which may be positional in nature and/or secondary to paravertebral muscle spasm. Correlate clinically. The perivertebral soft tissues demonstrate no obvious abnormality. Impression: No fracture is identified. Reported By: Gee Gregg MD 03/23/19 1238 03/23/19 14:10 CT pelvis report: Name: GI [facility] DEPARTMENT OF RADIOLOGY Phys: Radha Morales RESIDENT : 1945 Age: 73 Sex: F [facility] Acct: [id number] Loc: [address] Exam Date: 03/23/19 Status: [place] [id number] Unit Number: [id number] EXAM#: TYPE/EXAM: RESULT: CT/PELVIS CT WITHOUT CONTRAST Pelvis CT without contrast Clinical information: left lower extremity externally rotated, shortened Multiplanar imaging was performed. The pelvis and hips demonstrate no CT evidence of fracture. If there is ongoing clinical concern for a nondisplaced hip fracture additional evaluation utilizing MRI or skeletal scintigraphy may be performed. No soft tissue hematoma is visualized. Minimal bilateral degenerative hip joint narrowing is seen. Moderate lower lumbar degenerative facet arthropathy. There is partial imaging of several large right renal cortical cyst. A surgical bowel anastomosis is noted within the left pelvis/lower abdomen. Impression: No fracture is identified. Reported By: Gee Gregg MD 03/23/[address] facial bones report: Name: [facility] DEPARTMENT OF RADIOLOGY Phys: Radha Morales RESIDENT : 1945 Age: 73 Sex: F [facility] Acct: [id number] Loc: [address] Exam Date: 03/23/19 Status: [facility] Unit Number: [id number] ACCESSION # : [id number] EXAM#: TYPE/EXAM: RESULT: [id number] CT/FACIAL BONES CT W/O CONTRAST Facial bones CT without contrast Clinical information: left supraorbital swelling, status post fall Multiplanar imaging was performed. The maxillofacial and orbital structures demonstrate no evidence of fracture. Exam coverage did not fully include the inferior aspect of the mental symphysis. There is no CT evidence of intraorbital injury. Note is made of apparent mild superficial soft tissue swelling along the left supraorbital/lower forehead region. Impression: No fracture is identified. Reported By: Gee Gregg MD 03/23/19 1422 03/23/19 14:14 Dr. Vanessa Perez' service paged. Dr. Mervat Yen structural ironworker. Pt informed of results and plan for care - admission tele/obs for syncope. Pending admission. 03/23/19 14:[address] Yen paged again. 03/23/19 15:39 Sign out given to Dr. Mervat Yen, who agreed with plan for care. Pending admission. *DC/Admit/Observation/Transfer Diagnosis at time of Disposition: Anemia, Head injury, Fall, Syncope, First degree AV block, UTI (urinary tract infection), Hypomagnesemia - Discharge Dispostion Condition at time of disposition: Stable Decision to Admit order: Yes - Referrals Referrals: Zenaida Glez RN [Primary Care Provider] - - Patient Instructions Printed Discharge Instructions: DI for Urinary Tract Infection (UTI), How to Prevent Falls - Post Discharge Activity
[2019-03-23] MEDS ORDERED: ACETAMINOPHEN INJECTION 100 ML IVPB ONE (09:55)
[2019-03-23 10:06] LABS: BASO % 0.6 % (0-2.0); EOS % 0.1 % (0-4.5); HEMATOCRIT 24.9 % (32.4-45.2); HEMOGLOBIN 8.1 GM/dL (10.7-15.3); MCH 27.7 pg (25.7-33.7); MCHC 32.6 g/dl (32.0-36.0); MEAN PLT VOLUME 7.5 fl (7.5-11.1); MONO % 2.8 % (3.8-10.2); NEUT % 85.5 % (42.8-82.8); PLATELET COUNT 554 K/MM3 (134-434); RBC 2.93 M/mm3 (3.60-5.2); RDW 16.7 % (11.6-15.6); WHITE BLOOD COUNT 5.5 K/mm3 (4.0-10.0)
[2019-03-23 10:17] LABS: INR 1.39 (0.83-1.09); PROTHROMBIN TIME (PATIENT) 16.5 SEC (9.7-13.0)
[2019-03-23 10:20] LABS: ACTIVATED PTT 51.6 SECONDS (25.2-36.5)
[2019-03-23 10:53] LABS: EPI CELLS 5.1 /HPF (0-5/HPF); HYALINE CASTS 13 /lpf (0-8); URINE APPEARANCE CLEAR; URINE BACTERIA 1155.3 /hpf (NEGATIVE); URINE BILIRUBIN NEGATIVE (NEGATIVE); URINE COLOR YELLOW; URINE GLUCOSE (UA) NEGATIVE (NEGATIVE); URINE KETONE NEGATIVE (NEGATIVE); URINE LEUK ESTERASE 1+ (NEGATIVE); URINE NITRITE NEGATIVE (NEGATIVE); URINE PROTEIN NEGATIVE (NEGATIVE); URINE RBC 0 /hpf (0-4); URINE UROBILINOGEN 0.2 mg/dL (0.2-1.0); URINE WBC 10 /hpf (0-5)
[2019-03-23 11:04] LABS: ALBUMIN 2.9 g/dl (3.4-5.0); BILIRUBIN,TOTAL 0.3 mg/dL (0.2-1); BLOOD UREA NITROGEN 17.2 mg/dL (7-18); CALCIUM 9.1 mg/dL (8.5-10.1); MAGNESIUM 1.6 mg/dL (1.8-2.4); POTASSIUM 4.2 mmol/L (3.5-5.1)
[2019-03-23] MEDS ORDERED: MAGNESIUM OXIDE 400 MG TABLET (FP) PO ONE (11:04)
--- NOTE | 2019-03-23 11:24 | PDOC ---
Attending Attestation - Resident Resident Name: CarmenRadha - ED Attending Attestation I have performed the following: I have examined & evaluated the patient, The case was reviewed & discussed with the resident, I agree w/resident's findings & plan, Exceptions are as noted - HPI HPI: 03/23/19 11:18 Ms Grigsby is a 73 yo F y/o F h/o dementia, COPD, HLD, chronic atrial fibrillation , GERD, iron deficiency anemia, HTN, DM, seizure disorder BIBA to ED from [facility] for unwitnessed fall. Pt was found down with trauma to her face Pt reports headache. Pt is a poor historian and can not give more details about the fall. - Physicial Exam PE: 03/23/19 11:24 PE Constitutional: Well-nourished, Well-developed, appearing stated age. HEENT: head is normocephalic. left supraorbital facial hematoma. EOMI. PERRLA. Neck: supple. Full ROM. no midline c-spine tenderness to palpation. no step offs. Cardiovascular: regular heart rhythm. no murmurs. no pericardial friction rub. Respiratory: clear to auscultation bilaterally. no crackles, rhonchi or wheezing. no stridor. Back: no midline t-spine or L-spine tenderness to palpation. no step offs. no low back tenderness. no ecchymoses or signs of trauma. Gastrointestinal: soft, nontender. normal bowel sounds. no rebound, guarding, masses. Pelvis: Left LE externally rotated and shortened. Bilateral hips nontender to palpation. 2+ DSP pulse bilaterally. capillary refill <2 seconds to bilateral LE. Extremities: peripheral pulses intact. no lower extremity edema. Neurological: CN 2-12 grossly intact. moves all four extremities. Psych: awake, alert, oriented x3. follows commands. answers questions appropriately. - Medical Decision Making 03/23/19 11:24 73 yo F s/p fall with evidence of head trauma No anticoagulants EKG: SR rate of 73 bpm, LAD, LVH, no st elevation or depression, t waves upright 03/23/19 11:29 Laboratory Tests 04/26/18 04/26/18 03/23/19 05:16 05:16 09:50 WBC 6.0 Hgb 10.2 L Hct 32.1 L Plt Count 270 D PT with INR 16.50 H INR 1.39 H PTT (Actin FS) 51.6 H Sodium Potassium Chloride Carbon Dioxide Anion Gap BUN Creatinine 0.7 Random Glucose Magnesium Troponin I Urine Blood Urine Nitrite Ur Leukocyte Esterase Urine WBC (Auto) Urine Casts (Auto) U Epithel Cells (Auto) Urine Bacteria (Auto) 03/23/19 03/23/19 03/23/19 09:50 09:50 09:50 WBC 5.5 Hgb 8.1 L Hct 24.9 L D Plt Count 554 H D PT with INR INR PTT (Actin FS) Sodium 140 Potassium 4.2 Chloride 105 Carbon Dioxide 27 Anion Gap 8 BUN 17.2 Creatinine 1.0 Random Glucose 119 H Magnesium 1.6 L Troponin I Urine Blood Urine Nitrite Ur Leukocyte Esterase Urine WBC (Auto) Urine Casts (Auto) U Epithel Cells (Auto) Urine Bacteria (Auto) 03/23/19 03/23/19 09:50 10:24 WBC Hgb Hct Plt Count PT with INR INR PTT (Actin FS) Sodium Potassium Chloride Carbon Dioxide Anion Gap BUN Creatinine Random Glucose Magnesium Troponin I < 0.02 Urine Blood Negative Urine Nitrite Negative Ur Leukocyte Esterase 1+ H Urine WBC (Auto) 10 Urine Casts (Auto) 13 U Epithel Cells (Auto) 5.1 Urine Bacteria (Auto) 1155.3 03/23/19 14:32 EKG: SR rate of 66 bpm, LAD, no st elevation or depression, 1st degree AV block 03/23/19 14:33 CTs reviewed Will admit
[2019-03-23] MEDS ORDERED: CEFTRIAXONE 1 GM in DEXTROSE 5%-WATER - 100 ML IVPB ONE (11:27)
[2019-03-23] MEDS ORDERED: MAGNESIUM SULF 50% (8.12 MEQ/2 ML-1 GM VIAL) IVPB ONE ×2 (11:30→12:41)
[2019-03-23] MEDS ORDERED: CEFTRIAXONE 1 GM/50 ML BAG ONE (11:59)
[2019-03-23] MEDS ORDERED: MAGNESIUM 1GM/D5W - 1 GM/100 ML IVPB IVPB ONE (11:59)
--- NOTE | 2019-03-23 14:48 | EKG ---
Test Reason : Blood Pressure : / mmHG Vent. Rate : 066 BPM Atrial Rate : 066 BPM P-R Int : 226 ms QRS Dur : 100 ms QT Int : 424 ms P-R-T Axes : 079 -46 063 degrees QTc Int : 444 ms SINUS RHYTHM WITH 1ST DEGREE A-V BLOCK LEFT AXIS DEVIATION ABNORMAL ECG WHEN COMPARED WITH ECG OF 23-MAR-2019 10:11, NO SIGNIFICANT CHANGE WAS FOUND Confirmed by MD CELE, LOUIS ([id number]) on 03/23/2019 2:47:56 PM Referred By: Confirmed By:LOUIS OAKLEY MD
--- NOTE | 2019-03-23 14:54 | EKG ---
Test Reason : Blood Pressure : / mmHG Vent. Rate : 073 BPM Atrial Rate : 073 BPM P-R Int : 210 ms QRS Dur : 082 ms QT Int : 396 ms P-R-T Axes : 080 -48 058 degrees QTc Int : 436 ms SINUS RHYTHM WITH 1ST DEGREE A-V BLOCK LEFT AXIS DEVIATION MINIMAL VOLTAGE CRITERIA FOR LVH, MAY BE NORMAL VARIANT ABNORMAL ECG Confirmed by MD CELE, LOUIS ([id number]) on 03/23/2019 2:53:51 PM Referred By: Confirmed By:LOUIS OAKLEY MD
--- NOTE | 2019-03-23 16:11 | HP ---
Admitting History and Physical - Primary Care Physician PCP: Vanessa Perez - Admission Chief Complaint: s/p fall History of Present Illness: - History of Present Illness Initial Comments: 73 year old female with PMH dementia, COPD, HLD, chronic atrial fibrillation, GERD, iron deficiency anemia, HTN, DM, seizure disorder BIBA to ED from [facility] for fall. It was reported by [place] staff that pt was found down this AM face down after a suspected unwitnessed fall. Pt reported she fell, reported headache. Pt was unable to explain the circumstances of the fall. Allergies: NKDA Pt examined by me in ER Does not remember what happened- denies dizziness Pt is currently on chemotherapy for breast CA at [facility] and had a similar episode of syncope and fall- work up was negative Last chemo was a few days ago Limitations to Obtaining History: No Limitations - Past Medical History ATTORNEY: Yes: Other Cardiovascular: Yes: AFIB, CAD, CHF, HTN, Hyperlipdemia Gastrointestinal: Yes: Diverticulosis, GERD, Hiatal Hernia, Other Psych: Yes: Schizophrenia Musculoskeletal: Yes: Chronic low back pain, Osteoarthritis Endocrine: Yes: Diabetes Mellitus - Past Surgical History Past Surgical History: Yes: Colonoscopy, Hernia Repair, Hysterectomy, Joint Replacement, Tonsillectomy, Upper Endoscopy - Smoking History Smoking history: Unknown if ever smoked Have you smoked in the past 12 months: No Aproximately how many cigarettes per day: 0 - Alcohol/Substance Use Hx Alcohol Use: No History of Substance Use: reports: None - Social History ADL: Support Services History of Recent Travel: No Home Medications - Allergies Allergies/Adverse Reactions: Allergies Allergy/AdvReac Type Severity Reaction Status Date / Time aspirin Allergy Verified 02/19/19 09:25 ibuprofen [From Advil] Allergy Verified 02/19/19 09:25 lactose [Lactose] AdvReac Verified 02/19/19 09:25 - Home Medications Home Medications: Ambulatory Orders Ferrous Sulfate 325 mg PO DAILY 12/12/16 Risperidone 1 mg PO HS 12/12/16 Atorvastatin Ca [Lipitor] 10 mg PO HS #30 tablet 12/18/16 Dabigatran Etexilate Mesylate [Pradaxa -] 75 mg PO BID #60 tab 12/18/16 Furosemide [Lasix -] 40 mg PO DAILY #30 tablet 12/18/16 Ranolazine [Ranexa -] 500 mg PO BID #60 tab 12/18/16 Sertraline HCl [Zoloft -] 50 mg PO DAILY tablet 12/18/16 Ergocalciferol (Vitamin D2) [Vitamin D2] 50,000 unit PO WEEKLY 03/09/18 Famotidine [Pepcid] 20 mg PO DAILY #14 tablet 04/26/18 Mag Hydrox/Al Hydrox/Simeth [Mylanta Suspension -] 30 ml PO Q6H #1 bottle Nitrofurantoin Monohyd/M-Cryst [Macrobid -] 100 mg PO BID #14 capsule 04/30/18 Metformin HCl [Metformin HCl ER] 500 mg PO 03/23/19 Metoprolol Succinate [Toprol Xl] 25 mg PO 03/23/19 Family Disease History - Family Disease History Family Disease History: Diabetes: Brother, Heart Disease: Father, CA: Mother Review of Systems - Review of Systems Constitutional: denies: No Symptoms Physical Examination Vital Signs: Vital Signs Temperature 98.4 F 03/23/19 09:13 Pulse Rate 88 03/23/19 09:13 Respiratory Rate 16 03/23/19 09:13 Blood Pressure 98/72 03/23/19 09:13 O2 Sat by Pulse Oximetry (%) 98 03/23/19 14:50 Constitutional: Yes: No Distress, Calm HENT: Yes: Other (left forehead hematoma+) Cardiovascular: Yes: Regular Rate and Rhythm Respiratory: Yes: CTA Bilaterally Gastrointestinal: Yes: Normal Bowel Sounds, Soft. No: Tenderness Extremities: Yes: WNL Labs: CBC, BMP 03/23/19 09:50 03/23/19 09:50 Imaging - Results Chest X-ray: Image Reviewed Cat Scan: Report Reviewed EKG: Image Reviewed Problem List - Problems (1) Anemia Code(s): D64.9 - ANEMIA, UNSPECIFIED (2) Chronic anticoagulation Code(s): Z79.01 - SKILLED NURSING (CURRENT) USE OF ANTICOAGULANTS (3) Fall Code(s): W19.XXXA - UNSPECIFIED FALL, INITIAL ENCOUNTER Qualifiers: Encounter type: initial encounter Qualified Code(s): W19.XXXA - Unspecified fall, initial encounter (4) Head injury Code(s): S09.90XA - UNSPECIFIED INJURY OF HEAD, INITIAL ENCOUNTER (5) Syncope Code(s): R55 - SYNCOPE AND COLLAPSE (6) UTI (urinary tract infection) Code(s): N39.0 - URINARY TRACT INFECTION, SITE NOT SPECIFIED Assessment/Plan PLAN Check orthostasis iv fluids hold off Pradaxa will repeat another CT head tomorrow Tele monitoring cardiology eval empiric antibiotics-- will await for urine cultures
[2019-03-23 18:39] VITALS: BMI 26.8
[2019-03-23] MEDS ORDERED: PT OWN MED DRAWER 7, Y5N ONE (22:39)
[2019-03-23] MEDS: risperiDONE 1 MG TABLET (FP) PO SCH (23:26)
[2019-03-23] MEDS: SODIUM CHLORIDE 1,000 ML IV SCH (23:26)
[2019-03-23] MEDS: RANOLAZINE E.R. 500 MG TABLET (FP) PO SCH (23:26)
[2019-03-23] MEDS: ATORVASTATIN CA 10 MG TABLET (FP) PO SCH (23:26)
[2019-03-23] MEDS ORDERED: ACETAMINOPHEN 325 MG TABLET (FP) PO PRN (23:52)
[2019-03-24] MEDS: SODIUM CHLORIDE 1,000 ML IV SCH (06:19)
--- NOTE | 2019-03-24 08:59 | PN ---
Progress Note (short form) - Note Progress Note: has pain in left forehead no other complaints Vital Signs - 24 hr 03/23/19 03/23/19 03/24/19 18:18 21:00 00:09 Temperature 98.4 F Pulse Rate 74 Pulse Rate [ 93 H Right side Sitting] Pulse Rate [ 74 Right side Supine] Respiratory 20 18 Rate Blood Pressure 110/58 L Blood Pressure 134/82 [Right side Sitting] Blood Pressure 121/64 [Right side Supine] O2 Sat by Pulse 97 100 Oximetry (%) 03/24/19 03/24/19 03/24/19 09:00 09:20 10:57 Temperature 98.1 F Pulse Rate 77 78 Pulse Rate [ Right side Sitting] Pulse Rate [ Right side Supine] Respiratory 18 Rate Blood Pressure 110/64 Blood Pressure [Right side Sitting] Blood Pressure [Right side Supine] O2 Sat by Pulse 100 Oximetry (%) 03/24/19 15:03 Temperature 98.7 F Pulse Rate 84 Pulse Rate [ Right side Sitting] Pulse Rate [ Right side Supine] Respiratory 18 Rate Blood Pressure 116/60 Blood Pressure [Right side Sitting] Blood Pressure [Right side Supine] O2 Sat by Pulse Oximetry (%) Current Medications Generic Name Dose Route Start Last Admin Trade Name Freq PRN Reason Stop Dose Admin Acetaminophen 650 mg 03/23/19 23:52 03/24/19 00:19 Tylenol - PO 650 mg Q6H PRN Administration PAIN OR FEVER Apixaban 5 mg 03/25/19 22:00 Eliquis - PO BID RAJESH Atorvastatin Calcium 10 mg 03/23/19 22:00 03/23/19 23:26 Lipitor - PO 10 mg HS RAJESH Administration Ceftriaxone Sodium 1 gm/ 50 mls @ 100 mls/hr 03/24/19 08:00 03/24/19 10:57 Dextrose IVPB 100 mls/hr DAILY@0800 RAJESH Administration Lisinopril 5 mg 03/25/19 10:00 Prinivil PO DAILY RAJESH Metoprolol Succinate 25 mg 03/25/19 10:00 Toprol Xl - PO DAILY RAJESH Pantoprazole Sodium 20 mg 03/25/19 10:00 Protonix - PO DAILY RAJESH Risperidone 1 mg 03/23/19 22:00 03/23/19 23:26 Risperdal - PO 1 mg HS RAJESH Administration Sertraline HCl 50 mg 03/24/19 10:00 03/24/19 10:57 Zoloft - PO 50 mg DAILY RAJESH Administration S1 S2 RRR Left forhead-- hematoma decreased lungs clear Abd-soft, NT no edema PLAN IV antibiotics-- urine cultures positive encourage PO fluid intake dc iv fluids repeat CT head-- will resume AC if negative carotid doppler Problem List - Problems (1) Anemia Code(s): D64.9 - ANEMIA, UNSPECIFIED (2) Chronic anticoagulation Code(s): Z79.01 - PROVIDER RELATIONS SPECIALIST (CURRENT) USE OF ANTICOAGULANTS (3) Fall Code(s): W19.XXXA - UNSPECIFIED FALL, INITIAL ENCOUNTER Qualifiers: Encounter type: initial encounter Qualified Code(s): W19.XXXA - Unspecified fall, initial encounter (4) Head injury Code(s): S09.90XA - UNSPECIFIED INJURY OF HEAD, INITIAL ENCOUNTER (5) Syncope Code(s): R55 - SYNCOPE AND COLLAPSE (6) UTI (urinary tract infection) Code(s): N39.0 - URINARY TRACT INFECTION, SITE NOT SPECIFIED
[2019-03-24] MEDS ORDERED: DIGOXIN 0.125 MG TABLET (FP) PO SCH (10:00)
[2019-03-24] MEDS ORDERED: cefTRIAXone SODIUM 1 GM VIAL ONE (10:07)
[2019-03-24] MEDS ORDERED: DEXTROSE 5%-WATER - 50 ML IVPB ONE (10:07)
[2019-03-24] MEDS: SERTRALINE HCL 50 MG TABLET (FP) PO SCH (10:57)
[2019-03-24] MEDS: RANOLAZINE E.R. 500 MG TABLET (FP) PO SCH (10:57)
[2019-03-24] MEDS: CEFTRIAXONE 1 GM in DEXTROSE 5%-WATER - 50 ML IVPB SCH (10:57)
--- NOTE | 2019-03-24 15:33 | CON.CARD ---
Consult Consult Specialty:: Cardiology Referred by:: Mervat Yen MD Reason for Consultation:: Post fall, possible syncope - History of Present Illness Chief Complaint: Post fall, possible syncope History of Present Illness: 71 year old female with a pmhx of copd, psychiatric d/o, anemia, paroxysmal afib on NOAC, diastolic chf, and 120/10/2016 cath showing normal coronaries and normal LVEDP, seizure d/o referred from [facility] for unwitnessed fall. Pt was found down with trauma to her face, she reports slip and striking head against bed and consequent headache. Pt is a poor historian, but does deny near or true syncope, chest pain, dyspnea, palpitations. No sig events on telemetry thus far, not orthostatic. 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 Cardio/Vascular: Yes: AFIB, CAD, CHF, HTN, Hyperlipdemia Gastrointestinal: Yes: Diverticulosis, GERD, Hiatal Hernia, Other Psych: Yes: Schizophrenia Musculoskeletal: Yes: Chronic low back pain, Osteoarthritis Endocrine: Yes: Diabetes Mellitus - Past Surgical History Past Surgical History: Yes: Colonoscopy, Hernia Repair, Hysterectomy, Joint Replacement, Tonsillectomy, Upper Endoscopy - Alcohol/Substance Use Hx Alcohol Use: No History of Substance Use: reports: None - Smoking History Smoking history: Never smoked Have you smoked in the past 12 months: No Aproximately how many cigarettes per day: 0 - Social History Usual Living Arrangement: Alone ADL: Support Services History of Recent Travel: No Home Medications - Allergies Allergies/Adverse Reactions: Allergies Allergy/AdvReac Type Severity Reaction Status Date / Time aspirin Allergy Verified 02/19/19 09:25 ibuprofen [From Advil] Allergy Verified 02/19/19 09:25 lactose [Lactose] AdvReac Verified 02/19/19 09:25 - Home Medications Home Medications: Ambulatory Orders Ferrous Sulfate 325 mg PO DAILY 12/12/16 Risperidone 1 mg PO HS 12/12/16 Atorvastatin Ca [Lipitor] 10 mg PO HS #30 tablet 12/18/16 Dabigatran Etexilate Mesylate [Pradaxa -] 75 mg PO BID #60 tab 12/18/16 Furosemide [Lasix -] 40 mg PO DAILY #30 tablet 12/18/16 Ranolazine [Ranexa -] 500 mg PO BID #60 tab 12/18/16 Sertraline HCl [Zoloft -] 50 mg PO DAILY tablet 12/18/16 Ergocalciferol (Vitamin D2) [Vitamin D2] 50,000 unit PO WEEKLY 03/09/18 Famotidine [Pepcid] 20 mg PO DAILY #14 tablet 04/26/18 Mag Hydrox/Al Hydrox/Simeth [Mylanta Suspension -] 30 ml PO Q6H #1 bottle Nitrofurantoin Monohyd/M-Cryst [Macrobid -] 100 mg PO BID #14 capsule 04/30/18 Metformin HCl [Metformin HCl ER] 500 mg PO 03/23/19 Metoprolol Succinate [Toprol Xl] 25 mg PO 03/23/19 Family Disease History - Family Disease History Family Disease History: Diabetes: Brother, Heart Disease: Father, CA: Mother Review of Systems - Review of Systems Neurological: reports: Headache Vital Signs: Vital Signs Temperature 98.7 F 03/24/19 15:03 Pulse Rate 84 03/24/19 15:03 Respiratory Rate 18 03/24/19 15:03 Blood Pressure 116/60 03/24/19 15:03 O2 Sat by Pulse Oximetry (%) 100 03/24/19 09:00 Constitutional: Yes: No Distress, Calm Neck: Yes: Supple Respiratory: Yes: Regular, CTA Bilaterally Gastrointestinal: Yes: Normal Bowel Sounds, Soft Cardiovascular: Yes: Regular Rate and Rhythm JVD: No Carotid Bruit: No Heart Sounds: Yes: S1, S2 Murmur: Yes: Systolic Murmur, Grade 1 Edema: No - Other Data Labs, Other Data: CBC, BMP 03/23/19 09:50 03/23/19 09:50 INR, PTT INR 1.39 (0.83-1.09) H 03/23/19 09:50 NSR @73 1st deg AVB LAD, min criteria LVH, PRWP Tele: NSR no sig pauses or high grade AV block Ejection Fraction %: LVEF > or = 40 % Imaging - Results Chest X-ray: Report Reviewed (CXR report: Name: [facility] DEPARTMENT OF RADIOLOGY Phys: Radha Morales RESIDENT : 1945 Age: 73 Sex: [facility] Acct: [id number] Loc: [address] Date: Status: [place] [address] Unit Number: [id number] EXAM#: TYPE/EXAM: RESULT: RAD/CHEST X-RAY PORTABLE* Chest: Fall. Pain. A single AP view of the chest reveals a smaller heart than 04/26/2018. It is still enlarged with prominent, normal hilar and clear lung oconnell. Angles are sharp. The bones and soft tissues are intact of this a slight scoliosis. Impression: No acute chest pathology. Large heart. Reported By: Regis Roman MD 03/23/19 1021) Cat Scan: Report Reviewed (03/23/19 12:36 CT head report: Name: GI [facility] DEPARTMENT OF RADIOLOGY Phys: Radha Morales RESIDENT : 1945 Age: 73 Sex: [facility] Acct: [id number] Loc: [place] [address] [place] [address] Exam Date: 03/23/19 Status: [facility] [place] [address] Unit Number: [id number] EXAM#: TYPE/EXAM: RESULT: 913 CT/HEAD CT WITHOUT CONTRAST Cranial CT without contrast Clinical information: fall No CT evidence of acute intracranial injury or calvarial fracture. There is no extra-axial fluid collection. Encephalomalacia is seen along the inferior aspect of the right frontal lobe laterally which may be on the basis of previous infarction versus injury. Correlate clinically. Small chronic right cerebellar infarct along the posterior lateral aspect inferiorly. There is no acute infarct within the limitations of CT. There is no acute infarct within the limitations of CT. No gross mass lesion is seen. The ventricles and cisterns appear unremarkable. Impression: No CT evidence of acute intracranial pathology. Right inferior frontal encephalomalacia laterally. 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 No definite interval change is identified in comparison to a prior CT study of 04/26/2018. Reported By: Gee Gregg MD 03/23/19 1211 03/23/19 12:42 CT cervical spine report: Name: GI [facility] DEPARTMENT OF RADIOLOGY Phys: Radha Morales RESIDENT : 1945 Age: 73 Sex: [facility] Acct: [id number] Loc: [address] Exam Date: 03/23/19 [place] [id number] Unit Number: [id number] ACCESSION # : [id number] EXAM#: TYPE/EXAM: RESULT: CT/CERVICAL SPINE CT W/O CONTR Cervical spine CT without contrast Clinical information: fall Multiplanar imaging was performed. No fracture or subluxation is seen. There is straightening of the cervical lordosis which may be positional in nature and/or secondary to paravertebral muscle spasm. Correlate clinically. The perivertebral soft tissues demonstrate no obvious abnormality. Impression: No fracture is identified. Reported By: Gee Gregg MD 03/23/19 1238 14:10 CT pelvis report: Name: GI [facility] DEPARTMENT OF RADIOLOGY Phys: Radha Morales RESIDENT : 1945 Age: 73 Sex: [facility] Acct: [id number] Loc: [address] Exam Date: 03/23/19 Status: [place] [address] Unit Number: [id number] ACCESSION # : [id number] EXAM#: TYPE/EXAM: RESULT: CT/PELVIS CT WITHOUT CONTRAST Pelvis CT without contrast Clinical information: left lower extremity externally rotated, shortened Multiplanar imaging was performed. The pelvis and hips demonstrate no CT evidence of fracture. If there is ongoing clinical concern for a nondisplaced hip fracture additional evaluation utilizing MRI or skeletal scintigraphy may be performed. No soft tissue hematoma is visualized. Minimal bilateral degenerative hip joint narrowing is seen. Moderate lower lumbar degenerative facet arthropathy. There is partial imaging of several large right renal cortical cyst. A surgical bowel anastomosis is noted within the left pelvis/lower abdomen. Impression: No fracture is identified. Reported By: Gee Gregg MD 03/23/[address] facial bones report: Name: GI [facility] DEPARTMENT OF RADIOLOGY Phys: Radha Morales RESIDENT : 1945 Age: 73 Sex: [facility] Acct: [id number] Loc: [place] [address] [facility] Exam Date: 03/23/19 Status: [place] Unit Number: [id number] EXAM#: TYPE/EXAM: RESULT: [id number] CT/FACIAL BONES CT W/O CONTRAST Facial bones CT without contrast Clinical information: left supraorbital swelling, status post fall Multiplanar imaging was performed. The maxillofacial and orbital structures demonstrate no evidence of fracture. Exam coverage did not fully include the inferior aspect of the mental symphysis. There is no CT evidence of intraorbital injury. Note is made of apparent mild superficial soft tissue swelling along the left supraorbital/ lower forehead region. Impression: No fracture is identified. Reported By: Gee Gregg MD 03/23/19 4636) Problem List - Problems (1) Fall Code(s): W19.XXXA - UNSPECIFIED FALL, INITIAL ENCOUNTER Qualifiers: Encounter type: initial encounter Qualified Code(s): W19.XXXA - Unspecified fall, initial encounter (2) Atrial fibrillation Code(s): I48.91 - UNSPECIFIED ATRIAL FIBRILLATION Qualifiers: Atrial fibrillation type: paroxysmal Qualified Code(s): I48.0 - Paroxysmal atrial fibrillation (3) Hyperlipidemia Code(s): E78.5 - HYPERLIPIDEMIA, UNSPECIFIED Qualifiers: Hyperlipidemia type: pure hypercholesterolemia Qualified Code(s): E78.00 - Pure hypercholesterolemia, unspecified (4) Congestive heart failure Code(s): I50.9 - HEART FAILURE, UNSPECIFIED (5) HTN (hypertension) Code(s): I10 - ESSENTIAL (PRIMARY) HYPERTENSION Qualifiers: Hypertension type: essential hypertension Qualified Code(s): I10 - Essential (primary) hypertension (6) Left ventricular diastolic dysfunction Code(s): I51.9 - HEART DISEASE, UNSPECIFIED (7) Schizoaffective disorder Code(s): F25.9 - SCHIZOAFFECTIVE DISORDER, UNSPECIFIED Qualifiers: Schizoaffective disorder type: unspecified Qualified Code(s): F25.9 - Schizoaffective disorder, unspecified (8) Chronic anticoagulation Code(s): Z79.01 - SENIOR LIVING (CURRENT) USE OF ANTICOAGULANTS Assessment/Plan Echo: 06/04/2018 Mild conc LVH, midly decreased [id number]%, diastolic dysfunction, mild LAE, mild MR, TR Lexiscan Myoview: Mod anterior ischemia, dilated LVEF 42% Carotid US: 12/16/2016 Min atherosclerotic disease w/o sig stenosis R&LHc 06/12/2017 Normal coronary arteries, normal LVEDP, mod pulm HTN 1. s/p mechanical fall with closed head trauma, denies syncope 2. Diastolic dyfunction with pulm HTN 3. PAF->SR on Pradaxa 4. Small chronic right cerebellar stroke 5. COPD 6. Type 2 DM 7. Left breast mass suspicious of malignancy P:1. Continue Lipitor 10 qhs, resume Eliquis 5 bid with GI protection given elevated risk score, Toprol XL 25 qd, d/c digoxin and resume lisinopril 5 qd, d/ c Ranexa in absence of clear CAD 2. No events on telemetry thus far, f/u echo and carotid studies already ordered 3. PT, gait training, fall precautions, d/c planing back to NH 4. Thank you for consultative opportunity
[2019-03-24] MEDS ORDERED: APIXABAN 5 MG TABLET PO SCH (22:00)
[2019-03-24] MEDS: ATORVASTATIN CA 10 MG TABLET (FP) PO SCH (22:03)
[2019-03-24] MEDS: risperiDONE 1 MG TABLET (FP) PO SCH (22:03)
[2019-03-25 06:59] LABS: BASO % 0.5 % (0-2.0); EOS % 0.7 % (0-4.5); HEMATOCRIT 22.2 % (32.4-45.2); HEMOGLOBIN 7.3 GM/dL (10.7-15.3); LYMPH % 28.4 % (8-40); MCH 28.2 pg (25.7-33.7); MEAN CELL VOLUME 85.5 fl (80-96); MEAN PLT VOLUME 7.3 fl (7.5-11.1); MONO % 5.7 % (3.8-10.2); NEUT % 64.7 % (42.8-82.8); PLATELET COUNT 467 K/MM3 (134-434); RDW 16.2 % (11.6-15.6); WHITE BLOOD COUNT 4.4 K/mm3 (4.0-10.0)
[2019-03-25 07:20] LABS: ALBUMIN 2.4 g/dl (3.4-5.0); BILIRUBIN,TOTAL 0.3 mg/dL (0.2-1); BLOOD UREA NITROGEN 11.1 mg/dL (7-18); CALCIUM 8.5 mg/dL (8.5-10.1); CREATININE 0.8 mg/dL (0.55-1.3); MAGNESIUM 1.8 mg/dL (1.8-2.4); POTASSIUM 3.6 mmol/L (3.5-5.1); TOT PROT 5.8 g/dl (6.4-8.2)
[2019-03-25] MEDS ORDERED: DEXTROSE 5%-WATER - 50 ML IVPB ONE (09:36)
[2019-03-25] MEDS ORDERED: cefTRIAXone SODIUM 1 GM VIAL ONE (09:36)
[2019-03-25] MEDS ORDERED: PT OWN MED DRAWER 7, Y5N ONE (09:37)
[2019-03-25] MEDS ORDERED: metoPROLOL SUCCINATE 25 MG TAB.SR.24H (FP) PO SCH (10:00)
[2019-03-25] MEDS ORDERED: PANTOPRAZOLE 20 MG TABLET (FP) PO SCH (10:00)
[2019-03-25] MEDS ORDERED: LISINOPRIL 5 MG TABLET (FP) PO SCH (10:00)
[2019-03-25] MEDS: CEFTRIAXONE 1 GM in DEXTROSE 5%-WATER - 50 ML IVPB SCH (10:27)
[2019-03-25] MEDS: SERTRALINE HCL 50 MG TABLET (FP) PO SCH (10:28)
--- NOTE | 2019-03-25 11:07 | ECHO ---
Name: GI GAMEZ Exam:Adult Echocardiogram Study Date: 03/25/2019 08:28 AM Age: 73 yrs Reason For Study: ope Height: 69 in Weight: 181 lb BSA: 2.0 m2 MMode/2D Measurements & Calculations IVSd: 1.0 cm Ao root diam: 3.5 cm LVIDd: 5.0 cm LA dimension: 3.9 cm LVIDs: 3.1 cm ACS: 1.7 cm LVPWd: 0.90 cm IVSs: 1.2 cm LVPWs: 1.3 cm EDV(Teich): 115.6 ml ESV(Teich): 38.9 ml Doppler Measurements & Calculations MV E max sami: 91.6 cm/sec Ao V2 max: 184.2 cm/sec MV A max sami: 126.1 cm/sec Ao max P.6 mmHg MV E/A: 0.73 MR max sami: 443.9 cm/sec TR max sami: 220.6 cm/sec MR max P.0 mmHg TR max P.5 mmHg Med Peak E' Sami: 6.0 cm/sec Med E/e': 15.2 Lat Peak E' Sami: 7.7 cm/sec Lat E/e': 11.9 Procedure A complete two-dimensional transthoracic echocardiogram was performed (2D, M-mode, Doppler and color flow Doppler). Left Ventricle The left ventricle is normal in size. Left ventricular systolic function is normal. Ejection Fraction = 60- 65%. Grade I diastolic dysfunction, (abnormal relaxation pattern). Ratio E/E'= 14. No regional wall m otion abnormalities noted. Right Ventricle The right ventricle is normal size. The right ventricular systolic function is normal. Atria The left atrial size is normal. Right atrial size is normal. Mitral Valve There is mild mitral annular calcification. There is systolic anterior motion of the mitral valve. Th ere is mild mitral regurgitation. Tricuspid Valve The tricuspid valve is normal in structure and function. No tricuspid regurgitation. Aortic Valve There is mild aortic sclerosis.;. No aortic regurgitation is present. Pulmonic Valve The pulmonic valve is not well visualized. Great Vessels The aortic root is normal size. Pericardium/Pleura There is no pericardial effusion. Interpretation Summary The left ventricle is normal in size. Left ventricular systolic function is normal. No regional wall motion abnormalities noted. Ejection Fraction = 60-65%. Grade I diastolic dysfunction, (abnormal relaxation pattern). Ratio E/E'= 14 c/w normal filling pressure The right ventricular systolic function is normal. The left atrial size is normal. Right atrial size is normal. There is mild mitral annular calcification. There is systolic anterior motion of the mitral valve with no evidence of obstruction There is mild mitral regurgitation. There is mild aortic sclerosis. There is no pericardial effusion. Juan Carlos Denny MD 03/25/2019 11:06 AM
--- NOTE | 2019-03-25 11:32 | PN ---
Progress Note, Physician History of Present Illness: No sig events on telemetry thus far, denies complaints. - Current Medication List Current Medications: Active Medications Acetaminophen (Tylenol -) 650 mg PO Q6H PRN PRN Reason: PAIN OR FEVER Last Admin: 03/24/19 00:19 Dose: 650 mg Apixaban (Eliquis -) 5 mg PO BID [facility] Atorvastatin Calcium (Lipitor -) 10 mg PO [facility] Last Admin: 03/24/19 22:03 Dose: 10 mg Ceftriaxone Sodium 1 gm/ (Dextrose) 50 mls @ 100 mls/hr IVPB DAILY@0800 [facility] Last Admin: 03/25/19 10:27 Dose: 100 mls/hr Lisinopril (Prinivil) 5 mg PO DAILY [facility] Last Admin: 03/25/19 10:28 Dose: 5 mg Metoprolol Succinate (Toprol Xl -) 25 mg PO DAILY [facility] Last Admin: 03/25/19 10:28 Dose: 25 mg Pantoprazole Sodium (Protonix -) 20 mg PO DAILY [facility] Last Admin: 03/25/19 10:28 Dose: 20 mg Risperidone (Risperdal -) 1 mg PO HS [facility] Last Admin: 03/24/19 22:03 Dose: 1 mg Sertraline HCl (Zoloft -) 50 mg PO DAILY [facility] Last Admin: 03/25/19 10:28 Dose: 50 mg - Objective Vital Signs: Vital Signs Temperature 98.5 F 03/25/19 10:00 Pulse Rate 70 03/25/19 10:00 Respiratory Rate 18 03/25/19 10:00 Blood Pressure 118/64 03/25/19 10:00 O2 Sat by Pulse Oximetry (%) 100 03/24/19 21:00 Constitutional: Yes: No Distress, Calm Neck: Yes: Supple Cardiovascular: Yes: Regular Rate and Rhythm Respiratory: Yes: Regular, CTA Bilaterally Gastrointestinal: Yes: Normal Bowel Sounds, Soft Edema: No Labs: CBC, BMP 03/25/19 06:15 03/25/19 06:10 INR, PTT INR 1.39 (0.83-1.09) H 03/23/19 09:50 - ....Imaging EKG: Report Reviewed (Tele: NSR occ PAC) Problem List - Problems (1) Fall Code(s): W19.XXXA - UNSPECIFIED FALL, INITIAL ENCOUNTER Qualifiers: Encounter type: initial encounter Qualified Code(s): W19.XXXA - Unspecified fall, initial encounter (2) Atrial fibrillation Code(s): I48.91 - UNSPECIFIED ATRIAL FIBRILLATION Qualifiers: Atrial fibrillation type: paroxysmal Qualified Code(s): I48.0 - Paroxysmal atrial fibrillation (3) Hyperlipidemia Code(s): E78.5 - HYPERLIPIDEMIA, UNSPECIFIED Qualifiers: Hyperlipidemia type: pure hypercholesterolemia Qualified Code(s): E78.00 - Pure hypercholesterolemia, unspecified (4) Congestive heart failure Code(s): I50.9 - HEART FAILURE, UNSPECIFIED (5) HTN (hypertension) Code(s): I10 - ESSENTIAL (PRIMARY) HYPERTENSION Qualifiers: Hypertension type: essential hypertension Qualified Code(s): I10 - Essential (primary) hypertension (6) Left ventricular diastolic dysfunction Code(s): I51.9 - HEART DISEASE, UNSPECIFIED (7) Schizoaffective disorder Code(s): F25.9 - SCHIZOAFFECTIVE DISORDER, UNSPECIFIED Qualifiers: Schizoaffective disorder type: unspecified Qualified Code(s): F25.9 - Schizoaffective disorder, unspecified (8) Chronic anticoagulation Code(s): Z79.01 - LONG-TERM (CURRENT) USE OF ANTICOAGULANTS Assessment/Plan Echo: 03/25/2019 Echo: Normal LV and RV size and fxn, grade I DD, MALISSA with mild MR Carotid US: 03/24/2019 No sig stenosis Echo: 06/04/2018 Mild conc LVH, midly decreased [id number]%, diastolic dysfunction, mild LAE, mild MR, TR Lexiscan Myoview: Mod anterior ischemia, dilated LVEF 42% Carotid US: 12/16/2016 Min atherosclerotic disease w/o sig stenosis R&LHc 06/12/2017 Normal coronary arteries, normal LVEDP, mod pulm HTN 1. s/p mechanical fall with closed head trauma, denies syncope 2. Diastolic dyfunction with pulm HTN 3. PAF->SR on Pradaxa 4. Small chronic right cerebellar stroke 5. COPD 6. Type 2 DM 7. Left breast mass suspicious of malignancy P:1. Continue Lipitor 10 qhs, continue Eliquis 5 bid with GI protection given elevated risk score, Toprol XL 25 qd, d/c digoxin and resume lisinopril 5 qd, d/ c Ranexa in absence of clear CAD 2. No events on telemetry thus far 3. PT, gait training, fall precautions, d/c planing back to NH
--- NOTE | 2019-03-25 12:52 | DS ---
Physical Examination Vital Signs: Vital Signs Temperature 98.5 F 03/25/19 10:00 Pulse Rate 70 03/25/19 10:00 Respiratory Rate 18 03/25/19 10:00 Blood Pressure 118/64 03/25/19 10:00 O2 Sat by Pulse Oximetry (%) 100 03/24/19 21:00 Findings/Remarks: pt seen/ examined comfortable chart reviewed . no complains Constitutional: Yes: No Distress, Calm Eyes: Yes: Conjunctiva Clear HENT: Yes: WNL Neck: Yes: WNL, Supple Cardiovascular: Yes: Regular Rate and Rhythm Respiratory: Yes: CTA Bilaterally Gastrointestinal: Yes: Soft Edema: No Neurological: Yes: Alert Psychiatric: Yes: Alert Labs: CBC, BMP 03/25/19 06:15 03/25/19 06:10 Discharge Summary Reason For Visit: SYNCOPE Current Active Problems Anemia (Acute) Chronic anticoagulation (Acute) Fall (Acute) First degree AV block (Acute) Head injury (Acute) Hypomagnesemia (Acute) Syncope (Acute) UTI (urinary tract infection) (Acute) Hospital Course: 73 year old female with PMH dementia, COPD, HLD, chronic atrial fibrillation, GERD, iron deficiency anemia, HTN, DM, seizure disorder BIBA to ED from [facility] for [facility]. It was reported by [place] staff that pt was found down this AM face down after a suspected unwitnessed fall. admitted to tele cardiology followed ct head -ve x 2 work -ve except uti treated with abx stable for d/c to assisted meds reconcilled changes made as recommended by cardiology Pardexa-- Changed to Eliquis D/ Ranexa and Digoxin d/w bilingual case manager and nursing staff. pt to continue treatment - Chemo --with her oncologist . Condition: Stable - Instructions Disposition: CUSTODIAL FACILITY - Home Medications Comprehensive Discharge Medication List: Ambulatory Orders Ferrous Sulfate 325 mg PO DAILY 12/12/16 Risperidone 1 mg PO HS 12/12/16 Atorvastatin Ca [Lipitor] 10 mg PO HS #30 tablet 12/18/16 Furosemide [Lasix -] 40 mg PO DAILY #30 tablet 12/18/16 Sertraline HCl [Zoloft -] 50 mg PO DAILY tablet 12/18/16 Ergocalciferol (Vitamin D2) [Vitamin D2] 50,000 unit PO WEEKLY 03/09/18 Famotidine [Pepcid] 20 mg PO DAILY #14 tablet 10/18/18 Mag Hydrox/Al Hydrox/Simeth [MAALOX *SUSPENSION* -] 30 ml PO Q6H #1 bottle 04/26 Metformin HCl [Metformin HCl ER] 500 mg PO 03/23/19 Metoprolol Succinate [Toprol Xl] 25 mg PO 03/23/19 Apixaban [Eliquis -] 5 mg PO BID tablet 03/25/19 Lisinopril [Prinivil] 5 mg PO DAILY tablet 03/25/19 Nitrofurantoin Monohyd/M-Cryst [Macrobid -] 100 mg PO BID 5 Days #14 capsule
[2019-03-25 14:52] VITALS: BP 109/56; PULSE 74; TEMP 98.6
[2019-03-25] MEDS ORDERED: APIXABAN 5 MG TABLET PO SCH (22:00)
== END 2019-03-25 14:56 ==
LOC: SUPCPDRO 08:49 → JER 08:49 → JERBED 15:38 → J4W 19:08
PROVIDERS: ADMIT Internal Medicine; ATTEND Internal Medicine
PROC: 3E03329 Introduction of Other Anti-infective into Peripheral Vein, Percutaneous Approach (ICD-10-PCS; principal; 2019-03-23)
PROC: 3E0337Z Introduction of Electrolytic and Water Balance Substance into Peripheral Vein, Percutaneous Approach (ICD-10-PCS; 2019-03-23)
PROC: 3E033NZ Introduction of Analgesics, Hypnotics, Sedatives into Peripheral Vein, Percutaneous Approach (ICD-10-PCS; 2019-03-23)
PROC: 3E033GC Introduction of Other Therapeutic Substance into Peripheral Vein, Percutaneous Approach (ICD-10-PCS; 2019-03-23)
DX: D50.9 Iron deficiency anemia, unspecified (principal); S09.90XA Unspecified injury of head, initial encounter; N39.0 Urinary tract infection, site not specified; I44.0 Atrioventricular block, first degree; I48.2 Chronic atrial fibrillation; E83.42 Hypomagnesemia; E78.5 Hyperlipidemia, unspecified; F03.90 Unspecified dementia, unspecified severity, without behavioral disturbance, psychotic disturbance, mood disturbance, and anxiety; J44.9 Chronic obstructive pulmonary disease, unspecified; E11.9 Type 2 diabetes mellitus without complications; I25.10 Atherosclerotic heart disease of native coronary artery without angina pectoris; I50.9 Heart failure, unspecified; I11.0 Hypertensive heart disease with heart failure; K21.9 Gastro-esophageal reflux disease without esophagitis; M54.5 Low back pain; G89.29 Other chronic pain; M19.90 Unspecified osteoarthritis, unspecified site; C50.919 Malignant neoplasm of unspecified site of unspecified female breast; I51.9 Heart disease, unspecified; F25.9 Schizoaffective disorder, unspecified; R55 Syncope and collapse; Z92.21 Personal history of antineoplastic chemotherapy; Z79.84 Long term (current) use of oral hypoglycemic drugs; Z98.61 Coronary angioplasty status; Z96.651 Presence of right artificial knee joint; Z79.01 Long term (current) use of anticoagulants; W19.XXXA Unspecified fall, initial encounter; Z91.81 History of falling; Y93.9 Activity, unspecified; Y92.122 Bedroom in nursing home as the place of occurrence of the external cause
CPT/HCPCS: 36415; 70450-TC; 70486-TC; 71045-TC-FY; 72125-TC; 72192-TC; 80053; 81003; 82962; 83735; 84100; 84484; 85025; 85610; 85730; 86850; 86900; 86901; 87086; 87186; 93005; 93010; 93306-TC; 93880-TC; 96361; 96365; 96375; 99284-25; G0378; J0131; J2794; J7030

== ENCOUNTER 2019-03-28 07:06 | Inpatient (IN) | payer OTHER ==
--- NOTE | 2019-03-28 07:46 | PDOC ---
History of Present Illness - General Chief Complaint: Injury Stated Complaint: FALL Time Seen by Provider: 03/28/19 07:28 History Source: Patient, [facility], Other (RN and LEAD PHARMACY TECHNICIAN at [facility]) Exam Limitations: Dementia - History of Present Illness Initial Comments: 03/28/19 07:45 73F with a PMH of dementia, COPD, HLD, chronic atrial fibrillation, GERD, iron deficiency anemia, HTN, DM, seizure disorder, recently discharged from our facility for syncope, presents to the ER after having a syncopal episode. The patient states that the last thing she remembers is waking up on the ground. She states that she syncopized last week. She is unsure if she had any CP, SOB, palpitations, lightheadedness before the fall. LEAD PHARMACY TECHNICIAN, Ms. Hernandez, cleaned her and then she was on the floor. Last seen at 540 AM but LEAD PHARMACY TECHNICIAN. Bebe Bello, day RN, states that the patient likes to get up out of bed and falls d/t unsteady gait. Bebe Lewis, overnight RN, states that the patient normally can ambulate short distances but usually uses a wheelchair d/t ataxia. Past History - Past Medical History Allergies/Adverse Reactions: Allergies Allergy/AdvReac Type Severity Reaction Status Date / Time aspirin Allergy Verified 03/28/19 09:59 ibuprofen [From Advil] Allergy Verified 03/28/19 09:59 lactose [Lactose] AdvReac Verified 03/28/19 09:59 Home Medications: Ambulatory Orders Ferrous Sulfate 325 mg PO DAILY 12/12/16 Risperidone 1 mg PO HS 12/12/16 Atorvastatin Ca [Lipitor] 10 mg PO HS #30 tablet 12/18/16 Furosemide [Lasix -] 40 mg PO DAILY #30 tablet 12/18/16 Ergocalciferol (Vitamin D2) [Vitamin D2] 50,000 unit PO WEEKLY 03/09/18 Famotidine [Pepcid] 20 mg PO DAILY #14 tablet 04/26/18 Mag Hydrox/Al Hydrox/Simeth [MAALOX *SUSPENSION* -] 30 ml PO Q6H #1 bottle 04/26 Metformin HCl [Metformin HCl ER] 500 mg PO BID 03/23/19 Metoprolol Succinate [Toprol Xl] 25 mg PO DAILY 03/23/19 Apixaban [Eliquis -] 5 mg PO BID tablet 03/25/19 Nitrofurantoin Monohyd/M-Cryst [Macrobid -] 100 mg PO BID 5 Days #14 capsule Acetaminophen 650 mg PO Q6H 03/28/19 Albuterol 2.5/Ipratropium 0.5 [Duoneb -] 1 amp NEB Q12H 03/28/19 Ascorbic Acid [Vitamin C -] 500 mg PO DAILY 03/28/19 Loperamide HCl [Imodium A-D] 2 mg PO QID 03/28/19 Anemia: Yes Asthma: Yes Cancer: No Cardiac Disorders: Yes (atrial fibrillation, CARDIAC CATH 2010-NORMAL) CVA: No COPD: Yes CHF: No Dementia: Yes Diabetes: Yes Dialysis: Yes GI Disorders: Yes (POLYPS; DIVERTICULOSIS; GERD) Disorders: No HTN: Yes Hypercholesterolemia: Yes Liver Disease: No Psychiatric Problems: Yes (schizophrenia) Seizures: Yes Thyroid Disease: No - Surgical History Abdominal Surgery: Yes (intestinal blockage 2010; HIATAL HERNIA;) Appendectomy: No Cardiac Surgery: No Cholecystectomy: No Lung Surgery: No Neurologic Surgery: Yes (UPPER BACK SX) Orthopedic Surgery: Yes (R. Knee replacement 2010) - Immunization History Immunization Up to Date: Yes - Suicide/Smoking/Psychosocial Hx Smoking Status: No Smoking History: Never smoked Have you smoked in the past 12 months: No Number of Cigarettes Smoked Daily: 0 Information on smoking cessation initiated: No Hx Alcohol Use: No Drug/Substance Use Hx: No Substance Use Type: Alcohol Hx Substance Use Treatment: No (12 steps) Review of Systems - Review of Systems Able to Perform ROS?: No (Limited 2/2 pt's memory) Neurological: Yes: Other (Syncope) *Physical Exam - Vital Signs Last Vital Signs Temp Pulse Resp BP Pulse Ox 98.5 F 80 18 108/62 100 03/28/19 07:10 03/28/19 07:10 03/28/19 07:10 03/28/19 07:10 03/28/19 07:10 - Physical Exam Comments: 03/28/19 09:03 GENERAL: Well developed, well nourished. Awake and alert. No acute distress. HEENT: Normocephalic, atraumatic. 0.5cm upper lip superficial laceration with dried blood noted around lips. Hearing grossly normal. Moist mucous membranes. PERRLA, EOMI. No conjunctival pallor. Sclera are non-icteric. NECK: Supple. Full ROM. No JVD. No midline tenderness in C, T, L, and S spine. CARDIOVASCULAR: Regular rate and rhythm. No murmurs, rubs, or gallops. PULMONARY: No evidence of respiratory distress. Lungs clear to auscultation bilaterally. No wheezing, rales or rhonchi. ABDOMINAL: Soft. Non-tender. Non-distended. No rebound or guarding. MUSCULOSKELETAL: Normal range of motion at all joints. No bony deformities or tenderness. EXTREMITIES: No cyanosis. No clubbing. No edema. No calf tenderness or swelling. SKIN: Warm and dry. Normal capillary refill. No rashes. No jaundice. NEUROLOGICAL: Alert, awake, appropriate. Cranial nerves 2-12 intact. No deficits to light touch and temperature in face, upper extremities and lower extremities. RLE weakenss. Otherwise, 5/5 strength in deltoids, biceps, triceps , quadriceps, hamstrings, and gastrocnemius. Normal speech. PSYCHIATRIC: Cooperative. Good eye contact. Appropriate mood and affect. ED Treatment Course - LABORATORY CBC & Chemistry Diagram: 04/02/19 06:50 04/02/19 06:50 - RADIOLOGY Radiology Studies Ordered: Category Date Time Status CERVICAL SPINE CT W/O CONTR [CT] Stat CT Scan 03/28/19 07:[address] WITHOUT CONTRAST [CT] Stat CT Scan 03/28/19 07:[address] W/O CONTRAST [CT] Stat CT Scan 03/28/19 07:[address] WITHOUT CONTRAST [CT] Stat CT Scan 03/28/19 07:33 Ordered CHEST X-RAY PORTABLE* [RAD] Stat Radiology 03/28/19 07:36 Ordered PELVIS [RAD] Stat Radiology 03/28/19 07:36 Ordered Medical Decision Making - Medical Decision Making 03/28/19 09:31 73F with MMP who presents to the ER after having an unwitnessed syncopal episode. Pt's exam notable for L rib tenderness. Neuro exam remarkable for decreased ability to move R leg. Pelvis, R knee, and CXR negative for acute pathology. Pending CT. CBC, CMP, UA WNL. 03/28/19 10:[address] Yen for admission. Pending CT reads. *DC/Admit/Observation/Transfer Diagnosis at time of Disposition: Syncope Qualifiers: Syncope type: unspecified Qualified Code(s): R55 - Syncope and collapse Fall Qualifiers: Encounter type: initial encounter Qualified Code(s): W19.XXXA - Unspecified fall, initial encounter - Discharge Dispostion Condition at time of disposition: Guarded Decision to Admit order: Yes - Referrals - Patient Instructions - Post Discharge Activity
--- NOTE | 2019-03-28 08:41 | PDOC ---
Attending Attestation - Resident Resident Name: Mello Shore - ED Attending Attestation I have performed the following: I have examined & evaluated the patient, The case was reviewed & discussed with the resident, I agree w/resident's findings & plan, Exceptions are as noted - HPI HPI: 03/28/19 08:17 73 F with h/o dementia, COPD, HLD, chronic atrial fibrillation, GERD, iron deficiency anemia, HTN, DM, seizure disorder, presenting to ED after unwitnessed fall. Pt has no recollection of the event due to severe dementia. States that the last thing she remembers is waking up on the ground. Per NH aide, pt was being changed this morning. A few minutes after pt was changed, pt was found on the ground by her bed. Her fall was unwitnessed. In ED, pt complains of RLE weakness. States that this is new. She reports she was ambulating normally last night. - Physicial Exam PE: 03/28/19 08:41 "GENERAL: Awake, alert, and fully oriented, in no acute distress. HEAD: + abrasion to upper lip EYES: PERRLA, EOMI, sclera anicteric, conjunctiva clear ENT: Auricles normal inspection, hearing grossly normal, nares patent, oropharynx clear without exudates. Moist mucosa NECK: Nontender, no stepoffs, Normal ROM, supple, no lymphadenopathy, JVD, or masses LUNGS: Breath sounds equal, clear to auscultation bilaterally. No wheezes, and no crackles HEART: Regular rate and rhythm, normal S1 and S2, no murmurs, rubs or gallops ABDOMEN: Soft, nontender, normoactive bowel sounds. No guarding, no rebound. No masses EXTREMITIES: Normal range of motion, no edema. No clubbing or cyanosis. No cords, erythema, or tenderness NEUROLOGICAL: Cranial nerves II through XII intact. + RLE weakness, normal sensation, RUE, LUE and LLE wnl SKIN: Warm, Dry, normal turgor, no rashes or lesions noted. - Medical Decision Making 03/28/19 08:42 73 F with fall this morning. Found to have RLE paralysis in ED. Possible syncope , but RLE weakness suspicious for stroke. No evidence of bony injury on exam but will r/o with imaging. - CT head - Labs - XR RLE
[2019-03-28 09:06] LABS: BASO % 1.2 % (0-2.0); HEMATOCRIT 25.4 % (32.4-45.2); HEMOGLOBIN 8.3 GM/dL (10.7-15.3); LYMPH % 8.1 % (8-40); MCH 27.9 pg (25.7-33.7); MCHC 32.6 g/dl (32.0-36.0); MEAN CELL VOLUME 85.5 fl (80-96); MEAN PLT VOLUME 7.8 fl (7.5-11.1); NEUT % 88.7 % (42.8-82.8); PLATELET COUNT 453 K/MM3 (134-434); RBC 2.97 M/mm3 (3.60-5.2); RDW 16.6 % (11.6-15.6); WHITE BLOOD COUNT 9.1 K/mm3 (4.0-10.0)
[2019-03-28] MEDS ORDERED: SULFAMETHOXAZOLE/TRIMETHOPRIM 800MG/160MG D.S. TABLET PO ONE (09:13)
[2019-03-28 09:20] LABS: INR 1.17 (0.83-1.09); PROTHROMBIN TIME (PATIENT) 13.8 SEC (9.7-13.0)
[2019-03-28 09:32] LABS: ALBUMIN 3.1 g/dl (3.4-5.0); BILIRUBIN,TOTAL 0.2 mg/dL (0.2-1); BLOOD UREA NITROGEN 12.8 mg/dL (7-18); CALCIUM 8.7 mg/dL (8.5-10.1); CREATININE 0.8 mg/dL (0.55-1.3); POTASSIUM 3.4 mmol/L (3.5-5.1); TOT PROT 6.8 g/dl (6.4-8.2)
[2019-03-28 09:44] LABS: PH,URINE 5.5 (5.0-8.0); URINE APPEARANCE CLEAR; URINE BILIRUBIN NEGATIVE (NEGATIVE); URINE COLOR YELLOW; URINE GLUCOSE (UA) NEGATIVE (NEGATIVE); URINE KETONE NEGATIVE (NEGATIVE); URINE PROTEIN NEGATIVE (NEGATIVE); URINE UROBILINOGEN 0.2 mg/dL (0.2-1.0)
[2019-03-28 09:45] LABS: URINE LEUK ESTERASE TRACE (NEGATIVE); URINE NITRITE NEGATIVE (NEGATIVE)
[2019-03-28] MEDS ORDERED: ACETAMINOPHEN 1000 MG/100 ML VIAL (NON FORMULARY) IVPB ONE (11:19)
[2019-03-28] MEDS ORDERED: ACETAMINOPHEN INJECTION 100 ML IVPB ONE (11:27)
[2019-03-28 12:15] LABS: EPI CELLS 2+ /HPF (0-5/HPF); URINE BACTERIA 1+ /hpf (NEGATIVE); URINE RBC 0-3 /hpf (0-4)
--- NOTE | 2019-03-28 12:26 | HP ---
Admitting History and Physical - Primary Care Physician PCP: Vanessa Perez - Admission Chief Complaint: s/p fall History of Present Illness: ER HISTORY - History of Present Illness Initial Comments: 03/28/19 07:45 73F with a PMH of dementia, COPD, HLD, chronic atrial fibrillation, GERD, iron deficiency anemia, HTN, DM, seizure disorder, recently discharged from our facility for syncope, presents to the ER after having a syncopal episode. The patient states that the last thing she remembers is waking up on the ground. She states that she syncopized last week. She is unsure if she had any CP, SOB, palpitations, lightheadedness before the fall. TREATING PLANT SUPERVISOR, Ms. Hernandez, cleaned her and then she was on the floor. Last seen at 540 AM but TREATING PLANT SUPERVISOR. Ace, day RN, states that the patient likes to get up out of bed and falls d/t unsteady gait. Bebe Lewis, overnight RN, states that the patient normally can ambulate short distances but usually uses a wheelchair d/t ataxia. Pt examined in ER She is wheelchair bound recently admitted for fall and head injury She is unable to elevate her right leg denies any pain She had hit the left side of head and lip -- lip is swollen and bruised She has left forehead hematoma from recent fall-- swelling has decreased History Source: Medical Record Limitations to Obtaining History: Poor Historian - Past Medical History SHUTTLE REPAIRER: Yes: Other Cardiovascular: Yes: AFIB, CAD, CHF, HTN, Hyperlipdemia Gastrointestinal: Yes: Diverticulosis, GERD, Hiatal Hernia, Other Psych: Yes: Schizophrenia Musculoskeletal: Yes: Chronic low back pain, Osteoarthritis Endocrine: Yes: Diabetes Mellitus - Past Surgical History Past Surgical History: Yes: Colonoscopy, Hernia Repair, Hysterectomy, Joint Replacement, Tonsillectomy, Upper Endoscopy - Smoking History Smoking history: Never smoked Have you smoked in the past 12 months: No Aproximately how many cigarettes per day: 0 - Alcohol/Substance Use Hx Alcohol Use: No History of Substance Use: reports: None - Social History ADL: Support Services History of Recent Travel: No Home Medications - Allergies Allergies/Adverse Reactions: Allergies Allergy/AdvReac Type Severity Reaction Status Date / Time aspirin Allergy Verified 03/28/19 09:59 ibuprofen [From Advil] Allergy Verified 03/28/19 09:59 lactose [Lactose] AdvReac Verified 03/28/19 09:59 - Home Medications Home Medications: Ambulatory Orders Ferrous Sulfate 325 mg PO DAILY 12/12/16 Risperidone 1 mg PO HS 12/12/16 Atorvastatin Ca [Lipitor] 10 mg PO HS #30 tablet 12/18/16 Furosemide [Lasix -] 40 mg PO DAILY #30 tablet 12/18/16 Ergocalciferol (Vitamin D2) [Vitamin D2] 50,000 unit PO WEEKLY 03/09/18 Famotidine [Pepcid] 20 mg PO DAILY #14 tablet 04/26/18 Mag Hydrox/Al Hydrox/Simeth [MAALOX *SUSPENSION* -] 30 ml PO Q6H #1 bottle 04/26 Metformin HCl [Metformin HCl ER] 500 mg PO BID 03/23/19 Metoprolol Succinate [Toprol Xl] 25 mg PO DAILY 03/23/19 Apixaban [Eliquis -] 5 mg PO BID tablet 03/25/19 Nitrofurantoin Monohyd/M-Cryst [Macrobid -] 100 mg PO BID 5 Days #14 capsule Acetaminophen 650 mg PO Q6H 03/28/19 Albuterol 2.5/Ipratropium 0.5 [Duoneb -] 1 amp NEB Q12H 03/28/19 Ascorbic Acid [Vitamin C -] 500 mg PO DAILY 03/28/19 Loperamide HCl [Imodium A-D] 2 mg PO QID 03/28/19 Family Disease History - Family Disease History Family Disease History: Diabetes: Brother, Heart Disease: Father, CA: Mother Physical Examination Vital Signs: Vital Signs Temperature 98.5 F 03/28/19 07:10 Pulse Rate 80 03/28/19 07:10 Respiratory Rate 18 03/28/19 07:10 Blood Pressure 108/62 03/28/19 07:10 O2 Sat by Pulse Oximetry (%) 98 03/28/19 07:43 Constitutional: Yes: No Distress, Calm HENT: Yes: Other (left upper lip swollen and abrasions) Cardiovascular: Yes: Pulse Irregular Respiratory: Yes: CTA Bilaterally Gastrointestinal: Yes: Normal Bowel Sounds, Soft, Abdomen, Obese. No: Tenderness Extremities: Yes: Other (weakness right leg) Edema: No Labs: CBC, BMP 03/28/19 08:50 03/28/19 08:50 Imaging - Results Chest X-ray: Image Reviewed X-ray: Image Reviewed Cat Scan: Report Reviewed EKG: Image Reviewed Problem List - Problems (1) Fall Code(s): W19.XXXA - UNSPECIFIED FALL, INITIAL ENCOUNTER Qualifiers: Encounter type: initial encounter Qualified Code(s): W19.XXXA - Unspecified fall, initial encounter (2) Syncope Code(s): R55 - SYNCOPE AND COLLAPSE Qualifiers: Syncope type: unspecified Qualified Code(s): R55 - Syncope and collapse (3) Anemia Code(s): D64.9 - ANEMIA, UNSPECIFIED (4) Atrial fibrillation Code(s): I48.91 - UNSPECIFIED ATRIAL FIBRILLATION Qualifiers: Atrial fibrillation type: paroxysmal Qualified Code(s): I48.0 - Paroxysmal atrial fibrillation (5) CAD (coronary artery disease) Code(s): I25.10 - ATHSCL HEART DISEASE OF [place] CORONARY ARTERY W/O ANG PCTRS Qualifiers: Coronary Disease-Associated Artery/Lesion type: [place] artery [place] vs. transplanted heart: [place] heart Associated angina: without angina Qualified Code(s): I25.10 - Atherosclerotic heart disease of [place] coronary artery without angina pectoris (6) HTN (hypertension) Code(s): I10 - ESSENTIAL (PRIMARY) HYPERTENSION Qualifiers: Hypertension type: essential hypertension Qualified Code(s): I10 - Essential (primary) hypertension Assessment/Plan PLAN frequent falls IV fluids Check MRI brain Neurology consult Hold pradaxa continue with meds fall precautions
--- NOTE | 2019-03-28 14:02 | EKG ---
Test Reason : Blood Pressure : / mmHG Vent. Rate : 071 BPM Atrial Rate : 071 BPM P-R Int : 210 ms QRS Dur : 086 ms QT Int : 394 ms P-R-T Axes : 064 -34 067 degrees QTc Int : 428 ms POOR DATA QUALITY, INTERPRETATION MAY BE ADVERSELY AFFECTED SINUS RHYTHM WITH 1ST DEGREE A-V BLOCK WITH PREMATURE ATRIAL COMPLEXES LEFT AXIS DEVIATION MINIMAL VOLTAGE CRITERIA FOR LVH, MAY BE NORMAL VARIANT ANTERIOR INFARCT , AGE UNDETERMINED ABNORMAL ECG WHEN COMPARED WITH ECG OF 23-MAR-2019 13:53, PREMATURE ATRIAL COMPLEXES ARE NOW PRESENT Confirmed by EVA CHAMPAGNE MD ([id number]) on 03/28/2019 2:02:29 PM Referred By: Confirmed By:EVA CHAMPAGNE MD
[2019-03-28] MEDS: ACETAMINOPHEN 325 MG TABLET (FP) PO SCH ×2 (14:54→22:52)
[2019-03-28] MEDS: INSULIN SLIDING SCALE (NOVOLOG) 1 VIAL SQ SCH (16:51)
[2019-03-28] MEDS ORDERED: metFORMIN HCL 500 MG TABLET (FP) ONE (16:52)
[2019-03-28] MEDS: SODIUM CHLORIDE 1,000 ML IV SCH (17:35)
[2019-03-28] MEDS ORDERED: PT OWN MED DRAWER 7, Y5N ONE (22:19)
[2019-03-28] MEDS: ATORVASTATIN CA 10 MG TABLET (FP) PO SCH (22:52)
[2019-03-28] MEDS: risperiDONE 1 MG TABLET (FP) PO SCH (22:53)
[2019-03-29] MEDS: ACETAMINOPHEN 325 MG TABLET (FP) PO SCH ×4 (03:52→21:32)
[2019-03-29] MEDS: INSULIN SLIDING SCALE (NOVOLOG) 1 VIAL SQ SCH ×3 (06:39→16:42)
[2019-03-29] MEDS: metoPROLOL SUCCINATE 25 MG TAB.SR.24H (FP) PO SCH (09:50)
[2019-03-29] MEDS: FUROSEMIDE 40 MG TABLET (FP) PO SCH (09:50)
--- NOTE | 2019-03-29 10:07 | PN ---
Progress Note (short form) - Note Progress Note: pt seen/ examined. chart reviewed awake/ comfortable Vital Signs Temp 98.6 F 03/29/19 05:56 Pulse 88 03/29/19 05:56 Resp 18 03/29/19 05:56 BP 118/53 L 03/29/19 05:56 Pulse Ox 100 03/28/19 20:52 Intake & Output 03/28/19 03/28/19 03/29/19 11:59 23:59 11:59 Intake Total 990 Balance 990 Weight 175 lb 12.943 oz 175 lb 12.943 oz Intake: IV 990 Normal Saline - 1,000 ml 990 @ 83 mls/hr IV ASDIR [facility] Rx#:[id number] Other: Voiding Method Diaper Incontinent # Unmeasured Voids Void 3 Bowel Movement No Height 5 ft 2 in 5 ft 2 in Body Mass Index (BMI) 32.1 32.1 Weight Measurement Method Estimated by Staff Weight Measurement Method Standing Scale Active Medications Acetaminophen (Tylenol -) 650 mg PO Q6H [facility] Last Admin: 03/29/19 09:50 Dose: 650 mg Atorvastatin Calcium (Lipitor -) 10 mg PO HS [facility] Last Admin: 03/28/19 22:52 Dose: 10 mg Furosemide (Lasix -) 40 mg PO DAILY [facility] Last Admin: 03/29/19 09:50 Dose: 40 mg Sodium Chloride (Normal Saline -) 1,000 mls @ 83 mls/hr IV ASDIR [facility] Last Admin: 03/28/19 17:35 Dose: 83 mls/hr Insulin Aspart (Novolog Vial Sliding Scale -) 1 vial SQ TIDAC [facility]; Protocol Last Admin: 03/29/19 06:39 Dose: Not Given Metformin HCl (Glucophage Xr -) 500 mg PO BIDI [facility] Last Admin: 03/29/19 06:39 Dose: 500 mg Metoprolol Succinate (Toprol Xl -) 25 mg PO DAILY [facility] Last Admin: 03/29/19 09:50 Dose: 25 mg Potassium Chloride (K-Dur -) 20 meq PO DAILY [facility] Risperidone (Risperdal -) 1 mg PO HS [facility] Last Admin: 03/28/19 22:53 Dose: 1 mg CBC, BMP 03/28/19 08:50 03/28/19 08:50 Microbiology 03/28/19 09:04 Urine Culture - Final Urine - Urine - Catheterized NO GROWTH OBTAINED Physical Examination Vital Signs: Vital Signs Temperature 98.5 F 03/28/19 07:10 Pulse Rate 80 03/28/19 07:10 Respiratory Rate 18 03/28/19 07:10 Blood Pressure 108/62 03/28/19 07:10 O2 Sat by Pulse Oximetry (%) 98 03/28/19 07:43 Physical Exam Constitutional: Yes: No Distress, Calm HENT: Yes: Other (left upper lip swollen and abrasions) Cardiovascular: Yes: Pulse Irregular Respiratory: Yes: CTA Bilaterally Gastrointestinal: Yes: Normal Bowel Sounds, Soft, Abdomen, Obese. No: Tenderness Extremities: Yes: Other (weakness right leg) Edema: No Neuro- Alert/ awake Imaging - Results Chest X-ray: Image Reviewed X-ray: Image Reviewed Cat Scan: Report Reviewed EKG: Image Reviewed Problem List - Problems (1) Fall Code(s): W19.XXXA - UNSPECIFIED FALL, INITIAL ENCOUNTER Qualifiers: Encounter type: initial encounter Qualified Code(s): W19.XXXA - Unspecified fall, initial encounter (2) Syncope Code(s): R55 - SYNCOPE AND COLLAPSE Qualifiers: Syncope type: unspecified Qualified Code(s): R55 - Syncope and collapse (3) Anemia Code(s): D64.9 - ANEMIA, UNSPECIFIED (4) Atrial fibrillation Code(s): I48.91 - UNSPECIFIED ATRIAL FIBRILLATION Qualifiers: Atrial fibrillation type: paroxysmal Qualified Code(s): I48.0 - Paroxysmal atrial fibrillation (5) CAD (coronary artery disease) Code(s): I25.10 - ATHSCL HEART DISEASE OF [place] CORONARY ARTERY W/O ANG PCTRS Qualifiers: Coronary Disease-Associated Artery/Lesion type: [place] artery [place] vs. transplanted heart: [place] heart Associated angina: without angina Qualified Code(s): I25.10 - Atherosclerotic heart disease of [place] coronary artery without angina pectoris (6) HTN (hypertension) Code(s): I10 - ESSENTIAL (PRIMARY) HYPERTENSION Qualifiers: Hypertension type: essential hypertension Qualified Code(s): I10 - Essential (primary) hypertension Assessment/Plan frequent falls IV fluids Check MRI brain Neurology consult as well as cardiology Hold pradaxa till repeat ct head/ mri done continue with meds fall precautions will follow
--- NOTE | 2019-03-29 10:43 | CON.CARD ---
Consult Consult Specialty:: Cardiology Referred by:: Vanessa Perez MD Reason for Consultation:: s/p mechanical fall, possible syncope - History of Present Illness Chief Complaint: Found on floor History of Present Illness: 73 year old female with a pmhx of copd, psychiatric d/o, anemia, paroxysmal afib on NOAC, diastolic chf, and 120 cath showing normal coronaries and normal LVEDP, seizure d/o, gait instability, recent unwitnessed fall/syncope admitted for recurrent fall and found on floor w/o recollection, sustained left rib fracture. She is a poor historian, denies LOC, CP, SOB, palpitations, lightheadedness before the fall. CHIEF PILOT, Ms. Hernandez, cleaned her and then she was on the floor. Last seen at 540 AM but CHIEF PILOT. Ms. Bello, day RN, states that the patient likes to get up out of bed and falls d/t unsteady gait. Joshua, overnight RN, states that the patient normally can ambulate short distances but usually uses a wheelchair d/t ataxia. 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 Cardio/Vascular: Yes: AFIB, CAD, CHF, HTN, Hyperlipdemia Gastrointestinal: Yes: Diverticulosis, GERD, Hiatal Hernia, Other ...: No Psych: Yes: Schizophrenia Musculoskeletal: Yes: Chronic low back pain, Osteoarthritis Endocrine: Yes: Diabetes Mellitus - Past Surgical History Past Surgical History: Yes: Colonoscopy, Hernia Repair, Hysterectomy, Joint Replacement, Tonsillectomy, Upper Endoscopy - Alcohol/Substance Use Hx Alcohol Use: No History of Substance Use: reports: None - Smoking History Smoking history: Never smoked Have you smoked in the past 12 months: No Aproximately how many cigarettes per day: 0 - Social History Usual Living Arrangement: Alone ADL: Support Services History of Recent Travel: No Home Medications - Allergies Allergies/Adverse Reactions: Allergies Allergy/AdvReac Type Severity Reaction Status Date / Time aspirin Allergy Verified 03/28/19 09:59 ibuprofen [From Advil] Allergy Verified 03/28/19 09:59 lactose [Lactose] AdvReac Verified 03/28/19 09:59 - Home Medications Home Medications: Ambulatory Orders Ferrous Sulfate 325 mg PO DAILY 12/12/16 Risperidone 1 mg PO HS 12/12/16 Atorvastatin Ca [Lipitor] 10 mg PO HS #30 tablet 12/18/16 Furosemide [Lasix -] 40 mg PO DAILY #30 tablet 12/18/16 Ergocalciferol (Vitamin D2) [Vitamin D2] 50,000 unit PO WEEKLY 03/09/18 Famotidine [Pepcid] 20 mg PO DAILY #14 tablet 04/26/18 Mag Hydrox/Al Hydrox/Simeth [MAALOX *SUSPENSION* -] 30 ml PO Q6H #1 bottle 04/26 Metformin HCl [Metformin HCl ER] 500 mg PO BID 03/23/19 Metoprolol Succinate [Toprol Xl] 25 mg PO DAILY 03/23/19 Apixaban [Eliquis -] 5 mg PO BID tablet 03/25/19 Nitrofurantoin Monohyd/M-Cryst [Macrobid -] 100 mg PO BID 5 Days #14 capsule Acetaminophen 650 mg PO Q6H 03/28/19 Albuterol 2.5/Ipratropium 0.5 [Duoneb -] 1 amp NEB Q12H 03/28/19 Ascorbic Acid [Vitamin C -] 500 mg PO DAILY 03/28/19 Loperamide HCl [Imodium A-D] 2 mg PO QID 03/28/19 Review of Systems - Review of Systems Neurological: reports: Unsteady Gait Vital Signs: Vital Signs Temperature 98.6 F 03/29/19 05:56 Pulse Rate 88 03/29/19 05:56 Respiratory Rate 18 03/29/19 05:56 Blood Pressure 118/53 L 03/29/19 05:56 O2 Sat by Pulse Oximetry (%) 100 03/28/19 20:52 Constitutional: Yes: No Distress, Calm Neck: Yes: Supple Respiratory: Yes: Regular, CTA Bilaterally Gastrointestinal: Yes: Normal Bowel Sounds, Soft Cardiovascular: Yes: Regular Rate and Rhythm JVD: No Carotid Bruit: No Heart Sounds: Yes: S1, S2 Edema: No - Other Data Labs, Other Data: CBC, BMP 03/28/19 08:50 03/28/19 08:50 INR, PTT INR 1.17 (0.83-1.09) H 03/28/19 08:50 Problem List - Problems (1) Left rib fracture Code(s): S22.32XA - FRACTURE OF ONE RIB, LEFT SIDE, INIT FOR CLOS FX Qualifiers: Encounter type: initial encounter Rib fracture type: single rib Fracture type: closed Qualified Code(s): S22.32XA - Fracture of one rib, left side, initial encounter for closed fracture (2) Fall Code(s): W19.XXXA - UNSPECIFIED FALL, INITIAL ENCOUNTER Qualifiers: Encounter type: initial encounter Qualified Code(s): W19.XXXA - Unspecified fall, initial encounter (3) Atrial fibrillation Code(s): I48.91 - UNSPECIFIED ATRIAL FIBRILLATION Qualifiers: Atrial fibrillation type: paroxysmal Qualified Code(s): I48.0 - Paroxysmal atrial fibrillation (4) CAD (coronary artery disease) Code(s): I25.10 - ATHSCL HEART DISEASE OF [place] CORONARY ARTERY W/O ANG PCTRS Qualifiers: Coronary Disease-Associated Artery/Lesion type: [place] artery [place] vs. transplanted heart: [place] heart Associated angina: without angina Qualified Code(s): I25.10 - Atherosclerotic heart disease of [place] coronary artery without angina pectoris (5) Chronic anticoagulation Code(s): Z79.01 - LITIGATION DOCKET MANAGER (CURRENT) USE OF ANTICOAGULANTS (6) History of percutaneous coronary intervention Code(s): Z98.89 - OTHER SPECIFIED POSTPROCEDURAL STATES * DO NOT USE * (7) Hyperlipidemia Code(s): E78.5 - HYPERLIPIDEMIA, UNSPECIFIED Qualifiers: Hyperlipidemia type: pure hypercholesterolemia Qualified Code(s): E78.00 - Pure hypercholesterolemia, unspecified (8) HTN (hypertension) Code(s): I10 - ESSENTIAL (PRIMARY) HYPERTENSION Qualifiers: Hypertension type: essential hypertension Qualified Code(s): I10 - Essential (primary) hypertension (9) Left ventricular diastolic dysfunction Code(s): I51.9 - HEART DISEASE, UNSPECIFIED (10) Schizoaffective disorder Code(s): F25.9 - SCHIZOAFFECTIVE DISORDER, UNSPECIFIED Qualifiers: Schizoaffective disorder type: unspecified Qualified Code(s): F25.9 - Schizoaffective disorder, unspecified Assessment/Plan Echo: 03/25/2019 Echo: Normal LV and RV size and fxn, grade I DD, MALISSA with mild MR Carotid US: 03/24/2019 No sig stenosis Echo: 06/04/2018 Mild conc LVH, midly decreased [id number]%, diastolic dysfunction, mild LAE, mild MR, TR Lexiscan Myoview: Mod anterior ischemia, dilated LVEF 42% Carotid US: 12/16/2016 Min atherosclerotic disease w/o sig stenosis R&LHc 06/12/2017 Normal coronary arteries, normal LVEDP, mod pulm HTN 1. s/p mechanical fall with closed head trauma, denies syncope 2. Diastolic dyfunction with pulm HTN 3. PAF->SR previously on Eliquis 4. Small chronic right cerebellar stroke 5. COPD 6. Type 2 DM 7. Left anterolateral 6th rib fracture P:1. Continue Lipitor 10 qhs, Toprol XL 25 qd, Lasix 40 qd, resume lisinopril 5 qd as hemodynamics tolerate, cautious Eliquis 5 bid with GI protection given elevated risk score, but acknowledge fall risk 2. No events on telemetry thus far, check orthostatics VS, f/u brain MRI 3. PT, gait training, fall precautions, incentive spirometry, analgesia as needed 4. Thank you for consultative opportunity
[2019-03-29] MEDS: POTASSIUM CHLORIDE TABS 20 MEQ TABLET.ER (FP) PO SCH (11:57)
[2019-03-29] MEDS: SODIUM CHLORIDE 1,000 ML IV SCH (16:54)
--- NOTE | 2019-03-29 19:58 | CON.NEURO ---
Consult - History of Present Illness History of Present Illness: 3F with a PMH of dementia, COPD, HLD, chronic atrial fibrillation, GERD, iron deficiency anemia, HTN, DM, seizure disorder, recently discharged from our facility for syncope, presents to the ER after having a syncopal episode. The patient states that the last thing she remembers is waking up on the ground. She states that she syncopized last week. She is unsure if she had any CP, SOB, palpitations, lightheadedness before the fall. CONSUMER SERVICES ADVISOR, Ms. Hernandez, cleaned her and then she was on the floor. Last seen at 540 AM but CONSUMER SERVICES ADVISOR. Ms. Bello, day RN, states that the patient likes to get up out of bed and falls d/t unsteady gait. Ms. Lewis, overnight RN, states that the patient normally can ambulate short distances but usually uses a wheelchair d/t ataxia. Pt examined in ER She is wheelchair bound recently admitted for fall and head injury She is unable to elevate her right leg denies any pain She had hit the left side of head and lip -- lip is swollen and bruised She has left forehead hematoma from recent fall-- swelling has decreased Echo: 03/25/2019 Echo: Normal LV and RV size and fxn, grade I DD, MALISSA with mild MR Carotid US: 03/24/2019 No sig stenosis Echo: 06/04/2018 Mild conc LVH, midly decreased [id number]%, diastolic dysfunction, mild LAE, mild MR, TR Lexiscan Myoview: Mod anterior ischemia, dilated LVEF 42% Carotid US: 12/16/2016 Min atherosclerotic disease w/o sig stenosis R&LHc 06/12/2017 Normal coronary arteries, normal LVEDP, mod pulm HTN 1. s/p mechanical fall with closed head trauma, denies syncope 2. Diastolic dyfunction with pulm HTN 3. PAF->SR previously on Eliquis 4. Small chronic right cerebellar stroke 5. COPD 6. Type 2 DM 7. Left anterolateral 6th rib fracture -Pt. denies all complaints, states"i tripped and fell". She is on Risperdal 1mg hs?? duration. 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 Cardio/Vascular: Yes: AFIB, CAD, CHF, HTN, Hyperlipdemia Gastrointestinal: Yes: Diverticulosis, GERD, Hiatal Hernia, Other ...: No Psych: Yes: Schizophrenia Musculoskeletal: Yes: Chronic low back pain, Osteoarthritis Endocrine: Yes: Diabetes Mellitus - Past Surgical History Past Surgical History: Yes: Colonoscopy, Hernia Repair, Hysterectomy, Joint Replacement, Tonsillectomy, Upper Endoscopy - Alcohol/Substance Use Hx Alcohol Use: No History of Substance Use: reports: None - Smoking History Smoking history: Never smoked Have you smoked in the past 12 months: No Aproximately how many cigarettes per day: 0 - Social History Usual Living Arrangement: Alone ADL: Support Services History of Recent Travel: No Home Medications - Allergies Allergies/Adverse Reactions: Allergies Allergy/AdvReac Type Severity Reaction Status Date / Time aspirin Allergy Verified 03/28/19 09:59 ibuprofen [From Advil] Allergy Verified 03/28/19 09:59 lactose [Lactose] AdvReac Verified 03/28/19 09:59 - Home Medications Home Medications: Ambulatory Orders Ferrous Sulfate 325 mg PO DAILY 12/12/16 Risperidone 1 mg PO HS 12/12/16 Atorvastatin Ca [Lipitor] 10 mg PO HS #30 tablet 12/18/16 Furosemide [Lasix -] 40 mg PO DAILY #30 tablet 12/18/16 Ergocalciferol (Vitamin D2) [Vitamin D2] 50,000 unit PO WEEKLY 03/09/18 Famotidine [Pepcid] 20 mg PO DAILY #14 tablet 04/26/18 Mag Hydrox/Al Hydrox/Simeth [MAALOX *SUSPENSION* -] 30 ml PO Q6H #1 bottle 04/26 Metformin HCl [Metformin HCl ER] 500 mg PO BID 03/23/19 Metoprolol Succinate [Toprol Xl] 25 mg PO DAILY 03/23/19 Apixaban [Eliquis -] 5 mg PO BID tablet 03/25/19 Nitrofurantoin Monohyd/M-Cryst [Macrobid -] 100 mg PO BID 5 Days #14 capsule Acetaminophen 650 mg PO Q6H 03/28/19 Albuterol 2.5/Ipratropium 0.5 [Duoneb -] 1 amp NEB Q12H 03/28/19 Ascorbic Acid [Vitamin C -] 500 mg PO DAILY 03/28/19 Loperamide HCl [Imodium A-D] 2 mg PO QID 03/28/19 Physical Exam-Neuro Vital Signs: Vital Signs Temperature 99.0 F 03/29/19 17:00 Pulse Rate 73 03/29/19 17:00 Respiratory Rate 20 03/29/19 17:00 Blood Pressure 119/57 L 03/29/19 17:00 O2 Sat by Pulse Oximetry (%) 100 03/29/19 09:00 Labs: CBC, BMP 03/28/19 08:50 03/28/19 08:50 INR, PTT INR 1.17 (0.83-1.09) H 03/28/19 08:50 - Neuro Exam Level Of Consciousness: Yes: Alert, Oriented to Person, Oriented to Place Eyes: Yes: MARIA T Speech: Other (slow, monotonous) Mini Mental Exam: Impaired concentration Cranial Nerves II-XII Intact: No (slight diminished left NLF?? cent.facial) DTR's: 0 Left Brachioradialis, 0 Right Brachioradialis, 0 Left Achilles, 0 Right Achilles, 1+ Left Bicep, 1+ Right Bicep, 1+ Left Tricep, 1+ Right Tricep Babinski: Present (right) Response to light touch: Normal Response to pain prick: Normal Movement Disorders: Tremors (LUE resting tremor with mild wrist cogwheeling) Motor Strength: 4/5: Left Leg, Right Leg (Limited 2/2 increased tone in both legs), 5/5: Left Arm, Right Arm Gait: Other (stands with assistance, short steps, diminished left arm swing) Imaging - Results Cat Scan: Report Reviewed (CT head without acute changes, old cerebellar inf. CT Cspine with DJD) Assessment/Plan Pt. with likely mechanical fall. She has parkinsonian features-tremor, increased tone in legs which could be 2/2 risperdal and this in combination with old cerebellar infarct may have led to imbalance and fall. She could have had another ischemic lesion although less likely-she is to have an MRI brain. Would reduce risperdal to 0.5mg hs and later on d/c if she does not need it.PT/ gait training. Thank you, Justin Lind MD
[2019-03-29] MEDS: ATORVASTATIN CA 10 MG TABLET (FP) PO SCH (21:33)
[2019-03-29] MEDS: risperiDONE 1 MG TABLET (FP) PO SCH (21:33)
[2019-03-30] MEDS: ACETAMINOPHEN 325 MG TABLET (FP) PO SCH ×5 (04:06→21:42)
[2019-03-30] MEDS: INSULIN SLIDING SCALE (NOVOLOG) 1 VIAL SQ SCH ×4 (06:40→17:29)
[2019-03-30] MEDS: FUROSEMIDE 40 MG TABLET (FP) PO SCH (10:39)
[2019-03-30] MEDS: metoPROLOL SUCCINATE 25 MG TAB.SR.24H (FP) PO SCH (10:39)
[2019-03-30] MEDS: POTASSIUM CHLORIDE TABS 20 MEQ TABLET.ER (FP) PO SCH (10:39)
--- NOTE | 2019-03-30 13:20 | PN ---
Progress Note, Physician Chief Complaint: Pt knows where she is,; says the claude is 04/05/19. History of Present Illness: 73 black woman with h/o dementia, COPD, HLD, chronic atrial fibrillation, GERD, iron deficiency anemia, HTN, DM, seizure disorder, presenting to ED after unwitnessed fall. Pt has no recollection of the event due to severe dementia. States that the last thing she remembers is waking up on the ground. Per NH aide, pt was being changed this morning. A few minutes after pt was changed, pt was found on the ground by her bed. Her fall was unwitnessed. In ED, pt complains of RLE weakness. States that this is new. She reports she was ambulating normally last night. - - Current Medication List Current Medications: Active Medications Acetaminophen (Tylenol -) 650 mg PO Q6H [facility] Last Admin: 03/30/19 10:38 Dose: 650 mg Atorvastatin Calcium (Lipitor -) 10 mg PO HS [facility] Last Admin: 03/29/19 21:33 Dose: 10 mg Furosemide (Lasix -) 40 mg PO DAILY [facility] Last Admin: 03/30/19 10:39 Dose: 40 mg Sodium Chloride (Normal Saline -) 1,000 mls @ 83 mls/hr IV ASDIR [facility] Last Admin: 03/29/19 16:54 Dose: 83 mls/hr Insulin Aspart (Novolog Vial Sliding Scale -) 1 vial SQ TIDAC [facility]; Protocol Last Admin: 03/30/19 06:42 Dose: Not Given Metformin HCl (Glucophage Xr -) 500 mg PO BIDI [facility] Last Admin: 03/30/19 06:43 Dose: Not Given Metoprolol Succinate (Toprol Xl -) 25 mg PO DAILY [facility] Last Admin: 03/30/19 10:39 Dose: 25 mg Potassium Chloride (K-Dur -) 20 meq PO DAILY [facility] Last Admin: 03/30/19 10:39 Dose: 20 meq Risperidone (Risperdal -) 1 mg PO HS [facility] Last Admin: 03/29/19 21:33 Dose: 1 mg - Objective Vital Signs: Vital Signs Temperature 97.8 F 03/30/19 05:00 Pulse Rate 74 03/30/19 09:00 Respiratory Rate 18 03/30/19 09:00 Blood Pressure 126/74 03/30/19 09:00 O2 Sat by Pulse Oximetry (%) 100 03/30/19 09:00 Constitutional: Yes: Calm Eyes: Yes: WNL Cardiovascular: Yes: S1, S2 Respiratory: Yes: WNL Gastrointestinal: Yes: Soft ...Rectal Exam: Yes: Deferred Genitourinary: No: Anuria Breast(s): Yes: WNL Musculoskeletal: Yes: Muscle Weakness Extremities: Yes: WNL Edema: Yes Edema: LLE: Trace, RLE: Trace Peripheral Pulses WNL: Yes Integumentary: Yes: WNL Neurological: Yes: Confusion, Weakness Psychiatric: Yes: Other (hx dementia) Labs: CBC, BMP 03/28/19 08:50 03/28/19 08:50 INR, PTT INR 1.17 (0.83-1.09) H 03/28/19 08:50 - ....Imaging Other: Image Reviewed (temetry: NSR; no significant pauses) Problem List - Problems (1) Fall Code(s): W19.XXXA - UNSPECIFIED FALL, INITIAL ENCOUNTER Qualifiers: Encounter type: initial encounter Qualified Code(s): W19.XXXA - Unspecified fall, initial encounter (2) Left rib fracture Code(s): S22.32XA - FRACTURE OF ONE RIB, LEFT SIDE, INIT FOR CLOS FX Qualifiers: Encounter type: initial encounter Rib fracture type: single rib Fracture type: closed Qualified Code(s): S22.32XA - Fracture of one rib, left side, initial encounter for closed fracture (3) Atrial fibrillation Assessment/Plan: No significant pauses on telemetry. On metoprolol ER for HR control. On DOAC for anticoagulation. Code(s): I48.91 - UNSPECIFIED ATRIAL FIBRILLATION Qualifiers: Atrial fibrillation type: paroxysmal Qualified Code(s): I48.0 - Paroxysmal atrial fibrillation (4) Hyperlipidemia Assessment/Plan: on statin. F/u lipid profile and TSH. Code(s): E78.5 - HYPERLIPIDEMIA, UNSPECIFIED Qualifiers: Hyperlipidemia type: pure hypercholesterolemia Qualified Code(s): E78.00 - Pure hypercholesterolemia, unspecified (5) Hypokalemia Assessment/Plan: replete, and keed K 4.0-4.5. F/u Mg and PO4. Code(s): E87.6 - HYPOKALEMIA
--- NOTE | 2019-03-30 15:15 | PN ---
Progress Note (short form) - Note Progress Note: Patient seen and examined. Comfortable. All follow-ups noted and appreciated. Vital Signs Temp 97.8 F 03/30/19 05:00 Pulse 74 03/30/19 09:00 Resp 18 03/30/19 09:00 BP 126/74 03/30/19 09:00 Pulse Ox 100 03/30/19 09:00 Intake & Output 03/29/19 03/30/19 03/30/19 23:59 11:59 23:59 Intake Total 300 960 Balance 300 960 Intake: IV 960 Normal Saline - 1,000 ml 960 @ 83 mls/hr IV ASDIR [facility] Rx#:[id number] Oral 300 Other: Voiding Method Diaper Incontinent # Unmeasured Voids Void 3 2 Bowel Movement No Active Medications Acetaminophen (Tylenol -) 650 mg PO Q6H [facility] Last Admin: 03/30/19 14:19 Dose: Not Given Alprazolam (Xanax -) 0.25 mg PO ONCE ONE Stop: 03/30/19 13:31 Atorvastatin Calcium (Lipitor -) 10 mg PO HS [facility] Last Admin: 03/29/19 21:33 Dose: 10 mg Furosemide (Lasix -) 40 mg PO DAILY [facility] Last Admin: 03/30/19 10:39 Dose: 40 mg Sodium Chloride (Normal Saline -) 1,000 mls @ 83 mls/hr IV ASDIR [facility] Last Admin: 03/29/19 16:54 Dose: 83 mls/hr Insulin Aspart (Novolog Vial Sliding Scale -) 1 vial SQ TIDAC [facility]; Protocol Last Admin: 03/30/19 14:18 Dose: Not Given Metformin HCl (Glucophage Xr -) 500 mg PO BIDI [facility] Last Admin: 03/30/19 06:43 Dose: Not Given Metoprolol Succinate (Toprol Xl -) 25 mg PO DAILY [facility] Last Admin: 03/30/19 10:39 Dose: 25 mg Potassium Chloride (K-Dur -) 20 meq PO DAILY [facility] Last Admin: 03/30/19 10:39 Dose: 20 meq Risperidone (Risperdal -) 1 mg PO HS [facility] Last Admin: 03/29/19 21:33 Dose: 1 mg CBC, BMP 03/28/19 08:50 03/28/19 08:50 MRI brain--- pending Physical Examination Vital Signs: Vital Signs Temperature 98.5 F 03/28/19 07:10 Pulse Rate 80 03/28/19 07:10 Respiratory Rate 18 03/28/19 07:10 Blood Pressure 108/62 03/28/19 07:10 O2 Sat by Pulse Oximetry (%) 98 03/28/19 07:43 Physical Exam Constitutional: Yes: No Distress, comfortable HENT: Yes: Other (left upper lip swollen and abrasions) Cardiovascular: Yes: Pulse Irregular Respiratory: Yes: CTA Bilaterally Gastrointestinal: Yes: Normal Bowel Sounds, Soft, Abdomen, Obese. No: Tenderness Extremities: Yes: Other (weakness right leg) Edema: No Neuro- Alert/ awake Imaging - Results Chest X-ray: Image Reviewed X-ray: Image Reviewed Cat Scan: Report Reviewed EKG: Image Reviewed Problem List - Problems (1) Fall Code(s): W19.XXXA - UNSPECIFIED FALL, INITIAL ENCOUNTER Qualifiers: Encounter type: initial encounter Qualified Code(s): W19.XXXA - Unspecified fall, initial encounter (2) Syncope Code(s): R55 - SYNCOPE AND COLLAPSE Qualifiers: Syncope type: unspecified Qualified Code(s): R55 - Syncope and collapse (3) Anemia Code(s): D64.9 - ANEMIA, UNSPECIFIED (4) Atrial fibrillation Code(s): I48.91 - UNSPECIFIED ATRIAL FIBRILLATION Qualifiers: Atrial fibrillation type: paroxysmal Qualified Code(s): I48.0 - Paroxysmal atrial fibrillation (5) CAD (coronary artery disease) Code(s): I25.10 - ATHSCL HEART DISEASE OF [place] CORONARY ARTERY W/O ANG PCTRS Qualifiers: Coronary Disease-Associated Artery/Lesion type: [place] artery [place] vs. transplanted heart: [place] heart Associated angina: without angina Qualified Code(s): I25.10 - Atherosclerotic heart disease of [place] coronary artery without angina pectoris (6) HTN (hypertension) Code(s): I10 - ESSENTIAL (PRIMARY) HYPERTENSION Qualifiers: Hypertension type: essential hypertension Qualified Code(s): I10 - Essential (primary) hypertension Assessment/Plan frequent falls IV fluids Check MRI brain Neurology consult as well as cardiology consults appreciated Xanax before MRI Holding anticoagulation----till repeat imaging studies done continue with meds fall precautions will follow
[2019-03-30] MEDS: SODIUM CHLORIDE 1,000 ML IV SCH (17:14)
[2019-03-30] MEDS ORDERED: ALPRAZolam 0.25 MG TABLET PO ONE (17:30)
[2019-03-30] MEDS: ATORVASTATIN CA 10 MG TABLET (FP) PO SCH (21:43)
[2019-03-30] MEDS: risperiDONE 0.5 MG TABLET (FP) PO SCH (21:43)
[2019-03-31] MEDS: ACETAMINOPHEN 325 MG TABLET (FP) PO SCH ×5 (03:53→22:22)
[2019-03-31] MEDS: INSULIN SLIDING SCALE (NOVOLOG) 1 VIAL SQ SCH ×3 (06:31→17:43)
[2019-03-31] MEDS: FUROSEMIDE 40 MG TABLET (FP) PO SCH (09:31)
[2019-03-31] MEDS: POTASSIUM CHLORIDE TABS 20 MEQ TABLET.ER (FP) PO SCH (09:31)
[2019-03-31] MEDS: metoPROLOL SUCCINATE 25 MG TAB.SR.24H (FP) PO SCH (09:31)
--- NOTE | 2019-03-31 12:45 | PN ---
Progress Note (short form) - Note Progress Note: pt seen/ examined awake/ comfortable no new issues Vital Signs Temp 97.8 F 03/31/19 05:00 Pulse 66 03/31/19 05:00 Resp 20 03/31/19 08:06 BP 118/57 L 03/31/19 05:00 Pulse Ox 99 03/31/19 08:06 Intake & Output 03/30/19 03/31/19 03/31/19 23:59 11:59 23:59 Intake Total 1330 240 Balance 1330 240 Intake: IV 830 Normal Saline - 1,000 ml 830 @ 83 mls/hr IV ASDIR [facility] Rx#:[id number] Oral 500 240 Other: Voiding Method Diaper Bedpan # Unmeasured Voids Void 2 2 Bowel Movement Yes Yes # Bowel Movements 1 1 Active Medications Acetaminophen (Tylenol -) 650 mg PO Q6H [facility] Last Admin: 03/31/19 09:30 Dose: Not Given Atorvastatin Calcium (Lipitor -) 10 mg PO HS [facility] Last Admin: 03/30/19 21:43 Dose: 10 mg Furosemide (Lasix -) 40 mg PO DAILY [facility] Last Admin: 03/31/19 09:31 Dose: 40 mg Sodium Chloride (Normal Saline -) 1,000 mls @ 83 mls/hr IV ASDIR [facility] Last Admin: 03/30/19 17:14 Dose: 83 mls/hr Insulin Aspart (Novolog Vial Sliding Scale -) 1 vial SQ TIDAC [facility]; Protocol Last Admin: 03/31/19 11:40 Dose: Not Given Metformin HCl (Glucophage Xr -) 500 mg PO BIDI [facility] Last Admin: 03/31/19 06:31 Dose: 500 mg Metoprolol Succinate (Toprol Xl -) 25 mg PO DAILY [facility] Last Admin: 03/31/19 09:31 Dose: 25 mg Potassium Chloride (K-Dur -) 20 meq PO DAILY [facility] Last Admin: 03/31/19 09:31 Dose: 20 meq Risperidone (Risperdal -) 0.5 mg PO HS [facility] Last Admin: 03/30/19 21:43 Dose: 0.5 mg CBC, BMP 03/28/19 08:50 03/28/19 08:50 Physical Examination Vital Signs: Vital Signs Temperature 98.5 F 03/28/19 07:10 Pulse Rate 80 03/28/19 07:10 Respiratory Rate 18 03/28/19 07:10 Blood Pressure 108/62 03/28/19 07:10 O2 Sat by Pulse Oximetry (%) 98 03/28/19 07:43 Physical Exam Constitutional: Yes: No Distress, comfortable HENT: Yes: Other (left upper lip swollen and abrasions) Cardiovascular: Yes: Pulse Irregular Respiratory: Yes: CTA Bilaterally Gastrointestinal: Yes: Normal Bowel Sounds, Soft, Abdomen, Obese. No: Tenderness Extremities: Yes: Other (weakness right leg) Edema: No Neuro- Alert/ awake Imaging - Results Chest X-ray: Image Reviewed X-ray: Image Reviewed Cat Scan: Report Reviewed EKG: Image Reviewed Problem List - Problems (1) Fall Code(s): W19.XXXA - UNSPECIFIED FALL, INITIAL ENCOUNTER Qualifiers: Encounter type: initial encounter Qualified Code(s): W19.XXXA - Unspecified fall, initial encounter (2) Syncope Code(s): R55 - SYNCOPE AND COLLAPSE Qualifiers: Syncope type: unspecified Qualified Code(s): R55 - Syncope and collapse (3) Anemia Code(s): D64.9 - ANEMIA, UNSPECIFIED (4) Atrial fibrillation Code(s): I48.91 - UNSPECIFIED ATRIAL FIBRILLATION Qualifiers: Atrial fibrillation type: paroxysmal Qualified Code(s): I48.0 - Paroxysmal atrial fibrillation (5) CAD (coronary artery disease) Code(s): I25.10 - ATHSCL HEART DISEASE OF [place] CORONARY ARTERY W/O ANG PCTRS Qualifiers: Coronary Disease-Associated Artery/Lesion type: [place] artery [place] vs. transplanted heart: [place] heart Associated angina: without angina Qualified Code(s): I25.10 - Atherosclerotic heart disease of [place] coronary artery without angina pectoris (6) HTN (hypertension) Code(s): I10 - ESSENTIAL (PRIMARY) HYPERTENSION Qualifiers: Hypertension type: essential hypertension Qualified Code(s): I10 - Essential (primary) hypertension Assessment/Plan frequent falls Check MRI brain-- report pending Neurology consult as well as cardiology consults appreciated Holding anticoagulation----till repeat imaging studies done/ read continue with meds fall precautions will follow
[2019-03-31] MEDS: SODIUM CHLORIDE 1,000 ML IV SCH (17:43)
[2019-03-31] MEDS: risperiDONE 0.5 MG TABLET (FP) PO SCH (22:22)
[2019-03-31] MEDS: ATORVASTATIN CA 10 MG TABLET (FP) PO SCH (22:22)
[2019-04-01 06:34] LABS: BASO % 0.2 % (0-2.0); EOS % 0.6 % (0-4.5); HEMOGLOBIN 7.2 GM/dL (10.7-15.3); LYMPH % 31.1 % (8-40); MCHC 32.9 g/dl (32.0-36.0); MEAN CELL VOLUME 84.9 fl (80-96); MEAN PLT VOLUME 8.3 fl (7.5-11.1); MONO % 5.9 % (3.8-10.2); NEUT % 62.2 % (42.8-82.8); PLATELET COUNT 329 K/MM3 (134-434); RBC 2.59 M/mm3 (3.60-5.2); WHITE BLOOD COUNT 4.4 K/mm3 (4.0-10.0)
[2019-04-01] MEDS: ACETAMINOPHEN 325 MG TABLET (FP) PO SCH ×4 (06:37→20:39)
[2019-04-01] MEDS: INSULIN SLIDING SCALE (NOVOLOG) 1 VIAL SQ SCH ×3 (06:38→17:31)
[2019-04-01 06:54] LABS: ALBUMIN 2.5 g/dl (3.4-5.0); BILIRUBIN,TOTAL 0.3 mg/dL (0.2-1); BLOOD UREA NITROGEN 12.3 mg/dL (7-18); CALCIUM 8.4 mg/dL (8.5-10.1); CREATININE 0.7 mg/dL (0.55-1.3); POTASSIUM 3.4 mmol/L (3.5-5.1); TOT PROT 5.6 g/dl (6.4-8.2)
[2019-04-01] MEDS: POTASSIUM CHLORIDE TABS 20 MEQ TABLET.ER (FP) PO SCH (09:59)
[2019-04-01] MEDS: metoPROLOL SUCCINATE 25 MG TAB.SR.24H (FP) PO SCH (09:59)
[2019-04-01] MEDS: FUROSEMIDE 40 MG TABLET (FP) PO SCH (09:59)
--- NOTE | 2019-04-01 10:20 | EKG ---
Test Reason : Blood Pressure : / mmHG Vent. Rate : 078 BPM Atrial Rate : 078 BPM P-R Int : 202 ms QRS Dur : 082 ms QT Int : 380 ms P-R-T Axes : 098 -33 064 degrees QTc Int : 433 ms SINUS RHYTHM WITH PREMATURE ATRIAL COMPLEXES LEFT AXIS DEVIATION ANTEROSEPTAL INFARCT (CITED ON OR BEFORE 28-MAR-2019) ABNORMAL ECG WHEN COMPARED WITH ECG OF 28-MAR-2019 07:54, NO SIGNIFICANT CHANGE WAS FOUND Confirmed by BLAZE HARGROVE MD ([id number]) on 04/01/2019 10:20:12 AM Referred By: Confirmed By:BLAZE HARGROVE MD
--- NOTE | 2019-04-01 10:55 | PN ---
Progress Note (short form) - Note Progress Note: pt seen/ examined comfortable no new issues Vital Signs Temp 98.3 F 04/01/19 05:28 Pulse 60 04/01/19 05:28 Resp 18 04/01/19 05:28 BP 104/54 L 04/01/19 05:28 Pulse Ox 99 03/31/19 21:00 Intake & Output 03/31/19 03/31/19 04/01/19 11:59 23:59 11:59 Intake Total 240 420 Balance 240 420 Intake: Oral 240 420 Other: Voiding Method Bedpan Diaper # Unmeasured Voids Void 2 2 2 Bowel Movement Yes Yes # Bowel Movements 2 1 Active Medications Acetaminophen (Tylenol -) 650 mg PO Q6H [facility] Last Admin: 04/01/19 09:58 Dose: 650 mg Atorvastatin Calcium (Lipitor -) 10 mg PO HS [facility] Last Admin: 03/31/19 22:22 Dose: 10 mg Furosemide (Lasix -) 40 mg PO DAILY [facility] Last Admin: 04/01/19 09:59 Dose: 40 mg Sodium Chloride (Normal Saline -) 1,000 mls @ 83 mls/hr IV ASDIR [facility] Last Admin: 03/31/19 17:43 Dose: Not Given Insulin Aspart (Novolog Vial Sliding Scale -) 1 vial SQ TIDAC [facility]; Protocol Last Admin: 04/01/19 06:38 Dose: Not Given Metformin HCl (Glucophage Xr -) 500 mg PO BIDI [facility] Last Admin: 04/01/19 06:38 Dose: 500 mg Metoprolol Succinate (Toprol Xl -) 25 mg PO DAILY [facility] Last Admin: 04/01/19 09:59 Dose: 25 mg Potassium Chloride (K-Dur -) 20 meq PO DAILY [facility] Last Admin: 04/01/19 09:59 Dose: 20 meq Risperidone (Risperdal -) 0.5 mg PO HS [facility] Last Admin: 03/31/19 22:22 Dose: 0.5 mg CBC, BMP 04/01/19 05:50 04/01/19 05:50 Physical Examination Vital Signs: Vital Signs Temperature 98.5 F 03/28/19 07:10 Pulse Rate 80 03/28/19 07:10 Respiratory Rate 18 03/28/19 07:10 Blood Pressure 108/62 03/28/19 07:10 O2 Sat by Pulse Oximetry (%) 98 03/28/19 07:43 MRI Brain - _ve for acute pathology Physical Exam Constitutional: Yes: No Distress, comfortable HENT: Yes: Other (left upper lip swollen and abrasions) Cardiovascular: Yes: Pulse Irregular Respiratory: Yes: CTA Bilaterally Gastrointestinal: Yes: Normal Bowel Sounds, Soft, Abdomen, Obese. No: Tenderness Extremities: Yes: Other (weakness right leg) Edema: No Neuro- Alert/ awake Imaging - Results Chest X-ray: Image Reviewed X-ray: Image Reviewed Cat Scan: Report Reviewed EKG: Image Reviewed Problem List - Problems (1) Fall Code(s): W19.XXXA - UNSPECIFIED FALL, INITIAL ENCOUNTER Qualifiers: Encounter type: initial encounter Qualified Code(s): W19.XXXA - Unspecified fall, initial encounter (2) Syncope Code(s): R55 - SYNCOPE AND COLLAPSE Qualifiers: Syncope type: unspecified Qualified Code(s): R55 - Syncope and collapse (3) Anemia Code(s): D64.9 - ANEMIA, UNSPECIFIED (4) Atrial fibrillation Code(s): I48.91 - UNSPECIFIED ATRIAL FIBRILLATION Qualifiers: Atrial fibrillation type: paroxysmal Qualified Code(s): I48.0 - Paroxysmal atrial fibrillation (5) CAD (coronary artery disease) Code(s): I25.10 - ATHSCL HEART DISEASE OF [place] CORONARY ARTERY W/O ANG PCTRS Qualifiers: Coronary Disease-Associated Artery/Lesion type: [place] artery [place] vs. transplanted heart: [place] heart Associated angina: without angina Qualified Code(s): I25.10 - Atherosclerotic heart disease of [place] coronary artery without angina pectoris (6) HTN (hypertension) Code(s): I10 - ESSENTIAL (PRIMARY) HYPERTENSION Qualifiers: Hypertension type: essential hypertension Qualified Code(s): I10 - Essential (primary) hypertension Assessment/Plan frequent falls Neurology consult as well as cardiology consults appreciated Holding anticoagulation----till stool occult blood is -ve--ordered drop in HB Will consult GI supplement k continue with meds fall precautions will follow
[2019-04-01] MEDS ORDERED: POTASSIUM CHLORIDE ORAL LIQUID 20 MEQ/15 ML PO ONE (10:56)
--- NOTE | 2019-04-01 12:22 | PN ---
Progress Note, Physician History of Present Illness: Witnessed seizure and now somnolent, hemodynamics stable. - Current Medication List Current Medications: Active Medications Acetaminophen (Tylenol -) 650 mg PO Q6H [facility] Last Admin: 04/01/19 09:58 Dose: 650 mg Atorvastatin Calcium (Lipitor -) 10 mg PO HS [facility] Last Admin: 03/31/19 22:22 Dose: 10 mg Furosemide (Lasix -) 40 mg PO DAILY [facility] Last Admin: 04/01/19 09:59 Dose: 40 mg Insulin Aspart (Novolog Vial Sliding Scale -) 1 vial SQ TIDAC [facility]; Protocol Last Admin: 04/01/19 11:47 Dose: Not Given Metformin HCl (Glucophage Xr -) 500 mg PO BIDI [facility] Last Admin: 04/01/19 06:38 Dose: 500 mg Metoprolol Succinate (Toprol Xl -) 25 mg PO DAILY [facility] Last Admin: 04/01/19 09:59 Dose: 25 mg Potassium Chloride (K-Dur -) 20 meq PO DAILY [facility] Last Admin: 04/01/19 09:59 Dose: 20 meq Risperidone (Risperdal -) 0.5 mg PO [facility] Last Admin: 03/31/19 22:22 Dose: 0.5 mg - Objective Vital Signs: Vital Signs Temperature 98.3 F 04/01/19 05:28 Pulse Rate 60 04/01/19 05:28 Respiratory Rate 18 04/01/19 05:28 Blood Pressure 104/54 L 04/01/19 05:28 O2 Sat by Pulse Oximetry (%) 99 03/31/19 21:00 HENT: Yes: Atraumatic Neck: Yes: Supple Cardiovascular: Yes: Regular Rate and Rhythm Respiratory: Yes: Regular, Diminished Gastrointestinal: Yes: Soft, Hypoactive Bowel Sounds Edema: No Neurological: Yes: Lethargy, Seizure, Unresponsive Labs: CBC, BMP 04/01/19 05:50 04/01/19 05:50 INR, PTT INR 1.17 (0.83-1.09) H 03/28/19 08:50 - ....Imaging EKG: Report Reviewed (Tele: PAF->SR ECG: SR@78 1st deg AVB, PAC, PRWP) Problem List - Problems (1) Left rib fracture Code(s): S22.32XA - FRACTURE OF ONE RIB, LEFT SIDE, INIT FOR CLOS FX Qualifiers: Encounter type: initial encounter Rib fracture type: single rib Fracture type: closed Qualified Code(s): S22.32XA - Fracture of one rib, left side, initial encounter for closed fracture (2) Fall Code(s): W19.XXXA - UNSPECIFIED FALL, INITIAL ENCOUNTER Qualifiers: Encounter type: initial encounter Qualified Code(s): W19.XXXA - Unspecified fall, initial encounter (3) Atrial fibrillation Code(s): I48.91 - UNSPECIFIED ATRIAL FIBRILLATION Qualifiers: Atrial fibrillation type: paroxysmal Qualified Code(s): I48.0 - Paroxysmal atrial fibrillation (4) CAD (coronary artery disease) Code(s): I25.10 - ATHSCL HEART DISEASE OF [place] CORONARY ARTERY W/O ANG PCTRS Qualifiers: Coronary Disease-Associated Artery/Lesion type: [place] artery [place] vs. transplanted heart: [place] heart Associated angina: without angina Qualified Code(s): I25.10 - Atherosclerotic heart disease of [place] coronary artery without angina pectoris (5) Chronic anticoagulation Code(s): Z79.01 - PENITENTIARY (CURRENT) USE OF ANTICOAGULANTS (6) History of percutaneous coronary intervention Code(s): Z98.89 - OTHER SPECIFIED POSTPROCEDURAL STATES * DO NOT USE * (7) Hyperlipidemia Code(s): E78.5 - HYPERLIPIDEMIA, UNSPECIFIED Qualifiers: Hyperlipidemia type: pure hypercholesterolemia Qualified Code(s): E78.00 - Pure hypercholesterolemia, unspecified (8) HTN (hypertension) Code(s): I10 - ESSENTIAL (PRIMARY) HYPERTENSION Qualifiers: Hypertension type: essential hypertension Qualified Code(s): I10 - Essential (primary) hypertension (9) Left ventricular diastolic dysfunction Code(s): I51.9 - HEART DISEASE, UNSPECIFIED (10) Schizoaffective disorder Code(s): F25.9 - SCHIZOAFFECTIVE DISORDER, UNSPECIFIED Qualifiers: Schizoaffective disorder type: unspecified Qualified Code(s): F25.9 - Schizoaffective disorder, unspecified (11) Seizure disorder as sequela of cerebrovascular accident Code(s): I69.398 - OTHER SEQUELAE OF CEREBRAL INFARCTION; G40.909 - EPILEPSY, UNSP, NOT INTRACTABLE, WITHOUT STATUS EPILEPTICUS Assessment/Plan MRI : 03/30/2019 Brain MRI: Right frontal old stroke, old bilateral cerebellar strokes, no new stroke Echo: 03/25/2019 Echo: Normal LV and RV size and fxn, grade I DD, MALISSA with mild MR Carotid US: 03/24/2019 No sig stenosis Echo: 06/04/2018 Mild conc LVH, midly decreased [id number]%, diastolic dysfunction, mild LAE, mild MR, TR Lexiscan Myoview: Mod anterior ischemia, dilated LVEF 42% Carotid US: 12/16/2016 Min atherosclerotic disease w/o sig stenosis R&LHc 06/12/2017 Normal coronary arteries, normal LVEDP, mod pulm HTN 1. Altered mental status and seizures r/o recurrent CVA off Eliquis vs underlying seizure d/o 2. s/p mechanical fall with closed head trauma, denies syncope 3. Diastolic dyfunction with pulm HTN 4. PAF->SR previously on Eliquis 5. 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 COPD 7. Type 2 DM 8. Left anterolateral 6th rib fracture 8. Hyperlipidemia 9. Hypokalemia 10. Anemia 11. 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 Continue Lipitor 10 qhs, Toprol XL 25 qd, Lasix 40 qd, resume lisinopril 5 qd as hemodynamics tolerate, Eliquis 5 bid d/andrew given anemia and fall risk, despite elevated risk score pending GI eval 2. Telemetry shows PAF->SR, obtain HCT, check ABG, load Keppra, neuro f/u 3. PT, gait training, fall precautions, incentive spirometry, analgesia as needed
[2019-04-01] MEDS ORDERED: levETIRAcetam 500 MG/5 ML INJECTION VIAL IVPB ONE (12:32)
[2019-04-01] MEDS ORDERED: LORazepam 2 MG/ML SDV VIAL IVPUSH ONE (12:34)
[2019-04-01] MEDS ORDERED: LORazepam 2 MG/ML SDV VIAL ONE ×2 (12:36→12:54)
--- NOTE | 2019-04-01 13:12 | RAPID ---
Addendum entered and electronically signed by Maria D Vyas RESIDENT 04/01/19 13:22: Prior to going down to CT the patient had a 3rd seizure and was loaded with 2 doses of ativan. Original Note: <Maria D Vyas - Last Filed: 04/01/19 13:16> Physical Examination Vital Signs: Vital Signs Temperature 98.3 F 04/01/19 05:28 Pulse Rate 60 04/01/19 05:28 Respiratory Rate 18 04/01/19 05:28 Blood Pressure 104/54 L 04/01/19 05:28 O2 Sat by Pulse Oximetry (%) 99 03/31/19 21:00 Labs: CBC, BMP 04/01/19 05:50 04/01/19 05:50 Rapid Response - Rapid Response Assessment: A rapid response was called at 12:24pm, the rapid response team responded immediately. The patient was in the hospital for work up of recent falls. The patient was found to be seizing and a rapid response was called. The patient has no history of seizures. While the rapid response team was present the patient had another seizure where she appeared to bite her tongue as there was a tiny amount of blood tinged sputum. The vitals on arrival were 150/68, HR 94, and O2sat 98%. The patient was unresponsive and unable to cooperate with the exam. She has a pmhx of stroke and is contracted on the R side and flaccid on the left but this is her baseline. Pupils were sluggishly reactive to light, breath sounds were equal bilaterally, patient was producing a lot of sputum, S1, S2 tachycardic with regular rhythm. On the telemetry monitory the patient was sinus tachycardic to the 150s but there were no other events noted. The patient was loaded with keppra and sent down for CT, neurology was consulted and ativan was on hand incase needed. The patient was returned to telemetry after her CT. <Zena Manzo - Last Filed: 04/02/19 18:55> Physical Examination Vital Signs: Findings/Remarks: sinout was given to primary Dr. roblero, who will follow on CT results and assume care. CCT 40 min Labs: CBC, BMP 04/02/19 06:50 04/02/19 06:50 Critical Care Total Critical Care Time (in minutes): 40 Critical Care Statement: The care of this patient involved high complexity decision making to prevent further life threatening deterioration of the patient 's condition and/or to evaluate & treat vital organ system(s) failure or risk of failure.
--- NOTE | 2019-04-01 16:32 | CON.GI ---
Consult Consult Specialty:: Gastroenterology Referred by:: Dr. Vanessa Perez Reason for Consultation:: Anemia - History of Present Illness History of Present Illness: 73yo female h/o dementia, COPD, HLD, paroxysmal atrial fibrillation, HTN, seizure disorder presenting after a fall asked to evaluate for anemia. Pt noted to have LIVE OUT NANNY this am for seizure activity, now post ictal, somnolent, not able to provide history. Unable to reach pts son (NOK) by phone. Per records , pt admitted with recurrent falls, thought mechanical, no acute findings on CT or MRI. Had witnessed seizure activity this am received antiepileptics and pending further neuro workup. Tolerating diet per nursing staff, had brown bm this am. EGD in 10/[address] Eleno Bauer revealing esophagitis, linear gastric ulcers and 1cm submucosal antral lesions (biopsies unremarkable). Colonoscopy 10/2015 revealing hyperplastic sigmoid colon polyp and internal hemorrhoids. 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: Other Cardio/Vascular: Yes: AFIB, CAD, CHF, HTN, Hyperlipdemia Gastrointestinal: Yes: Diverticulosis, GERD, Hiatal Hernia, Other ...: No Psych: Yes: Schizophrenia Musculoskeletal: Yes: Chronic low back pain, Osteoarthritis Endocrine: Yes: Diabetes Mellitus - Past Surgical History Past Surgical History: Yes: Colonoscopy, Hernia Repair, Hysterectomy, Joint Replacement, Tonsillectomy, Upper Endoscopy - Alcohol/Substance Use Hx Alcohol Use: No History of Substance Use: reports: None - Smoking History Smoking history: Never smoked Have you smoked in the past 12 months: No Aproximately how many cigarettes per day: 0 - Social History Usual Living Arrangement: Alone ADL: Support Services History of Recent Travel: No Home Medications - Allergies Allergies/Adverse Reactions: Allergies Allergy/AdvReac Type Severity Reaction Status Date / Time aspirin Allergy Verified 03/28/19 09:59 ibuprofen [From Advil] Allergy Verified 03/28/19 09:59 lactose [Lactose] AdvReac Verified 03/28/19 09:59 - Home Medications Home Medications: Ambulatory Orders Ferrous Sulfate 325 mg PO DAILY 12/12/16 Risperidone 1 mg PO HS 12/12/16 Atorvastatin Ca [Lipitor] 10 mg PO HS #30 tablet 12/18/16 Furosemide [Lasix -] 40 mg PO DAILY #30 tablet 12/18/16 Ergocalciferol (Vitamin D2) [Vitamin D2] 50,000 unit PO WEEKLY 03/09/18 Famotidine [Pepcid] 20 mg PO DAILY #14 tablet 04/26/18 Mag Hydrox/Al Hydrox/Simeth [MAALOX *SUSPENSION* -] 30 ml PO Q6H #1 bottle 04/26 Metformin HCl [Metformin HCl ER] 500 mg PO BID 03/23/19 Metoprolol Succinate [Toprol Xl] 25 mg PO DAILY 03/23/19 Apixaban [Eliquis -] 5 mg PO BID tablet 03/25/19 Nitrofurantoin Monohyd/M-Cryst [Macrobid -] 100 mg PO BID 5 Days #14 capsule Acetaminophen 650 mg PO Q6H 03/28/19 Albuterol 2.5/Ipratropium 0.5 [Duoneb -] 1 amp NEB Q12H 03/28/19 Ascorbic Acid [Vitamin C -] 500 mg PO DAILY 03/28/19 Loperamide HCl [Imodium A-D] 2 mg PO QID 03/28/19 Review of Systems Unable to obtain ROS, reason: Pt lethargic Physical Exam-GI Vital Signs: Vital Signs Temperature 98.9 F 04/01/19 14:00 Pulse Rate 109 H 04/01/19 14:00 Respiratory Rate 18 04/01/19 14:00 Blood Pressure 138/78 04/01/19 14:00 O2 Sat by Pulse Oximetry (%) 95 04/01/19 08:00 Constitutional: Yes: No Distress, Calm Cardiovascular: Yes: WNL, Regular Rate and Rhythm Respiratory: Yes: WNL, Regular, CTA Bilaterally ...Palpate: Yes: Other (Abd soft, no tenderness elicited, nondistended Rectal exam deferred due to mental status) Labs: CBC, BMP 04/01/19 05:50 04/01/19 05:50 INR, PTT INR 1.17 (0.83-1.09) H 03/28/19 08:50 Imaging - Results Cat Scan: Report Reviewed MRI: Report Reviewed Problem List - Problems (1) Anemia Assessment/Plan: 73yo female h/o dementia, COPD, HLD, paroxysmal atrial fibrillation (not currently on antithrombotics), HTN, seizure disorder presenting after a fall asked to evaluate for worsening anemia (normocytic), fobt negative. Hb ~10 in 2018. No overt bleeding reported. Recent seizure activity noted and pt lethargic therefore limited evaluation and pt pending further neuro workup. EGD in 10/2015 revealing esophagitis, linear gastric ulcers and 1cm submucosal antral lesion (biopsies unremarkable). Colonoscopy revealing hyperplastic colon polyp and internal hemorrhoids. -Recommend monitoring Hb and for evidence of bleeding -Check iron studies/ferritin -In setting of recent seizure activity would defer endoscopy until pt clinically improved and pending neuro re-evaluation -Once clinically optimized and pending course EGD would be advised particularly to re-evaluate previous findings of submucosal lesion and gastric ulcerations Attempted to contact Dr. Perez to discuss above, await call back. Code(s): D64.9 - ANEMIA, UNSPECIFIED
--- NOTE | 2019-04-01 17:47 | PN ---
Progress Note, Physician History of Present Illness: 73F with a PMH of dementia, COPD, HLD, chronic atrial fibrillation, GERD, iron deficiency anemia, HTN, DM, seizure disorder, recently discharged from our facility for syncope, presents to the ER after having a syncopal episode. The patient states that the last thing she remembers is waking up on the ground. She states that she syncopized last week. She is unsure if she had any CP, SOB, palpitations, lightheadedness before the fall. CIVIL RIGHTS REPRESENTATIVE, Ms. Hernandez, cleaned her and then she was on the floor. Last seen at 540 AM but CIVIL RIGHTS REPRESENTATIVE. Bebe Bello, day RN, states that the patient likes to get up out of bed and falls d/t unsteady gait. Bebe Lewis, overnight RN, states that the patient normally can ambulate short distances but usually uses a wheelchair d/t ataxia. FU : events noted, + seizure , noted by neighbor and then by staff loaded with keppra 1000 x 1 and then ativan now sleepy, but arousable - Current Medication List Current Medications: Active Medications Acetaminophen (Tylenol -) 650 mg PO Q6H [facility] Last Admin: 04/01/19 13:43 Dose: Not Given Atorvastatin Calcium (Lipitor -) 10 mg PO HS [facility] Last Admin: 03/31/19 22:22 Dose: 10 mg Furosemide (Lasix -) 40 mg PO DAILY [facility] Last Admin: 04/01/19 09:59 Dose: 40 mg Insulin Aspart (Novolog Vial Sliding Scale -) 1 vial SQ TIDAC [facility]; Protocol Last Admin: 04/01/19 17:31 Dose: Not Given Lorazepam (Ativan Injection -) 2 mg IVPUSH ONCE ONE Stop: 04/01/19 12:35 Metformin HCl (Glucophage Xr -) 500 mg PO BIDI [facility] Last Admin: 04/01/19 17:29 Dose: Not Given Metoprolol Succinate (Toprol Xl -) 25 mg PO DAILY [facility] Last Admin: 04/01/19 09:59 Dose: 25 mg Potassium Chloride (K-Dur -) 20 meq PO DAILY [facility] Last Admin: 04/01/19 09:59 Dose: 20 meq Risperidone (Risperdal -) 0.5 mg PO HS [facility] Last Admin: 03/31/19 22:22 Dose: 0.5 mg - Objective Vital Signs: Vital Signs Temperature 98.9 F 04/01/19 14:00 Pulse Rate 109 H 04/01/19 14:00 Respiratory Rate 18 04/01/19 14:00 Blood Pressure 138/78 04/01/19 14:00 O2 Sat by Pulse Oximetry (%) 95 04/01/19 08:00 Labs: CBC, BMP 04/01/19 05:50 04/01/19 05:50 INR, PTT INR 1.17 (0.83-1.09) H 03/28/19 08:50 Problem List - Problems (1) Fall Code(s): W19.XXXA - UNSPECIFIED FALL, INITIAL ENCOUNTER Qualifiers: Encounter type: initial encounter Qualified Code(s): W19.XXXA - Unspecified fall, initial encounter (2) Seizure disorder as sequela of cerebrovascular accident Code(s): I69.398 - OTHER SEQUELAE OF CEREBRAL INFARCTION; G40.909 - EPILEPSY, UNSP, NOT INTRACTABLE, WITHOUT STATUS EPILEPTICUS Assessment/Plan 3F with a PMH of dementia, COPD, HLD, chronic atrial fibrillation, GERD, iron deficiency anemia, HTN, DM, seizure disorder, recently discharged from our facility for syncope, presents to the ER after having a syncopal episode. The patient states that the last thing she remembers is waking up on the ground. She states that she syncopized last week. She is unsure if she had any CP, SOB, palpitations, lightheadedness before the fall. CIVIL RIGHTS REPRESENTATIVE, Ms. Hernandez, cleaned her and then she was on the floor. Last seen at 540 AM but CIVIL RIGHTS REPRESENTATIVE. Bebe Bello, day RN, states that the patient likes to get up out of bed and falls d/t unsteady gait. Bebe Lewis, overnight RN, states that the patient normally can ambulate short distances but usually uses a wheelchair d/t ataxia. AP : CVA , with GTC , perhaps sequela of prior stroke start Keppra [id number] when seizure stabilized can consider restarting AC DR ACOSTA
[2019-04-01] MEDS ORDERED: DEXTROSE 5%-WATER - 1,000 ML IV SCH (19:00)
[2019-04-01] MEDS ORDERED: ACETAMINOPHEN 1000 MG/100 ML VIAL (NON FORMULARY) IVPB PRN (20:39)
[2019-04-01] MEDS: ATORVASTATIN CA 10 MG TABLET (FP) PO SCH (21:18)
[2019-04-01] MEDS: risperiDONE 0.5 MG TABLET (FP) PO SCH (21:18)
[2019-04-01] MEDS: levETIRAcetam 500 MG/5 ML INJECTION VIAL IVPB SCH (21:25)
[2019-04-02] MEDS: INSULIN SLIDING SCALE (NOVOLOG) 1 VIAL SQ SCH ×3 (06:34→16:40)
--- NOTE | 2019-04-02 06:48 | PN ---
Progress Note (short form) - Note Progress Note: Chief Complaint: Events noted, notes reviewed, Awake and alert in no distress, recurrent seizures last night, denies any chest discomfort or dyspnea History of Present Illness: Seen and examined on telemetry. Events noted, notes reviewed, Awake and alert in no distress, recurrent seizures last night, denies any chest discomfort or dyspnea Echocardiography performed March 25, 2019 revealed normal left ventricular size and systolic function with estimated LVEF between 60-65%, grade I diastolic dysfunction with normal filling pressures, normal right ventricular size and systolic function, systolic anterior motion of the mitral valve leaflets with no evidence of outflow tract obstruction, mild mitral valve regurgitation Medications: Current Medications Acetaminophen (Ofirmev Injection -) 1,000 mg IVPB Q6H PRN PRN Reason: FEVER Stop: 04/03/19 23:59 Last Admin: 04/01/19 20:48 Dose: 1,000 mg Atorvastatin Calcium (Lipitor -) 10 mg PO HS [facility] Last Admin: 04/01/19 21:18 Dose: Not Given Furosemide (Lasix -) 40 mg PO DAILY [facility] Last Admin: 04/01/19 09:59 Dose: 40 mg Dextrose (D5w -) 1,000 mls @ 42 mls/hr IV ASDIR [facility] Last Admin: 04/01/19 20:40 Dose: 42 mls/hr Insulin Aspart (Novolog Vial Sliding Scale -) 1 vial SQ TIDAC [facility]; Protocol Last Admin: 04/02/19 06:34 Dose: Not Given Levetiracetam (Keppra Injection -) 750 mg IVPB BID [facility] Last Admin: 04/01/19 21:25 Dose: 750 mg Metformin HCl (Glucophage Xr -) 500 mg PO BIDI [facility] Last Admin: 04/02/19 06:34 Dose: Not Given Metoprolol Succinate (Toprol Xl -) 25 mg PO DAILY [facility] Last Admin: 04/01/19 09:59 Dose: 25 mg Potassium Chloride (K-Dur -) 20 meq PO DAILY [facility] Last Admin: 04/01/19 09:59 Dose: 20 meq Risperidone (Risperdal -) 0.5 mg PO HS [facility] Last Admin: 04/01/19 21:18 Dose: Not Given Review of Systems - Review of Systems Constitutional: No symptoms reported Respiratory: denies: Cough or Sputum Production Cardiovascular: As noted above Gastrointestinal: denies: Nausea, Vomiting, Diarrhea, Constipation or Abdominal Pain Genitourinary: No symptoms reported Musculoskeletal: No symptoms reported Endocrine: diabetes mellitus Vital Signs: Last Vital Signs Temp Pulse Resp BP Pulse Ox 98.7 F 82 18 137/81 100 04/02/19 06:00 04/02/19 06:00 04/02/19 06:00 04/02/19 06:00 04/01/19 21:00 Intake & Output 03/30/19 03/31/19 04/01/19 04/02/19 23:59 23:59 23:59 23:59 Intake Total 2290 660 686 294 Balance 2290 660 686 294 Constitutional: No Distress, Calm Neck: Supple Negative JVD No Bruit Respiratory: Clear to auscultation percussion Cardiovascular: S1 S2 Regular Rate and Rhythm Gastrointestinal: Soft Benign Normal Bowel Sounds Ext: No Edema Labs: CBC, BMP 04/02/19 06:50 04/02/19 06:50 Hepatic Panel Total Bilirubin 0.5 mg/dL (0.2-1) 04/02/19 06:50 AST 11 U/L (15-37) L 04/02/19 06:50 ALT 10 U/L (13-61) L 04/02/19 06:50 Alkaline Phosphatase 64 U/L (45-117) 04/02/19 06:50 Albumin 2.6 g/dl (3.4-5.0) L 04/02/19 06:50 INR, PTT INR 1.17 (0.83-1.09) H 03/28/19 08:50 Assessment/Plan ASSESSMENT: 1. Altered mental status and recurrent seizures 2. Mechanical fall with closed head trauma, denies any syncope 3. Probable coronary artery disease (no visual coronary artery calcification on CT scan of the chest without contrast/March 28, 2019) angina pectoris 4. Diastolic left ventricular dysfunction with clinical class 0 [place] Heart Association classification left ventricular failure 5. Paroxysmal atrial fibrillation currently in sinus rhythm [id number] score of 5 currently off of DOAC's/Eliquis therapy 6. 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 Diabetes mellitus 8. Hypercholesterolemia 9. 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 COPD 11. Persistence Hypokalemia 12. Anemia PLAN: 1. Continue Toprol-XL therapy and dose titration as needed and as tolerated, hemodynamics permitting 2. Resumption of BETTINA inhibitor therapy/Lisinopril or addition of angiotensin receptor vineet therapy in view of the above-noted comorbidities unless it is contraindicated, hemodynamics permitting 3. Continue Lipitor therapy 4. Continue Lasix therapy and decrease dosage to 20 mg once daily 5. Ideally Eliquis therapy resumption is indicated considering the above-noted high stroke risk, [id number] score of 5, but to be deferred considering the above-noted presentation with recurrent falls, closed head trauma and presence of anemia as an alternative consideration for left atrial appendage closer device implantation/Watchman device- outpatient procedure 6. Correction of anemia 7. Correction of hyperkalemia Edward Soni M.D.
[2019-04-02 07:48] LABS: ALBUMIN 2.6 g/dl (3.4-5.0); BILIRUBIN,TOTAL 0.5 mg/dL (0.2-1); BLOOD UREA NITROGEN 9.1 mg/dL (7-18); CALCIUM 8.1 mg/dL (8.5-10.1); CREATININE 0.7 mg/dL (0.55-1.3); TOT PROT 5.8 g/dl (6.4-8.2)
[2019-04-02 07:50] LABS: IRON SERUM 16 ug/dL (50-175); POTASSIUM 2.8 mmol/L (3.5-5.1); TOTAL IRON BINDING CAPACITY 181 ug/dL (250-450)
[2019-04-02 07:59] LABS: BASO % 0.6 % (0-2.0); EOS % 0.2 % (0-4.5); HEMATOCRIT 22.2 % (32.4-45.2); HEMOGLOBIN 7.4 GM/dL (10.7-15.3); LYMPH % 22.6 % (8-40); MCH 28.2 pg (25.7-33.7); MCHC 33.2 g/dl (32.0-36.0); MEAN CELL VOLUME 85.1 fl (80-96); MEAN PLT VOLUME 8.1 fl (7.5-11.1); MONO % 6.2 % (3.8-10.2); NEUT % 70.4 % (42.8-82.8); PLATELET COUNT 326 K/MM3 (134-434); RBC 2.61 M/mm3 (3.60-5.2); RDW 16.9 % (11.6-15.6); WHITE BLOOD COUNT 5.5 K/mm3 (4.0-10.0)
[2019-04-02] MEDS: FUROSEMIDE 40 MG TABLET (FP) PO SCH (09:27)
[2019-04-02] MEDS: metoPROLOL SUCCINATE 25 MG TAB.SR.24H (FP) PO SCH (09:27)
[2019-04-02] MEDS: POTASSIUM CHLORIDE TABS 20 MEQ TABLET.ER (FP) PO SCH (09:27)
[2019-04-02] MEDS: levETIRAcetam 500 MG/5 ML INJECTION VIAL IVPB SCH ×2 (09:31→21:42)
[2019-04-02] MEDS: KCL 10 MEQ IVPB 10 MEQ/100 ML INFUS.BAG IVPB SCH ×3 (12:21→15:45)
[2019-04-02] MEDS ORDERED: DEXTROSE 5%-WATER - 1,000 ML with POTASSIUM CHLORIDE 20 MEQ IVPB SCH (13:10)
--- NOTE | 2019-04-02 13:12 | PN ---
Progress Note (short form) - Note Progress Note: S/p breakthrough seizures No distress awake and alert Vital Signs - 24 hr 04/01/19 04/01/19 04/01/19 14:00 18:11 20:38 Temperature 98.9 F 100.4 F H 102 F H Pulse Rate 109 H 94 H 97 H Respiratory 18 18 18 Rate Blood Pressure 138/78 135/75 122/82 O2 Sat by Pulse Oximetry (%) 04/01/19 04/02/19 04/02/19 21:00 00:00 06:00 Temperature 98.4 F 98.7 F Pulse Rate 94 H 82 Respiratory 18 18 Rate Blood Pressure 131/67 137/81 O2 Sat by Pulse 100 Oximetry (%) 04/02/19 10:00 Temperature Pulse Rate 78 Respiratory 18 Rate Blood Pressure 122/62 O2 Sat by Pulse Oximetry (%) Current Medications Generic Name Dose Route Start Last Admin Trade Name Freq PRN Reason Stop Dose Admin Acetaminophen 1,000 mg 04/01/19 20:39 04/01/19 20:48 Ofirmev Injection - IVPB 04/03/19 23:59 1,000 mg Q6H PRN Administration FEVER Atorvastatin Calcium 10 mg 03/28/19 22:00 04/01/19 21:18 Lipitor - PO Not Given HS RAJESH Furosemide 40 mg 03/29/19 10:00 04/02/19 09:27 Lasix - PO Not Given DAILY RAJESH Potassium Chloride 10 meq in 100 mls @ 100 mls/hr 04/02/19 10:30 04/02/19 12: 21 Potassium Chloride 10 Meq Premix Ivpb - IVPB 04/02/19 13:29 100 mls/hr Q60M RAJESH Administration Potassium Chloride 20 meq/ 1,010 mls @ 42 mls/hr 04/02/19 13:10 Dextrose IVPB ASDIR RAJESH Insulin Aspart 1 vial 03/28/19 16:30 04/02/19 12:13 Novolog Vial Sliding Scale - SQ Not Given TIDAC [facility] Protocol Levetiracetam 750 mg 04/01/19 22:00 04/02/19 09:31 Keppra Injection - IVPB 750 mg BID RAJESH Administration Metformin HCl 500 mg 03/28/19 16:30 04/02/19 06:34 Glucophage Xr - PO Not Given BIDI RAJESH Metoprolol Succinate 25 mg 03/29/19 10:00 09/24/19 09:27 Toprol Xl - PO Not Given DAILY [facility] Potassium Chloride 20 meq 03/29/19 10:15 04/02/19 09:27 K-Dur - PO Not Given DAILY [facility] Risperidone 0.5 mg 03/30/19 15:15 04/01/19 21:18 Risperdal - PO Not Given HS [facility] Laboratory Results - last 24 hr 03/28/19 04/01/19 04/02/19 08:50 17:30 05:51 WBC RBC Hgb Hct MCV MCH MCHC RDW Plt Count MPV Absolute Neuts (auto) Neutrophils % Lymphocytes % Monocytes % Eosinophils % Basophils % Nucleated RBC % Sodium Potassium Chloride Carbon Dioxide Anion Gap BUN Creatinine Est GFR (CKD-EPI)AfAm Est GFR (CKD-EPI)NonAf POC Glucometer 85 92 Random Glucose Calcium Iron TIBC Iron Saturation Unsaturated IBC Ferritin Total Bilirubin AST ALT Alkaline Phosphatase Total Protein Albumin Topiramate 1.4 L 04/02/19 04/02/19 04/02/19 06:50 06:50 06:50 WBC 5.5 RBC 2.61 L Hgb 7.4 L Hct 22.2 L MCV 85.1 MCH 28.2 MCHC 33.2 RDW 16.9 H Plt Count 326 MPV 8.1 Absolute Neuts (auto) 3.9 Neutrophils % 70.4 Lymphocytes % 22.6 D Monocytes % 6.2 Eosinophils % 0.2 Basophils % 0.6 Nucleated RBC % 0 Sodium 142 Potassium 2.8 L* Chloride 106 Carbon Dioxide 27 Anion Gap 9 BUN 9.1 Creatinine 0.7 Est GFR (CKD-EPI)AfAm 101.03 Est GFR (CKD-EPI)NonAf 87.17 POC Glucometer Random Glucose 86 Calcium 8.1 L Iron 16 L TIBC 181 L Iron Saturation 8 L Unsaturated IBC 165 L Ferritin Total Bilirubin 0.5 AST 11 L ALT 10 L Alkaline Phosphatase 64 Total Protein 5.8 L Albumin 2.6 L Topiramate 04/02/19 04/02/19 06:50 12:03 WBC RBC Hgb Hct MCV MCH MCHC RDW Plt Count MPV Absolute Neuts (auto) Neutrophils % Lymphocytes % Monocytes % Eosinophils % Basophils % Nucleated RBC % Sodium Potassium Chloride Carbon Dioxide Anion Gap BUN Creatinine Est GFR (CKD-EPI)AfAm Est GFR (CKD-EPI)NonAf POC Glucometer 85 Random Glucose Calcium Iron TIBC Iron Saturation Unsaturated IBC Ferritin 196.6 Total Bilirubin AST ALT Alkaline Phosphatase Total Protein Albumin Topiramate S1 S2 RRR lungs clear Abd- soft, NT edema+ PLAN -- HB remains same -- no seizures so far -- Ativan as needed for seizures -- Stool guaic negative -- continue with tele monitoring -- replace potassium Problem List - Problems (1) Fall Code(s): W19.XXXA - UNSPECIFIED FALL, INITIAL ENCOUNTER Qualifiers: Encounter type: initial encounter Qualified Code(s): W19.XXXA - Unspecified fall, initial encounter (2) Syncope Code(s): R55 - SYNCOPE AND COLLAPSE Qualifiers: Syncope type: unspecified Qualified Code(s): R55 - Syncope and collapse (3) Anemia Code(s): D64.9 - ANEMIA, UNSPECIFIED (4) Atrial fibrillation Code(s): I48.91 - UNSPECIFIED ATRIAL FIBRILLATION Qualifiers: Atrial fibrillation type: paroxysmal Qualified Code(s): I48.0 - Paroxysmal atrial fibrillation (5) CAD (coronary artery disease) Code(s): I25.10 - ATHSCL HEART DISEASE OF [place] CORONARY ARTERY W/O ANG PCTRS Qualifiers: Coronary Disease-Associated Artery/Lesion type: [place] artery [place] vs. transplanted heart: [place] heart Associated angina: without angina Qualified Code(s): I25.10 - Atherosclerotic heart disease of [place] coronary artery without angina pectoris (6) HTN (hypertension) Code(s): I10 - ESSENTIAL (PRIMARY) HYPERTENSION Qualifiers: Hypertension type: essential hypertension Qualified Code(s): I10 - Essential (primary) hypertension
--- NOTE | 2019-04-02 15:08 | PN.GI ---
GI Progress Note Subjective: No acute events No abdominal pain - Objective Vital Signs: Vital Signs Temperature 98.7 F 04/02/19 06:00 Pulse Rate 78 04/02/19 10:00 Respiratory Rate 18 04/02/19 10:00 Blood Pressure 122/62 04/02/19 10:00 O2 Sat by Pulse Oximetry (%) 100 04/01/19 21:00 Constitutional: Calm Eyes: No: Sclera Icterus Cardiovascular: Yes: Regular Rate and Rhythm, Murmur Respiratory: Yes: CTA Bilaterally Gastrointestinal Inspection: No: Distention ...Auscultate: Yes: Normoactive Bowel Sounds ...Palpate: Yes: Soft. No: Hepatomegaly, Splenomegaly, Tenderness Edema: No (No LE edema) Neurological: Yes: Alert, Oriented (X 3) Labs: CBC, BMP 04/02/19 06:50 04/02/19 06:50 INR, PTT INR 1.17 (0.83-1.09) H 03/28/19 08:50 Problem List - Problems (1) Anemia Assessment/Plan: Please recall GI to arrange upper endoscopy once the patient has been cleared from a cardiovascular / neurological standpoint. Added protonix 20mg once daily for now given prior h/o PUD. Consider heme eval. Will sign off for now Code(s): D64.9 - ANEMIA, UNSPECIFIED
[2019-04-02] MEDS: POTASSIUM CHLORIDE 20 MEQ in DEXTROSE 5%-WATER - 1,000 ML IVPB SCH (16:40)
[2019-04-02] MEDS: PANTOPRAZOLE 20 MG TABLET (FP) PO SCH (18:10)
[2019-04-02] MEDS: ATORVASTATIN CA 10 MG TABLET (FP) PO SCH (21:42)
[2019-04-02] MEDS: risperiDONE 0.5 MG TABLET (FP) PO SCH (21:42)
[2019-04-03] MEDS: INSULIN SLIDING SCALE (NOVOLOG) 1 VIAL SQ SCH ×3 (06:26→17:36)
[2019-04-03 06:59] LABS: HEMATOCRIT 22.4 % (32.4-45.2); HEMOGLOBIN 7.4 GM/dL (10.7-15.3); MCH 28.4 pg (25.7-33.7); MCHC 33.1 g/dl (32.0-36.0); MEAN CELL VOLUME 85.8 fl (80-96); MEAN PLT VOLUME 8.1 fl (7.5-11.1); PLATELET COUNT 337 K/MM3 (134-434); RBC 2.62 M/mm3 (3.60-5.2); RDW 17.1 % (11.6-15.6); WHITE BLOOD COUNT 5.7 K/mm3 (4.0-10.0)
[2019-04-03 07:28] LABS: ALBUMIN 2.8 g/dl (3.4-5.0); BILIRUBIN,TOTAL 0.3 mg/dL (0.2-1); BLOOD UREA NITROGEN 9.2 mg/dL (7-18); CALCIUM 8.1 mg/dL (8.5-10.1); CREATININE 0.7 mg/dL (0.55-1.3); MAGNESIUM 0.9 mg/dL (1.8-2.4); POTASSIUM 3.1 mmol/L (3.5-5.1); TOT PROT 6.2 g/dl (6.4-8.2)
[2019-04-03] MEDS: PANTOPRAZOLE 20 MG TABLET (FP) PO SCH (09:48)
[2019-04-03] MEDS: FUROSEMIDE 40 MG TABLET (FP) PO SCH (09:48)
[2019-04-03] MEDS: levETIRAcetam 500 MG/5 ML INJECTION VIAL IVPB SCH (09:49)
[2019-04-03] MEDS: metoPROLOL SUCCINATE 25 MG TAB.SR.24H (FP) PO SCH (09:49)
[2019-04-03] MEDS: POTASSIUM CHLORIDE TABS 20 MEQ TABLET.ER (FP) PO SCH (09:49)
--- NOTE | 2019-04-03 09:51 | PN ---
Progress Note (short form) - Note Progress Note: 73F with a PMH of dementia, COPD, HLD, chronic atrial fibrillation, GERD, iron deficiency anemia, HTN, DM, seizure disorder, recently discharged from our facility for syncope, presents to the ER after having a syncopal episode. The patient states that the last thing she remembers is waking up on the ground. She states that she syncopized last week. She is unsure if she had any CP, SOB, palpitations, lightheadedness before the fall. DESIGN TEACHER, Ms. Hernandez, cleaned her and then she was on the floor. Last seen at 540 AM but DESIGN TEACHER. Bebe Bello, day RN, states that the patient likes to get up out of bed and falls d/t unsteady gait. Bebe Lweis, overnight RN, states that the patient normally can ambulate short distances but usually uses a wheelchair d/t ataxia. FU : events noted, + seizure 04/01/19, noted by neighbor and then by staff loaded with keppra 1000 x 1 and then ativan and maintained on AEd no new seizures reported since then back to baseline - Current Medication List Current Medications: Active Medications Acetaminophen (Tylenol -) 650 mg PO Q6H [facility] Last Admin: 04/01/19 13:43 Dose: Not Given Atorvastatin Calcium (Lipitor -) 10 mg PO HS [facility] Last Admin: 03/31/19 22:22 Dose: 10 mg Furosemide (Lasix -) 40 mg PO DAILY [facility] Last Admin: 04/01/19 09:59 Dose: 40 mg Insulin Aspart (Novolog Vial Sliding Scale -) 1 vial SQ TIDAC [facility]; Protocol Last Admin: 04/01/19 17:31 Dose: Not Given Lorazepam (Ativan Injection -) 2 mg IVPUSH ONCE ONE Stop: 04/01/19 12:35 Metformin HCl (Glucophage Xr -) 500 mg PO BIDI [facility] Last Admin: 04/01/19 17:29 Dose: Not Given Metoprolol Succinate (Toprol Xl -) 25 mg PO DAILY [facility] Last Admin: 04/01/19 09:59 Dose: 25 mg Potassium Chloride (K-Dur -) 20 meq PO DAILY [facility] Last Admin: 04/01/19 09:59 Dose: 20 meq Risperidone (Risperdal -) 0.5 mg PO HS [facility] Last Admin: 03/31/19 22:22 Dose: 0.5 mg - Objective Vital Signs: Vital Signs Temperature 98.4 F 04/03/19 06:00 Pulse Rate 72 04/03/19 06:00 Respiratory Rate 18 04/03/19 06:00 Blood Pressure 115/56 L 04/03/19 06:00 O2 Sat by Pulse Oximetry (%) 100 04/02/19 21:00 Labs: CBCD WBC 5.7 K/mm3 (4.0-10.0) 04/03/19 06:20 RBC 2.62 M/mm3 (3.60-5.2) L 04/03/19 06:20 Hgb 7.4 GM/dL (10.7-15.3) L 04/03/19 06:20 Hct 22.4 % (32.4-45.2) L 04/03/19 06:20 MCV 85.8 fl (80-96) 04/03/19 06:20 MCHC 33.1 g/dl (32.0-36.0) 04/03/19 06:20 RDW 17.1 % (11.6-15.6) H 04/03/19 06:20 Plt Count 337 K/MM3 (134-434) 04/03/19 06:20 MPV 8.1 fl (7.5-11.1) 04/03/19 06:20 CMP Sodium 140 mmol/L (136-145) 04/03/19 06:20 Potassium 3.1 mmol/L (3.5-5.1) L 04/03/19 06:20 Chloride 105 mmol/L (98-107) 04/03/19 06:20 Carbon Dioxide 26 mmol/L (21-32) 04/03/19 06:20 Anion Gap 9 MMOL/L (8-16) 04/03/19 06:20 BUN 9.2 mg/dL (7-18) 04/03/19 06:20 Creatinine 0.7 mg/dL (0.55-1.3) 04/03/19 06:20 Calcium 8.1 mg/dL (8.5-10.1) L 04/03/19 06:20 Total Bilirubin 0.3 mg/dL (0.2-1) 04/03/19 06:20 AST 10 U/L (15-37) L 04/03/19 06:20 ALT 12 U/L (13-61) L 04/03/19 06:20 Alkaline Phosphatase 66 U/L (45-117) 04/03/19 06:20 Total Protein 6.2 g/dl (6.4-8.2) L 04/03/19 06:20 Albumin 2.8 g/dl (3.4-5.0) L 04/03/19 06:20 Problem List - Problems (1) Fall Code(s): W19.XXXA - UNSPECIFIED FALL, INITIAL ENCOUNTER Qualifiers: Encounter type: initial encounter Qualified Code(s): W19.XXXA - Unspecified fall, initial encounter (2) Seizure disorder as sequela of cerebrovascular accident Code(s): I69.398 - OTHER SEQUELAE OF CEREBRAL INFARCTION; G40.909 - EPILEPSY, UNSP, NOT INTRACTABLE, WITHOUT STATUS EPILEPTICUS Assessment/Plan 3F with a PMH of dementia, COPD, HLD, chronic atrial fibrillation, GERD, iron deficiency anemia, HTN, DM, seizure disorder, recently discharged from our facility for syncope, presents to the ER after having a syncopal episode. The patient states that the last thing she remembers is waking up on the ground. She states that she syncopized last week. She is unsure if she had any CP, SOB, palpitations, lightheadedness before the fall. DESIGN TEACHER, Ms. Hernandez, cleaned her and then she was on the floor. Last seen at 540 AM but DESIGN TEACHER. Ace, day RN, states that the patient likes to get up out of bed and falls d/t unsteady gait. Joshua, overnight RN, states that the patient normally can ambulate short distances but usually uses a wheelchair d/t ataxia. AP : CVA , with GTC , perhaps sequela of prior stroke continue Keprra 750 BID , change to po cleared for GI [facility] from neuro standpoint please call back PRN DR ACOSTA Problem List - Problems (1) Fall Code(s): W19.XXXA - UNSPECIFIED FALL, INITIAL ENCOUNTER Qualifiers: Encounter type: initial encounter Qualified Code(s): W19.XXXA - Unspecified fall, initial encounter (2) Seizure disorder as sequela of cerebrovascular accident Code(s): I69.398 - OTHER SEQUELAE OF CEREBRAL INFARCTION; G40.909 - EPILEPSY, UNSP, NOT INTRACTABLE, WITHOUT STATUS EPILEPTICUS
--- NOTE | 2019-04-03 11:04 | PN ---
Progress Note, Physician History of Present Illness: No further recurrent seizures after Keppra load, hemodynamics stable. - Current Medication List Current Medications: Active Medications Acetaminophen (Ofirmev Injection -) 1,000 mg IVPB Q6H PRN PRN Reason: FEVER Stop: 04/03/19 23:59 Last Admin: 04/01/19 20:48 Dose: 1,000 mg Atorvastatin Calcium (Lipitor -) 10 mg PO HS [facility] Last Admin: 04/02/19 21:42 Dose: 10 mg Furosemide (Lasix -) 40 mg PO DAILY [facility] Last Admin: 04/03/19 09:48 Dose: 40 mg Potassium Chloride 20 meq/ (Dextrose) 1,010 mls @ 42 mls/hr IVPB ASDIR [facility] Last Admin: 04/02/19 16:40 Dose: 42 mls/hr Insulin Aspart (Novolog Vial Sliding Scale -) 1 vial SQ TIDAC [facility]; Protocol Last Admin: 04/03/19 06:26 Dose: Not Given Levetiracetam (Keppra Injection -) 750 mg IVPB BID [facility] Last Admin: 04/03/19 09:49 Dose: 750 mg Metformin HCl (Glucophage Xr -) 500 mg PO BIDI [facility] Last Admin: 04/03/19 06:27 Dose: 500 mg Metoprolol Succinate (Toprol Xl -) 25 mg PO DAILY [facility] Last Admin: 04/03/19 09:49 Dose: 25 mg Pantoprazole Sodium (Protonix -) 20 mg PO DAILY [facility] Last Admin: 04/03/19 09:48 Dose: 20 mg Potassium Chloride (K-Dur -) 20 meq PO DAILY [facility] Last Admin: 04/03/19 09:49 Dose: 20 meq Risperidone (Risperdal -) 0.5 mg PO [facility] Last Admin: 04/02/19 21:42 Dose: 0.5 mg - Objective Vital Signs: Vital Signs Temperature 98.4 F 04/03/19 06:00 Pulse Rate 81 04/03/19 10:00 Respiratory Rate 18 04/03/19 10:00 Blood Pressure 107/62 04/03/19 10:00 O2 Sat by Pulse Oximetry (%) 100 04/03/19 09:00 Constitutional: Yes: No Distress, Calm Neck: Yes: Supple Cardiovascular: Yes: Regular Rate and Rhythm Respiratory: Yes: Regular, Diminished Gastrointestinal: Yes: Soft, Hypoactive Bowel Sounds Edema: No Labs: CBC, BMP 04/03/19 06:20 04/03/19 06:20 INR, PTT INR 1.17 (0.83-1.09) H 03/28/19 08:50 - ....Imaging EKG: Report Reviewed (Tele: [facility]) Problem List - Problems (1) Left rib fracture Code(s): S22.32XA - FRACTURE OF ONE RIB, LEFT SIDE, INIT FOR CLOS FX Qualifiers: Encounter type: initial encounter Rib fracture type: single rib Fracture type: closed Qualified Code(s): S22.32XA - Fracture of one rib, left side, initial encounter for closed fracture (2) Fall Code(s): W19.XXXA - UNSPECIFIED FALL, INITIAL ENCOUNTER Qualifiers: Encounter type: initial encounter Qualified Code(s): W19.XXXA - Unspecified fall, initial encounter (3) Atrial fibrillation Code(s): I48.91 - UNSPECIFIED ATRIAL FIBRILLATION Qualifiers: Atrial fibrillation type: paroxysmal Qualified Code(s): I48.0 - Paroxysmal atrial fibrillation (4) CAD (coronary artery disease) Code(s): I25.10 - ATHSCL HEART DISEASE OF [place] CORONARY ARTERY W/O ANG PCTRS Qualifiers: Coronary Disease-Associated Artery/Lesion type: [place] artery [place] vs. transplanted heart: [place] heart Associated angina: without angina Qualified Code(s): I25.10 - Atherosclerotic heart disease of [place] coronary artery without angina pectoris (5) Chronic anticoagulation Code(s): Z79.01 - COMMUTATOR OPERATOR (CURRENT) USE OF ANTICOAGULANTS (6) History of percutaneous coronary intervention Code(s): Z98.89 - OTHER SPECIFIED POSTPROCEDURAL STATES * DO NOT USE * (7) Hyperlipidemia Code(s): E78.5 - HYPERLIPIDEMIA, UNSPECIFIED Qualifiers: Hyperlipidemia type: pure hypercholesterolemia Qualified Code(s): E78.00 - Pure hypercholesterolemia, unspecified (8) HTN (hypertension) Code(s): I10 - ESSENTIAL (PRIMARY) HYPERTENSION Qualifiers: Hypertension type: essential hypertension Qualified Code(s): I10 - Essential (primary) hypertension (9) Left ventricular diastolic dysfunction Code(s): I51.9 - HEART DISEASE, UNSPECIFIED (10) Schizoaffective disorder Code(s): F25.9 - SCHIZOAFFECTIVE DISORDER, UNSPECIFIED Qualifiers: Schizoaffective disorder type: unspecified Qualified Code(s): F25.9 - Schizoaffective disorder, unspecified (11) Seizure disorder as sequela of cerebrovascular accident Code(s): I69.398 - OTHER SEQUELAE OF CEREBRAL INFARCTION; G40.909 - EPILEPSY, UNSP, NOT INTRACTABLE, WITHOUT STATUS EPILEPTICUS Assessment/Plan MRI : 03/30/2019 Brain MRI: Right frontal old stroke, old bilateral cerebellar strokes, no new stroke Echo: 03/25/2019 Echo: Normal LV and RV size and fxn, grade I DD, MALISSA with mild MR Carotid US: 03/24/2019 No sig stenosis Echo: 06/04/2018 Mild conc LVH, midly decreased [id number] diastolic dysfunction, mild LAE, mild MR, TR Lexiscan Myoview: Mod anterior ischemia, dilated LVEF 42% Carotid US: 12/16/2016 Min atherosclerotic disease w/o sig stenosis R&LHc 06/12/2017 Normal coronary arteries, normal LVEDP, mod pulm HTN 1. Altered mental status and recurrent seizures 2. Mechanical fall with closed head trauma, denies any syncope 3. Probable coronary artery disease (no visual coronary artery calcification on CT scan of the chest without contrast/March 28, 2019) angina pectoris 4. Diastolic left ventricular dysfunction with clinical class 0 [place] [employer] classification left ventricular failure 5. Paroxysmal atrial fibrillation currently in sinus rhythm [id number] score of 5 currently off of DOAC's/Eliquis therapy 6. 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 Diabetes mellitus 8. Hypercholesterolemia 9. 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 COPD 11. Persistence Hypokalemia 12. Anemia h/o PUD, plan for EGD to re-evaluate previous findings of submucosal lesion and gastric ulcerations PLAN: 1. Continue Toprol-XL 25 qd and dose titration as needed and as tolerated, hemodynamics permitting 2. Resumption of BETTINA inhibitor therapy/Lisinopril or addition of angiotensin receptor vineet therapy in view of the above-noted comorbidities unless it is contraindicated, hemodynamics permitting 3. Continue Lipitor 10 qhs 4. Decrease Lasix 20 mg once daily 5. Ideally Eliquis therapy resumption is indicated considering the above-noted high stroke risk, [id number] score of 5, but to be deferred considering the above-noted presentation with recurrent falls, closed head trauma and presence of anemia as an alternative consideration for left atrial appendage closer device implantation/Watchman device- outpatient procedure 6. Correction of anemia, patient may proceed with EGD from CV standpoint, continue Protonix 20 qd 7. Correction of hypokalemia, Keppra load per neurology
--- NOTE | 2019-04-03 13:07 | PN ---
Progress Note (short form) - Note Progress Note: no seizures No distress eating lunch feels well Vital Signs - 24 hr 04/02/19 04/02/19 04/02/19 14:00 18:10 21:00 Temperature 98.6 F 99.6 F 98.6 F Pulse Rate 88 76 75 Respiratory 18 17 Rate Blood Pressure 133/77 109/60 119/67 O2 Sat by Pulse 100 Oximetry (%) 04/03/19 04/03/19 04/03/19 01:19 06:00 09:00 Temperature 97.9 F 98.4 F Pulse Rate 74 72 Respiratory 18 18 18 Rate Blood Pressure 114/67 115/56 L O2 Sat by Pulse 100 Oximetry (%) 04/03/19 10:00 Temperature Pulse Rate 81 Respiratory 18 Rate Blood Pressure 107/62 O2 Sat by Pulse Oximetry (%) Current Medications Generic Name Dose Route Start Last Admin Trade Name Freq PRN Reason Stop Dose Admin Acetaminophen 1,000 mg 04/01/19 20:39 04/01/19 20:48 Ofirmev Injection - IVPB 04/03/19 23:59 1,000 mg Q6H PRN Administration FEVER Atorvastatin Calcium 10 mg 03/28/19 22:00 04/02/19 21:42 Lipitor - PO 10 mg HS RAJESH Administration Furosemide 20 mg 04/03/19 11:09 Lasix - PO DAILY RAJESH Potassium Chloride 20 meq/ 1,010 mls @ 42 mls/hr 04/02/19 13:38 04/02/19 16: 40 Dextrose IVPB 42 mls/hr ASDIR RAJESH Administration Potassium Chloride 10 meq in 100 mls @ 100 mls/hr 04/03/19 13:15 Potassium Chloride 10 Meq Premix Ivpb - IVPB 04/03/19 15:14 Q60M RAJESH Iron Sucrose 200 mg/ Sodium 100 mls @ 100 mls/hr 04/03/19 13:05 Chloride IVPB 04/03/19 14:04 ONCE ONE Insulin Aspart 1 vial 03/28/19 16:30 04/03/19 12:43 Novolog Vial Sliding Scale - SQ Not Given TIDAC RAJESH Protocol Levetiracetam 750 mg 04/03/19 22:00 Keppra - PO BID RAJESH Magnesium Sulfate 2 gm 04/03/19 13:04 Magnesium Sulfate IVPB 04/03/19 13:05 ONCE ONE Metformin HCl 500 mg 03/28/19 16:30 04/03/19 06:27 Glucophage Xr - PO 500 mg BIDI RAJESH Administration Metoprolol Succinate 25 mg 03/29/19 10:00 04/03/19 09:49 Toprol Xl - PO 25 mg DAILY RAJESH Administration Pantoprazole Sodium 20 mg 04/02/19 15:15 04/03/19 09:48 Protonix - PO 20 mg DAILY RAJESH Administration Potassium Chloride 20 meq 03/29/19 10:15 04/03/19 09:49 K-Dur - PO 20 meq DAILY RAJESH Administration Risperidone 0.5 mg 03/30/19 15:15 04/02/19 21:42 Risperdal - PO 0.5 mg HS RAJESH Administration Laboratory Results - last 24 hr 04/02/19 04/03/19 04/03/19 16:28 06:20 06:20 WBC 5.7 RBC 2.62 L Hgb 7.4 L Hct 22.4 L MCV 85.8 MCH 28.4 MCHC 33.1 RDW 17.1 H Plt Count 337 MPV 8.1 Sodium 140 Potassium 3.1 L Chloride 105 Carbon Dioxide 26 Anion Gap 9 BUN 9.2 Creatinine 0.7 Est GFR (CKD-EPI)AfAm 101.03 Est GFR (CKD-EPI)NonAf 87.17 POC Glucometer 100 Random Glucose 90 Calcium 8.1 L Magnesium 0.9 L Total Bilirubin 0.3 AST 10 L ALT 12 L Alkaline Phosphatase 66 Total Protein 6.2 L Albumin 2.8 L 04/03/19 06:23 WBC RBC Hgb Hct MCV MCH MCHC RDW Plt Count MPV Sodium Potassium Chloride Carbon Dioxide Anion Gap BUN Creatinine Est GFR (CKD-EPI)AfAm Est GFR (CKD-EPI)NonAf POC Glucometer 100 Random Glucose Calcium Magnesium Total Bilirubin AST ALT Alkaline Phosphatase Total Protein Albumin awake and alert S1 S2 RRR lungs clear Abd- soft, NT edema+ PLAN -- HB remains same -- no seizures so far -- Ativan as needed for seizures -- Stool guaic negative --replace magnesium -- Iron infusion -- Hematology eval -- continue with tele monitoring -- replace potassium Problem List - Problems (1) Fall Code(s): W19.XXXA - UNSPECIFIED FALL, INITIAL ENCOUNTER Qualifiers: Encounter type: initial encounter Qualified Code(s): W19.XXXA - Unspecified fall, initial encounter (2) Syncope Code(s): R55 - SYNCOPE AND COLLAPSE Qualifiers: Syncope type: unspecified Qualified Code(s): R55 - Syncope and collapse (3) Anemia Code(s): D64.9 - ANEMIA, UNSPECIFIED (4) Atrial fibrillation Code(s): I48.91 - UNSPECIFIED ATRIAL FIBRILLATION Qualifiers: Atrial fibrillation type: paroxysmal Qualified Code(s): I48.0 - Paroxysmal atrial fibrillation (5) CAD (coronary artery disease) Code(s): I25.10 - ATHSCL HEART DISEASE OF [place] CORONARY ARTERY W/O ANG PCTRS Qualifiers: Coronary Disease-Associated Artery/Lesion type: [place] artery [place] vs. transplanted heart: [place] heart Associated angina: without angina Qualified Code(s): I25.10 - Atherosclerotic heart disease of [place] coronary artery without angina pectoris (6) HTN (hypertension) Code(s): I10 - ESSENTIAL (PRIMARY) HYPERTENSION Qualifiers: Hypertension type: essential hypertension Qualified Code(s): I10 - Essential (primary) hypertension
[2019-04-03] MEDS: KCL 10 MEQ IVPB 10 MEQ/100 ML INFUS.BAG IVPB SCH ×2 (13:23→15:01)
[2019-04-03] MEDS: POTASSIUM CHLORIDE 20 MEQ in DEXTROSE 5%-WATER - 1,000 ML IVPB SCH (13:35)
[2019-04-03] MEDS ORDERED: MAGNESIUM SULF 50% (8.12 MEQ/2 ML-1 GM VIAL) IVPB ONE (13:45)
[2019-04-03] MEDS ORDERED: IRON SUCROSE INJECTION 200 MG in SODIUM CHLORIDE 90 ML IVPB ONE (14:30)
--- NOTE | 2019-04-03 16:03 | PN ---
Progress Note (short form) - Note Progress Note: Brief GI note Pt feeling well, denies abdominal pain, tolerating diet. No further seizure activity noted. Evaluated and cleared by cardiology and neurology for endoscopy. Discussed risks/benefits in detail with patient, including but not limited to bleeding, infection, perforation, side effects of medications/ sedation, she verbalized understanding and wants to proceed. Plan for EGD tenatively tomorrow pending normalization in electrolytes. Keep NPOpMn. Problem List - Problems (1) Anemia Code(s): D64.9 - ANEMIA, UNSPECIFIED
[2019-04-03] MEDS ORDERED: POTASSIUM CHLORIDE TABS 20 MEQ TABLET.ER (FP) PO ONE (17:30)
[2019-04-03] MEDS: ATORVASTATIN CA 10 MG TABLET (FP) PO SCH (22:18)
[2019-04-03] MEDS: risperiDONE 0.5 MG TABLET (FP) PO SCH (22:18)
[2019-04-03] MEDS: levETIRAcetam 500 MG TABLET (FP) PO SCH (22:18)
[2019-04-04] MEDS: INSULIN SLIDING SCALE (NOVOLOG) 1 VIAL SQ SCH ×3 (06:10→16:32)
[2019-04-04 08:39] LABS: ALBUMIN 2.6 g/dl (3.4-5.0); BILIRUBIN,TOTAL 0.1 mg/dL (0.2-1); BLOOD UREA NITROGEN 10.4 mg/dL (7-18); CREATININE 0.7 mg/dL (0.55-1.3); MAGNESIUM 1.5 mg/dL (1.8-2.4); POTASSIUM 4.2 mmol/L (3.5-5.1)
[2019-04-04 08:45] LABS: HEMATOCRIT 23.5 % (32.4-45.2); HEMOGLOBIN 7.7 GM/dL (10.7-15.3); MCH 28.4 pg (25.7-33.7); MCHC 32.8 g/dl (32.0-36.0); MEAN CELL VOLUME 86.4 fl (80-96); MEAN PLT VOLUME 8.1 fl (7.5-11.1); PLATELET COUNT 339 K/MM3 (134-434); RBC 2.72 M/mm3 (3.60-5.2); RDW 17.6 % (11.6-15.6); WHITE BLOOD COUNT 5.1 K/mm3 (4.0-10.0)
[2019-04-04] MEDS: metoPROLOL SUCCINATE 25 MG TAB.SR.24H (FP) PO SCH ×2 (09:09→12:35)
[2019-04-04] MEDS: POTASSIUM CHLORIDE TABS 20 MEQ TABLET.ER (FP) PO SCH (09:09)
[2019-04-04] MEDS: PANTOPRAZOLE 20 MG TABLET (FP) PO SCH ×2 (09:09→12:35)
[2019-04-04] MEDS: FUROSEMIDE 20 MG TABLET (FP) PO SCH ×2 (09:09→12:36)
[2019-04-04] MEDS: levETIRAcetam 500 MG TABLET (FP) PO SCH ×3 (09:09→21:19)
[2019-04-04] MEDS ORDERED: MAGNESIUM SULF 50% (8.12 MEQ/2 ML-1 GM VIAL) IVPB ONE (10:16)
--- NOTE | 2019-04-04 10:41 | PN ---
Progress Note (short form) - Note Progress Note: no seizures No distress Vital Signs - 24 hr 04/03/19 04/03/19 04/03/19 14:00 17:00 21:00 Temperature 98.8 F 98.7 F 98.7 F Pulse Rate 74 68 71 Respiratory 20 18 Rate Blood Pressure 105/63 111/60 103/59 L O2 Sat by Pulse 100 Oximetry (%) 04/04/19 04/04/19 04/04/19 01:30 05:00 08:56 Temperature 98.3 F 98.2 F Pulse Rate 73 69 Respiratory 18 17 17 Rate Blood Pressure 114/64 115/60 O2 Sat by Pulse 100 Oximetry (%) Current Medications Generic Name Dose Route Start Last Admin Trade Name Freq PRN Reason Stop Dose Admin Atorvastatin Calcium 10 mg 03/28/19 22:00 04/03/19 22:18 Lipitor - PO 10 mg HS RAJESH Administration Furosemide 20 mg 04/03/19 11:09 04/04/19 09:09 Lasix - PO Not Given DAILY RAJESH Potassium Chloride 20 meq/ 1,010 mls @ 42 mls/hr 04/02/19 13:38 04/03/19 13: 35 Dextrose IVPB 42 mls/hr ASDIR RAJESH Administration Insulin Aspart 1 vial 03/28/19 16:30 04/04/19 06:10 Novolog Vial Sliding Scale - SQ Not Given TIDAC [facility] Protocol Levetiracetam 750 mg 04/03/19 22:00 04/04/19 09:09 Keppra - PO Not Given BID RAJESH Metformin HCl 500 mg 03/28/19 16:30 04/04/19 06:10 Glucophage Xr - PO Not Given BIDI RAJESH Metoprolol Succinate 25 mg 03/29/19 10:00 04/04/19 09:09 Toprol Xl - PO Not Given DAILY RAJESH Pantoprazole Sodium 20 mg 04/02/19 15:15 04/04/19 09:09 Protonix - PO Not Given DAILY RAJESH Potassium Chloride 20 meq 03/29/19 10:15 04/04/19 09:09 K-Dur - PO Not Given DAILY RAJESH Risperidone 0.5 mg 03/30/19 15:15 04/03/19 22:18 Risperdal - PO 0.5 mg HS RAJESH Administration Laboratory Results - last 24 hr 04/04/19 04/04/19 04/04/19 05:55 07:55 07:55 WBC 5.1 RBC 2.72 L Hgb 7.7 L Hct 23.5 L MCV 86.4 MCH 28.4 MCHC 32.8 RDW 17.6 H Plt Count 339 MPV 8.1 Sodium 143 Potassium 4.2 Chloride 111 H Carbon Dioxide 23 Anion Gap 9 BUN 10.4 Creatinine 0.7 Est GFR (CKD-EPI)AfAm 101.03 Est GFR (CKD-EPI)NonAf 87.17 POC Glucometer 100 Random Glucose 88 Calcium 8.0 L Magnesium 1.5 L Total Bilirubin 0.1 L AST 12 L ALT 10 L Alkaline Phosphatase 69 Total Protein 6.0 L Albumin 2.6 L awake and alert S1 S2 RRR lungs clear Abd- soft, NT edema+ PLAN -- HB better - received venofer yesterday -- no seizures so far -- Ativan as needed for seizures -- Stool guaic negative --replace magnesium -- Iron infusion -- Hematology eval -- continue with tele monitoring EGD today Problem List - Problems (1) Fall Code(s): W19.XXXA - UNSPECIFIED FALL, INITIAL ENCOUNTER Qualifiers: Encounter type: initial encounter Qualified Code(s): W19.XXXA - Unspecified fall, initial encounter (2) Syncope Code(s): R55 - SYNCOPE AND COLLAPSE Qualifiers: Syncope type: unspecified Qualified Code(s): R55 - Syncope and collapse (3) Anemia Code(s): D64.9 - ANEMIA, UNSPECIFIED (4) Atrial fibrillation Code(s): I48.91 - UNSPECIFIED ATRIAL FIBRILLATION Qualifiers: Atrial fibrillation type: paroxysmal Qualified Code(s): I48.0 - Paroxysmal atrial fibrillation (5) CAD (coronary artery disease) Code(s): I25.10 - ATHSCL HEART DISEASE OF [place] CORONARY ARTERY W/O ANG PCTRS Qualifiers: Coronary Disease-Associated Artery/Lesion type: [place] artery [place] vs. transplanted heart: [place] heart Associated angina: without angina Qualified Code(s): I25.10 - Atherosclerotic heart disease of [place] coronary artery without angina pectoris (6) HTN (hypertension) Code(s): I10 - ESSENTIAL (PRIMARY) HYPERTENSION Qualifiers: Hypertension type: essential hypertension Qualified Code(s): I10 - Essential (primary) hypertension
[2019-04-04] MEDS ORDERED: MIDAZOLAM HCL 2 MG/2 ML SINGLE DOSE VIAL ONE (11:16)
--- NOTE | 2019-04-04 11:40 | PN ---
Progress Note, Physician History of Present Illness: No further recurrent seizures after Keppra load, underwent EGD that did not show bleeding source. - Current Medication List Current Medications: Active Medications Atorvastatin Calcium (Lipitor -) 10 mg PO HS [facility] Last Admin: 04/03/19 22:18 Dose: 10 mg Furosemide (Lasix -) 20 mg PO DAILY [facility] Last Admin: 04/04/19 09:09 Dose: Not Given Potassium Chloride 20 meq/ (Dextrose) 1,010 mls @ 42 mls/hr IVPB ASDIR [facility] Last Admin: 04/03/19 13:35 Dose: 42 mls/hr Insulin Aspart (Novolog Vial Sliding Scale -) 1 vial SQ TIDAC [facility]; Protocol Last Admin: 04/04/19 11:35 Dose: Not Given Levetiracetam (Keppra -) 750 mg PO BID [facility] Last Admin: 04/04/19 09:09 Dose: Not Given Metformin HCl (Glucophage Xr -) 500 mg PO BIDI [facility] Last Admin: 04/04/19 06:10 Dose: Not Given Metoprolol Succinate (Toprol Xl -) 25 mg PO DAILY [facility] Last Admin: 04/04/19 09:09 Dose: Not Given Pantoprazole Sodium (Protonix -) 20 mg PO DAILY [facility] Last Admin: 04/04/19 09:09 Dose: Not Given Potassium Chloride (K-Dur -) 20 meq PO DAILY [facility] Last Admin: 04/04/19 09:09 Dose: Not Given Risperidone (Risperdal -) 0.5 mg PO [facility] Last Admin: 04/03/19 22:18 Dose: 0.5 mg - Objective Vital Signs: Vital Signs Temperature 98.2 F 04/04/19 05:00 Pulse Rate 69 04/04/19 05:00 Respiratory Rate 17 04/04/19 08:56 Blood Pressure 115/60 04/04/19 05:00 O2 Sat by Pulse Oximetry (%) 100 04/04/19 08:56 Constitutional: Yes: No Distress, Calm Neck: Yes: Supple Cardiovascular: Yes: Regular Rate and Rhythm Respiratory: Yes: Regular, Diminished Gastrointestinal: Yes: Soft, Hypoactive Bowel Sounds Edema: No Labs: CBC, BMP 04/04/19 07:55 04/04/19 07:55 INR, PTT INR 1.17 (0.83-1.09) H 03/28/19 08:50 Problem List - Problems (1) Left rib fracture Code(s): S22.32XA - FRACTURE OF ONE RIB, LEFT SIDE, INIT FOR CLOS FX Qualifiers: Encounter type: initial encounter Rib fracture type: single rib Fracture type: closed Qualified Code(s): S22.32XA - Fracture of one rib, left side, initial encounter for closed fracture (2) Fall Code(s): W19.XXXA - UNSPECIFIED FALL, INITIAL ENCOUNTER Qualifiers: Encounter type: initial encounter Qualified Code(s): W19.XXXA - Unspecified fall, initial encounter (3) Atrial fibrillation Code(s): I48.91 - UNSPECIFIED ATRIAL FIBRILLATION Qualifiers: Atrial fibrillation type: paroxysmal Qualified Code(s): I48.0 - Paroxysmal atrial fibrillation (4) CAD (coronary artery disease) Code(s): I25.10 - ATHSCL HEART DISEASE OF [place] CORONARY ARTERY W/O ANG PCTRS Qualifiers: Coronary Disease-Associated Artery/Lesion type: [place] artery [place] vs. 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 (6) History of percutaneous coronary intervention Code(s): Z98.89 - OTHER SPECIFIED POSTPROCEDURAL STATES * DO NOT USE * (7) Hyperlipidemia Code(s): E78.5 - HYPERLIPIDEMIA, UNSPECIFIED Qualifiers: Hyperlipidemia type: pure hypercholesterolemia Qualified Code(s): E78.00 - Pure hypercholesterolemia, unspecified (8) HTN (hypertension) Code(s): I10 - ESSENTIAL (PRIMARY) HYPERTENSION Qualifiers: Hypertension type: essential hypertension Qualified Code(s): I10 - Essential (primary) hypertension (9) Left ventricular diastolic dysfunction Code(s): I51.9 - HEART DISEASE, UNSPECIFIED (10) Schizoaffective disorder Code(s): F25.9 - SCHIZOAFFECTIVE DISORDER, UNSPECIFIED Qualifiers: Schizoaffective disorder type: unspecified Qualified Code(s): F25.9 - Schizoaffective disorder, unspecified (11) Seizure disorder as sequela of cerebrovascular accident Code(s): I69.398 - OTHER SEQUELAE OF CEREBRAL INFARCTION; G40.909 - EPILEPSY, UNSP, NOT INTRACTABLE, WITHOUT STATUS EPILEPTICUS Assessment/Plan MRI : 03/30/2019 Brain MRI: Right frontal old stroke, old bilateral cerebellar strokes, no new stroke Echo: 03/25/2019 Echo: Normal LV and RV size and fxn, grade I DD, MALISSA with mild MR Carotid US: 03/24/2019 No sig stenosis Echo: 06/04/2018 Mild conc LVH, midly decreased [id number] diastolic dysfunction, mild LAE, mild MR, TR Lexiscan Myoview: Mod anterior ischemia, dilated LVEF 42% Carotid US: 12/16/2016 Min atherosclerotic disease w/o sig stenosis R&LHc 06/12/2017 Normal coronary arteries, normal LVEDP, mod pulm HTN 1. Altered mental status and recurrent seizures 2. Mechanical fall with closed head trauma, denies any syncope 3. Probable coronary artery disease (no visual coronary artery calcification on CT scan of the chest without contrast/March 28, 2019) angina pectoris 4. Diastolic left ventricular dysfunction with clinical class 0 [place] Heart [employer] classification left ventricular failure 5. Paroxysmal atrial fibrillation currently in sinus rhythm [id number] score of 5 currently off of DOAC's/Eliquis therapy 6. 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 Diabetes mellitus 8. Hypercholesterolemia 9. 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 COPD 11. Persistence Hypokalemia 12. Anemia h/o PUD, EGD unrevealing for bleeding source PLAN: 1. Continue Toprol-XL 25 qd and dose titration as needed and as tolerated, hemodynamics permitting 2. Resumption of BETTINA inhibitor therapy/Lisinopril or addition of angiotensin receptor vineet therapy in view of the above-noted comorbidities unless it is contraindicated, hemodynamics permitting 3. Continue Lipitor 10 qhs 4. Decrease Lasix 20 mg once daily 5. Ideally Eliquis therapy resumption is indicated considering the above-noted high stroke risk, [id number] score of 5, but to be deferred considering the above-noted presentation with recurrent falls, closed head trauma and presence of anemia as an alternative consideration for left atrial appendage closer device implantation/Watchman device- outpatient procedure 6. Correction of anemia, continue Protonix 20 qd and Venofer 7. Correction of hypokalemia, Keppra load per neurology
--- NOTE | 2019-04-04 12:00 | PN ---
Progress Note (short form) - Note Progress Note: EGD complete. Report left in procedural section of physical chart and will be scanned into path intelligence. No bleeding source. Outpatient follow-up. Heme evaluation. Advance diet Problem List - Problems (1) Anemia Code(s): D64.9 - ANEMIA, UNSPECIFIED
[2019-04-04] MEDS: POTASSIUM CHLORIDE 20 MEQ in DEXTROSE 5%-WATER - 1,000 ML IVPB SCH (12:55)
[2019-04-04 14:39] VITALS: BMI 32.0
--- NOTE | 2019-04-04 14:55 | CONSULT ---
Consultation: REQUESTING PROVIDER: CONSULT REQUEST: Hematology and oncology We have been asked to medically evaluate this patient for anemia. HISTORY OF PRESENT ILLNESS: The patient is a 73 yo F with a PMH of dementia, COPD, HLD, chronic atrial fibrillation, GERD, iron deficiency anemia, HTN, DM, seizure disorder who presents to our ED after a syncopal episode. We have been consulted to evaluate the patient's persistent anemia. On interview, the patient states that she feels well today, better than yesterday. She denies any overt bleeding or dizziness. She states that she has always been anemic, but does not remember what the cause of it was or if it was treated in the past. REVIEW OF SYSTEMS: CONSTITUTIONAL: Absent: fever, chills, diaphoresis, generalized weakness, malaise, loss of appetite, weight change HEENT: Absent: rhinorrhea, nasal congestion, throat pain, throat swelling, difficulty swallowing, mouth swelling, ear pain, eye pain, visual changes CARDIOVASCULAR: Absent: chest pain, syncope, palpitations, irregular heart rate, lightheadedness , peripheral edema RESPIRATORY: Absent: cough, shortness of breath, dyspnea with exertion, orthopnea, wheezing, stridor, hemoptysis GASTROINTESTINAL: Absent: abdominal pain, abdominal distension, nausea, vomiting, diarrhea, constipation, melena, hematochezia GENITOURINARY: Absent: dysuria, frequency, urgency, hesitancy, hematuria, flank pain, genital pain MUSCULOSKELETAL: Absent: myalgia, arthralgia, joint swelling, back pain, neck pain SKIN: Absent: rash, itching, pallor HEMATOLOGIC/IMMUNOLOGIC: Absent: easy bleeding, easy bruising, lymphadenopathy, frequent infections ENDOCRINE: Absent: unexplained weight gain, unexplained weight loss, heat intolerance, cold intolerance NEUROLOGIC: Absent: headache, seizure, mental status changes, bladder or bowel incontinence PSYCHIATRIC: Absent: anxiety, depression, suicidal or homicidal ideation, hallucinations. PHYSICAL EXAMINATION Vital Signs - 24 hr 04/03/19 04/03/19 04/04/19 17:00 21:00 01:30 Temperature 98.7 F 98.7 F 98.3 F Pulse Rate 68 71 73 Respiratory 20 18 18 Rate Blood Pressure 111/60 103/59 L 114/64 O2 Sat by Pulse 100 Oximetry (%) 04/04/19 04/04/19 04/04/19 05:00 08:56 11:38 Temperature 98.2 F 98.7 F Pulse Rate 69 77 Respiratory 17 17 18 Rate Blood Pressure 115/60 98/44 L O2 Sat by Pulse 100 99 Oximetry (%) 04/04/19 04/04/19 04/04/19 11:53 12:08 12:14 Temperature Pulse Rate 73 68 66 Respiratory 20 18 18 Rate Blood Pressure 90/50 L 104/52 L 104/52 L O2 Sat by Pulse 100 100 100 Oximetry (%) GENERAL: Awake, alert, and fully oriented, in no acute distress. HEAD: Normal with no signs of trauma. LUNGS: Breath sounds equal, clear to auscultation bilaterally. No wheezes, and no crackles. No accessory muscle use. HEART: Regular rate and rhythm, normal S1 and S2 without murmur, rub or gallop. ABDOMEN: Soft, nontender, not distended, normoactive bowel sounds, no guarding, no rebound, no masses. No hepatomegaly or splenomegaly. LOWER EXTREMITIES: 2+ pulses, warm, well-perfused. No calf tenderness. 2+ peripheral edema. SKIN: Warm, dry, normal turgor, no rashes or lesions noted. Laboratory Results - last 24 hr 04/04/19 04/04/19 04/04/19 05:55 07:55 07:55 WBC 5.1 RBC 2.72 L Hgb 7.7 L Hct 23.5 L MCV 86.4 MCH 28.4 MCHC 32.8 RDW 17.6 H Plt Count 339 MPV 8.1 Sodium 143 Potassium 4.2 Chloride 111 H Carbon Dioxide 23 Anion Gap 9 BUN 10.4 Creatinine 0.7 Est GFR (CKD-EPI)AfAm 101.03 Est GFR (CKD-EPI)NonAf 87.17 POC Glucometer 100 Random Glucose 88 Calcium 8.0 L Magnesium 1.5 L Total Bilirubin 0.1 L AST 12 L ALT 10 L Alkaline Phosphatase 69 Total Protein 6.0 L Albumin 2.6 L 04/04/19 11:46 WBC RBC Hgb Hct MCV MCH MCHC RDW Plt Count MPV Sodium Potassium Chloride Carbon Dioxide Anion Gap BUN Creatinine Est GFR (CKD-EPI)AfAm Est GFR (CKD-EPI)NonAf POC Glucometer 88 Random Glucose Calcium Magnesium Total Bilirubin AST ALT Alkaline Phosphatase Total Protein Albumin Active Medications Generic Name Dose Route Start Last Admin Trade Name Freq PRN Reason Stop Dose Admin Atorvastatin Calcium 10 mg 03/28/19 22:00 04/03/19 22:18 Lipitor - PO 10 mg HS RAJESH Administration Furosemide 20 mg 04/03/19 11:09 04/04/19 12:36 Lasix - PO 20 mg DAILY RAJESH Administration Potassium Chloride 20 meq/ 1,010 mls @ 42 mls/hr 04/02/19 13:38 04/04/19 12: 55 Dextrose IVPB 42 mls/hr ASDIR RAJESH Administration Iron Sucrose 200 mg/ Sodium 100 mls @ 100 mls/hr 04/05/19 10:00 Chloride IVPB 04/08/19 09:59 Q48H RAJESH Insulin Aspart 1 vial 03/28/19 16:30 04/04/19 11:35 Novolog Vial Sliding Scale - SQ Not Given TIDAC REPLACED BY [facility] Protocol Levetiracetam 750 mg 04/03/19 22:00 04/04/19 12:35 Keppra - PO 750 mg BID RAJESH Administration Metformin HCl 500 mg 03/28/19 16:30 04/04/19 06:10 Glucophage Xr - PO Not Given BIDI RAJESH Metoprolol Succinate 25 mg 03/29/19 10:00 04/04/19 12:35 Toprol Xl - PO 25 mg DAILY RAJESH Administration Pantoprazole Sodium 20 mg 04/02/19 15:15 04/04/19 12:35 Protonix - PO 20 mg DAILY RAJESH Administration Potassium Chloride 20 meq 03/29/19 10:15 04/04/19 09:09 K-Dur - PO Not Given DAILY RAJESH Risperidone 0.5 mg 03/30/19 15:15 04/03/19 22:18 Risperdal - PO 0.5 mg HS RAJESH Administration ASSESSMENT/PLAN: The patient is a 73 yo F with a PMH of dementia, COPD, HLD, chronic atrial fibrillation, GERD, iron deficiency anemia, HTN, DM, seizure disorder, recently discharged from our facility for syncope, presents to the ER after having a syncopal episode. #anemia likely 2/2 iron deficiency -Fe saturation low on iron studies from 04/02/19 -patient s/p 200mg venofer on 04/03. -recommend venofer 200mg q48 hrs for 5 days starting 04/06 -daily CBC -maintain normal transfusion thresholds. Dispo: We will continue to follow the patient. Thank you for this consultative opportunity. Visit type - Emergency Visit Emergency Visit: Yes ED Registration Date: 03/28/19 Care time: The patient presented to the Emergency Department on the above date and was hospitalized for further evaluation of their emergent condition. - New Patient This patient is new to me today: Yes Date on this admission: 04/04/19 - Critical Care Critical Care patient: No ATTENDING PHYSICIAN STATEMENT I saw and evaluated the patient. I reviewed the resident's note and discussed the case with the resident. I agree with the resident's findings and plan as documented. SUBJECTIVE: OBJECTIVE: ASSESSMENT AND PLAN:
[2019-04-04] MEDS: ATORVASTATIN CA 10 MG TABLET (FP) PO SCH (21:19)
[2019-04-04] MEDS: risperiDONE 0.5 MG TABLET (FP) PO SCH (21:19)
--- NOTE | 2019-04-04 21:54 | PN ---
Teaching Attending Note Name of Resident: Figueroa Fisher ATTENDING PHYSICIAN STATEMENT I saw and evaluated the patient. I reviewed the resident's note and discussed the case with the resident. I agree with the resident's findings and plan as documented. Ms. Grigsby is a 73 year old female withmultiple comorbidities including A fib(on eliquis),COPD, CHF (EF 45-50% 2016),Schizoaffective disorder/paranoia, epilepsy without status(no longer on Keppra),who was diagnosed on 11/21/18 with at least [id number] poorly differentiated TNBC of left breast. StagingCT C/A/Pon/[id number] cmleft adrenal nodule, worrisome for metastatic disease, scattered micronodules within the lungs, and small renal cysts, too small to characterize. 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
[2019-04-05] MEDS: INSULIN SLIDING SCALE (NOVOLOG) 1 VIAL SQ SCH ×3 (07:00→16:43)
[2019-04-05 07:25] LABS: HEMATOCRIT 23.7 % (32.4-45.2); HEMOGLOBIN 7.7 GM/dL (10.7-15.3); MCH 28.1 pg (25.7-33.7); MCHC 32.5 g/dl (32.0-36.0); MEAN CELL VOLUME 86.5 fl (80-96); MEAN PLT VOLUME 8.2 fl (7.5-11.1); PLATELET COUNT 360 K/MM3 (134-434); RBC 2.74 M/mm3 (3.60-5.2); RDW 17.4 % (11.6-15.6); WHITE BLOOD COUNT 5.1 K/mm3 (4.0-10.0)
[2019-04-05 07:39] LABS: CALCIUM 8.2 mg/dL (8.5-10.1); CREATININE 0.7 mg/dL (0.55-1.3); MAGNESIUM 1.8 mg/dL (1.8-2.4); POTASSIUM 4.1 mmol/L (3.5-5.1)
[2019-04-05] MEDS ORDERED: PT OWN MED DRAWER 7, Y5N ONE (10:46)
[2019-04-05] MEDS: POTASSIUM CHLORIDE TABS 20 MEQ TABLET.ER (FP) PO SCH (10:53)
[2019-04-05] MEDS: metoPROLOL SUCCINATE 25 MG TAB.SR.24H (FP) PO SCH (10:54)
[2019-04-05] MEDS: levETIRAcetam 500 MG TABLET (FP) PO SCH ×2 (10:54→21:31)
[2019-04-05] MEDS: IRON SUCROSE INJECTION 200 MG in SODIUM CHLORIDE 90 ML IVPB SCH (10:54)
[2019-04-05] MEDS: PANTOPRAZOLE 20 MG TABLET (FP) PO SCH (10:55)
[2019-04-05] MEDS: FUROSEMIDE 20 MG TABLET (FP) PO SCH (10:55)
--- NOTE | 2019-04-05 12:17 | PN ---
Progress Note (short form) - Note Progress Note: pt seen/ examined chart reviewed awake/ comfortable getting iron infusion. Vital Signs Temp 98.4 F 04/05/19 06:00 Pulse 64 04/05/19 10:00 Resp 18 04/05/19 10:00 BP 104/61 04/05/19 10:00 Pulse Ox 100 04/05/19 09:00 Intake & Output 04/04/19 04/05/19 04/05/19 23:59 11:59 23:59 Intake Total 880 744 Balance 880 744 Weight 175 lb Intake: IV 420 504 LAC #22 420 504 IVPB 100 Oral 360 240 Other: Voiding Method Toilet Incontinent # Unmeasured Voids Void 2 2 Bowel Movement No Height 5 ft 2 in Body Mass Index (BMI) 32.0 Active Medications Atorvastatin Calcium (Lipitor -) 10 mg PO HS [facility] Last Admin: 04/04/19 21:19 Dose: 10 mg Furosemide (Lasix -) 20 mg PO DAILY [facility] Last Admin: 04/05/19 10:55 Dose: 20 mg Potassium Chloride 20 meq/ (Dextrose) 1,010 mls @ 42 mls/hr IVPB ASDIR [facility] Last Admin: 04/04/19 12:55 Dose: 42 mls/hr Iron Sucrose 200 mg/ Sodium (Chloride) 100 mls @ 100 mls/hr IVPB Q48H [facility] Stop: 04/08/19 09:59 Last Admin: 04/05/19 10:54 Dose: 100 mls/hr Insulin Aspart (Novolog Vial Sliding Scale -) 1 vial SQ TIDAC [facility]; Protocol Last Admin: 04/05/19 11:52 Dose: Not Given Levetiracetam (Keppra -) 750 mg PO BID [facility] Last Admin: 04/05/19 10:54 Dose: 750 mg Metformin HCl (Glucophage Xr -) 500 mg PO BIDI [facility] Last Admin: 04/05/19 07:00 Dose: Not Given Metoprolol Succinate (Toprol Xl -) 25 mg PO DAILY [facility] Last Admin: 04/05/19 10:54 Dose: 25 mg Pantoprazole Sodium (Protonix -) 20 mg PO DAILY [facility] Last Admin: 04/05/19 10:55 Dose: 20 mg Potassium Chloride (K-Dur -) 20 meq PO DAILY [facility] Last Admin: 04/05/19 10:53 Dose: 20 meq Risperidone (Risperdal -) 0.5 mg PO HS [facility] Last Admin: 04/04/19 21:19 Dose: 0.5 mg CBC, BMP 04/05/19 05:35 04/05/19 05:35 physical awake/ comfortable S1 S2 RRR lungs clear Abd- soft, NT edema+- trace PLAN -- HB same - venofer x 5 days -- no seizures so far -- Ativan as needed for seizures -- Stool guaic negative --replace magnesium -- Iron infusion -- Hematology on case -- continue with tele monitoring EGD done - reviewed -- holding a/c due to high risk of falls/ anemia - cardiology to follow - will follow Problem List - Problems (1) Fall Code(s): W19.XXXA - UNSPECIFIED FALL, INITIAL ENCOUNTER Qualifiers: Encounter type: initial encounter Qualified Code(s): W19.XXXA - Unspecified fall, initial encounter (2) Syncope Code(s): R55 - SYNCOPE AND COLLAPSE Qualifiers: Syncope type: unspecified Qualified Code(s): R55 - Syncope and collapse (3) Anemia Code(s): D64.9 - ANEMIA, UNSPECIFIED (4) Atrial fibrillation Code(s): I48.91 - UNSPECIFIED ATRIAL FIBRILLATION Qualifiers: Atrial fibrillation type: paroxysmal Qualified Code(s): I48.0 - Paroxysmal atrial fibrillation (5) CAD (coronary artery disease) Code(s): I25.10 - ATHSCL HEART DISEASE OF [place] CORONARY ARTERY W/O ANG PCTRS Qualifiers: Coronary Disease-Associated Artery/Lesion type: [place] artery [place] vs. transplanted heart: [place] heart Associated angina: without angina Qualified Code(s): I25.10 - Atherosclerotic heart disease of [place] coronary artery without angina pectoris (6) HTN (hypertension) Code(s): I10 - ESSENTIAL (PRIMARY) HYPERTENSION Qualifiers: Hypertension type: essential hypertension Qualified Code(s): I10 - Essential (primary) hypertension
--- NOTE | 2019-04-05 12:20 | PN ---
Progress Note, Physician History of Present Illness: No further recurrent seizures after Keppra load, underwent EGD that did not show bleeding source. - Current Medication List Current Medications: Active Medications Atorvastatin Calcium (Lipitor -) 10 mg PO HS [facility] Last Admin: 04/04/19 21:19 Dose: 10 mg Furosemide (Lasix -) 20 mg PO DAILY [facility] Last Admin: 04/05/19 10:55 Dose: 20 mg Potassium Chloride 20 meq/ (Dextrose) 1,010 mls @ 42 mls/hr IVPB ASDIR [facility] Last Admin: 04/04/19 12:55 Dose: 42 mls/hr Iron Sucrose 200 mg/ Sodium (Chloride) 100 mls @ 100 mls/hr IVPB Q48H [facility] Stop: 04/08/19 09:59 Last Admin: 04/05/19 10:54 Dose: 100 mls/hr Insulin Aspart (Novolog Vial Sliding Scale -) 1 vial SQ TIDAC [facility]; Protocol Last Admin: 04/05/19 11:52 Dose: Not Given Levetiracetam (Keppra -) 750 mg PO BID [facility] Last Admin: 04/05/19 10:54 Dose: 750 mg Metformin HCl (Glucophage Xr -) 500 mg PO BIDI [facility] Last Admin: 04/05/19 07:00 Dose: Not Given Metoprolol Succinate (Toprol Xl -) 25 mg PO DAILY [facility] Last Admin: 04/05/19 10:54 Dose: 25 mg Pantoprazole Sodium (Protonix -) 20 mg PO DAILY [facility] Last Admin: 04/05/19 10:55 Dose: 20 mg Potassium Chloride (K-Dur -) 20 meq PO DAILY [facility] Last Admin: 04/05/19 10:53 Dose: 20 meq Risperidone (Risperdal -) 0.5 mg PO HS [facility] Last Admin: 04/04/19 21:19 Dose: 0.5 mg - Objective Vital Signs: Vital Signs Temperature 98.4 F 04/05/19 06:00 Pulse Rate 64 04/05/19 10:00 Respiratory Rate 18 04/05/19 10:00 Blood Pressure 104/61 04/05/19 10:00 O2 Sat by Pulse Oximetry (%) 100 04/05/19 09:00 Constitutional: Yes: No Distress, Calm Neck: Yes: Supple Cardiovascular: Yes: Regular Rate and Rhythm Respiratory: Yes: Regular, Diminished, Tachypnea Gastrointestinal: Yes: Normal Bowel Sounds Edema: No Labs: CBC, BMP 04/05/19 05:35 04/05/19 05:35 INR, PTT INR 1.17 (0.83-1.09) H 03/28/19 08:50 Problem List - Problems (1) Left rib fracture Code(s): S22.32XA - FRACTURE OF ONE RIB, LEFT SIDE, INIT FOR CLOS FX Qualifiers: Encounter type: initial encounter Rib fracture type: single rib Fracture type: closed Qualified Code(s): S22.32XA - Fracture of one rib, left side, initial encounter for closed fracture (2) Fall Code(s): W19.XXXA - UNSPECIFIED FALL, INITIAL ENCOUNTER Qualifiers: Encounter type: initial encounter Qualified Code(s): W19.XXXA - Unspecified fall, initial encounter (3) Atrial fibrillation Code(s): I48.91 - UNSPECIFIED ATRIAL FIBRILLATION Qualifiers: Atrial fibrillation type: paroxysmal Qualified Code(s): I48.0 - Paroxysmal atrial fibrillation (4) CAD (coronary artery disease) Code(s): I25.10 - ATHSCL HEART DISEASE OF [place] CORONARY ARTERY W/O ANG PCTRS Qualifiers: Coronary Disease-Associated Artery/Lesion type: [place] artery [place] vs. transplanted heart: [place] heart Associated angina: without angina Qualified Code(s): I25.10 - Atherosclerotic heart disease of [place] coronary artery without angina pectoris (5) Chronic anticoagulation Code(s): Z79.01 - [facility] (CURRENT) USE OF ANTICOAGULANTS (6) History of percutaneous coronary intervention Code(s): Z98.89 - OTHER SPECIFIED POSTPROCEDURAL STATES * DO NOT USE * (7) Hyperlipidemia Code(s): E78.5 - HYPERLIPIDEMIA, UNSPECIFIED Qualifiers: Hyperlipidemia type: pure hypercholesterolemia Qualified Code(s): E78.00 - Pure hypercholesterolemia, unspecified (8) HTN (hypertension) Code(s): I10 - ESSENTIAL (PRIMARY) HYPERTENSION Qualifiers: Hypertension type: essential hypertension Qualified Code(s): I10 - Essential (primary) hypertension (9) Left ventricular diastolic dysfunction Code(s): I51.9 - HEART DISEASE, UNSPECIFIED (10) Schizoaffective disorder Code(s): F25.9 - SCHIZOAFFECTIVE DISORDER, UNSPECIFIED Qualifiers: Schizoaffective disorder type: unspecified Qualified Code(s): F25.9 - Schizoaffective disorder, unspecified (11) Seizure disorder as sequela of cerebrovascular accident Code(s): I69.398 - OTHER SEQUELAE OF CEREBRAL INFARCTION; G40.909 - EPILEPSY, UNSP, NOT INTRACTABLE, WITHOUT STATUS EPILEPTICUS Assessment/Plan MRI : 03/30/2019 Brain MRI: Right frontal old stroke, old bilateral cerebellar strokes, no new stroke Echo: 03/25/2019 Echo: Normal LV and RV size and fxn, grade I DD, MALISSA with mild MR Carotid US: 03/24/2019 No sig stenosis Echo: 06/04/2018 Mild conc LVH, midly decreased [id number]%, diastolic dysfunction, mild LAE, mild MR, TR Lexiscan Myoview: Mod anterior ischemia, dilated LVEF 42% Carotid US: 12/16/2016 Min atherosclerotic disease w/o sig stenosis R&LHc 06/12/2017 Normal coronary arteries, normal LVEDP, mod pulm HTN 1. Altered mental status and recurrent seizures 2. Mechanical fall with closed head trauma, denies any syncope 3. Probable coronary artery disease (no visual coronary artery calcification on CT scan of the chest without contrast/March 28, 2019) angina pectoris 4. Diastolic left ventricular dysfunction with clinical class 0 [place] [employer] classification left ventricular failure 5. Paroxysmal atrial fibrillation currently in sinus rhythm [id number] score of 5 currently off of DOAC's/Eliquis therapy 6. 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 Diabetes mellitus 8. Hypercholesterolemia 9. 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 COPD 11. Persistence Hypokalemia 12. Anemia: iron deficiency, myelosuppression from chemotx, chronic disease, h/ o PUD, EGD unrevealing for bleeding source PLAN: 1. Continue Toprol-XL 25 qd and dose titration as needed and as tolerated, hemodynamics permitting 2. Resumption of BETTINA inhibitor therapy/Lisinopril or addition of angiotensin receptor vineet therapy in view of the above-noted comorbidities unless it is contraindicated, hemodynamics permitting 3. Continue Lipitor 10 qhs 4. Decrease Lasix 20 mg once daily 5. Ideally Eliquis therapy resumption is indicated considering the above-noted high stroke risk, [id number] score of 5, but to be deferred considering the above-noted presentation with recurrent falls, closed head trauma and presence of anemia as an alternative consideration for left atrial appendage closer device implantation/Watchman device- outpatient procedure 6. Correction of anemia, continue Protonix 20 qd and Venofer 7. Correction of hypokalemia, Keppra load per neurology
--- NOTE | 2019-04-05 16:21 | PN ---
Progress Note (short form) - Note Progress Note: Patient seen and examined Complains of tiredness and fatigue No chest pains or SOB Last Vital Signs Temp Pulse Resp BP Pulse Ox 98.7 F 67 20 113/60 100 04/05/19 14:00 04/05/19 14:00 04/05/19 14:00 04/05/19 14:00 04/05/19 09:00 HEENT: ANTHONY, EOM Intact Breasts: nodularity UOQ left breast Cor: RSR, No murmurs, No gallops Lungs: diminished breath sounds Abd: Soft, Normal bowel sounds, No organomegaly Ext:No significant edema Skin: No rashes, Integument intact CBC, BMP 04/05/19 05:35 04/05/19 05:35 Current Medications Generic Name Dose Route Start Last Admin Trade Name Freq PRN Reason Stop Dose Admin Atorvastatin Calcium 10 mg 03/28/19 22:00 04/04/19 21:19 Lipitor - PO 10 mg HS [facility] Administration Furosemide 20 mg 04/03/19 11:09 04/05/19 10:55 Lasix - PO 20 mg DAILY [facility] Administration Potassium Chloride 20 meq/ 1,010 mls @ 42 mls/hr 04/02/19 13:38 04/04/19 12: 55 Dextrose IVPB 42 mls/hr ASDIR [facility] Administration Iron Sucrose 200 mg/ Sodium 100 mls @ 100 mls/hr 04/05/19 10:00 04/05/19 10: 54 Chloride IVPB 04/08/19 09:59 100 mls/hr Q48H [facility] Administration Insulin Aspart 1 vial 03/28/19 16:30 04/05/19 11:52 Novolog Vial Sliding Scale - SQ Not Given TIDAC [facility] Protocol Levetiracetam 750 mg 04/03/19 22:00 04/05/19 10:54 Keppra - PO 750 mg BID [facility] Administration Metformin HCl 500 mg 03/28/19 16:30 04/05/19 07:00 Glucophage Xr - PO Not Given BIDI [facility] Metoprolol Succinate 25 mg 03/29/19 10:00 04/05/19 10:54 Toprol Xl - PO 25 mg DAILY [facility] Administration Pantoprazole Sodium 20 mg 04/02/19 15:15 04/05/19 10:55 Protonix - PO 20 mg DAILY [facility] Administration Potassium Chloride 20 meq 03/29/19 10:15 04/05/19 10:53 K-Dur - PO 20 meq DAILY [facility] Administration Risperidone 0.5 mg 03/30/19 15:15 04/04/19 21:19 Risperdal - PO 0.5 mg HS [facility] Administration Impression: Breast ca on taxol chemotherapy Anemia Iron studies ---> FE++-16 ; TIBC- 181; Ferritin-196 Currently receiving venofer; To continue Picture compatible woth componenet of Fe++ deficiency and chronic disease
[2019-04-05] MEDS: POTASSIUM CHLORIDE 20 MEQ in DEXTROSE 5%-WATER - 1,000 ML IVPB SCH (16:42)
[2019-04-05] MEDS: risperiDONE 0.5 MG TABLET (FP) PO SCH (21:31)
[2019-04-05] MEDS: ATORVASTATIN CA 10 MG TABLET (FP) PO SCH (21:31)
[2019-04-06] MEDS: INSULIN SLIDING SCALE (NOVOLOG) 1 VIAL SQ SCH ×3 (06:10→17:48)
[2019-04-06] MEDS ORDERED: INSULIN (NOVOLOG) ASPART 100 UNITS/ML 10ML VIAL ONE (09:41)
[2019-04-06] MEDS: PANTOPRAZOLE 20 MG TABLET (FP) PO SCH (11:43)
[2019-04-06] MEDS: levETIRAcetam 500 MG TABLET (FP) PO SCH ×2 (11:43→21:42)
[2019-04-06] MEDS: FUROSEMIDE 20 MG TABLET (FP) PO SCH (11:43)
[2019-04-06] MEDS: metoPROLOL SUCCINATE 25 MG TAB.SR.24H (FP) PO SCH (11:43)
[2019-04-06] MEDS: POTASSIUM CHLORIDE TABS 20 MEQ TABLET.ER (FP) PO SCH (11:43)
--- NOTE | 2019-04-06 11:46 | PN ---
Progress Note, Physician Chief Complaint: Events noted Not in distress History of Present Illness: Patient was seen and examined. Awake. Chart was reviewed Denies chest pain, SOB or palpitations - Current Medication List Current Medications: Active Medications Atorvastatin Calcium (Lipitor -) 10 mg PO HS [facility] Last Admin: 04/05/19 21:31 Dose: 10 mg Furosemide (Lasix -) 20 mg PO DAILY [facility] Last Admin: 04/06/19 11:43 Dose: 20 mg Potassium Chloride 20 meq/ (Dextrose) 1,010 mls @ 42 mls/hr IVPB ASDIR [facility] Last Admin: 04/05/19 16:42 Dose: Not Given Iron Sucrose 200 mg/ Sodium (Chloride) 100 mls @ 100 mls/hr IVPB Q48H [facility] Stop: 04/08/19 09:59 Last Admin: 04/05/19 10:54 Dose: 100 mls/hr Insulin Aspart (Novolog Vial Sliding Scale -) 1 vial SQ TIDAC [facility]; Protocol Last Admin: 04/06/19 06:10 Dose: Not Given Levetiracetam (Keppra -) 750 mg PO BID [facility] Last Admin: 04/06/19 11:43 Dose: 750 mg Metformin HCl (Glucophage Xr -) 500 mg PO BIDI [facility] Last Admin: 04/06/19 06:10 Dose: Not Given Metoprolol Succinate (Toprol Xl -) 25 mg PO DAILY [facility] Last Admin: 04/06/19 11:43 Dose: 25 mg Pantoprazole Sodium (Protonix -) 20 mg PO DAILY [facility] Last Admin: 04/06/19 11:43 Dose: 20 mg Potassium Chloride (K-Dur -) 20 meq PO DAILY [facility] Last Admin: 04/06/19 11:43 Dose: 20 meq Risperidone (Risperdal -) 0.5 mg PO HS [facility] Last Admin: 04/05/19 21:31 Dose: 0.5 mg - Objective Vital Signs: Vital Signs Temperature 98.6 F 04/06/19 06:00 Pulse Rate 64 04/06/19 06:00 Respiratory Rate 18 04/06/19 09:00 Blood Pressure 119/58 L 04/06/19 06:00 O2 Sat by Pulse Oximetry (%) 99 04/06/19 09:00 HENT: Yes: Atraumatic Neck: Yes: Supple Cardiovascular: Yes: Regular Rate and Rhythm, S1, S2 Respiratory: Yes: Diminished Gastrointestinal: Yes: Normal Bowel Sounds, Soft. No: Tenderness Edema: No Additional Findings/Remarks: - Review of Systems Constitutional: denies: Chills, Fever Cardiovascular: denies Chest Pain. denies: Palpitations, Shortness of Breath Respiratory: denies: Cough, Hemoptysis, Orthopnea, PND, SOB, SOB on Exertion Gastrointestinal: denies: Abdominal Pain, Constipation, Diarrhea, Melena, Nausea , Rectal Bleeding, Vomiting Neurological: denies Dizziness, Headache. denies: Seizure, Syncope Labs: CBC, BMP 04/05/19 05:35 04/05/19 05:35 Problem List - Problems (1) Fall Code(s): W19.XXXA - UNSPECIFIED FALL, INITIAL ENCOUNTER Qualifiers: Encounter type: initial encounter Qualified Code(s): W19.XXXA - Unspecified fall, initial encounter (2) Hypokalemia Code(s): E87.6 - HYPOKALEMIA (3) Seizure disorder as sequela of cerebrovascular accident Code(s): I69.398 - OTHER SEQUELAE OF CEREBRAL INFARCTION; G40.909 - EPILEPSY, UNSP, NOT INTRACTABLE, WITHOUT STATUS EPILEPTICUS (4) Acute respiratory failure with hypercapnia Code(s): J96.02 - ACUTE RESPIRATORY FAILURE WITH HYPERCAPNIA (5) Anemia Code(s): D64.9 - ANEMIA, UNSPECIFIED (6) Atrial fibrillation Code(s): I48.91 - UNSPECIFIED ATRIAL FIBRILLATION Qualifiers: Atrial fibrillation type: paroxysmal Qualified Code(s): I48.0 - Paroxysmal atrial fibrillation (7) CAD (coronary artery disease) Code(s): I25.10 - ATHSCL HEART DISEASE OF [place] CORONARY ARTERY W/O ANG PCTRS Qualifiers: Coronary Disease-Associated Artery/Lesion type: [place] artery [place] vs. transplanted heart: [place] heart Associated angina: without angina Qualified Code(s): I25.10 - Atherosclerotic heart disease of [place] coronary artery without angina pectoris (8) Head injury Code(s): S09.90XA - UNSPECIFIED INJURY OF HEAD, INITIAL ENCOUNTER (9) History of percutaneous coronary intervention Code(s): Z98.89 - OTHER SPECIFIED POSTPROCEDURAL STATES * DO NOT USE * (10) Hyperlipidemia Code(s): E78.5 - HYPERLIPIDEMIA, UNSPECIFIED Qualifiers: Hyperlipidemia type: pure hypercholesterolemia Qualified Code(s): E78.00 - Pure hypercholesterolemia, unspecified (11) Diabetes Code(s): E11.9 - TYPE 2 DIABETES MELLITUS WITHOUT COMPLICATIONS Qualifiers: Diabetes mellitus type: type 2 Diabetes mellitus extermination supervisor insulin use: without extermination supervisor use Diabetes mellitus complication status: without complication Qualified Code(s): E11.9 - Type 2 diabetes mellitus without complications (12) Left ventricular diastolic dysfunction Code(s): I51.9 - HEART DISEASE, UNSPECIFIED Assessment/Plan 1. Altered mental status and recurrent seizures 2. Mechanical fall with closed head trauma 3. Probable coronary artery disease, angina pectoris 4. Diastolic left ventricular dysfunction with clinical class 0 [place] [employer] classification left ventricular failure 5. Paroxysmal atrial fibrillation currently in sinus rhythm [id number] score of 5 currently off DOAC's/Eliquis therapy 6. 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 Diabetes mellitus 8. Hypercholesterolemia 9. 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 COPD 11. Persistence Hypokalemia 12. Anemia iron deficiency, myelosuppression from chemotherapy, chronic disease , h/o PUD, EGD unrevealing for bleeding source PLAN: 1. Continue Toprol-XL 25 mg QD as tolerated 2. Resumption of BETTINA inhibitor therapy/Lisinopril or addition of angiotensin receptor vineet therapy unless it is contraindicated 3. Continue Lipitor 10 mg QHS 4. Lasix 20 mg PO once daily 5. Ideally Eliquis therapy resumption is indicated considering the above-noted high stroke risk, [id number] score of 5, but to be deferred considering the above-noted presentation with recurrent falls, closed head trauma and presence of anemia as an alternative consideration for left atrial appendage closer device implantation/Watchman device may be considered if agreeable as outpatient 6. Correction of anemia and continue Protonix 20 mg QD 7. Correction of hypokalemia Further plans are to follow Juan Carlos Denny MD
--- NOTE | 2019-04-06 13:21 | PN ---
Progress Note (short form) - Note Progress Note: no seizures No distress Vital Signs - 24 hr 04/05/19 04/05/19 04/05/19 14:00 18:00 21:00 Temperature 98.7 F 98.8 F Pulse Rate 67 68 Respiratory 20 20 22 H Rate Blood Pressure 113/60 122/70 O2 Sat by Pulse 97 Oximetry (%) 04/05/19 04/06/19 04/06/19 22:00 01:38 06:00 Temperature 98.6 F 98.1 F 98.6 F Pulse Rate 65 72 64 Respiratory 22 H 20 20 Rate Blood Pressure 118/60 118/69 119/58 L O2 Sat by Pulse Oximetry (%) 04/06/19 09:00 Temperature Pulse Rate Respiratory 18 Rate Blood Pressure O2 Sat by Pulse 99 Oximetry (%) Current Medications Generic Name Dose Route Start Last Admin Trade Name Freq PRN Reason Stop Dose Admin Atorvastatin Calcium 10 mg 03/28/19 22:00 04/05/19 21:31 Lipitor - PO 10 mg HS [facility]JESH Administration Furosemide 20 mg 04/03/19 11:09 04/06/19 11:43 Lasix - PO 20 mg DAILY [facility] Administration Potassium Chloride 20 meq/ 1,010 mls @ 42 mls/hr 04/02/19 13:38 04/05/19 16: 42 Dextrose IVPB Not Given ASDIR [facility] Iron Sucrose 200 mg/ Sodium 100 mls @ 100 mls/hr 04/05/19 10:00 04/05/19 10: 54 Chloride IVPB 04/08/19 09:59 100 mls/hr Q48H [facility] Administration Insulin Aspart 1 vial 03/28/19 16:30 04/06/19 06:10 Novolog Vial Sliding Scale - SQ Not Given TIDAC [facility] Protocol Levetiracetam 750 mg 04/03/19 22:00 04/06/19 11:43 Keppra - PO 750 mg BID [facility] Administration Metformin HCl 500 mg 03/28/19 16:30 04/06/19 06:10 Glucophage Xr - PO Not Given BIDI RAJESH Metoprolol Succinate 25 mg 03/29/19 10:00 04/06/19 11:43 Toprol Xl - PO 25 mg DAILY [facility] Administration Pantoprazole Sodium 20 mg 04/02/19 15:15 04/06/19 11:43 Protonix - PO 20 mg DAILY [facility] Administration Potassium Chloride 20 meq 03/29/19 10:15 04/06/19 11:43 K-Dur - PO 20 meq DAILY [facility] Administration Risperidone 0.5 mg 03/30/19 15:15 04/05/19 21:31 Risperdal - PO 0.5 mg HS RAJESH Administration Laboratory Results - last 24 hr 04/05/19 04/06/19 04/06/19 16:41 05:53 12:24 POC Glucometer 100 89 84 awake and alert S1 S2 RRR lungs clear Abd- soft, NT edema+ PLAN -- HB better - receiving venofer -- total 5 doses -- no seizures so far -- Ativan as needed for seizures -- Stool guaic negative -- Hematology eval noted -- continue with tele monitoring Problem List - Problems (1) Fall Code(s): W19.XXXA - UNSPECIFIED FALL, INITIAL ENCOUNTER Qualifiers: Encounter type: initial encounter Qualified Code(s): W19.XXXA - Unspecified fall, initial encounter (2) Syncope Code(s): R55 - SYNCOPE AND COLLAPSE Qualifiers: Syncope type: unspecified Qualified Code(s): R55 - Syncope and collapse (3) Anemia Code(s): D64.9 - ANEMIA, UNSPECIFIED (4) Atrial fibrillation Code(s): I48.91 - UNSPECIFIED ATRIAL FIBRILLATION Qualifiers: Atrial fibrillation type: paroxysmal Qualified Code(s): I48.0 - Paroxysmal atrial fibrillation (5) CAD (coronary artery disease) Code(s): I25.10 - ATHSCL HEART DISEASE OF [place] CORONARY ARTERY W/O ANG PCTRS Qualifiers: Coronary Disease-Associated Artery/Lesion type: [place] artery [place] vs. transplanted heart: [place] heart Associated angina: without angina Qualified Code(s): I25.10 - Atherosclerotic heart disease of [place] coronary artery without angina pectoris (6) HTN (hypertension) Code(s): I10 - ESSENTIAL (PRIMARY) HYPERTENSION Qualifiers: Hypertension type: essential hypertension Qualified Code(s): I10 - Essential (primary) hypertension
[2019-04-06] MEDS: POTASSIUM CHLORIDE 20 MEQ in DEXTROSE 5%-WATER - 1,000 ML IVPB SCH (14:11)
[2019-04-06] MEDS: ATORVASTATIN CA 10 MG TABLET (FP) PO SCH (21:42)
[2019-04-06] MEDS: risperiDONE 0.5 MG TABLET (FP) PO SCH (21:42)
[2019-04-07] MEDS: INSULIN SLIDING SCALE (NOVOLOG) 1 VIAL SQ SCH ×3 (06:12→18:00)
--- NOTE | 2019-04-07 08:35 | PN ---
Progress Note, Physician Chief Complaint: Events noted Not in distress History of Present Illness: Patient was seen and examined. Awake. Chart was reviewed Denies chest pain, SOB or palpitations - Current Medication List Current Medications: Active Medications Atorvastatin Calcium (Lipitor -) 10 mg PO HS [facility] Last Admin: 04/06/19 21:42 Dose: 10 mg Furosemide (Lasix -) 20 mg PO DAILY [facility] Last Admin: 04/06/19 11:43 Dose: 20 mg Potassium Chloride 20 meq/ (Dextrose) 1,010 mls @ 42 mls/hr IVPB ASDIR [facility] Last Admin: 04/06/19 14:11 Dose: Not Given Iron Sucrose 200 mg/ Sodium (Chloride) 100 mls @ 100 mls/hr IVPB Q48H [facility] Stop: 04/08/19 09:59 Last Admin: 04/05/19 10:54 Dose: 100 mls/hr Insulin Aspart (Novolog Vial Sliding Scale -) 1 vial SQ TIDAC [facility]; Protocol Last Admin: 04/07/19 06:12 Dose: Not Given Levetiracetam (Keppra -) 750 mg PO BID [facility] Last Admin: 04/06/19 21:42 Dose: 750 mg Metformin HCl (Glucophage Xr -) 500 mg PO BIDI [facility] Last Admin: 04/07/19 06:12 Dose: Not Given Metoprolol Succinate (Toprol Xl -) 25 mg PO DAILY [facility] Last Admin: 04/06/19 11:43 Dose: 25 mg Pantoprazole Sodium (Protonix -) 20 mg PO DAILY [facility] Last Admin: 04/06/19 11:43 Dose: 20 mg Potassium Chloride (K-Dur -) 20 meq PO DAILY [facility] Last Admin: 04/06/19 11:43 Dose: 20 meq Risperidone (Risperdal -) 0.5 mg PO HS [facility] Last Admin: 04/06/19 21:42 Dose: 0.5 mg - Objective Vital Signs: Vital Signs Temperature 98.1 F 04/07/19 06:00 Pulse Rate 70 04/07/19 06:00 Respiratory Rate 18 04/07/19 06:00 Blood Pressure 112/64 04/07/19 06:00 O2 Sat by Pulse Oximetry (%) 99 04/06/19 21:00 Eyes: Yes: PERRL HENT: Yes: Atraumatic Neck: Yes: Supple Cardiovascular: Yes: Regular Rate and Rhythm, S1, S2 Respiratory: Yes: Diminished Gastrointestinal: Yes: Normal Bowel Sounds, Soft. No: Tenderness Edema: No Additional Findings/Remarks: - Review of Systems Constitutional: denies: Chills, Fever Cardiovascular: denies Chest Pain. denies: Palpitations, Shortness of Breath Respiratory: denies: Cough, Hemoptysis, Orthopnea, PND, SOB, SOB on Exertion Gastrointestinal: denies: Abdominal Pain, Constipation, Diarrhea, Melena, Nausea , Rectal Bleeding, Vomiting Neurological: denies Dizziness, Headache. denies: Seizure, Syncope Problem List - Problems (1) Fall Code(s): W19.XXXA - UNSPECIFIED FALL, INITIAL ENCOUNTER Qualifiers: Encounter type: initial encounter Qualified Code(s): W19.XXXA - Unspecified fall, initial encounter (2) Hypokalemia Code(s): E87.6 - HYPOKALEMIA (3) Seizure disorder as sequela of cerebrovascular accident Code(s): I69.398 - OTHER SEQUELAE OF CEREBRAL INFARCTION; G40.909 - EPILEPSY, UNSP, NOT INTRACTABLE, WITHOUT STATUS EPILEPTICUS (4) Acute respiratory failure with hypercapnia Code(s): J96.02 - ACUTE RESPIRATORY FAILURE WITH HYPERCAPNIA (5) Anemia Code(s): D64.9 - ANEMIA, UNSPECIFIED (6) Atrial fibrillation Code(s): I48.91 - UNSPECIFIED ATRIAL FIBRILLATION Qualifiers: Atrial fibrillation type: paroxysmal Qualified Code(s): I48.0 - Paroxysmal atrial fibrillation (7) CAD (coronary artery disease) Code(s): I25.10 - ATHSCL HEART DISEASE OF [place] CORONARY ARTERY W/O ANG PCTRS Qualifiers: Coronary Disease-Associated Artery/Lesion type: [place] artery [place] vs. transplanted heart: [place] heart Associated angina: without angina Qualified Code(s): I25.10 - Atherosclerotic heart disease of [place] coronary artery without angina pectoris (8) Head injury Code(s): S09.90XA - UNSPECIFIED INJURY OF HEAD, INITIAL ENCOUNTER (9) History of percutaneous coronary intervention Code(s): Z98.89 - OTHER SPECIFIED POSTPROCEDURAL STATES * DO NOT USE * (10) Hyperlipidemia Code(s): E78.5 - HYPERLIPIDEMIA, UNSPECIFIED Qualifiers: Hyperlipidemia type: pure hypercholesterolemia Qualified Code(s): E78.00 - Pure hypercholesterolemia, unspecified (11) Diabetes Code(s): E11.9 - TYPE 2 DIABETES MELLITUS WITHOUT COMPLICATIONS Qualifiers: Diabetes mellitus type: type 2 Diabetes mellitus retirement insulin use: without retirement use Diabetes mellitus complication status: without complication Qualified Code(s): E11.9 - Type 2 diabetes mellitus without complications (12) Left ventricular diastolic dysfunction Code(s): I51.9 - HEART DISEASE, UNSPECIFIED Assessment/Plan 1. Altered mental status and recurrent seizures 2. Mechanical fall with closed head trauma 3. Probable coronary artery disease, angina pectoris 4. Diastolic left ventricular dysfunction with clinical class 0 [place] [employer] classification left ventricular failure 5. Paroxysmal atrial fibrillation currently in sinus rhythm [id number] score of 5 currently off DOAC/Eliquis therapy 6. 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 Diabetes mellitus 8. Hypercholesterolemia 9. 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 COPD 11. Persistence Hypokalemia 12. Anemia iron deficiency, myelosuppression from chemotherapy, chronic disease , h/o PUD, EGD unrevealing for bleeding source PLAN: 1. Continue Toprol-XL 25 mg QD as tolerated 2. Resumption of BETTINA inhibitor therapy/Lisinopril or angiotensin receptor vineet(ARB) therapy unless it is contraindicated 3. Continue Lipitor 10 mg QHS 4. Lasix 20 mg PO once daily 5. Ideally Eliquis therapy resumption is indicated considering the above-noted high stroke risk, [id number] score of 5, but to be deferred considering the above-noted presentation with recurrent falls, closed head trauma and presence of anemia as an alternative consideration for left atrial appendage closer device implantation/Watchman device may be considered if agreeable as outpatient 6. Correction of anemia. Follow CBC 7. Correction of hypokalemia. Monitor BMP Further plans are to follow Juan Carlos Denny MD
[2019-04-07 09:48] LABS: BASO % 0.6 % (0-2.0); EOS % 0.6 % (0-4.5); HEMATOCRIT 25.8 % (32.4-45.2); HEMOGLOBIN 8.3 GM/dL (10.7-15.3); LYMPH % 27.7 % (8-40); MCH 28.2 pg (25.7-33.7); MCHC 32.1 g/dl (32.0-36.0); MEAN CELL VOLUME 87.6 fl (80-96); MEAN PLT VOLUME 7.6 fl (7.5-11.1); MONO % 8.6 % (3.8-10.2); NEUT % 62.5 % (42.8-82.8); PLATELET COUNT 424 K/MM3 (134-434); RBC 2.94 M/mm3 (3.60-5.2); RDW 17.7 % (11.6-15.6); WHITE BLOOD COUNT 5.5 K/mm3 (4.0-10.0)
[2019-04-07] MEDS: POTASSIUM CHLORIDE TABS 20 MEQ TABLET.ER (FP) PO SCH (10:11)
[2019-04-07] MEDS: levETIRAcetam 500 MG TABLET (FP) PO SCH ×2 (10:11→22:17)
[2019-04-07] MEDS: FUROSEMIDE 20 MG TABLET (FP) PO SCH (10:12)
[2019-04-07] MEDS: metoPROLOL SUCCINATE 25 MG TAB.SR.24H (FP) PO SCH (10:12)
[2019-04-07] MEDS: PANTOPRAZOLE 20 MG TABLET (FP) PO SCH (10:12)
[2019-04-07] MEDS: IRON SUCROSE INJECTION 200 MG in SODIUM CHLORIDE 90 ML IVPB SCH (10:13)
[2019-04-07 10:15] LABS: BLOOD UREA NITROGEN 10.6 mg/dL (7-18); CALCIUM 8.9 mg/dL (8.5-10.1); CREATININE 0.8 mg/dL (0.55-1.3); POTASSIUM 3.8 mmol/L (3.5-5.1)
--- NOTE | 2019-04-07 10:18 | PN ---
Progress Note (short form) - Note Progress Note: no seizures No distress receiving venofer Vital Signs - 24 hr 04/06/19 04/06/19 04/07/19 21:00 22:00 02:00 Temperature 98.5 F 98 F Pulse Rate 62 60 Respiratory 20 20 20 Rate Blood Pressure 116/62 112/64 O2 Sat by Pulse 99 Oximetry (%) 04/07/19 04/07/19 04/07/19 06:00 10:00 14:00 Temperature 98.1 F 98.7 F 98.3 F Pulse Rate 70 78 75 Respiratory 18 18 Rate Blood Pressure 112/64 130/58 L 108/59 L O2 Sat by Pulse Oximetry (%) Current Medications Generic Name Dose Route Start Last Admin Trade Name Freq PRN Reason Stop Dose Admin Atorvastatin Calcium 10 mg 03/28/19 22:00 04/06/19 21:42 Lipitor - PO 10 mg HS RAJESH Administration Furosemide 20 mg 04/03/19 11:09 04/07/19 10:12 Lasix - PO 20 mg DAILY RAJESH Administration Iron Sucrose 200 mg/ Sodium 100 mls @ 100 mls/hr 04/05/19 10:00 04/07/19 10: 13 Chloride IVPB 04/08/19 09:59 100 mls/hr Q48H RAJESH Administration Potassium Chloride 20 meq/ 1,010 mls @ 42 mls/hr 04/07/19 16:00 04/07/19 16: 20 Dextrose IVPB 42 mls/hr Q24H RAJESH Administration Insulin Aspart 1 vial 03/28/19 16:30 04/07/19 12:11 Novolog Vial Sliding Scale - SQ Not Given TIDAC [facility] Protocol Levetiracetam 750 mg 04/03/19 22:00 04/07/19 10:11 Keppra - PO 750 mg BID RAJESH Administration Metformin HCl 500 mg 03/28/19 16:30 04/07/19 16:20 Glucophage Xr - PO 500 mg BIDI RAJESH Administration Metoprolol Succinate 25 mg 03/29/19 10:00 04/07/19 10:12 Toprol Xl - PO 25 mg DAILY RAJESH Administration Pantoprazole Sodium 20 mg 04/02/19 15:15 04/07/19 10:12 Protonix - PO 20 mg DAILY RAJESH Administration Potassium Chloride 20 meq 03/29/19 10:15 09/29/19 10:11 K-Dur - PO 20 meq DAILY RAJESH Administration Risperidone 0.5 mg 03/30/19 15:15 04/06/19 21:42 Risperdal - PO 0.5 mg HS RAJESH Administration Laboratory Results - last 24 hr 04/07/19 04/07/19 04/07/19 06:03 09:40 09:40 WBC 5.5 RBC 2.94 L Hgb 8.3 L Hct 25.8 L MCV 87.6 MCH 28.2 MCHC 32.1 RDW 17.7 H Plt Count 424 MPV 7.6 Absolute Neuts (auto) 3.4 Neutrophils % 62.5 Lymphocytes % 27.7 D Monocytes % 8.6 Eosinophils % 0.6 D Basophils % 0.6 Nucleated RBC % 0 Sodium 142 Potassium 3.8 Chloride 106 Carbon Dioxide 29 Anion Gap 7 L BUN 10.6 Creatinine 0.8 Est GFR (CKD-EPI)AfAm 85.97 Est GFR (CKD-EPI)NonAf 74.17 POC Glucometer 81 Random Glucose 129 H Calcium 8.9 04/07/19 17:54 WBC RBC Hgb Hct MCV MCH MCHC RDW Plt Count MPV Absolute Neuts (auto) Neutrophils % Lymphocytes % Monocytes % Eosinophils % Basophils % Nucleated RBC % Sodium Potassium Chloride Carbon Dioxide Anion Gap BUN Creatinine Est GFR (CKD-EPI)AfAm Est GFR (CKD-EPI)NonAf POC Glucometer 98 Random Glucose Calcium awake and alert S1 S2 RRR lungs clear Abd- soft, NT edema+ PLAN -- HB better - receiving venofer -- total 5 doses -- 3 so far -- no seizures -- Ativan as needed for seizures -- Stool guaic negative -- Hematology eval noted -- continue with tele monitoring Problem List - Problems (1) Fall Code(s): W19.XXXA - UNSPECIFIED FALL, INITIAL ENCOUNTER Qualifiers: Encounter type: initial encounter Qualified Code(s): W19.XXXA - Unspecified fall, initial encounter (2) Syncope Code(s): R55 - SYNCOPE AND COLLAPSE Qualifiers: Syncope type: unspecified Qualified Code(s): R55 - Syncope and collapse (3) Anemia Code(s): D64.9 - ANEMIA, UNSPECIFIED (4) Atrial fibrillation Code(s): I48.91 - UNSPECIFIED ATRIAL FIBRILLATION Qualifiers: Atrial fibrillation type: paroxysmal Qualified Code(s): I48.0 - Paroxysmal atrial fibrillation (5) CAD (coronary artery disease) Code(s): I25.10 - ATHSCL HEART DISEASE OF [place] CORONARY ARTERY W/O ANG PCTRS Qualifiers: Coronary Disease-Associated Artery/Lesion type: [place] artery [place] vs. transplanted heart: [place] heart Associated angina: without angina Qualified Code(s): I25.10 - Atherosclerotic heart disease of [place] coronary artery without angina pectoris (6) HTN (hypertension) Code(s): I10 - ESSENTIAL (PRIMARY) HYPERTENSION Qualifiers: Hypertension type: essential hypertension Qualified Code(s): I10 - Essential (primary) hypertension
[2019-04-07] MEDS: POTASSIUM CHLORIDE 20 MEQ in DEXTROSE 5%-WATER - 1,000 ML IVPB SCH (13:01)
[2019-04-07] MEDS ORDERED: POTASSIUM CHLORIDE 20 MEQ in DEXTROSE 5%-WATER - 1,000 ML IVPB SCH (16:00)
[2019-04-07] MEDS: POLYETHYLENE GLYCOL 3350 119 GM BTL PO SCH (17:59)
[2019-04-07] MEDS: risperiDONE 0.5 MG TABLET (FP) PO SCH (22:17)
[2019-04-07] MEDS: ATORVASTATIN CA 10 MG TABLET (FP) PO SCH (22:17)
[2019-04-08] MEDS: INSULIN SLIDING SCALE (NOVOLOG) 1 VIAL SQ SCH ×2 (06:52→12:12)
[2019-04-08 07:41] LABS: BLOOD UREA NITROGEN 10.8 mg/dL (7-18); CALCIUM 8.7 mg/dL (8.5-10.1); CREATININE 0.8 mg/dL (0.55-1.3)
[2019-04-08 07:41] LABS: HEMATOCRIT 24.9 % (32.4-45.2); HEMOGLOBIN 8.3 GM/dL (10.7-15.3); MCH 28.8 pg (25.7-33.7); MCHC 33.2 g/dl (32.0-36.0); MEAN CELL VOLUME 86.6 fl (80-96); MEAN PLT VOLUME 8.2 fl (7.5-11.1); PLATELET COUNT 391 K/MM3 (134-434); RBC 2.88 M/mm3 (3.60-5.2); RDW 17.5 % (11.6-15.6); WHITE BLOOD COUNT 5.5 K/mm3 (4.0-10.0)
--- NOTE | 2019-04-08 09:40 | PN ---
Progress Note, Physician Chief Complaint: Events noted Not in distress History of Present Illness: Patient was seen and examined. Awake. Chart was reviewed Denies chest pain, SOB or palpitations - Current Medication List Current Medications: Active Medications Atorvastatin Calcium (Lipitor -) 10 mg PO HS [facility] Last Admin: 04/07/19 22:17 Dose: 10 mg Furosemide (Lasix -) 20 mg PO DAILY [facility] Last Admin: 04/07/19 10:12 Dose: 20 mg Iron Sucrose 200 mg/ Sodium (Chloride) 100 mls @ 100 mls/hr IVPB Q48H [facility] Stop: 04/08/19 09:59 Last Admin: 04/07/19 10:13 Dose: 100 mls/hr Potassium Chloride 20 meq/ (Dextrose) 1,010 mls @ 42 mls/hr IVPB Q24H [facility] Last Admin: 04/07/19 16:20 Dose: 42 mls/hr Insulin Aspart (Novolog Vial Sliding Scale -) 1 vial SQ TIDAC [facility]; Protocol Last Admin: 04/08/19 06:52 Dose: Not Given Levetiracetam (Keppra -) 750 mg PO BID [facility] Last Admin: 04/07/19 22:17 Dose: 750 mg Metformin HCl (Glucophage Xr -) 500 mg PO BIDI [facility] Last Admin: 04/08/19 06:52 Dose: Not Given Metoprolol Succinate (Toprol Xl -) 25 mg PO DAILY [facility] Last Admin: 04/07/19 10:12 Dose: 25 mg Pantoprazole Sodium (Protonix -) 20 mg PO DAILY [facility] Last Admin: 04/07/19 10:12 Dose: 20 mg Polyethylene Glycol (Miralax (For Daily Use) -) 17 gm PO DAILY [facility] Last Admin: 04/07/19 17:59 Dose: 17 gm Potassium Chloride (K-Dur -) 20 meq PO DAILY [facility] Last Admin: 04/07/19 10:11 Dose: 20 meq Risperidone (Risperdal -) 0.5 mg PO HS [facility] Last Admin: 04/07/19 22:17 Dose: 0.5 mg - Objective Vital Signs: Vital Signs Temperature 98.9 F 04/08/19 06:00 Pulse Rate 63 04/08/19 06:00 Respiratory Rate 18 04/08/19 06:00 Blood Pressure 124/72 04/08/19 06:00 O2 Sat by Pulse Oximetry (%) 100 04/07/19 21:00 Eyes: Yes: PERRL HENT: Yes: Atraumatic Neck: Yes: Supple Cardiovascular: Yes: Regular Rate and Rhythm, S1, S2 Respiratory: Yes: CTA Bilaterally Gastrointestinal: Yes: Normal Bowel Sounds, Soft. No: Tenderness Edema: No Additional Findings/Remarks: - Review of Systems Constitutional: denies: Chills, Fever Cardiovascular: denies Chest Pain. denies: Palpitations, Shortness of Breath Respiratory: denies: Cough, Hemoptysis, Orthopnea, PND, SOB, SOB on Exertion Gastrointestinal: denies: Abdominal Pain, Constipation, Diarrhea, Melena, Nausea , Rectal Bleeding, Vomiting Neurological: denies Dizziness, Headache. denies: Seizure, Syncope Labs: CBC, BMP 04/08/19 06:35 04/08/19 06:00 Problem List - Problems (1) Fall Code(s): W19.XXXA - UNSPECIFIED FALL, INITIAL ENCOUNTER Qualifiers: Encounter type: initial encounter Qualified Code(s): W19.XXXA - Unspecified fall, initial encounter (2) Hypokalemia Code(s): E87.6 - HYPOKALEMIA (3) Seizure disorder as sequela of cerebrovascular accident Code(s): I69.398 - OTHER SEQUELAE OF CEREBRAL INFARCTION; G40.909 - EPILEPSY, UNSP, NOT INTRACTABLE, WITHOUT STATUS EPILEPTICUS (4) Acute respiratory failure with hypercapnia Code(s): J96.02 - ACUTE RESPIRATORY FAILURE WITH HYPERCAPNIA (5) Anemia Code(s): D64.9 - ANEMIA, UNSPECIFIED (6) Atrial fibrillation Code(s): I48.91 - UNSPECIFIED ATRIAL FIBRILLATION Qualifiers: Atrial fibrillation type: paroxysmal Qualified Code(s): I48.0 - Paroxysmal atrial fibrillation (7) CAD (coronary artery disease) Code(s): I25.10 - ATHSCL HEART DISEASE OF [place] CORONARY ARTERY W/O ANG PCTRS Qualifiers: Coronary Disease-Associated Artery/Lesion type: [place] artery [place] vs. transplanted heart: [place] heart Associated angina: without angina Qualified Code(s): I25.10 - Atherosclerotic heart disease of [place] coronary artery without angina pectoris (8) Head injury Code(s): S09.90XA - UNSPECIFIED INJURY OF HEAD, INITIAL ENCOUNTER (9) History of percutaneous coronary intervention Code(s): Z98.89 - OTHER SPECIFIED POSTPROCEDURAL STATES * DO NOT USE * (10) Hyperlipidemia Code(s): E78.5 - HYPERLIPIDEMIA, UNSPECIFIED Qualifiers: Hyperlipidemia type: pure hypercholesterolemia Qualified Code(s): E78.00 - Pure hypercholesterolemia, unspecified (11) Diabetes Code(s): E11.9 - TYPE 2 DIABETES MELLITUS WITHOUT COMPLICATIONS Qualifiers: Diabetes mellitus type: type 2 Diabetes mellitus long term care administrator insulin use: without retirement use Diabetes mellitus complication status: without complication Qualified Code(s): E11.9 - Type 2 diabetes mellitus without complications (12) Left ventricular diastolic dysfunction Code(s): I51.9 - HEART DISEASE, UNSPECIFIED Assessment/Plan 1. Altered mental status and recurrent seizures 2. Mechanical fall with closed head trauma 3. Probable coronary artery disease, angina pectoris 4. Diastolic left ventricular dysfunction with clinical class 0 [place] Heart Association classification left ventricular failure 5. Paroxysmal atrial fibrillation currently in sinus rhythm [id number] score of 5 currently off DOAC/Eliquis therapy 6. 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 Diabetes mellitus 8. Hypercholesterolemia 9. 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 COPD 11. Persistence Hypokalemia 12. Anemia iron deficiency, myelosuppression from chemotherapy, chronic disease , h/o PUD, EGD unrevealing for bleeding source PLAN: 1. Continue Toprol-XL 25 mg QD as tolerated 2. Resumption of BETTINA inhibitor therapy/Lisinopril or angiotensin receptor vineet(ARB) therapy unless it is contraindicated 3. Continue Lipitor 10 mg QHS 4. Lasix 20 mg PO once daily and monitor renal function and electrolytes 5. Ideally Eliquis therapy resumption is indicated considering the above-noted high stroke risk, [id number] score of 5, but to be deferred considering the above-noted presentation with recurrent falls, closed head trauma and presence of anemia as an alternative consideration for left atrial appendage closer device implantation/Watchman device may be considered if agreeable as outpatient 6. Correction of anemia. Follow CBC Further plans are to follow Juan Carlos Denny MD
[2019-04-08] MEDS: POTASSIUM CHLORIDE TABS 20 MEQ TABLET.ER (FP) PO SCH (10:38)
[2019-04-08] MEDS: PANTOPRAZOLE 20 MG TABLET (FP) PO SCH (10:38)
[2019-04-08] MEDS: metoPROLOL SUCCINATE 25 MG TAB.SR.24H (FP) PO SCH (10:39)
[2019-04-08] MEDS: POLYETHYLENE GLYCOL 3350 119 GM BTL PO SCH (10:39)
[2019-04-08] MEDS: FUROSEMIDE 20 MG TABLET (FP) PO SCH (10:39)
[2019-04-08] MEDS: levETIRAcetam 500 MG TABLET (FP) PO SCH (10:39)
[2019-04-08] MEDS ORDERED: PT OWN MED DRAWER 7, Y5N ONE (10:54)
--- NOTE | 2019-04-08 11:53 | DS ---
Physical Examination Vital Signs: Vital Signs Temperature 98.9 F 04/08/19 06:00 Pulse Rate 63 04/08/19 06:00 Respiratory Rate 18 04/08/19 06:00 Blood Pressure 124/72 04/08/19 06:00 O2 Sat by Pulse Oximetry (%) 100 04/07/19 21:00 Findings/Remarks: comfortable no complains chart reviewed all f/u noted Constitutional: Yes: No Distress, Calm Eyes: Yes: Conjunctiva Clear Neck: Yes: Supple Cardiovascular: Yes: Regular Rate and Rhythm. No: Pulse Irregular Respiratory: Yes: Diminished Gastrointestinal: Yes: Soft Edema: No Neurological: Yes: Alert Psychiatric: Yes: Alert Labs: CBC, BMP 04/08/19 06:35 04/08/19 06:00 Discharge Summary Problems reviewed: Yes Reason For Visit: SYNCOPE,HEAD INJURY Current Active Problems Fall (Acute) Hypokalemia (Acute) Left rib fracture (Acute) Seizure disorder as sequela of cerebrovascular accident (Acute) Syncope (Acute) Hospital Course: Admission note 73F with a PMH of dementia, COPD, HLD, chronic atrial fibrillation, GERD, iron deficiency anemia, HTN, DM, seizure disorder, recently discharged from our facility for syncope, presents to the ER after having a syncopal episode. The patient states that the last thing she remembers is waking up on the ground. She states that she syncopized last week. She is unsure if she had any CP, SOB, palpitations, lightheadedness before the fall. CREDIT CARD ANALYST, Ms. Hernandez, cleaned her and then she was on the floor. Last seen at 540 AM but CREDIT CARD ANALYST. Ms. Bello, day RN, states that the patient likes to get up out of bed and falls d/t unsteady gait. Ms. Lewis, overnight RN, states that the patient normally can ambulate short distances but usually uses a wheelchair d/t ataxia. pt admitted to tele cardiology/ neurology followed pt had seizure on floor-- started on keppra ct head- no acute changes Eliquis d/c ed 2 to frequent falls / anemia got 5 doses of venofer also guiac -ve EGD also done Hematology also followed for anemia pt now stable for d/c back to [facility] fall precautions outpt f/u with gi/ hematology and cardiology Meds reconcilled T[place] does of Resperidone d/w Rn also Will follow in [facility] Condition stable but gaurded Condition: Guarded - Instructions Disposition: SNF FACILITY - Home Medications Comprehensive Discharge Medication List: Ambulatory Orders Ferrous Sulfate 325 mg PO DAILY 12/12/16 Atorvastatin Ca [Lipitor] 10 mg PO HS #30 tablet 12/18/16 Furosemide [Lasix -] 40 mg PO DAILY #30 tablet 12/18/16 Ergocalciferol (Vitamin D2) [Vitamin D2] 50,000 unit PO WEEKLY 03/09/18 Famotidine [Pepcid] 20 mg PO DAILY #14 tablet 04/26/18 Mag Hydrox/Al Hydrox/Simeth [MAALOX *SUSPENSION* -] 30 ml PO Q6H #1 bottle 04/26 Metformin HCl [Metformin HCl ER] 500 mg PO BID 03/23/19 Metoprolol Succinate [Toprol Xl] 25 mg PO DAILY 03/23/19 Acetaminophen 650 mg PO Q6H 03/28/19 Albuterol 2.5/Ipratropium 0.5 [Duoneb -] 1 amp NEB Q12H 03/28/19 Ascorbic Acid [Vitamin C -] 500 mg PO DAILY 03/28/19 Insulin Sliding Scale [Novolog Vial Sliding Scale -] 1 vial SQ TIDAC units Polyethylene Glycol 3350 [Miralax 119 gm Btl -] 17 gm PO DAILY bottle 04/08/19 Potassium Chloride [K-Dur -] 20 meq PO DAILY tablet.er 04/08/19 Risperidone [Risperdal -] 0.5 mg PO HS tablet 04/08/19 levETIRAcetam [Keppra -] 750 mg PO BID tablet 04/08/19
[2019-04-08 14:42] VITALS: BP 128/77; PULSE 64; TEMP 98
--- NOTE | 2019-04-09 14:01 | PATH ---
Surgical Pathology Report Patient Name: GI GAMEZ [facility]. Rec. #: [id number] /Age/Gender: 1945 (Age: 73) / F Account: [id number] Location: 4 W TELEMETRY U Taken: 04/04/2019 Received: 04/04/2019 Reported: 04/09/2019 Physicians: Gnozalo Casiano D.O. Specimen(s) Received BX ANTRAL NODULE Clinical History Anemia Postoperative diagnosis: Antral nodule Final Diagnosis ANTRAL NODULE BIOPSY, R/O GIST: GASTRIC MUCOSA WITH MILD CHRONIC GASTRITIS AND REACTIVE GASTROPATHY. IMMUNOSTAIN FOR H. PYLORI IS NEGATIVE. NEGATIVE FOR INTESTINAL METAPLASIA. ONE MINUTE PORTION OF SMOOTH MUSCLE. SEE COMMENT. Comment: Immunohistochemistry stains performed at [place], [place] ([id number]) and interpreted at [facility] showed the minute portion of smooth muscle are positive for SMA while negative for Gastrointestinal stromal tumor (GIST) markers CD 117 and DOG-1. Suggest clinical correlation. Positive and negative controls (internal if applicable) show appropriate results. Electronically Signed Mariana Olson M.D. Gross Description Received in formalin, labeled "antrum nodule" is a mcpherson, irregular portion of soft tissue measuring 0.3 cm. in greatest dimension. The specimen is submitted in toto in one cassette. ERNST/04/04/2019 camilla/04/04/2019
== END 2019-04-08 14:38 | DRG 57 ==
LOC: JER 07:06 → JERBED 10:29 → J4W 18:36
PROVIDERS: ADMIT Internal Medicine; ATTEND Internal Medicine
PROC: 0DB68ZX Excision of Stomach, Via Natural or Artificial Opening Endoscopic, Diagnostic (ICD-10-PCS; principal; 2019-04-04 10:15)
DX: I69.393 Ataxia following cerebral infarction (principal); S22.32XA Fracture of one rib, left side, initial encounter for closed fracture; I50.30 Unspecified diastolic (congestive) heart failure; D64.81 Anemia due to antineoplastic chemotherapy; I69.398 Other sequelae of cerebral infarction; J44.9 Chronic obstructive pulmonary disease, unspecified; E78.5 Hyperlipidemia, unspecified; F03.90 Unspecified dementia, unspecified severity, without behavioral disturbance, psychotic disturbance, mood disturbance, and anxiety; K21.9 Gastro-esophageal reflux disease without esophagitis; I10 Essential (primary) hypertension; I11.0 Hypertensive heart disease with heart failure; E11.9 Type 2 diabetes mellitus without complications; D50.9 Iron deficiency anemia, unspecified; K57.90 Diverticulosis of intestine, part unspecified, without perforation or abscess without bleeding; D50.0 Iron deficiency anemia secondary to blood loss (chronic); G40.909 Epilepsy, unspecified, not intractable, without status epilepticus; D64.9 Anemia, unspecified; I25.10 Atherosclerotic heart disease of native coronary artery without angina pectoris; K44.9 Diaphragmatic hernia without obstruction or gangrene; C50.912 Malignant neoplasm of unspecified site of left female breast; M54.5 Low back pain; I48.0 Paroxysmal atrial fibrillation; E87.6 Hypokalemia; R26.81 Unsteadiness on feet; I27.20 Pulmonary hypertension, unspecified; E66.8 Other obesity; Z68.32 Body mass index [BMI] 32.0-32.9, adult; F25.9 Schizoaffective disorder, unspecified; Z79.01 Long term (current) use of anticoagulants; W18.30XA Fall on same level, unspecified, initial encounter; Z96.659 Presence of unspecified artificial knee joint
CPT/HCPCS: 36415; 70450-TC; 70486-TC; 70552-TC; 71045-TC-FY; 71250-TC; 72125-TC; 72170-TC-FY; 72192-TC; 73562-TC-RT-FY; 80048; 80053; 80177; 80201; 81003; 82272; 82550; 82728; 82962; 83540; 83550; 83735; 83880; 84100; 84484; 85025; 85027; 85610; 85730; 86850; 86900; 86901; 87086; 87186; 88305-TC; 93005; 93010; 93306-TC; 93880-TC; 96361; 96365; 96375; 97116-GP; 97161-GP; 99284-25; 99285-25; A9579; G0378; J0131; J1756; J2794; J7030